=== PATIENT | female | born 1950 | race Caucasian/White ===

== ENCOUNTER 2022-04-29 07:20 | Day surgery (SDC) | payer MEDICARE, OTHER, SELFPAY ==
[2022-04-29 07:50] VITALS: BP 168/69; PULSE 70; RESP 16; TEMP 36.4; O2SAT 97; BMI 31.3
[2022-04-29 08:29] LABS: INTERNATIONAL NORM RATIO 1.2 (0.9-1.1); Prothrombin Time 14.1 SEC (10.0-13.1)
[2022-04-29] MEDS: Ampicillin Sodium 2 GM in 0.9 % Sodium Chloride 100 ML IV (08:45)
[2022-04-29 08:59] LABS: Glucose, Whole Blood 130 mg/dL (60-115)
--- NOTE | 2022-04-29 09:00 | HO.ANESPROP2 ---
HPI - Anesthesia Eval Consult details Narrative: for ho polyp PMFSH Active Problems Active Problems: All Active Problems (Updated 04/28/22 @ 11:01 by Noemi Rouse RN) Somatic dysfunction of left sacroiliac joint (Acute) Past Medical History Medical History (Updated 04/28/22 @ 11:01 by Noemi Rouse, SERENA) Asthma Breast cancer, left CHF (congestive heart failure) DM (diabetes mellitus) DVT (deep venous thrombosis) Kidney stones Pacemaker Uterine cancer Family History Family history of problems with anesthesia: No Surgical History Surgical History (Updated 04/28/22 @ 11:01 by Noemi Rouse, SERENA) Aortic valve prosthesis present History of lumpectomy of left breast History of total abdominal hysterectomy History of Problems with Anesthesia: No Social History Social History Patient Tobacco Use Status: Never used Tobacco Use of substances other than those prescribed or required for medical reasons: No Advance Directives: No Advance Directives Information Provided: Yes Recently lost weight without trying: No Meds Allergies Allergy/AdvReac Type Severity Reaction Status Date / Time adhesive tape Allergy Rash Verified 04/29/22 08:49 Active Medications: Current Medications Sodium Biphosphate/Sodium Phosphate (Sodium Phosphate,[place]-Dibasic 133 Ml Enema) 133 ml NE ONCE PRN PRN Reason: Poor Colonoscopy Prep Results Home Medications Medication Instructions Recorded Confirmed Last Taken Type fenofibrate nanocrystallized 145 145 mg PO DAILY 10/30/20 Unknown History mg tablet furosemide 20 mg tablet 20 mg PO PRN swelling 10/30/20 Unknown History hydrochlorothiazide 12.5 mg capsule 12.5 mg PO DAILY 10/30/20 Unknown History irbesartan 300 mg tablet 300 mg PO DAILY 10/30/20 Unknown History simvastatin 20 mg tablet 20 mg PO BEDTIME 10/30/20 Unknown History tavaborole 5 % topical solution 0.05 ml topical DAILY 10/30/20 Unknown History with applicator warfarin 2.5 mg tablet (Jantoven) mg PO 10/30/20 Unknown History albuterol sulfate 90 mcg/actuation inhalation 04/28/22 Unknown History aerosol inhaler enoxaparin 80 mg/0.8 mL mg 04/28/22 Unknown History subcutaneous syringe glucosamine sulfate 500 mg tablet 500 mg PO TID 04/28/22 04/28/22 Unknown History (Glucosamine) loratadine 10 mg tablet 10 mg PO DAILY 04/28/22 04/28/22 Unknown History omega 8-zxh-mma-fish oil 1,000 mg 1 cap PO DAILY 04/28/22 04/28/22 Unknown History (120 mg-180 mg) capsule (Fish Oil) warfarin 2.5 mg tablet (Jantoven) mg 04/28/22 Unknown History Exam Exam Date and Time: April 29, 2022 0900 Height,Weight and Vital Signs: Height 5 ft 3 in Weight 80.286 kg Last Vital Signs Temp 97.6 F 04/29/22 07:50 Pulse 70 04/29/22 07:50 Resp 16 04/29/22 07:50 BP 168/69 H 04/29/22 07:50 Pulse Ox 97 04/29/22 07:50 O2 Del Method 04/29/22 07:50 Pertinent Lab Results Pertinent Lab Results: Laboratory Tests 04/29/22 04/29/22 08:13 08:42 PT 14.1 H INR 1.2 H POC Glucose 130 H Airway Mallampati Class: II TM Dist: >3cm Neck ROM: Full Heart: rr Lungs: cta Assessment and Plan Assessment Anesthesia Assessment: Anesthesia Plan Discussed, Smoking Cess. Discussed and Chart Reviewed Final Anesthetic Review Family History of Problems with Anesthesia: No History of Problems with Anesthesia: No NPO: Yes ASA Class: II Final Preanesthetic Review: No Changes in Pt Med Stat, Meds/Allgs Chart Reviewed, Consent Obtained/Reviewed and Anes Risks/Benef Reviewed Patient Risk: Low Procedure Risk: Low Anesthetic Plan Anesthetic Plan: MAC: Disposition: Standard PACU
[2022-04-29] MEDS: Gentamicin Sulfate/NaCl 80 MG/100 ML PIGGYBACK 100 MG IV (09:03)
[2022-04-29 10:03] VITALS: BP 82/42; PULSE 67; RESP 16; TEMP 36.5; O2SAT 97
[2022-04-29 10:05] VITALS: BP 90/48; PULSE 63; RESP 16; O2SAT 98
--- NOTE | 2022-04-29 10:06 | P.BOP_ITS ---
Brief Operative Note Date of Service: 04/29/22 Pre-op diagnosis: Screening Post-op diagnosis: other (Diverticulosis) Procedure: Colonoscopy to the cecum and TI Surgeon: Giovanni Petersen Anesthesia: MAC Was an Diesel Locomotive Firer/Fireman used for this Procedure?: No Estimated blood loss (mL): 0 Pathology: none sent Condition: stable Disposition: PACU
[2022-04-29 10:17] VITALS: BP 105/48; PULSE 69; RESP 16; O2SAT 96
[2022-04-29 10:35] VITALS: BP 121/56; PULSE 63; RESP 16; TEMP 36.5; O2SAT 98
--- NOTE | 2022-04-29 10:51 | OP_ITS ---
SURGEON: Giovanni Petersen MD INDICATIONS: The patient presents for evaluation of colorectal cancer screening and prior history of tubular adenoma of the colon. Full consent has been obtained from her for this, including risks of bleeding and perforation. PREOPERATIVE DIAGNOSIS: Colorectal cancer screening and personal history of tubular adenoma of the colon. POSTOPERATIVE DIAGNOSIS: PROCEDURE PERFORMED: Colonoscopy to the cecum and terminal ileum. ESTIMATED BLOOD LOSS: COMPLICATIONS: ANESTHESIA: Monitored anesthesia care. ASSISTANTS: SPECIMENS: POSTOPERATIVE DIAGNOSES: Colorectal cancer screening and personal history of tubular adenoma of the colon, internal and external hemorrhoids, diverticulosis. PROCEDURE IN DETAIL: The patient was placed in the left lateral decubitus position. The digital rectal exam revealed external hemorrhoids. The Olympus video pediatric colonoscope was entered into the rectum and advanced easily to the cecum. Once in the cecum, I did identify a normal-appearing cecal pouch with appendiceal orifice and a normal-appearing ileocecal valve. The terminal ileum was cannulated and appeared normal. The scope was withdrawn back in the colon. The entire cecum and ileocecal valve appeared normal. The scope was slowly withdrawn assessing all mucosal surfaces carefully. Preparation was excellent. There was a moderate amount of sigmoid diverticulosis. I did not visualize any sign of colitis, polyps, nor angiodysplasia. In the rectum, the scope was retroflexed visualizing small internal hemorrhoids, but no other pathology. The rectal mucosa appeared normal. The scope was straightened and withdrawn from the patient. She tolerated the procedure well and was returned to the recovery area in stable condition. IMPRESSION: 1. Diverticulosis. 2. Internal and external hemorrhoids. PLAN: I would recommend a repeat colonoscopy in 5 years for further screening and surveillance. She will otherwise see me on a p.r.n. basis. She did receive preprocedure antibiotics in regard to her aortic valve replacement and previous history of endocarditis. She was advised to resume her Coumadin and Lovenox today as her INR was normal. She was advised to speak with either the anticoagulation clinic or her primary care physician regarding adjustment of the Coumadin and Lovenox. This has all been discussed with her . MD KATIA Cruz/CECILIO / [id number]
== END 2022-04-29 10:55 | disposition home or self-care (01) ==
PROVIDERS: PCP Physician Assistant Medical; Visit Provider Internal Medicine
PROC: 0DJD8ZZ Inspection of Lower Intestinal Tract, Via Natural or Artificial Opening Endoscopic (ICD-10-PCS; CPT 45378; principal; 2022-04-29 09:00)
DX: Z12.11 Encounter for screening for malignant neoplasm of colon (principal); Z86.010 Personal history of colon polyps; K57.30 Diverticulosis of large intestine without perforation or abscess without bleeding; K64.8 Other hemorrhoids; K64.4 Residual hemorrhoidal skin tags; J45.909 Unspecified asthma, uncomplicated; I11.0 Hypertensive heart disease with heart failure; I50.9 Heart failure, unspecified; Z95.2 Presence of prosthetic heart valve; E11.9 Type 2 diabetes mellitus without complications; Z79.51 Long term (current) use of inhaled steroids; Z79.899 Other long term (current) drug therapy; Z85.3 Personal history of malignant neoplasm of breast; Z85.42 Personal history of malignant neoplasm of other parts of uterus; Z86.718 Personal history of other venous thrombosis and embolism
CPT/HCPCS: G0105; 36415; 82947; 85610; J0290; J1580

== ENCOUNTER 2022-06-21 13:40 | Emergency (ER) | payer MEDICARE, OTHER, SELFPAY ==
--- NOTE | ~2022-06-21 | CT_ITS ---
EXAMINATION: CT brain and CT cervical spine without contrast. CLINICAL INDICATIONS: Fall and head strike. TECHNIQUE: 5 mm thin axial and reformatted 2 mm thin sagittal and coronal images of brain were obtained without contrast. Subsequently axial 3 mm thin and reformatted 2 mm thin sagittal and coronal images of cervical spine were obtained without contrast. DLP [id number]. This CT examination was performed using dose optimization technique as appropriate, variously including the following: Automated exposure control Adjustment of MA and/or KV according to patient size(this includes techniques or standardized protocols for targeted exams where dose is matched to indication/reason for exam; extremities or head. Use of iterative reconstruction techniques. FINDINGS: Brain: There is no acute intra-axial, extra-axial bleed, masses or midline shift. 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 There is no edema. Jeronimo to moderate matter difference is maintained normal. The lateral ventricles are symmetrical and unremarkable. Bone windows reveal no calvarial abnormality. No scalp soft tissue abnormality seen. Bilateral paranasal sinuses and mastoid air cells are well-aerated. Cervical spine: There is mild thinning of cervical lordosis. There is loss of C5-C6 and C7-T1 disc heights. The craniovertebral junction and the C1-C2 alignment is normal. No visible acute fracture, dislocation or subluxation seen. There is bilateral C3-C4, left C4-C5 and C5-C6 facet joint arthropathy. Mild cervical spondylosis seen at the C5-C6, C6-C7 and C7-T1 disc levels. The craniovertebral junction and the C1-C2 alignment is normal. CT/CT cervical spine wo IV con IMPRESSION: 1. No acute intracranial process seen. 2. 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 3. No acute fracture, dislocation or subluxation seen in cervical spine. 4. Degenerative disc changes C5-C6 and C7-T1 disc levels with mild spondylosis.
--- NOTE | 2022-06-21 13:48 | ED.HEATRA ---
HPI - Head Injury General Chief complaint: Fall <KRYSTEN Motley - Last Filed: 06/21/22 13:51> Stated complaint: Fall/Hit head on coumadin <KRYSTEN Motley - Last Filed: 06/21/22 13:51> Time Seen by Provider: 06/21/22 16:28 <KRYSTEN Motley - Last Filed: 06/21/22 13:51> Source: patient <Lali Ugalde MD - Last Filed: 06/21/22 17:17> Mode of arrival: ambulatory <Lali Ugalde MD - Last Filed: 06/21/22 17:17> History of Present Illness HPI Narrative: 71-year-old female who is on Coumadin for heart valve and DVT comes in for scans of head after she fell on Monday while in [place]. She did hit her head and states that she broke her glasses but denies any loss of consciousness. She reports that she tripped while carrying the ham. Today she states that she was encouraged to follow-up at the ER by her primary care provider but denies any concerns and denies any family concerns for any speech, ambulation or interaction deficits. <Lali Ugalde MD - Last Filed: 06/21/22 17:17> Related Data Home medications: Home Medications Medication Instructions Recorded Confirmed fenofibrate nanocrystallized 145 145 mg PO DAILY 10/30/20 mg tablet furosemide 20 mg tablet 20 mg PO PRN swelling 10/30/20 hydrochlorothiazide 12.5 mg capsule 12.5 mg PO DAILY 10/30/20 irbesartan 300 mg tablet 300 mg PO DAILY 10/30/20 simvastatin 20 mg tablet 20 mg PO BEDTIME 10/30/20 tavaborole 5 % topical solution 0.05 ml topical DAILY 10/30/20 with applicator warfarin 2.5 mg tablet (Jantoven) mg PO 10/30/20 albuterol sulfate 90 mcg/actuation inhalation 04/28/22 aerosol inhaler enoxaparin 80 mg/0.8 mL mg 04/28/22 subcutaneous syringe glucosamine sulfate 500 mg tablet 500 mg PO TID 04/28/22 04/28/22 (Glucosamine) loratadine 10 mg tablet 10 mg PO DAILY 04/28/22 04/28/22 omega 7-quu-yri-fish oil 1,000 mg 1 cap PO DAILY 04/28/22 04/28/22 (120 mg-180 mg) capsule (Fish Oil) warfarin 2.5 mg tablet (Jantoven) mg 04/28/22 Previous Rx's Medication Instructions Recorded prednisone 20 mg tablet 20 mg PO .COMPLEX #18 tabs 10/30/20 <KRYSTEN Motley - Last Filed: 06/21/22 13:51> Allergies/Adverse reactions: Allergies Allergy/AdvReac Type Severity Reaction Status Date / Time adhesive tape Allergy Rash Verified 04/29/22 08:49 <KRYSTEN Motley - Last Filed: 06/21/22 13:51> Review of Systems Review of Systems: Pertinent positives and negatives as stated in HPI <Lali Ugalde MD - Last Filed: 06/21/22 17:17> [facility] Past Medical History Source: nursing notes reviewed <Lali Ugalde MD - Last Filed: 06/21/22 17:17> Medical History: Medical History Asthma Breast cancer, left CHF (congestive heart failure) DM (diabetes mellitus) DVT (deep venous thrombosis) Kidney stones Pacemaker Uterine cancer <KRYSTEN Motley - Last Filed: 06/21/22 13:51> Surgical History: Surgical History Aortic valve prosthesis present History of lumpectomy of left breast History of total abdominal hysterectomy <KRYSTEN Motley - Last Filed: 06/21/22 13:51> Social History Social History: Social History Patient Tobacco Use Status: Never used Tobacco Advance Directives: No Advance Directives Information Provided: Yes <KRYSTEN Motley - Last Filed: 06/21/22 13:51> Physical Exam Vital Signs: Vital Signs: Last Vital Signs Temp 98 F 06/21/22 13:49 Pulse 65 06/21/22 13:49 Resp 18 06/21/22 13:49 BP 185/76 H 06/21/22 13:49 Pulse Ox 98 06/21/22 13:49 O2 Del Method Room Air 06/21/22 13:49 BMI result Body Mass Index 30.2 <KRYSTEN Motley - Last Filed: 06/21/22 13:51> Vital Signs: Last Vital Signs Temp 98 F 06/21/22 13:49 Pulse 65 06/21/22 13:49 Resp 18 06/21/22 13:49 BP 185/76 H 06/21/22 13:49 Pulse Ox 98 06/21/22 13:49 O2 Del Method Room Air 06/21/22 13:49 BMI result Body Mass Index 30.2 VITAL SIGNS: Reviewed. GENERAL: Well developed, well nourished, in no acute distress. HEAD: Normocephalic/atraumatic, tenderness to palpation to the left parietal but no obvious contusions/hematoma EYES: PERRLA, EOMI EARS: Ext canals without abnormality OROPHARYNX: no oral lesions noted, posterior pharynx clear NECK: Supple, no adenopathy LUNGS: Normal breath sounds. No adventitious sounds or accessory muscle use. SpO2<98> CARDIOVASCULAR: Regular rate and rhythm without noted murmurs ABDOMEN: Soft, non-tender, non-distended with bowel sounds. MUSCULOSKELETAL: No tenderness, deformities, or effusions noted on gross inspection. EXTREMITIES: No cyanosis, clubbing or edema. SKIN: Inspection of the skin reveals no rashes, small bruise to inner aspect of right upper extremity, small bruises to bilateral knees NEUROLOGIC: Alert and oriented x 4. Strength and sensation to light touch were grossly intact x 4, no facial asymmetry, no pronator drift, cranial nerves 2-12 are grossly intact, ambulation without ataxia. 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 No LOC. Denies GÓMEZ, N/V, weakness HTNsive, NAD, ambulating w/steady gait Head/C-spine CT ordered <KRYSTEN Motley - Last Filed: 06/21/22 13:51> Medical Decision Making Medical Decision Making MDM Narrative: 71-year-old female with history and clinical presentation for request of imaging studies due to a fall sustained 2 days ago while on chronic anticoagulation. There are no focal deficits there are no concerns for hematomas, expanding hematomas or significant contusions. I reviewed all imaging studies in my interpretation is in agreement with radiology's impression. All results discussed with patient at bedside she was discharged home. <Lali Ugalde MD - Last Filed: 06/21/22 17:17> Differential Diagnosis Please see the discussion above <Lali Ugalde MD - Last Filed: 06/21/22 17:17> Radiology Impression Radiologist Impression: My interpretation is in agreement with radiology's impression of the imaging studies. <Lali Ugalde MD - Last Filed: 06/21/22 17:17> External Record Review External record reviewed: Prior outpatient labs <Lali Ugalde MD - Last Filed: 06/21/22 17:17> Discharge Plan Discharge Clinical Impression: Fall, Chronic anticoagulation <KRYSTEN Motley - Last Filed: 06/21/22 13:51> Patient Disposition: Home, Self-Care <KRYSTEN Motley - Last Filed: 06/21/22 13:51> Instructions: Fall Prevention for Older Adults (ED) <KRYSTEN Motley - Last Filed: 06/21/22 13:51> Additional Instructions: 1. Resume all home medications. 2. Please follow-up with your primary care provider. Do not hesitate to return to the emergency room should you experience headaches, double/blurry vision, weakness on 1 side of your body or slurred speech. <KRYSTEN Motley - Last Filed: 06/21/22 13:51> Prescriptions: No Action warfarin [Jantoven] 2.5 mg tablet glucosamine sulfate [Glucosamine] 500 mg Tablet 500 mg PO TID Rx Instructions: administer with meals albuterol sulfate 90 mcg/actuation HFA aerosol inhaler INHALATION loratadine 10 mg Tablet 10 mg PO DAILY enoxaparin 80 mg/0.8 mL syringe omega 1-wnc-xxk-fish oil [Fish Oil] 1,000 mg (120 mg-180 mg) Capsule 1 cap PO DAILY prednisone 20 mg tablet 20 mg PO .COMPLEX Qty: 18 0RF Rx Instructions: 20 mg PO 3 p.o. daily for 3 days followed by 2 p.o. daily for 3 days followed by 1 p.o. daily for 3 days; <KRYSTEN Motley - Last Filed: 06/21/22 13:51> Referrals: Josue Crain PA [Primary Care Provider] - <KRYSTEN Motley - Last Filed: 06/21/22 13:51>
[2022-06-21 13:49] VITALS: BP 185/76; PULSE 65; RESP 18; TEMP 36.6; O2SAT 98; BMI 30.2
[2022-06-21 17:21] VITALS: BP 158/67; PULSE 71; RESP 16; TEMP 36.6; O2SAT 97
== END 2022-06-21 17:30 | disposition home or self-care (01) ==
PROVIDERS: Emergency Provider Student in an Organized Health Care Education/Training Program; PCP Physician Assistant Medical
DX: S00.93XA Contusion of unspecified part of head, initial encounter (principal); R51.9 Headache, unspecified; M54.2 Cervicalgia; W01.0XXA Fall on same level from slipping, tripping and stumbling without subsequent striking against object, initial encounter; Y93.9 Activity, unspecified; Y92.9 Unspecified place or not applicable; Y99.9 Unspecified external cause status; Z79.899 Other long term (current) drug therapy; Z79.01 Long term (current) use of anticoagulants
CPT/HCPCS: 70450; 72125; 99284

== ENCOUNTER 2024-09-08 18:40 | Inpatient (IN) | payer MEDICARE, OTHER, SELFPAY ==
--- NOTE | ~2024-09-08 | CT_ITS ---
CLINICAL HISTORY: tachycardic, sob, hx PEs CT angiography chest with contrast. 3D Postprocessing. Comparison: None provided Findings: The heart size is enlarged. RV/LV ratio is normal. No pericardial effusion previous sternotomy. Mild atherosclerotic vascular disease with no aneurysm of the thoracic aorta. No acute pulmonary embolus. Bilateral ground-glass opacities and interstitial thickening. No consolidation, pleural effusion or pneumothorax. Thyroid partially imaged. Thoracic esophagus within normal limits. The visualized upper abdomen no acute process No acute fractures. diffuse demineralization and multilevel degenerative changes of the thoracic spine. IMPRESSION: 1. No pulmonary embolus. 2. Cardiomegaly with ground-glass opacities and interstitial thickening, correlate clinically for congestive heart failure. This document has been electronically signed by: Arti Rios MD on 09/09/2024 00:22:49
--- NOTE | ~2024-09-08 | XR_ITS ---
CLINICAL HISTORY: cough, fever r o PNA 2 view chest x-ray Comparison: None provided Findings: The heart is borderline enlarged. Left-sided dual lead ICD. Previous sternotomy. Bilateral interstitial thickening. No consolidation, pleural effusion or pneumothorax. No acute fracture. Degenerative changes of the thoracic spine. IMPRESSION: 1. Borderline cardiac enlargement and bilateral mild interstitial thickening may represent low-grade congestive heart failure. Correlate clinically. This document has been electronically signed by: Arit Rios MD on 09/08/2024 19:57:12
[2024-09-08 18:47] VITALS: BP 117/55; PULSE 107; RESP 16; TEMP 38.1; O2SAT 92; BMI 30.5
--- NOTE | 2024-09-08 18:48 | ED.GENADULT ---
HPI - General Adult General Chief complaint: Fever Stated complaint: low fever, dehydration Time Seen by Provider: 09/08/24 19:13 Related Data Home Medications ?Medication ?Instructions ?Recorded ?Confirmed fenofibrate nanocrystallized 145 145 mg PO BEDTIME 10/30/20 09/09/24 mg tablet furosemide 20 mg tablet 20 mg PO NEEDED PRN swelling 10/30/20 09/09/24 hydrochlorothiazide 12.5 mg capsule 12.5 mg PO DAILY 10/30/20 09/09/24 irbesartan 300 mg tablet 300 mg PO BEDTIME 10/30/20 09/09/24 simvastatin 20 mg tablet 20 mg PO BEDTIME 10/30/20 09/09/24 tavaborole 5 % topical solution 0.05 ml topical DAILY 10/30/20 with applicator warfarin 2.5 mg tablet (Jantoven) mg PO 10/30/20 albuterol sulfate 90 mcg/actuation inhalation 04/28/22 aerosol inhaler enoxaparin 80 mg/0.8 mL mg 04/28/22 subcutaneous syringe glucosamine sulfate 500 mg tablet 1,500 mg PO NEEDED PRN 04/28/22 09/09/24 (Glucosamine) arthritis pain loratadine 10 mg tablet 10 mg PO NEEDED PRN allergies 04/28/22 09/09/24 omega [id number] oil 1,000 mg 1 cap PO DAILY 04/28/22 09/09/24 (120 mg-180 mg) capsule (Fish Oil) warfarin 2.5 mg tablet (Jantoven) 2.5 mg 3XW 04/28/22 09/08/24 warfarin 2.5 mg tablet (Jantoven) 1.25 mg PO BEDTIME 09/09/24 09/09/24 Previous Rx's ?Medication ?Instructions ?Recorded prednisone 20 mg tablet 20 mg PO .COMPLEX #18 tabs 10/30/20 Allergies Allergy/AdvReac Type Severity Reaction Status Date / Time adhesive tape Allergy Rash Verified 09/08/24 18:53 [facility] Past Medical History Medical History Breast cancer, left Uterine cancer DVT (deep venous thrombosis) CHF (congestive heart failure) DM (diabetes mellitus) Kidney stones Asthma Pacemaker Surgical History Aortic valve prosthesis present History of lumpectomy of left breast History of total abdominal hysterectomy Social History Social History Alcohol intake: never Patient Tobacco Use Status: Never used Tobacco Smoked in Last 30 Days: No Use of substances other than those prescribed or required for medical reasons: No Advance Directives: No Advance Directives Information Provided: Yes Do you have a plan to hurt others: No Plan Physical Exam ED Vital Signs: Vital Signs - 24 hr 09/08/24 18:47 09/08/24 20:06 09/08/24 21:44 Temperature 100.6 F H 99.4 F 98.6 F Pulse Rate 107 H 94 84 Respiratory Rate 16 22 H 25 H Blood Pressure 117/55 L 125/52 L 123/53 L Pulse Oximetry 92 92 96 Oxygen Delivery Method Room Air Nasal Cannula Nasal Cannula Oxygen Flow Rate 2 2 09/09/24 00:27 Temperature 98.6 F Pulse Rate 86 Respiratory Rate 20 Blood Pressure 108/48 L Pulse Oximetry 92 Oxygen Delivery Method Nasal Cannula Oxygen Flow Rate 2 BMI result Body Mass Index 30.5 Course Course Course Narrative: 09/08/24 1848 KRYSTEN Mckeon This is a Rapid Medical Examination (RME) performed by Jovany Hills PA-C in triage. Full HPI, ROS, assessment and treatment plan per primary provider in the Main ED. Hx: 73 yo F hx of aortic valve replacement, pacemaker, on coumadin here for eval of cough, fever, and feeling of being dehydrated/ generally weak. TMAX 104F 2 days ago. took tylenol early this morning. no N/V, SOB. no hx asthma or copd. no O2 at home. normal BM this morning. no urinary sx. PE/vitals: satting 90% on RA, tylenol ordered for temp of 100.6F. Plan: labs, ekg, cxr, UA Medications Administered Discontinued Medications Generic Name Dose Route Start Last Admin Trade Name Freq PRN Reason Stop Dose Admin Acetaminophen 975 mg 09/08/24 18:51 09/08/24 18:54 Acetaminophen 325 Mg Tablet PO 09/08/24 18:52 975 mg ONCE ONE Administration Ceftriaxone Sodium 1 gm 09/08/24 19:40 09/08/24 20:04 Ceftriaxone Sodium 1 Gm Vial IVPUSH 09/08/24 19:41 1 gm ONCE ONE Administration Sodium Chloride 2,000 mls @ 999 mls/hr 09/08/24 19:40 09/09/24 00:10 Ns IVCONT 09/08/24 21:40 Infused .Q2H1M ONE Infusion Azithromycin 500 mg/ Sodium 250 mls @ 125 mls/hr 09/08/24 19:40 09/08/24 23:22 Chloride IV 09/08/24 21:39 Infused ONCE ONE Infusion Insulin Human Regular 10 unit 09/08/24 20:52 09/08/24 21:41 Insulin Regular, Human 100 Unit/Ml 10 Ml Vial IVPUSH 09/08/24 20:53 10 unit ONCE ONE Administration Iohexol 65 ml 09/08/24 22:57 09/08/24 22:57 Iohexol 350 Mg/Ml 100 Ml Infus..Btl IV 09/08/24 22:58 65 ml ONCE ONE Administration Medical Decision Making Medical Decision Making MDM Narrative: my interpretation of EKG: atrial sensed ventricular paced rhythm, heart rate 104., left bundle-branch block my interpretation of labs: No significant abnormality in patient's hematology, patient's chemistry shows a glucose of 608, sodium 131 likely secondary to the elevated glucose. INR is 6.7 . Lactic acid within normal limits, BNP 128 patient's urinalysis negative for UTI. Serology negative for influenza RSV and COVID CT negative for PE, ground-glass opacities with interstitial thickening. She has no signs of CHF. However, patient is coughing quite a bit. Likely viral illness. Patient's oxygen saturation drops to 84% on room air. Patient is on 2 L of oxygen Differential Diagnosis Differential Diagnoses: The differential diagnosis associated with the presentation includes ( pneumonia, COVID, RSV, pulmonary embolism, CHF) Admission/Observation Consideration of admission/observation: Escalation of care including admission/observation considered Consult Healthcare Provider Management of the patient was discussed with: Hospitalist Lab Data MDM Lab Attestation statement: I reviewed the patient's lab results. 09/08/24 19:22 09/08/24 19:22 Labs: Lab Results 09/08/24 09/08/24 09/08/24 Range/Units 19:22 19:22 19:22 WBC 9.9 (4.8-10.8) X10*3/uL RBC 4.14 L (4.20-5.50) X10*6/uL Hgb 11.9 L (12.0-16.0) g/dl Hct 34.7 L (37.0-47.0) % MCV 83.8 (80.0-98.0) fL MCH 28.7 (27.0-33.0) pg MCHC 34.3 (31.0-35.0) g/dl RDW 14.4 (11.0-16.0) % Plt Count 183 (160-400) X10*3/uL MPV 11.4 (9.4-12.3) fL Immature Gran % (Auto) 0.5 H (0.0-0.4) % Neut % (Auto) 85.8 H (45-73) % Lymph % (Auto) 5.3 L (20-40) % [place] % (Auto) 8.0 (2-11) % Eos % (Auto) 0.1 (0-4) % Baso % (Auto) 0.3 (0-2) % Lymph # (Auto) 0.5 L (1.2-4.9) X10*3/uL [place] # (Auto) 0.8 (0.1-1.2) X10*3/uL Eos # (Auto) 0.0 (0.0-0.4) X10*3/uL Baso # (Auto) 0.0 (0.0-0.2) X10*3/uL Abs Immat Gran (auto) 0.05 H (0.00-0.03) X10*3/uL Absolute Neuts (auto) 8.5 H (2.0-8.3) x10*3/uL Absolute Nucleated RBC 0.000 (0.0-0.012) X10*3/uL Nucleated RBC % (auto) 0.0 (0.0-0.2) /100WBC PT (10.9-12.4) SEC INR (0.9-1.1) Hold Blue Top SEE NOTE Sodium 131 L (135-145) mmol/L Potassium 3.7 (3.3-5.1) mmol/L Chloride 91 L (96-108) mmol/L Carbon Dioxide 28 (22-29) mmol/L Anion Gap 16 (12-20) BUN 29 H (9-16) mg/dL Creatinine 0.76 (0.5-1.4) mg/dL Estim Creat Clear Calc 64.3 Estimated GFR > 60 POC Glucose (60-115) mg/dL Random Glucose 608 H* (60-115) mg/dL Lactic Acid (0.5-2.0) mmol/L Calcium 10.3 H (8.4-10.2) mg/dL Magnesium 1.8 (1.6-2.6) mg/dL Total Bilirubin 0.5 (0.0-1.0) mg/dL AST 49 H (5-31) U/L ALT 38 H (0-31) U/L Alkaline Phosphatase 72 (39-117) U/L Troponin I High Sens 14.4 (<3.5-17.0) ng/L B-Natriuretic Peptide (<100) pg/mL Total Protein 7.4 (6.5-8.0) g/dL Albumin 3.8 (3.5-5.0) g/dL Lipase 44 (8-78) U/L Urine Color Yellow Urine Appearance Clear Urine pH 5.5 (5.0-9.0) Ur Specific [place] >= 1.030 H (1.005-1.025) Urine Protein 30 (1+) H (Neg-Trace) mg/dL Urine Glucose (UA) >=1000 H (Negative) mg/dL Urine Ketones Negative (Negative) mg/dL Urine Blood Trace H (Negative) Urine Nitrite Negative (Negative) Ur Leukocyte Esterase Negative (Negative) Urine RBC 0-2 (0-2) /HPF Urine WBC 0-5 (0-5) /HPF Ur Squamous Epith Cells 0-2 (0-2) /HPF Urine Bacteria None Seen (None Seen) Hyaline Casts 0-2 (0-2) /LPF Influenza Type A (PCR) Cancelled NEGATIVE Influenza Type B (PCR) Cancelled NEGATIVE RSV RNA Qual (PCR) Cancelled SARS-CoV-2 RNA (RT-PCR) 09/08/24 09/08/24 09/08/24 Range/Units 19:22 19:22 19:57 WBC (4.8-10.8) X10*3/uL RBC (4.20-5.50) X10*6/uL Hgb (12.0-16.0) g/dl Hct (37.0-47.0) % MCV (80.0-98.0) fL MCH (27.0-33.0) pg MCHC (31.0-35.0) g/dl RDW (11.0-16.0) % Plt Count (160-400) X10*3/uL MPV (9.4-12.3) fL Immature Gran % (Auto) (0.0-0.4) % Neut % (Auto) (45-73) % Lymph % (Auto) (20-40) % [place] % (Auto) (2-11) % Eos % (Auto) (0-4) % Baso % (Auto) (0-2) % Lymph # (Auto) (1.2-4.9) X10*3/uL [place] # (Auto) (0.1-1.2) X10*3/uL Eos # (Auto) (0.0-0.4) X10*3/uL Baso # (Auto) (0.0-0.2) X10*3/uL Abs Immat Gran (auto) (0.00-0.03) X10*3/uL Absolute Neuts (auto) (2.0-8.3) x10*3/uL Absolute Nucleated RBC (0.0-0.012) X10*3/uL Nucleated RBC % (auto) (0.0-0.2) /100WBC PT (10.9-12.4) SEC INR (0.9-1.1) Hold Blue Top Sodium (135-145) mmol/L Potassium (3.3-5.1) mmol/L Chloride (96-108) mmol/L Carbon Dioxide (22-29) mmol/L Anion Gap (12-20) BUN (9-16) mg/dL Creatinine (0.5-1.4) mg/dL Estim Creat Clear Calc Estimated GFR POC Glucose (60-115) mg/dL Random Glucose (60-115) mg/dL Lactic Acid 1.4 (0.5-2.0) mmol/L Calcium (8.4-10.2) mg/dL Magnesium (1.6-2.6) mg/dL Total Bilirubin (0.0-1.0) mg/dL AST (5-31) U/L ALT (0-31) U/L Alkaline Phosphatase (39-117) U/L Troponin I High Sens (<3.5-17.0) ng/L B-Natriuretic Peptide (<100) pg/mL Total Protein (6.5-8.0) g/dL Albumin (3.5-5.0) g/dL Lipase (8-78) U/L Urine Color Urine Appearance Urine pH (5.0-9.0) Ur Specific [place] (1.005-1.025) Urine Protein (Neg-Trace) mg/dL Urine Glucose (UA) (Negative) mg/dL Urine Ketones (Negative) mg/dL Urine Blood (Negative) Urine Nitrite (Negative) Ur Leukocyte Esterase (Negative) Urine RBC (0-2) /HPF Urine WBC (0-5) /HPF Ur Squamous Epith Cells (0-2) /HPF Urine Bacteria (None Seen) Hyaline Casts (0-2) /LPF Influenza Type A (PCR) Influenza Type B (PCR) RSV RNA Qual (PCR) NEGATIVE SARS-CoV-2 RNA (RT-PCR) Cancelled NEGATIVE 09/08/24 09/08/24 09/08/24 Range/Units 19:58 23:19 23:52 WBC (4.8-10.8) X10*3/uL RBC (4.20-5.50) X10*6/uL Hgb (12.0-16.0) g/dl Hct (37.0-47.0) % MCV (80.0-98.0) fL MCH (27.0-33.0) pg MCHC (31.0-35.0) g/dl RDW (11.0-16.0) % Plt Count (160-400) X10*3/uL MPV (9.4-12.3) fL Immature Gran % (Auto) (0.0-0.4) % Neut % (Auto) (45-73) % Lymph % (Auto) (20-40) % [place] % (Auto) (2-11) % Eos % (Auto) (0-4) % Baso % (Auto) (0-2) % Lymph # (Auto) (1.2-4.9) X10*3/uL [place] # (Auto) (0.1-1.2) X10*3/uL Eos # (Auto) (0.0-0.4) X10*3/uL Baso # (Auto) (0.0-0.2) X10*3/uL Abs Immat Gran (auto) (0.00-0.03) X10*3/uL Absolute Neuts (auto) (2.0-8.3) x10*3/uL Absolute Nucleated RBC (0.0-0.012) X10*3/uL Nucleated RBC % (auto) (0.0-0.2) /100WBC PT 77.1 H (10.9-12.4) SEC INR 6.7 H* D (0.9-1.1) Hold Blue Top Sodium (135-145) mmol/L Potassium (3.3-5.1) mmol/L Chloride (96-108) mmol/L Carbon Dioxide (22-29) mmol/L Anion Gap (12-20) BUN (9-16) mg/dL Creatinine (0.5-1.4) mg/dL Estim Creat Clear Calc Estimated GFR POC Glucose 270 H (60-115) mg/dL Random Glucose (60-115) mg/dL Lactic Acid (0.5-2.0) mmol/L Calcium (8.4-10.2) mg/dL Magnesium (1.6-2.6) mg/dL Total Bilirubin (0.0-1.0) mg/dL AST (5-31) U/L ALT (0-31) U/L Alkaline Phosphatase (39-117) U/L Troponin I High Sens (<3.5-17.0) ng/L B-Natriuretic Peptide 128 H (<100) pg/mL Total Protein (6.5-8.0) g/dL Albumin (3.5-5.0) g/dL Lipase (8-78) U/L Urine Color Urine Appearance Urine pH (5.0-9.0) Ur Specific [place] (1.005-1.025) Urine Protein (Neg-Trace) mg/dL Urine Glucose (UA) (Negative) mg/dL Urine Ketones (Negative) mg/dL Urine Blood (Negative) Urine Nitrite (Negative) Ur Leukocyte Esterase (Negative) Urine RBC (0-2) /HPF Urine WBC (0-5) /HPF Ur Squamous Epith Cells (0-2) /HPF Urine Bacteria (None Seen) Hyaline Casts (0-2) /LPF Influenza Type A (PCR) Influenza Type B (PCR) RSV RNA Qual (PCR) SARS-CoV-2 RNA (RT-PCR) Independent Interpretation I performed an independent interpretation of an: Plain X-Ray and CT Scan Radiology Impression Discussion of test interpretation with radiology: I have reviewed the radiologist's reading. Radiologist Impression: The heart size is enlarged. RV/LV ratio is normal. No pericardial effusion previous sternotomy. Mild atherosclerotic vascular disease with no aneurysm of the thoracic aorta. No acute pulmonary embolus. Bilateral ground-glass opacities and interstitial thickening. No consolidation, pleural effusion or pneumothorax. Thyroid partially imaged. Thoracic esophagus within normal limits. The visualized upper abdomen no acute process No acute fractures. diffuse demineralization and multilevel degenerative changes of the thoracic spine. IMPRESSION: 1. No pulmonary embolus. 2. Cardiomegaly with ground-glass opacities and interstitial thickening, correlate clinically for congestive heart failure. Independent Historian Clinical information obtained from an independent historian. History obtained from or confirmed by: Spouse Critical Care Time Critical Care Time Critical Care Time: Yes Total Critical Care Time: 60 Attestation: I have personally provided critical care time. Time includes review of lab data, radiology results, discussion with consultants, and monitoring for potential decompensation. Intervention performed as documented. Discharge Plan Discharge Clinical Impression: Acute hyperglycemia, Pneumonia Patient Disposition: Admitted As Inpatient Print Language: Polish
--- NOTE | 2024-09-08 18:50 | ECG_ITS ---
Test Reason : weakness Blood Pressure : */* mmHG Vent. Rate : 104 BPM Atrial Rate : 104 BPM P-R Int : 176 ms QRS Dur : 158 ms QT Int : 376 ms P-R-T Axes : 11 -62 112 degrees QTcB Int : 494 ms Atrial-sensed ventricular-paced rhythm Abnormal ECG When compared with ECG of 15-Jul-2016 08:22, Electronic ventricular pacemaker has replaced Sinus rhythm Vent. rate has increased by 63 bpm Referred By: Lupe Hills Electronically Signed By: LAST PATEL MD
[2024-09-08 19:29] LABS: MANUAL DIFF FLAG NO
[2024-09-08 19:31] LABS: Hematocrit 34.7 % (37.0-47.0); Hemoglobin 11.9 g/dl (12.0-16.0); Imm Gran Abs Auto 0.05 X10*3/uL (0.00-0.03); Imm Gran Pct Auto 0.5 % (0.0-0.4); Lymphocytes Absolute Auto 0.5 X10*3/uL (1.2-4.9); Mean Corpuscular HGB Conc 34.3 g/dl (31.0-35.0); Mean Corpuscular Hemoglobin 28.7 pg (27.0-33.0); Mean Corpuscular Volume 83.8 fL (80.0-98.0); NRBC Abs Auto 0.000 X10*3/uL (0.0-0.012); NRBC Pct Auto 0.0 /100WBC (0.0-0.2); Platelet Count 183 X10*3/uL (160-400); Red Blood Count 4.14 X10*6/uL (4.20-5.50); White Blood Count 9.9 X10*3/uL (4.8-10.8)
[2024-09-08 19:34] LABS: Appearance Urine Clear; Glucose Urine UA >=1000 mg/dL (Negative); PH 5.5 (5.0-9.0); Specific Gravity - Urine >= 1.030 (1.005-1.025); UMIC TRIGGER UACC YES
--- NOTE | 2024-09-08 19:45 | ED.FEVER ---
HPI - Fever General Chief Complaint: Fever Stated Complaint: low fever, dehydration Time Seen by Provider: 09/08/24 19:13 Source: patient and family Mode of arrival: ambulatory Limitations: no limitations History of Present Illness ED Provider: Dr. Vianey Ríos HPI Narrative: Patient comes to the emergency room complaining of feeling dehydrated for about a week. Patient states she has been doing some yd work. Also, patient states that for the last few days she has been having fever at home, dry cough, complaining of weakness and fatigue. Denies chest pain but does have shortness of breath with exertion. Denies any lower extremity edema. Patient denies any history of COPD, admits that she has asthma that usually responds well to her inhalers, no history of CHF. Patient denies any abdominal pain, no urinary symptoms. Related Data Home Medications ?Medication ?Instructions ?Recorded ?Confirmed fenofibrate nanocrystallized 145 145 mg PO BEDTIME 10/30/20 09/09/24 mg tablet furosemide 20 mg tablet 20 mg PO NEEDED PRN swelling 10/30/20 09/09/24 irbesartan 300 mg tablet 300 mg PO BEDTIME 10/30/20 09/09/24 simvastatin 20 mg tablet 20 mg PO BEDTIME 10/30/20 09/09/24 tavaborole 5 % topical solution 0.05 ml topical DAILY 10/30/20 09/09/24 with applicator albuterol sulfate 90 mcg/actuation 2 inh inhalation Q4H PRN Wheezing 04/28/22 09/09/24 aerosol inhaler glucosamine sulfate 500 mg tablet 1,500 mg PO NEEDED PRN 04/28/22 09/09/24 (Glucosamine) arthritis pain loratadine 10 mg tablet 10 mg PO NEEDED PRN allergies 04/28/22 09/09/24 omega 9-bwz-ipy-fish oil 1,000 mg 1 cap PO DAILY 04/28/22 09/09/24 (120 mg-180 mg) capsule (Fish Oil) warfarin 2.5 mg tablet (Jantoven) 2.5 mg MOWEFR@1800 04/28/22 09/09/24 acetaminophen 650 mg 650 mg PO Q8H PRN arthritis 09/09/24 09/09/24 tablet,extended release cyanocobalamin (vitamin B-12) 50 50 mcg PO DAILY 06/30/25 06/30/25 mcg tablet (Vitamin B-12) eviqidpx-ick-aeywc acid 0.4 1 tab PO DAILY 09/09/24 09/09/24 mg-lycopene 300 mcg-lutein 250 mcg tablet (Centrum Silver) warfarin 2.5 mg tablet (Jantoven) 1.25 mg PO SUTUTHSA@1800 09/09/24 09/09/24 Previous Rx's ?Medication ?Instructions ?Recorded alcohol swabs 1 pad topical QIDACHS #100 ea 09/18/24 blood sugar diagnostic (FreeStyle #100 ea 09/18/24 Lite Strips) blood-glucose meter (FreeStyle #1 ea 09/18/24 Lite Meter kit) daptomycin 500 mg/50 mL in 0.9 % 500 mg (50 mL) IV DAILY 36 doses 09/18/24 sodium chloride intravenous piggyback insulin glargine 100 unit/mL (3 15 unit (0.15 mL) subcut DAILY #15 09/18/24 mL) subcutaneous pen (Lantus mL Solostar U-100 Insulin) insulin lispro 100 unit/mL 1 sliding scale dose subcut 09/18/24 subcutaneous pen (Humalog KwikPen QIDACHS 40 units #15 mL (U-100) Insulin) lancets 28 gauge (FreeStyle #100 ea 09/18/24 Lancets) lancets 28 gauge (FreeStyle #100 ea 09/18/24 Lancets) pen needle, diabetic 32 gauge x #100 ea 09/18/2403/16 Allergies Allergy/AdvReac Type Severity Reaction Status Date / Time adhesive tape Allergy Rash Verified 09/08/24 18:53 Review of Systems Review of Systems: Constitutional : No Weight loss, Patient complaining of fever, general malaise ENT/Mouth : No Hearing loss, No Ear Pain, No Nasal Congestion, No Sinus Pain, No Hoarseness, No sore throat, No Rhinorrhea, No Swallowing Difficulty Eyes: No Eye Pain, No Swelling, No Redness, No Foreign Body, No Discharge, No Vision Changes Cardiovascular : No Chest Pain, complaining of dyspnea on exertion, no orthopnea, no lower extremity edema, no palpitations Respiratory : complaining of dry Cough, No Sputum, No Wheezing, No Smoke Exposure, complaining of dyspnea on exertion Gastrointestinal : No Nausea, No Vomiting, No Diarrhea, No Constipation, No abdominal Pain, No Hematochezia, No Melena Genitourinary : no irregular bleeding, No Dysuria, No Urinary Frequency, No Hematuria, No Urinary Incontinence, No Urgency, No Flank Pain, No Urinary Flow Changes, No Hesitancy Musculoskeletal : No joint pain, No Myalgias, No Joint Swelling Skin : No Skin Lesions, No rash Neuro : No Weakness, No Numbness, No Paresthesias, No Loss of Consciousness, No Dizziness, No Headache Psych : No Anxiety/Panic, No Depression, No SI/HI/AH/VH, No Social Issues, Heme/Lymph: No Bruising, No Bleeding,No Lymphadenopathy Endocrine : No Polyuria, No Polydipsia, No Temperature Intolerance [facility] Past Medical History Medical History Breast cancer, left Uterine cancer DVT (deep venous thrombosis) CHF (congestive heart failure) DM (diabetes mellitus) Kidney stones Asthma Pacemaker Surgical History History of lumpectomy of left breast History of total abdominal hysterectomy Aortic valve prosthesis present Social History Social History Alcohol intake: never Patient Tobacco Use Status: Never used Tobacco service: No Physical Exam Vital Signs: Vital Signs: Last Vital Signs Temp 98.1 F 09/18/24 15:24 Pulse 69 09/18/24 15:24 Resp 16 09/18/24 15:24 BP 136/60 09/18/24 15:24 Pulse Ox 97 09/18/24 15:24 O2 Del Method Room Air 09/18/24 15:24 O2 Flow Rate 2 09/11/24 07:18 BMI result Body Mass Index 30.5 Const: Other: Appearance: Alert. Oriented X3. No acute distress. Eyes: Pupils equal, round and reactive to light. ENT: Pharynx normal. Dry mucous membranes Neck: Normal inspection. Neck supple. No lymph nodes noted. No crepitus CVS: Normal heart rate and rhythm. Pulses normal. Normal S1 and S2 Respiratory: No respiratory distress. Breath sounds normal. No Wheezing. No rales Abdomen: Soft and nontender. No rigidity. No distention. Skin: Skin warm to touch and dry. Slightly flushed, Normal skin turgor. Extremities: No lower extremity edema. No Lacerations. No Rash Neuro: Oriented X 3. No motor deficit. No sensory deficit. Moving all extremities. No slurred speech. CN 2 through 12 grossly intact Psych: calm, cooperative, normal affect Course Course Course Narrative: patient comes in complaining of cough, fever. Patient states that she feels dehydrated. While I was talking to the patient, patient's oxygen saturation was 90% but as we kept talking, it slowly dropped to 86% on room air with good pleth form. Patient was started on 2 L of oxygen. Patient states that she does not have diagnosed COPD, she does have asthma but has not been wheezing lately. Patient has a PRN albuterol pump. All of patient's labs and imaging pending. wean off from triage the patient has a fever of 100.6 orally, patient declined rectal temperature. Patient has a dry cough. And on physical exam patient has pleural rubs especially on the right side. Patient likely has pneumonia. Patient is empirically being treated With IV fluids based on ideal weight of 50 kg, patient is obese, IV antibiotics . Medications Administered Discontinued Medications Generic Name Dose Route Start Last Admin Trade Name Freq PRN Reason Stop Dose Admin Acetaminophen 975 mg 09/08/24 18:51 09/08/24 18:54 Acetaminophen 325 Mg Tablet PO 09/08/24 18:52 975 mg ONCE ONE Administration Acetaminophen 975 mg 09/09/24 01:09 09/13/24 12:24 Acetaminophen 325 Mg Tablet PO 975 mg Q6H PRN Administration Pain, Mild 1-3,fever,headache Albuterol Sulfate 2.5 mg 09/09/24 01:11 09/09/24 07:38 Albuterol Sulfate (0.083%) 2.5 Mg/3 Ml Vial.Neb INHALE 2.5 mg Q3H PRN Administration Wheezing Atorvastatin Calcium 10 mg 09/09/24 21:00 09/12/24 20:45 Atorvastatin Calcium 10 Mg Tablet PO 10 mg BEDTIME DONAVAN Administration Benzonatate 100 mg 09/09/24 00:44 09/09/24 01:40 Benzonatate 100 Mg Capsule PO 09/09/24 00:45 100 mg ONCE ONE Administration Ceftriaxone Sodium 1 gm 09/08/24 19:40 09/08/24 20:04 Ceftriaxone Sodium 1 Gm Vial IVPUSH 09/08/24 19:41 1 gm ONCE ONE Administration Ceftriaxone Sodium 1 gm 09/09/24 21:00 09/09/24 19:43 Ceftriaxone Sodium 1 Gm Vial IVPUSH 1 gm Q24H DONAVAN Administration Ceftriaxone Sodium 2 gm 09/10/24 14:00 09/10/24 14:53 Ceftriaxone Sodium 2 Gm Vial IVPUSH 2 gm Q24H DONAVAN Administration Ceftriaxone Sodium 2 gm 09/12/24 00:30 09/17/24 21:41 Ceftriaxone Sodium 2 Gm Vial IVPUSH 2 gm BEDTIME DONAVAN Administration Fenofibrate 160 mg 09/09/24 21:00 09/17/24 21:42 Fenofibrate 160 Mg Tablet PO 160 mg BEDTIME DONAVAN Administration Guaifenesin 5 ml 09/13/24 18:21 09/14/24 21:14 Guaifenesin 100 Mg/5 Ml 5 Ml Liquid PO 5 ml Q4H PRN Administration Cough Guaifenesin/Codeine Phosphate 10 ml 09/09/24 01:13 09/10/24 21:10 Guaifen/Codeine Sf 200/20/10ml 10 Ml Liquid PO 10 ml Q6H PRN Administration Cough Sodium Chloride 2,000 mls @ 999 mls/hr 09/08/24 19:40 09/09/24 00:10 Ns IVCONT 09/08/24 21:40 Infused .Q2H1M ONE Infusion Azithromycin 500 mg/ Sodium 250 mls @ 125 mls/hr 09/08/24 19:40 09/08/24 23:22 Chloride IV 09/08/24 21:39 Infused ONCE ONE Infusion Lactated Ringer's 1,000 mls @ 80 mls/hr 09/09/24 01:15 09/10/24 02:26 Lr IVCONT 09/09/24 13:44 Infused .[id number] DONAVAN Infusion Azithromycin 500 mg/ Sodium 250 mls @ 125 mls/hr 09/09/24 21:00 09/10/24 22:18 Chloride IV Infused Q24H [facility] Infusion Vancomycin HCl 2,000 mg in 500 mls @ 250 mls/hr 09/09/24 11:30 09/09/24 15:38 Vancomycin/Ns IV 09/09/24 13:29 Infused ONCE ONE Infusion Vancomycin HCl 1,000 mg/ 270 mls @ 270 mls/hr 09/09/24 23:00 09/10/24 13:25 Sodium Chloride IV Infused Q12H [facility] Infusion Ampicillin Sodium/Sulbactam 100 mls @ 200 mls/hr 09/11/24 14:00 09/12/24 01:17 Sodium 3 gm/ Sodium Chloride IV Infused Q6H [facility] Infusion Daptomycin 500 mg/ Sodium 60 mls @ 96 mls/hr 09/12/24 00:30 09/12/24 02:14 Chloride IV Not Given Q24H DONAVAN Daptomycin 500 mg/ Sodium 60 mls @ 96 mls/hr 09/12/24 07:30 09/12/24 10:00 Chloride IV Infused Q24H [facility] Infusion Daptomycin 500 mg/ Sodium 60 mls @ 120 mls/hr 09/13/24 07:30 09/16/24 09:41 Chloride IV Infused Q24H [facility] Infusion Daptomycin 500 mg/ Sodium 60 mls @ 120 mls/hr 09/17/24 09:00 09/18/24 09:45 Chloride IV Infused Q24H [facility] Infusion Insulin Glargine 10 unit 09/10/24 14:15 09/18/24 08:59 Insulin Glargine,Hum.Rec.Anlog 100 Unit/Ml 10 Ml Vial SUBCUT 10 unit DAILY [facility] Administration Insulin Human Lispro 0 unit 09/09/24 07:30 09/18/24 11:48 Insulin Lispro 100 Unit/Ml 3 Ml Vial SUBCUT 4 unit QIDACHS [facility] Administration Protocol Insulin Human Lispro 5 unit 09/12/24 16:30 09/18/24 11:48 Insulin Lispro 100 Unit/Ml 3 Ml Vial SUBCUT 5 unit QIDAS [facility] Administration Insulin Human Regular 10 unit 09/08/24 20:52 09/08/24 21:41 Insulin Regular, Human 100 Unit/Ml 10 Ml Vial IVPUSH 09/08/24 20:53 10 unit ONCE ONE Administration Iohexol 65 ml 09/08/24 22:57 09/08/24 22:57 Iohexol 350 Mg/Ml 100 Ml Infus..Btl IV 09/08/24 22:58 65 ml ONCE ONE Administration Loratadine 10 mg 09/09/24 01:33 09/09/24 13:19 Loratadine 10 Mg Tablet PO 10 mg DAILY PRN Administration allergies Sodium Chloride 3 ml 09/09/24 08:00 09/18/24 09:05 0.9 % Sodium Chloride Flush 3 Ml Syringe IVFLUSH 3 ml QSHIFT [facility]AN Administration Warfarin Sodium 1.25 mg 09/12/24 18:00 09/14/24 17:42 Warfarin Sodium 1.25 Mg Halftab PO 1.25 mg SUTUTHSA@1800 [facility] Administration Warfarin Sodium 2.5 mg 09/13/24 18:00 09/13/24 18:22 Warfarin Sodium 2.5 Mg Tablet PO 2.5 mg MOWEFR@1800 [facility] Administration Warfarin Sodium 1.25 mg 09/16/24 18:00 09/16/24 17:26 Warfarin Sodium 1.25 Mg Halftab PO 1.25 mg DAILY@1800 [facility] Administration Warfarin Sodium 2 mg 09/17/24 18:00 09/17/24 16:52 Warfarin Sodium 2 Mg Tablet PO 2 mg DAILY@1800 [facility] Administration Medical Decision Making Medical Decision Making MDM Narrative: Medical Decision Making MDM Narrative: my interpretation of EKG: atrial sensed ventricular paced rhythm, heart rate 104., left bundle-branch block my interpretation of labs: No significant abnormality in patient's hematology, patient's chemistry shows a glucose of 608, sodium 131 likely secondary to the elevated glucose. INR is 6.7 . Lactic acid within normal limits, BNP 128 patient's urinalysis negative for UTI. Serology negative for influenza RSV and COVID CT negative for PE, ground-glass opacities with interstitial thickening. She has no signs of CHF. However, patient is coughing quite a bit. Likely viral illness. Patient's oxygen saturation drops to 84% on room air. Patient is on 2 L of oxygen Differential Diagnosis Differential Diagnoses: The differential diagnosis associated with the presentation includes ( pneumonia, COVID, RSV, pulmonary embolism, CHF) Admission/Observation Consideration of admission/observation: Escalation of care including admission/observation considered Consult Healthcare Provider Management of the patient was discussed with: Hospitalist Lab Data [facility] Lab Attestation statement: I reviewed the patient's lab results. 09/09/24 04:50 09/18/24 12:36 Labs: Lab Results 09/08/24 09/08/24 09/08/24 Range/Units 19:22 19:22 19:22 WBC 9.9 (4.8-10.8) X10*3/uL RBC 4.14 L (4.20-5.50) X10*6/uL Hgb 11.9 L (12.0-16.0) g/dl Hct 34.7 L (37.0-47.0) % MCV 83.8 (80.0-98.0) fL MCH 28.7 (27.0-33.0) pg MCHC 34.3 (31.0-35.0) g/dl RDW 14.4 (11.0-16.0) % Plt Count 183 (160-400) X10*3/uL MPV 11.4 (9.4-12.3) fL Immature Gran % (Auto) 0.5 H (0.0-0.4) % Neut % (Auto) 85.8 H (45-73) % Lymph % (Auto) 5.3 L (20-40) % [place] % (Auto) 8.0 (2-11) % Eos % (Auto) 0.1 (0-4) % Baso % (Auto) 0.3 (0-2) % Lymph # (Auto) 0.5 L (1.2-4.9) X10*3/uL [place] # (Auto) 0.8 (0.1-1.2) X10*3/uL Eos # (Auto) 0.0 (0.0-0.4) X10*3/uL Baso # (Auto) 0.0 (0.0-0.2) X10*3/uL Abs Immat Gran (auto) 0.05 H (0.00-0.03) X10*3/uL Absolute Neuts (auto) 8.5 H (2.0-8.3) x10*3/uL Absolute Nucleated RBC 0.000 (0.0-0.012) X10*3/uL Nucleated RBC % (auto) 0.0 (0.0-0.2) /100WBC PT (10.9-12.4) SEC INR (0.9-1.1) Hold Blue Top SEE NOTE Sodium 131 L (135-145) mmol/L Potassium 3.7 (3.3-5.1) mmol/L Chloride 91 L (96-108) mmol/L Carbon Dioxide 28 (22-29) mmol/L Anion Gap 16 (12-20) BUN 29 H (9-16) mg/dL Creatinine 0.76 (0.5-1.4) mg/dL Estim Creat Clear Calc 64.3 Estimated GFR > 60 POC Glucose (60-115) mg/dL Random Glucose 608 H* (60-115) mg/dL Estimat Average Glucose 214 mg/dL Hemoglobin A1c % 9.1 H (<6.0) % Lactic Acid (0.5-2.0) mmol/L Calcium 10.3 H (8.4-10.2) mg/dL Magnesium 1.8 (1.6-2.6) mg/dL Total Bilirubin 0.5 (0.0-1.0) mg/dL AST 49 H (5-31) U/L ALT 38 H (0-31) U/L Alkaline Phosphatase 72 (39-117) U/L Troponin I High Sens 14.4 (<3.5-17.0) ng/L B-Natriuretic Peptide (<100) pg/mL Total Protein 7.4 (6.5-8.0) g/dL Albumin 3.8 (3.5-5.0) g/dL Lipase 44 (8-78) U/L Urine Color Yellow Urine Appearance Clear Urine pH 5.5 (5.0-9.0) Ur Specific [place] >= 1.030 H (1.005-1.025) Urine Protein 30 (1+) H (Neg-Trace) mg/dL Urine Glucose (UA) >=1000 H (Negative) mg/dL Urine Ketones Negative (Negative) mg/dL Urine Blood Trace H (Negative) Urine Nitrite Negative (Negative) Ur Leukocyte Esterase Negative (Negative) Urine RBC 0-2 (0-2) /HPF Urine WBC 0-5 (0-5) /HPF Ur Squamous Epith Cells 0-2 (0-2) /HPF Urine Bacteria None Seen (None Seen) Hyaline Casts 0-2 (0-2) /LPF Influenza Type A (PCR) Cancelled NEGATIVE Influenza Type B (PCR) Cancelled NEGATIVE RSV RNA Qual (PCR) Cancelled SARS-CoV-2 RNA (RT-PCR) 09/08/24 09/08/24 09/08/24 Range/Units 19:22 19:22 19:57 WBC (4.8-10.8) X10*3/uL RBC (4.20-5.50) X10*6/uL Hgb (12.0-16.0) g/dl Hct (37.0-47.0) % MCV (80.0-98.0) fL MCH (27.0-33.0) pg MCHC (31.0-35.0) g/dl RDW (11.0-16.0) % Plt Count (160-400) X10*3/uL MPV (9.4-12.3) fL Immature Gran % (Auto) (0.0-0.4) % Neut % (Auto) (45-73) % Lymph % (Auto) (20-40) % [place] % (Auto) (2-11) % Eos % (Auto) (0-4) % Baso % (Auto) (0-2) % Lymph # (Auto) (1.2-4.9) X10*3/uL [place] # (Auto) (0.1-1.2) X10*3/uL Eos # (Auto) (0.0-0.4) X10*3/uL Baso # (Auto) (0.0-0.2) X10*3/uL Abs Immat Gran (auto) (0.00-0.03) X10*3/uL Absolute Neuts (auto) (2.0-8.3) x10*3/uL Absolute Nucleated RBC (0.0-0.012) X10*3/uL Nucleated RBC % (auto) (0.0-0.2) /100WBC PT (10.9-12.4) SEC INR (0.9-1.1) Hold Blue Top Sodium (135-145) mmol/L Potassium (3.3-5.1) mmol/L Chloride (96-108) mmol/L Carbon Dioxide (22-29) mmol/L Anion Gap (12-20) BUN (9-16) mg/dL Creatinine (0.5-1.4) mg/dL Estim Creat Clear Calc Estimated GFR POC Glucose (60-115) mg/dL Random Glucose (60-115) mg/dL Estimat Average Glucose mg/dL Hemoglobin A1c % (<6.0) % Lactic Acid 1.4 (0.5-2.0) mmol/L Calcium (8.4-10.2) mg/dL Magnesium (1.6-2.6) mg/dL Total Bilirubin (0.0-1.0) mg/dL AST (5-31) U/L ALT (0-31) U/L Alkaline Phosphatase (39-117) U/L Troponin I High Sens (<3.5-17.0) ng/L B-Natriuretic Peptide (<100) pg/mL Total Protein (6.5-8.0) g/dL Albumin (3.5-5.0) g/dL Lipase (8-78) U/L Urine Color Urine Appearance Urine pH (5.0-9.0) Ur Specific [place] (1.005-1.025) Urine Protein (Neg-Trace) mg/dL Urine Glucose (UA) (Negative) mg/dL Urine Ketones (Negative) mg/dL Urine Blood (Negative) Urine Nitrite (Negative) Ur Leukocyte Esterase (Negative) Urine RBC (0-2) /HPF Urine WBC (0-5) /HPF Ur Squamous Epith Cells (0-2) /HPF Urine Bacteria (None Seen) Hyaline Casts (0-2) /LPF Influenza Type A (PCR) Influenza Type B (PCR) RSV RNA Qual (PCR) NEGATIVE SARS-CoV-2 RNA (RT-PCR) Cancelled NEGATIVE 09/08/24 09/08/24 09/08/24 Range/Units 19:58 23:19 23:52 WBC (4.8-10.8) X10*3/uL RBC (4.20-5.50) X10*6/uL Hgb (12.0-16.0) g/dl Hct (37.0-47.0) % MCV (80.0-98.0) fL MCH (27.0-33.0) pg MCHC (31.0-35.0) g/dl RDW (11.0-16.0) % Plt Count (160-400) X10*3/uL MPV (9.4-12.3) fL Immature Gran % (Auto) (0.0-0.4) % Neut % (Auto) (45-73) % Lymph % (Auto) (20-40) % [place] % (Auto) (2-11) % Eos % (Auto) (0-4) % Baso % (Auto) (0-2) % Lymph # (Auto) (1.2-4.9) X10*3/uL [place] # (Auto) (0.1-1.2) X10*3/uL Eos # (Auto) (0.0-0.4) X10*3/uL Baso # (Auto) (0.0-0.2) X10*3/uL Abs Immat Gran (auto) (0.00-0.03) X10*3/uL Absolute Neuts (auto) (2.0-8.3) x10*3/uL Absolute Nucleated RBC (0.0-0.012) X10*3/uL Nucleated RBC % (auto) (0.0-0.2) /100WBC PT 77.1 H (10.9-12.4) SEC INR 6.7 H* D (0.9-1.1) Hold Blue Top Sodium (135-145) mmol/L Potassium (3.3-5.1) mmol/L Chloride (96-108) mmol/L Carbon Dioxide (22-29) mmol/L Anion Gap (12-20) BUN (9-16) mg/dL Creatinine (0.5-1.4) mg/dL Estim Creat Clear Calc Estimated GFR POC Glucose 270 H (60-115) mg/dL Random Glucose (60-115) mg/dL Estimat Average Glucose mg/dL Hemoglobin A1c % (<6.0) % Lactic Acid (0.5-2.0) mmol/L Calcium (8.4-10.2) mg/dL Magnesium (1.6-2.6) mg/dL Total Bilirubin (0.0-1.0) mg/dL AST (5-31) U/L ALT (0-31) U/L Alkaline Phosphatase (39-117) U/L Troponin I High Sens (<3.5-17.0) ng/L B-Natriuretic Peptide 128 H (<100) pg/mL Total Protein (6.5-8.0) g/dL Albumin (3.5-5.0) g/dL Lipase (8-78) U/L Urine Color Urine Appearance Urine pH (5.0-9.0) Ur Specific [place] (1.005-1.025) Urine Protein (Neg-Trace) mg/dL Urine Glucose (UA) (Negative) mg/dL Urine Ketones (Negative) mg/dL Urine Blood (Negative) Urine Nitrite (Negative) Ur Leukocyte Esterase (Negative) Urine RBC (0-2) /HPF Urine WBC (0-5) /HPF Ur Squamous Epith Cells (0-2) /HPF Urine Bacteria (None Seen) Hyaline Casts (0-2) /LPF Influenza Type A (PCR) Influenza Type B (PCR) RSV RNA Qual (PCR) SARS-CoV-2 RNA (RT-PCR) Independent Interpretation I performed an independent interpretation of an: Plain X-Ray and CT Scan Radiology Impression Discussion of test interpretation with radiology: I have reviewed the radiologist's reading. Radiologist Impression: Discussion of test interpretation with radiology: I have reviewed the radiologist's reading. Radiologist Impression: The heart size is enlarged. RV/LV ratio is normal. No pericardial effusion previous sternotomy. Mild atherosclerotic vascular disease with no aneurysm of the thoracic aorta. No acute pulmonary embolus. Bilateral ground-glass opacities and interstitial thickening. No consolidation, pleural effusion or pneumothorax. Thyroid partially imaged. Thoracic esophagus within normal limits. The visualized upper abdomen no acute process No acute fractures. diffuse demineralization and multilevel degenerative changes of the thoracic spine. IMPRESSION: 1. No pulmonary embolus. 2. Cardiomegaly with ground-glass opacities and interstitial thickening, correlate clinically for congestive heart failure. Independent Historian Clinical information obtained from an independent historian. History obtained from or confirmed by: Spouse Critical Care Time Critical Care Time Critical Care Time: Yes Total Critical Care Time: 60 Attestation: I have personally provided critical care time. Time includes review of lab data, radiology results, discussion with consultants, and monitoring for potential decompensation. Intervention performed as documented. Discharge Plan Discharge Clinical Impression: Acute hyperglycemia, Pneumonia Patient Disposition: Admitted As Inpatient Interventions: Admission Worksheet (ED) Last Done: 09/09/24 13:27 Discharge Date/Time: 09/09/24 14:28
[2024-09-08 19:53] LABS: Troponin-I High Sensitivity 14.4 ng/L (<3.5-17.0)
[2024-09-08 20:06] VITALS: BP 125/52; PULSE 94; RESP 22; TEMP 37.4; O2SAT 92
[2024-09-08 20:09] LABS: Resp Syncy Virus RNA Qual PCR NEGATIVE (Negative); SARS COV2 PCR INHOUSE NEGATIVE (Negative)
[2024-09-08 20:20] LABS: Alanine Aminotransferase 38 U/L (0-31); Albumin Level 3.8 g/dL (3.5-5.0); Alkaline Phosphatase 72 U/L (39-117); Anion Gap 16 (12-20); Aspartate Amino Transferase 49 U/L (5-31); Blood Urea Nitrogen 29 mg/dL (9-16); Calcium 10.3 mg/dL (8.4-10.2); Carbon Dioxide 28 mmol/L (22-29); Chloride 91 mmol/L (96-108); Creatinine Clr Calc Pharmacy 64.3; Estimated Glomerular Filt Rate > 60; Lipase 44 U/L (8-78); Magnesium 1.8 mg/dL (1.6-2.6); Potassium 3.7 mmol/L (3.3-5.1); Sodium 131 mmol/L (135-145); Total Protein 7.4 g/dL (6.5-8.0)
[2024-09-08 20:30] LABS: B Type Natriuretic Peptide 128 pg/mL (<100)
[2024-09-08 21:44] VITALS: BP 123/53; PULSE 84; RESP 25; TEMP 37; O2SAT 96
--- NOTE | 2024-09-08 21:46 | PC.NURSE ---
pt ambulated to bathroom w/out O2, gait even and steady, denies SOB
[2024-09-08] MEDS: iohexoL 350 MG/ML 100 ML INFUS..BTL 65 ML IV (22:57)
[2024-09-08 23:23] LABS: Glucose, Whole Blood 270 mg/dL (60-115)
[2024-09-09] VITALS (12 sets, daily range): BP systolic 108–152; BP diastolic 42–67; PULSE 79–104; RESP 14–30; TEMP 36.8–38.4; O2SAT 88–97
[2024-09-09 00:09] LABS: Prothrombin Time 77.1 SEC (10.9-12.4)
[2024-09-09 00:13] LABS: INTERNATIONAL NORM RATIO 6.7 (0.9-1.1)
--- NOTE | 2024-09-09 00:18 | PC.NURSE ---
med rec completed with pt
--- NOTE | 2024-09-09 01:15 | P.HPHOSP_ITS ---
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 She denied headache but has been experiencing some trigeminal neuralgia. She was recently vaccinated with the pneumonia vaccination on August 21. She denied any acute gastrointestinal or genitourinary symptoms except for increased urination. She denied tobacco smoking, alcohol abuse or illicit drug use. In the ED, she was found to have fever, tachycardia and tachypnea. Blood pressure has been soft. Last blood pressure 113/49. She is currently requiring supplemental oxygen via nasal cannula as her O2 sat was 86% on room air. Blood workup showed no leukocytosis but elevated neutrophils. INR is 6.7. Glucose is 608. Corrected sodium is 139. There are no other significant electrolyte imbalances except for mild hypercalcemia 10.3.. BUN is 29 and creatinine 0.76. Transaminases are slightly elevated, total bilirubin, lipase and alk-phos are normal. Troponin is 14.4. BNP is 128. Urinalysis showed glucosuria elevated specific gravity proteinuria of 1+ and trace blood. Viral testing for COVID-19, influenza RSV is negative. CXR showed borderline cardiac enlargement and bilateral mild interstitial thickening and may represent CHF. Chest CTA showed no pulmonary embolism but it showed cardiomegaly with ground-glass opacities with interstitial thickening (correlate clinically for CHF). ECG showed atrial sense and ventricular sensed rhythm. Heart rate is 104 beats per minute. ED tx: Ceftriaxone 1 g IV, azithromycin 500 mg IV, insulin 10 units IV, Tessalon 100 mg p.o., acetaminophen 975 mg p.o. Review of Systems 2 Review of Systems: All 12 systems were reviewed and normal except as noted in HPI. [facility] Medical History (Updated 09/09/24 @ 01:53 by Ba Mckeon MD) Breast cancer, left Uterine cancer DVT (deep venous thrombosis) CHF (congestive heart failure) DM (diabetes mellitus) Kidney stones Asthma Pacemaker Surgical History History of lumpectomy of left breast History of total abdominal hysterectomy Aortic valve prosthesis present Social History Alcohol intake: never Patient Tobacco Use Status: Never used Tobacco Smoked in Last 30 Days: No Use of substances other than those prescribed or required for medical reasons: No Advance Directives: No Advance Directives Information Provided: Yes Do you have a plan to hurt others: No Plan Meds Allergies Allergy/AdvReac Type Severity Reaction Status Date / Time adhesive tape Allergy Rash Verified 09/08/24 18:53 Active Medications: Current Medications Acetaminophen (Acetaminophen 325 Mg Tablet) 975 mg PO Q6H PRN PRN Reason: Pain, Mild 1-3,fever,headache Albuterol Sulfate (Albuterol Sulfate (0.083%) 2.5 Mg/3 Ml Vial.Neb) 2.5 mg INHALE Q3H PRN PRN Reason: Wheezing Calcium Carbonate (Calcium Carbonate 750 Mg Tab.Chew) 750 mg PO Q4H PRN PRN Reason: Heartburn Ceftriaxone Sodium (Ceftriaxone Sodium 1 Gm Vial) 1 gm IVPUSH Q24H DONAVAN Dextrose (Dextrose 50 % 25 Gm/50 Ml Syringe) 25 gm IVPUSH Q15M PRN; Protocol PRN Reason: per Hypoglycemia Standing Ord. Glucose (Glucose Gel 15 Gm Gel..Gram.) 15 gm PO Q15M PRN; Protocol PRN Reason: per Hypoglycemia Standing Ord. Guaifenesin/Codeine Phosphate (Guaifen/Codeine Sf 200/20/10ml 10 Ml Liquid) 10 ml PO Q6H PRN PRN Reason: Cough Lactated Ringer's (Lr) 1,000 mls @ 80 mls/hr IVCONT .[id number] DONAVAN Stop: 09/09/24 13:44 Azithromycin 500 mg/ Sodium (Chloride) 250 mls @ 125 mls/hr IV Q24H DONAVAN Insulin Human Lispro (Insulin Lispro 100 Unit/Ml 3 Ml Vial) 0 unit SUBCUT QIDACHS [facility]; Protocol Magnesium Hydroxide (Milk Of Magnesia 30 Ml Oral.Susp) 30 ml PO DAILY PRN PRN Reason: Constipation Melatonin (Melatonin 3 Mg Tablet) 6 mg PO BEDTIME PRN PRN Reason: Insomnia Sodium Chloride (0.9 % Sodium Chloride Flush 3 Ml Syringe) 3 ml IVFLUSH QSHIFT [facility] Home Medications ?Medication ?Instructions ?Recorded ?Confirmed ?Last Taken ?Type fenofibrate nanocrystallized 145 145 mg PO BEDTIME 09/09/24 Unknown History mg tablet furosemide 20 mg tablet 20 mg PO NEEDED PRN swell ing 10/30/20 09/09/24 Unknown History hydrochlorothiazide 12.5 mg capsule 12.5 mg PO DAILY 0 10/30/20 09/09/24 Unknown History irbesartan 300 mg tablet 300 mg PO BEDTIME 10/30/20 0 09/09/24 Unknown History simvastatin 20 mg tablet 20 mg PO BEDTIME 10/30/20 Unknown History tavaborole 5 % topical solution 0.05 ml topical DAILY 10/30/20 Unknown History with applicator warfarin 2.5 mg tablet (Jantoven) mg PO 10/30/20 Unkn own History albuterol sulfate 90 mcg/actuation inhalation 04/28/22 Unknown History aerosol inhaler enoxaparin 80 mg/0.8 mL mg 04/28/22 Unknown History subcutaneous syringe glucosamine sulfate 500 mg tablet 1,500 mg PO NEEDE D PRN 04/28/22 09/09/24 Unknown History (Glucosamine) arthritis pain loratadine 10 mg tablet 10 mg PO NEEDED PRN aller gies 04/28/22 09/09/24 Unknown History omega 2-ght-wnw-fish oil 1,000 mg 1 cap PO DAILY 04/2809/09/24 Unknown History (120 mg-180 mg) capsule (Fish Oil) warfarin 2.5 mg tablet (Jantoven) 2.5 mg 3XW 04/28/22 09/08/24 Unknown History warfarin 2.5 mg tablet (Jantoven) 1.25 mg PO BEDTIME 0 09/09/24 09/09/24 Unknown History Physical Exam 2 Vital Signs and Narrative: Vital Signs: Last Vital Signs Temp 98.6 F 09/09/24 00:27 Pulse 80 09/09/24 00:46 Resp 16 09/09/24 00:46 BP 113/49 L 09/09/24 00:46 Pulse Ox 96 09/09/24 00:46 O2 Del Method Nasal Cannula 09/09/24 00:46 O2 Flow Rate 2 09/09/24 00:46 BMI result Body Mass Index 30.5 Constitutional - Awake and Alert, No apparent distress. Nasal cannula in place. Obese. Very talkative. HEENT - PER, EOMI Heart - RRR, (+) mechanical click. Lungs - Normal lung expansion, Normal respiratory effort, No respiratory distress. Tachypnea. Decreased breath sound at bases. No crackles. No rhonchi. No wheezing. Heart - NT / ND; +BS; No rebound or guarding Extremities - very mild nonpitting edema to the lower extremities. No tenderness. Musculoskeletal - Normal inspection, normal ROM Skin - Warm/Dry Neurological - Alert & oriented x3. Moving all extremities spontaneously. Normal speech. Psychological - Appropriate affect Results Labs 09/08/24 19:22 09/08/24 19:22 Labs: Laboratory Results - last 24 hr 09/08/24 09/08/24 09/08/24 19:22 19:22 19:22 MCV 83.8 MCH 28.7 MCHC 34.3 RDW 14.4 Plt Count 183 MPV 11.4 Immature Gran % (Auto) 0.5 H Neut % (Auto) 85.8 H Lymph % (Auto) 5.3 L [place] % (Auto) 8.0 Eos % (Auto) 0.1 Baso % (Auto) 0.3 Lymph # (Auto) 0.5 L [place] # (Auto) 0.8 Eos # (Auto) 0.0 Baso # (Auto) 0.0 Abs Immat Gran (auto) 0.05 H Absolute Neuts (auto) 8.5 H Absolute Nucleated RBC 0.000 Nucleated RBC % (auto) 0.0 PT INR Hold Blue Top SEE NOTE Anion Gap 16 Estim Creat Clear Calc 64.3 Estimated GFR > 60 POC Glucose Random Glucose 608 H* Lactic Acid Calcium 10.3 H Magnesium 1.8 Total Bilirubin 0.5 AST 49 H ALT 38 H Alkaline Phosphatase 72 Troponin I High Sens 14.4 B-Natriuretic Peptide Total Protein 7.4 Albumin 3.8 Lipase 44 Urine Color Yellow Urine Appearance Clear Urine pH 5.5 Ur Specific [place] >= 1.030 H Urine Protein 30 (1+) H Urine Glucose (UA) >=1000 H Urine Ketones Negative Urine Blood Trace H Urine Nitrite Negative Ur Leukocyte Esterase Negative Urine RBC 0-2 Urine WBC 0-5 Ur Squamous Epith Cells 0-2 Urine Bacteria None Seen Hyaline Casts 0-2 Influenza Type A (PCR) Cancelled NEGATIVE Influenza Type B (PCR) Cancelled NEGATIVE RSV RNA Qual (PCR) Cancelled SARS-CoV-2 RNA (RT-PCR) 09/08/24 09/08/24 09/08/24 19:22 19:22 19:57 MCV MCH MCHC RDW Plt Count MPV Immature Gran % (Auto) Neut % (Auto) Lymph % (Auto) [place] % (Auto) Eos % (Auto) Baso % (Auto) Lymph # (Auto) [place] # (Auto) Eos # (Auto) Baso # (Auto) Abs Immat Gran (auto) Absolute Neuts (auto) Absolute Nucleated RBC Nucleated RBC % (auto) PT INR Hold Blue Top Anion Gap Estim Creat Clear Calc Estimated GFR POC Glucose Random Glucose Lactic Acid 1.4 Calcium Magnesium Total Bilirubin AST ALT Alkaline Phosphatase Troponin I High Sens B-Natriuretic Peptide Total Protein Albumin Lipase Urine Color Urine Appearance Urine pH Ur Specific [place] Urine Protein Urine Glucose (UA) Urine Ketones Urine Blood Urine Nitrite Ur Leukocyte Esterase Urine RBC Urine WBC Ur Squamous Epith Cells Urine Bacteria Hyaline Casts Influenza Type A (PCR) Influenza Type B (PCR) RSV RNA Qual (PCR) NEGATIVE SARS-CoV-2 RNA (RT-PCR) Cancelled NEGATIVE 09/08/24 09/08/24 09/08/24 19:58 23:19 23:52 MCV MCH MCHC RDW Plt Count MPV Immature Gran % (Auto) Neut % (Auto) Lymph % (Auto) [place] % (Auto) Eos % (Auto) Baso % (Auto) Lymph # (Auto) [place] # (Auto) Eos # (Auto) Baso # (Auto) Abs Immat Gran (auto) Absolute Neuts (auto) Absolute Nucleated RBC Nucleated RBC % (auto) PT 77.1 H INR 6.7 H* D Hold Blue Top Anion Gap Estim Creat Clear Calc Estimated GFR POC Glucose 270 H Random Glucose Lactic Acid Calcium Magnesium Total Bilirubin AST ALT Alkaline Phosphatase Troponin I High Sens B-Natriuretic Peptide 128 H Total Protein Albumin Lipase Urine Color Urine Appearance Urine pH Ur Specific [place] Urine Protein Urine Glucose (UA) Urine Ketones Urine Blood Urine Nitrite Ur Leukocyte Esterase Urine RBC Urine WBC Ur Squamous Epith Cells Urine Bacteria Hyaline Casts Influenza Type A (PCR) Influenza Type B (PCR) RSV RNA Qual (PCR) SARS-CoV-2 RNA (RT-PCR) Assessment and Plan (1) Acute hypoxic respiratory failure: Status: Acute (2) Uncontrolled type 2 diabetes mellitus with hyperglycemia: Status: Acute (3) Asthma: Qualifiers: Asthma severity: unspecified severity Asthma persistence: intermittent Asthma complication type: uncomplicated Qualified Code(s): J45.20 - Mild intermittent asthma, uncomplicated Status: Acute Plan Beth Mancilla is a 71 y/o woman admitted with: * Acute hypoxic respiratory failure secondary to pneumonia, likely viral and possible superimposed bacterial infection/ground-glass infiltrates; doubt acute CHF.. Admit to hospitalist service. Telemetry. Pulse oximetry. Continue supplemental O2 to keep O2 sats > 90%. Continue empiric IV antibiotic therapy with ceftriaxone and azithromycin. Bronchodilator therapy as needed. Antitussive. Check respiratory panel. Check Legionella and strep pneumo antigens in the urine. * Uncontrolled type 2 diabetes mellitus. Diet-controlled. Marked hyperglycemia on arrival. Glucose trending down. Normal CO2 and anion gap/no DKA. Diabetic diet. BG checks before this at bedtime. Insulin sliding scale only for now. Hemoglobin A1c pending (per pt, last one was 8%). * Asthma, intermittent. No exacerbation/no wheezing. Last episode was 2 years ago. Albuterol neb prn wheezing. * History of CHF. ?systolic vs diastolic. Continue to monitor for signs and symptoms for now. * Transaminitis, likely due to statin. Continue to monitor. 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 Warfarin on hold -supratherapeutic INR. * Supratherapeutic INR. Hold warfarin. Continue to monitor INR daily are restart when therapeutic INR achieved. * Hypertriglyceridemia. Continue statin and and fenofibrate. * Permanent pacemaker implantation. Atrial and ventricular-paced rhythm. * Essential hypertension. Hydrochlorothiazide and losartan on hold due to soft BP and dehydration concerns. * Obesity, class 1. BMI 30.5 kg/m2. Weight loss encouraged. * History of breast cancer. S/p lumpectomy and radiation. * History of uterine cancer. S/p abdominal hysterectomy. DVT prophylaxis: On warfarin (currently on hold due to supratherapeutic INR). Code status: Full Patient will need hospitalization for at least 2 midnights for acute hypoxic respiratory failure secondary to pneumonia treatment with supplemental oxygen, bronchodilator therapy as needed and empiric IV antibiotic therapy. Quality Stroke Does the patient have a stroke diagnosis?: No VTE Prior VTE?: No VTE Risk Level:: Medical - moderate - high VTE Device Contraindication: Treatment Not Indicated VTE Drug Contraindication: N/A - Med Ordered
[2024-09-09] MEDS: Lactated Ringers 1,000 ML 80 ML IVCONT (01:39)
[2024-09-09] MEDS: guaiFEN/Codeine SF 200/20/10ML 10 ML LIQUID PO ×2 (04:52→11:35)
[2024-09-09 05:07] LABS: MANUAL DIFF FLAG NO
[2024-09-09 05:11] LABS: Hematocrit 31.7 % (37.0-47.0); Hemoglobin 10.6 g/dl (12.0-16.0); Imm Gran Abs Auto 0.05 X10*3/uL (0.00-0.03); Imm Gran Pct Auto 0.5 % (0.0-0.4); Lymphocytes Absolute Auto 0.7 X10*3/uL (1.2-4.9); Mean Corpuscular HGB Conc 33.4 g/dl (31.0-35.0); Mean Corpuscular Hemoglobin 28.4 pg (27.0-33.0); Mean Corpuscular Volume 85.0 fL (80.0-98.0); NRBC Abs Auto 0.000 X10*3/uL (0.0-0.012); NRBC Pct Auto 0.0 /100WBC (0.0-0.2); Platelet Count 166 X10*3/uL (160-400); Red Blood Count 3.73 X10*6/uL (4.20-5.50); White Blood Count 10.1 X10*3/uL (4.8-10.8)
[2024-09-09 05:22] LABS: Prothrombin Time 71.7 SEC (10.9-12.4)
[2024-09-09 05:23] LABS: Anion Gap 16 (12-20); Blood Urea Nitrogen 19 mg/dL (9-16); Calcium 9.5 mg/dL (8.4-10.2); Carbon Dioxide 24 mmol/L (22-29); Chloride 101 mmol/L (96-108); Creatinine Clr Calc Pharmacy 90.4; Estimated Glomerular Filt Rate > 60; Magnesium 1.8 mg/dL (1.6-2.6); Potassium 3.5 mmol/L (3.3-5.1); Sodium 137 mmol/L (135-145)
[2024-09-09 05:28] LABS: INTERNATIONAL NORM RATIO 6.2 (0.9-1.1)
[2024-09-09 05:30] LABS: Hemoglobin A1C 236.7201 umol/L; Total Hemoglobin (HGBA1C) 3117.7643 umol/L
[2024-09-09 07:35] LABS: Glucose, Whole Blood 308 mg/dL (60-115)
[2024-09-09] MEDS: Albuterol Sulfate (0.083%) 2.5 MG/3 ML VIAL.NEB INHALE (07:38)
--- NOTE | 2024-09-09 08:05 | PC.NURSE ---
Resumed care of patient at 0700, she was requesting to get up and walk to the bathroom. this RN helped pt up and ambulated to BR. O2 was 90% on RA after walking back to the room. She denies any new SOB, but does still have a notable cough. Pt given APAP for 4/10 GÓMEZ, and low grade fever starting to come back. Pt sitting up in bed eating breakfast. Pt given PRN breathing treatment post walk to help with slight wheezing noted. Pt at bedside, awaiting for bed assignment at this time
--- NOTE | 2024-09-09 08:20 | PHA.MEDREC ---
Pharmacy Consult ? Medication Reconciliation Pharmacy has completed the medication reconciliation. Spoke to patient at bedside, she had a written list that she used to confirm her medications. States Warfarin is 1.25mg MWF, and 2.5mg on SuTuThSa. She also takes Centrum Silver, Tylenol Arthritis, and Vitamin B-12 over the counter.
--- NOTE | 2024-09-09 08:34 | PC.NURSE ---
this RN did reach out to Mary Vu to alert her of pt morning. Reporting the pt did okay getting up and waking this morning on RA O2 was like 90-91%, placed her on 1 L on return and she maintained 90-92, she ate breakfast, this RN did a breathing tx because she was a little wheezy with deep inspiration, but post tx she was 87-89% on 1L this RN turned her up to 3L NC and she has been mid-90s. Pt reporting she does not feel much of a difference after tx, however no wheezing is now noted. She is having a lot of coughing fits, has gotten the Robitussin but it hasn't provided much relief. No new orders placed at this time.
[2024-09-09] MEDS: vancomycin/NS 2,000 MG/500 ML PLAST..BAG 250 MG IV (11:34)
--- NOTE | 2024-09-09 11:41 | PM.EVENT ---
Event Note Date of Service: 09/09/24 Event Note: Seen and examined this morning Follow-up for respiratory failure Patient awake, alert, in no acute distress Able to speak in complete sentences. No respiratory distress or accessory muscle use Acute hypoxic respiratory failure secondary to pneumonia likely viral and possible superimposed bacterial infection/ground-glass infiltrates; doubt acute CHF Continue supplemental O2 to keep O2 sats > 90%. Continue empiric IV antibiotic therapy with ceftriaxone and azithromycin. Bronchodilator therapy as needed. RPP pending Check Legionella and strep pneumo antigens in the urine. Bacteremia 2/2 blood cultures growing Gram-positive cocci ?due to above. start vanco Follow final speciation and sensitivities ID consult pending We will need surveillance blood cultures ordered 09/10 Echocardiogram ordered Uncontrolled type 2 diabetes mellitus. Diet-controlled. Marked hyperglycemia on arrival. Glucose trending down. Normal CO2 and anion gap/no DKA. Diabetic diet. BG checks before this at bedtime. Insulin sliding scale only for now. Hemoglobin A1c 9.1 - will likely need metformin upon discharge, will hold off on starting for now Asthma, intermittent. No exacerbation/no wheezing. Last episode was 2 years ago. Albuterol neb prn wheezing. History of CHF. ?systolic vs diastolic. Continue to monitor for signs and symptoms for now. Transaminitis, likely due to statin. Continue to monitor. 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 Warfarin on hold -supratherapeutic INR. Supratherapeutic INR. Hold warfarin. Continue to monitor INR daily are restart when therapeutic INR achieved. Hypertriglyceridemia. Continue statin and and fenofibrate. Permanent pacemaker implantation. Atrial and ventricular-paced rhythm. Essential hypertension. Hydrochlorothiazide and losartan on hold due to soft BP and dehydration concerns. Obesity, class 1. BMI 30.5 kg/m2. Weight loss encouraged. History of breast cancer. S/p lumpectomy and radiation. History of uterine cancer. S/p abdominal hysterectomy. DVT prophylaxis: On warfarin (currently on hold due to supratherapeutic INR). Code status: Technical Support Manager Spent With Patient Time: Total time managing care of this patient today ____ minutes.
[2024-09-09 11:49] LABS: Chlamydia pneumoniae PCR Not Detected (Not Detect.); Coronavirus 229E PCR Not Detected (Not Detect.); Coronavirus HKU1 PCR Not Detected (Not Detect.); Coronavirus NL63 PCR Not Detected (Not Detect.); Coronavirus OC43 PCR Not Detected (Not Detect.); RSV PCR Not Detected (Not Detect.); Rhino/Enterovirus PCR Not Detected (Not Detect.)
[2024-09-09 11:54] LABS: Influenza A H1 PCR Not Detected (Not Detect.); Influenza A H1-2009 PCR Not Detected (Not Detect.); Influenza A H3 PCR Not Detected (Not Detect.); SARS-CoV-2 PCR Not Detected (Not Detect.)
--- NOTE | 2024-09-09 11:59 | PHA.PROG ---
Admission Date/Time: September 09, 2024 00:44 Indication: BACTEREMIA Weight in k.2 kg Adjusted body weight in Kg: [place] body weight in Kg: Obesity Dosing Indication % IBW: Serum Creatinine - Last 168 Hours 09/08/24 09/09/24 19:22 04:50 Creatinine 0.76 0.54 Estimated CrCl and GFR - Last 168 Hours 09/08/24 09/09/24 19:22 04:50 Estim Creat Clear Calc 64.3 90.4 Estimated GFR > 60 > 60 Vancomycin Loading Dose: 2000 mg Current Vancomycin Dosing Regimen: 1000 MG Q12H Vancomycin Monitoring using AUC goal of 400 - 600 range with trough as surrogate marker: WSF=015 TROUGH=14.3 Date and Time for next Vancomycin Level to be drawn: 09/10/24 @2100 Pharmacist Comments on Vancomycin Plan: Vancomycin dosing will take advantage of [employer] as a clinical decision support tool that uses Bayesian modeling to calculate individual patient's pharmacokinetic parameters and forecast the patient's drug concentration time course with the target goal AUC 24 range of 400 - 600 mg/L/hr.
--- NOTE | 2024-09-09 13:06 | PC.NURSE ---
Pt educated on plan of care for the day, current lab results talked about, future testing talked about. Pt educated on the antibiotics she is currently on and what they are all for. Pt has been able to ambulate to the bathroom with a stand by assist. She remains A/O, breathing remains even and unlabored.
[2024-09-09 13:15] LABS: Glucose, Whole Blood 281 mg/dL (60-115)
--- NOTE | 2024-09-09 13:27 | MHC.CM.PN ---
IMM 09/09/24, Pt. lives with her , PCP confirmed: Josue Crain, HCP is her , copy requested. Pt. does not use home health services or DME. can transport her home at DC. DCP: home, self care. CM to follow for DC needs.
--- NOTE | 2024-09-09 16:00 | CA_ITS ---
Transthoracic Echocardiogram Patient (Last, First, Middle): Beth Mancilla J Gender: Female Date of : 1950 Age: 73 Procedure Date: 09/09/2024 Procedure Type: Transthoracic Echocardiogram Location: ER Height: 160.02 cm Weight: 78.02 kg BSA: 1.81 m2 Heart Rate: 84 bpm BP: 114 / 42 mmHg Business Functional Analyst: Referring MD: Mary BASHIR Machine Guide Base Winder: Feliciano Houston MD Symptoms: gram +bacteremia; mechanical valve Study Quality: Adequate w contrast ECG Rhythm: Paced Conclusions: - 1. Technically limited study 2. Mildly reduced LV ejection fraction 45-50% with impaired relaxation filling pattern 3. Moderately dilated right ventricle with preserved contractility 4. Severe biatrial enlargement 5. Mechanical aortic valve in place with increased gradient suggestive of stenosis, can not rule out patient prosthesis mismatch 6. Thickened mitral valve with calcification 7. [id number] elevation of right ventricular systolic pressure was significantly elevated right atrial pressures 8. Can not rule out endocarditis on this study Findings Procedure Information Contrast agent, definity, is being given per protocol without apparent complications. Left Ventricle Normal left ventricular cavity size. There is normal left ventricular wall thickness. The left ventricular systolic function is mildly decreased. The visually estimated ejection fraction is between 45-50%. There is paradoxical septal motion consistent with a right ventricular pacemaker. Spectral Doppler is indicative of an impaired relaxation filling pattern. E/E prime ratio is between 8 and 15 consistent with indeterminate filling pressures. Right Ventricle Moderately increased right ventricular cavity size. There is normal right ventricular systolic function. There is a pacemaker wire seen in the right ventricle. Atria The left atrium is severely dilated. Interatrial shunt cannot be excluded. The right atrium is severely dilated. A pacemaker wire is identified in the right atrium. Aortic Valve A mechanical prosthetic aortic valve is present. The prosthetic aortic valve appears to be functioning abnormally. The aortic valve was not well visualized. The mean gradient is 21 mmHg. There is no aortic valve regurgitation. that has increased gradient across the mechanical aortic valve administrative office assistant with stenosis. Unclear if this is related to patient prosthesis mismatch Mitral Valve There is moderate anterior and posterior mitral leaflet thickening. There is moderate mitral annular calcification. There is trace mitral valve regurgitation. There is no mitral valve stenosis. Pulmonic Valve The pulmonic valve was not well visualized. Tricuspid Valve The tricuspid valve was not well visualized. Significantly elevated right atrial pressure. Mild to moderate pulmonary hypertension is present. Great Vessels The aorta was not well visualized. The pulmonary artery was not well visualized. Venous The inferior vena cava is moderately dilated and does not collapse with inspiration. Pericardium/Pleural The pericardium was not well visualized. Prior Study Comparison No prior study available for comparison. Recommendations, Care & Conclusions Consider a VINNY if clinically appropriate. Measurements 2D Linear Measurements IVSd: 1.40 0.6-0.9/0.6-1.0 cm LVIDd: 4.46 3.9-5.3/4.2-5.9 cm LVIDd Index: 2.46 2.4-3.2/2.2-3.1 cm/m2 LVIDs: 2.95 2.0-3.6 cm LVPWd: 1.41 0.7-1.1 cm LA Diam: 4.50 2.7-3.8/3.0-4.0 cm LAIDs Index: 2.49 1.5-2.3 cm/m2 LV Mass: 307.35 67-162/88-224 g LV Mass Index: 169.80 43-95/49-115 g/m2 LVOT Diam: 2.10 3.0+(-)1.3 cm 2D Systolic Function EF 4C: 45.20 >55% EF 2C: 55.20 >55% EF BiP: 48.30 >55% Mitral Valve MV VTI: 0.33 MV Pk Jason: 1.35 MV Mn Jason: 0.89 MV Pk Grad: 7.00 MV Mn Grad: 4.00 MV Pk E: 1.28 MV PK A: 1.22 MV Decel Time: 104.00 E/A: 1.00 E'Lateral: 4.46 E'Medial: 3.70 E/E' Med: 34.60 E/E' Lat: 28.70 PHT: 30.00 MVA PHT: 7.33 MVA Continuity: 1.68 Decel [place]: 12.31 Aortic Valve AoV Pk Jason: 2.84 AoV Mn Jason: 2.18 AoV VTI: 0.59 AoV Pk Grad: 32.00 Aov Mn Grad: 21.00 JOEL Cont.VTI: 0.95 LVOT LVOT Pk Jason: 0.76 LVOT Mn Jason: 0.53 LVOT VTI: 0.16 LVOT Pk Grad: 2.00 LVOT Mn Grad: 1.00 LVOT Diam: 2.10 LVOT Area: 3.46 Diastolic Function MV Pk E: 1.28 MV Pk A: 1.22 E/A: 1.00 E'Medial: 3.70 E/E' Med: 34.60 E' Laterial: 4.46 E/E' Lat: 28.70 Right Ventricle TAPSE (mm): 22.60 TVS' Jason: 13.60 Tricuspid Valve TR Pk Jason: 2.78 TR Pk Grad: 31.00 RA Press: 15.00 RVSP: 46.00 Great Vessels Aorta Sinus of Valsalva: 2.80 2.0-3.5 cm Ao Asc: 3.30 2.1-3.4 cm Pulmonary Valve PV Pk Jason: 0.86 Peak PV Grad: 3.00 Updated in Other Vendor System with Status of Final Feliciano Houston MD electronically signed on 09/09/2024 4:25:41 PM with status of Final
[2024-09-09 16:16] LABS: Glucose, Whole Blood 319 mg/dL (60-115)
[2024-09-09] MEDS: 0.9 % Sodium Chloride Flush 3 ML SYRINGE IVFLUSH ×2 (16:20→19:43)
[2024-09-09 20:43] LABS: Glucose, Whole Blood 303 mg/dL (60-115)
[2024-09-10 03:10] VITALS: BP 135/62; PULSE 87; RESP 18; TEMP 36.4; O2SAT 94
[2024-09-10 07:08] LABS: Glucose, Whole Blood 236 mg/dL (60-115)
[2024-09-10 07:19] VITALS: BP 156/69; PULSE 95; RESP 20; TEMP 37.2; O2SAT 92
[2024-09-10 08:10] LABS: Creatinine Clr Calc Pharmacy 104.0; Estimated Glomerular Filt Rate > 60
[2024-09-10 08:11] LABS: Prothrombin Time 66.6 SEC (10.9-12.4)
[2024-09-10 08:13] LABS: INTERNATIONAL NORM RATIO 5.8 (0.9-1.1)
[2024-09-10] MEDS: 0.9 % Sodium Chloride Flush 3 ML SYRINGE IVFLUSH ×3 (08:18→21:11)
[2024-09-10 10:56] LABS: Glucose, Whole Blood 331 mg/dL (60-115)
[2024-09-10 11:09] VITALS: BP 133/61; PULSE 90; RESP 18; TEMP 36.6; O2SAT 93
--- NOTE | 2024-09-10 13:29 | P.PNIM_ITS ---
Subjective Subjective Date of Service: 09/10/24 Interval History: Has some sob, but overall feels better Physical Exam 2 Vital Signs: Vital Signs: Last Vital Signs Temp 97.8 F 09/10/24 11:09 Pulse 90 09/10/24 11:09 Resp 18 09/10/24 11:09 BP 133/61 09/10/24 11:09 Pulse Ox 93 09/10/24 11:09 O2 Del Method Nasal Cannula 09/10/24 11:09 O2 Flow Rate 2 09/10/24 11:09 BMI result Body Mass Index 30.5 Const: Other: General: AO X 3, no acute distress Resp: CTA bilateral CVS: S1,S2,RRR GI: +BS, NT, no distention Skin: No rash Neuro: motor grossly intact Psych: appropriate affect Objective Data Active Medications Acetaminophen (Acetaminophen 325 Mg Tablet) 975 mg PO Q6H PRN PRN Reason: Pain, Mild 1-3,fever,headache Last Admin: 09/09/24 19:42 Dose: 975 mg Documented By: LAYLA Albuterol Sulfate (Albuterol Sulfate (0.083%) 2.5 Mg/3 Ml Vial.Neb) 2.5 mg INHALE Q3H PRN PRN Reason: Wheezing Last Admin: 09/09/24 07:38 Dose: 2.5 mg Documented By: DINA Atorvastatin Calcium (Atorvastatin Calcium 10 Mg Tablet) 10 mg PO BEDTIME [facility] Last Admin: 09/09/24 19:42 Dose: 10 mg Documented By: LAYLA Calcium Carbonate (Calcium Carbonate 750 Mg Tab.Chew) 750 mg PO Q4H PRN PRN Reason: Heartburn Ceftriaxone Sodium (Ceftriaxone Sodium 1 Gm Vial) 1 gm IVPUSH Q24H [facility] Last Admin: 09/09/24 19:43 Dose: 1 gm Documented By: LAYLA Dextrose (Dextrose 50 % 25 Gm/50 Ml Syringe) 25 gm IVPUSH Q15M PRN; Protocol PRN Reason: per Hypoglycemia Standing Ord. Fenofibrate (Fenofibrate 160 Mg Tablet) 160 mg PO BEDTIME [facility] Last Admin: 09/09/24 19:42 Dose: 160 mg Documented By: LAYLA Glucose (Glucose Gel 15 Gm Gel..Gram.) 15 gm PO Q15M PRN; Protocol PRN Reason: per Hypoglycemia Standing Ord. Guaifenesin/Codeine Phosphate (Guaifen/Codeine Sf 200/20/10ml 10 Ml Liquid) 10 ml PO Q6H PRN PRN Reason: Cough Last Admin: 09/09/24 11:35 Dose: 10 ml Documented By: DINA Azithromycin 500 mg/ Sodium (Chloride) 250 mls @ 125 mls/hr IV Q24H [facility] Last Infusion: 09/10/24 00:24 Dose: Infused Documented By: RUMA Vancomycin HCl 1,000 mg/ (Sodium Chloride) 270 mls @ 270 mls/hr IV Q12H [facility] Last Admin: 09/10/24 12:23 Dose: 270 mls/hr Documented By: KASANDRA Insulin Human Lispro (Insulin Lispro 100 Unit/Ml 3 Ml Vial) 0 unit [facility]; Protocol Last Admin: 09/10/24 12:26 Dose: 8 unit Documented By: KASANDRA Loratadine (Loratadine 10 Mg Tablet) 10 mg PO DAILY PRN PRN Reason: allergies Last Admin: 09/09/24 13:19 Dose: 10 mg Documented By: DINA Magnesium Hydroxide (Milk Of Magnesia 30 Ml Oral.Susp) 30 ml PO DAILY PRN PRN Reason: Constipation Melatonin (Melatonin 3 Mg Tablet) 6 mg PO BEDTIME PRN PRN Reason: Insomnia Pharmacy Consult (Consult Rx Vancomycin Dosing) 1 each MISCELLANE DAILY PRN PRN Reason: Consult order Sodium Chloride (0.9 % Sodium Chloride Flush 3 Ml Syringe) 3 ml IVFLUSH [facility] Last Admin: 09/10/24 08:18 Dose: 3 ml Documented By: KASANDRA Labs 09/09/24 04:50 09/10/24 07:40 Labs: Laboratory Results - last 24 hr 09/09/24 09/09/24 09/10/24 16:10 20:38 07:04 PT INR Estim Creat Clear Calc Estimated GFR POC Glucose 319 H 303 H 236 H 09/10/24 09/10/24 07:40 10:52 PT 66.6 H INR 5.8 H* Estim Creat Clear Calc 104.0 Estimated GFR > 60 POC Glucose 331 H Microbiology Microbiology Results: Microbiology 09/08/24 20:03 Blood Culture - Preliminary Blood - Venous Enterococcus/Streptococcus sp 09/08/24 19:57 Blood Culture - Preliminary Blood - Venous Enterococcus/Streptococcus sp Assessment and Plan (1) Bacteremia: Status: Acute Plan Beth Mancilla is a 71 y/o woman admitted with: Acute hypoxic respiratory failure secondary to pneumonia, legionell pending continue Abx Entereoccocus/streptococcus repeat culture is also positive continue Abx per id recommendation ID to follow up echo endocarditis cannot be ruled out cardiology to assess for VINNY Uncontrolled type 2 diabetes mellitus with hyperglycemia continue sliding scale add lantus diabetic diet Asthma, intermittent. No exacerbation/no wheezing. Last episode was 2 years ago. Albuterol neb prn wheezing. No lonhrt on oxygen History of CHF. ?systolic vs diastolic. Continue to monitor for signs and symptoms for now. Transaminitis, likely due to statin. Continue to monitor. 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 Warfarin on hold -supratherapeutic INR 5.8, no bleeding hold coumadin Supratherapeutic INR. Hold warfarin. Continue to monitor INR daily are restart when therapeutic INR achieved. Hypertriglyceridemia. Continue statin and and fenofibrate. Permanent pacemaker implantation. Atrial and ventricular-paced rhythm. Essential hypertension. Hydrochlorothiazide and losartan on hold due to soft BP and dehydration concerns. Obesity, class 1. BMI 30.5 kg/m2. Weight loss encouraged. History of breast cancer. S/p lumpectomy and radiation. History of uterine cancer. S/p abdominal hysterectomy. DVT prophylaxis: On warfarin (currently on hold due to supratherapeutic INR). Code status: Full Quality Stroke Does the patient have a stroke diagnosis?: No VTE Prior VTE?: No VTE Risk Level:: Medical - moderate - high VTE Device Contraindication: Treatment Not Indicated VTE Drug Contraindication: N/A - Med Ordered
--- NOTE | 2024-09-10 14:39 | W.PM.IDCN ---
History of Present Illness Data of Consult Service Date: 09/09/24 Requesting physician: Mary Womack Primary Care Provider: KRYSTEN Dai Reason for consult: lung infiltrates She presents with shortness of breath and cough for a week. She has some chills. She has been working outside but also installed an old A/C unit she had cleaned. Review of Systems Review of Systems: Yes all other systems are reviewed and are negative PMF Past Medical History Medical History Breast cancer, left Uterine cancer DVT (deep venous thrombosis) CHF (congestive heart failure) DM (diabetes mellitus) Kidney stones Asthma Pacemaker Family History Family history: reviewed and not pertinent Surgical History Surgical History History of lumpectomy of left breast History of total abdominal hysterectomy Aortic valve prosthesis present Social History Social History Alcohol intake: never Patient Tobacco Use Status: Never used Tobacco service: No Meds Allergies Allergy/AdvReac Type Severity Reaction Status Date / Time adhesive tape Allergy Rash Verified 09/08/24 18:53 Active Medications: Current Medications Acetaminophen (Acetaminophen 325 Mg Tablet) 975 mg PO Q6H PRN PRN Reason: Pain, Mild 1-3,fever,headache Last Admin: 09/09/24 19:42 Dose: 975 mg Albuterol Sulfate (Albuterol Sulfate (0.083%) 2.5 Mg/3 Ml Vial.Neb) 2.5 mg INHALE Q3H PRN PRN Reason: Wheezing Last Admin: 09/09/24 07:38 Dose: 2.5 mg Atorvastatin Calcium (Atorvastatin Calcium 10 Mg Tablet) 10 mg PO BEDTIME [facility] Last Admin: 09/09/24 19:42 Dose: 10 mg Calcium Carbonate (Calcium Carbonate 750 Mg Tab.Chew) 750 mg PO Q4H PRN PRN Reason: Heartburn Ceftriaxone Sodium (Ceftriaxone Sodium 2 Gm Vial) 2 gm IVPUSH Q24H [facility] Dextrose (Dextrose 50 % 25 Gm/50 Ml Syringe) 25 gm IVPUSH Q15M PRN; Protocol PRN Reason: per Hypoglycemia Standing Ord. Fenofibrate (Fenofibrate 160 Mg Tablet) 160 mg PO BEDTIME [facility] Last Admin: 09/09/24 19:42 Dose: 160 mg Glucose (Glucose Gel 15 Gm Gel..Gram.) 15 gm PO Q15M PRN; Protocol PRN Reason: per Hypoglycemia Standing Ord. Guaifenesin/Codeine Phosphate (Guaifen/Codeine Sf 200/20/10ml 10 Ml Liquid) 10 ml PO Q6H PRN PRN Reason: Cough Last Admin: 09/09/24 11:35 Dose: 10 ml Azithromycin 500 mg/ Sodium (Chloride) 250 mls @ 125 mls/hr IV Q24H [facility] Last Infusion: 09/10/24 00:24 Dose: Infused Insulin Glargine (Insulin Glargine,Hum.Rec.Anlog 100 Unit/Ml 10 Ml Vial) 10 unit SUBCUT DAILY [facility] Insulin Human Lispro (Insulin Lispro 100 Unit/Ml 3 Ml Vial) 0 unit SUBCUT [facility]; Protocol Last Admin: 09/10/24 12:26 Dose: 8 unit Loratadine (Loratadine 10 Mg Tablet) 10 mg PO DAILY PRN PRN Reason: allergies Last Admin: 09/09/24 13:19 Dose: 10 mg Magnesium Hydroxide (Milk Of Magnesia 30 Ml Oral.Susp) 30 ml PO DAILY PRN PRN Reason: Constipation Melatonin (Melatonin 3 Mg Tablet) 6 mg PO BEDTIME PRN PRN Reason: Insomnia Pharmacy Consult (Consult Rx Vancomycin Dosing) 1 each MISCELLANE DAILY PRN PRN Reason: Consult order Sodium Chloride (0.9 % Sodium Chloride Flush 3 Ml Syringe) 3 ml IVFLUSH [facility] Last Admin: 09/10/24 08:18 Dose: 3 ml Home Medications ?Medication ?Instructions ?Recorded ?Confirmed ?Last Taken ?Type fenofibrate nanocrystallized 145 145 mg PO BEDTIME 10/30/20 09/09/24 09/08/24 09:00 History mg tablet furosemide 20 mg tablet 20 mg PO NEEDED PRN swelling 10/30/20 09/09/24 09/08/24 09:00 History hydrochlorothiazide 12.5 mg capsule 12.5 mg PO DAILY 10/30/20 09/09/24 09/08/24 09:00 History irbesartan 300 mg tablet 300 mg PO BEDTIME 10/30/20 09/09/24 09/08/24 09:00 History simvastatin 20 mg tablet 20 mg PO BEDTIME 10/30/20 09/09/24 09/08/24 09:00 History tavaborole 5 % topical solution 0.05 ml topical DAILY 10/30/20 09/09/24 09/08/24 09:00 History with applicator albuterol sulfate 90 mcg/actuation 2 inh inhalation Q4H PRN Wheezing 04/28/22 09/09/24 09/08/24 09:00 History aerosol inhaler glucosamine sulfate 500 mg tablet 1,500 mg PO NEEDED PRN 04/28/22 09/09/24 09/08/24 09:00 History (Glucosamine) arthritis pain loratadine 10 mg tablet 10 mg PO NEEDED PRN allergies 04/28/22 09/09/24 09/08/24 09:00 History omega 6-loj-hmv-fish oil 1,000 mg 1 cap PO DAILY 04/28/22 09/09/24 09/08/24 09:00 History (120 mg-180 mg) capsule (Fish Oil) warfarin 2.5 mg tablet (Jantoven) 2.5 mg MOWEFR@1800 04/28/22 09/09/24 09/08/24 09:00 History acetaminophen 650 mg 650 mg PO Q8H PRN arthritis 09/09/24 09/09/24 09/08/24 09:00 History tablet,extended release cyanocobalamin (vitamin B-12) 50 50 mcg PO DAILY 09/09/24 09/09/24 09/08/24 09:00 History mcg tablet (Vitamin B-12) wkhwzkwh-eab-bptxc acid 0.4 1 tab PO DAILY 09/09/24 09/09/24 09/08/24 09:00 History mg-lycopene 300 mcg-lutein 250 mcg tablet (Centrum Silver) warfarin 2.5 mg tablet (Jantoven) 1.25 mg PO SUTUTHSA@1800 09/09/24 09/09/24 09/08/24 09:00 History Physical Exam Vital Signs: Vital Signs: Last Vital Signs Temp 97.8 F 09/10/24 11:09 Pulse 90 09/10/24 11:09 Resp 18 09/10/24 11:09 BP 133/61 09/10/24 11:09 Pulse Ox 93 09/10/24 11:09 O2 Del Method Nasal Cannula 09/10/24 11:09 O2 Flow Rate 2 09/10/24 11:09 BMI result Body Mass Index 30.5 Const: General: cooperative HEENT: Head: Yes normal to inspection Face and sinus: Yes normal facial exam Mouth: Normal oral and palatal mucosa present Teeth and gingiva: dentition normal Eyes: General: appearance normal, both eyes and all related structures Pupils: Equal, round and reactive pupils present Resp: Effort & Inspection: normal respiratory effort Cardio: Other: 2/6 DALTON Rate: regular rate Rhythm: regular rhythm GI: Palpation (GI): Soft to palpation and nontender : General: Yes no CVA tenderness Back/Spine/Pelvis: Back: no CVA tenderness Skin: General skin exam: no rashes or lesions noted Neuro: General: moves all extremities Cranial nerves: Yes Equal, round and reactive pupils present Extrem: General: Yes normal to inspection Psych: Appearance: grossly normal Results Labs 09/09/24 04:50 09/10/24 07:40 Labs: BMP 09/10/24 07:40 Creatinine 0.47 L Microbiology Microbiology Results: Microbiology 09/08/24 20:03 Blood - Venous Blood Culture - Preliminary Enterococcus/Streptococcus sp 09/08/24 19:57 Blood - Venous Blood Culture - Preliminary Enterococcus/Streptococcus sp Assessment and Plan (1) Pneumonia: Status: Acute (2) Acute hypoxic respiratory failure: Status: Acute Plan She has possible atypical or Legionella pneumonia (micdadei will not show on urine screen). She is on three liters oxygen and none at home Ceftriaxone and Zmax IV and then probable po Ceftin for a [facility].
[2024-09-10 15:48] VITALS: BP 147/68; PULSE 88; RESP 18; TEMP 37.3; O2SAT 94
[2024-09-10 16:27] LABS: Glucose, Whole Blood 301 mg/dL (60-115)
[2024-09-10] MEDS: Insulin Glargine,Hum.rec.anlog 100 UNIT/ML 10 ML VIAL 10 UNIT SUBCUT (16:53)
[2024-09-10 19:54] VITALS: BP 146/65; PULSE 86; RESP 20; TEMP 37.5; O2SAT 95
[2024-09-10 20:55] LABS: Glucose, Whole Blood 276 mg/dL (60-115)
[2024-09-10] MEDS: guaiFEN/Codeine SF 200/20/10ML 10 ML LIQUID PO (21:10)
[2024-09-10 23:16] VITALS: BP 122/56; PULSE 86; RESP 18; TEMP 36; O2SAT 95
[2024-09-11 03:28] VITALS: BP 116/55; PULSE 89; RESP 18; TEMP 36.6; O2SAT 92
[2024-09-11 07:05] LABS: Glucose, Whole Blood 187 mg/dL (60-115)
[2024-09-11 07:08] LABS: INTERNATIONAL NORM RATIO 3.9 (0.9-1.1); Prothrombin Time 45.0 SEC (10.9-12.4)
[2024-09-11 07:18] VITALS: BP 148/65; PULSE 77; RESP 18; TEMP 36.8; O2SAT 95
[2024-09-11] MEDS: Insulin Glargine,Hum.rec.anlog 100 UNIT/ML 10 ML VIAL 10 UNIT SUBCUT (08:14)
[2024-09-11] MEDS: 0.9 % Sodium Chloride Flush 3 ML SYRINGE IVFLUSH ×3 (08:16→20:41)
[2024-09-11 10:59] LABS: Glucose, Whole Blood 281 mg/dL (60-115)
[2024-09-11 11:18] VITALS: BP 135/63; PULSE 83; RESP 20; TEMP 36.9; O2SAT 95
--- NOTE | 2024-09-11 13:07 | HO.PM.IMPN ---
Subjective Subjective Date of Service: 09/11/24 Interval History: she is feeling better, she's off oxygen repeat blood cultures are positive, Physical Exam Vital Signs: Vital Signs: Last Vital Signs Temp 98.5 F 09/11/24 11:18 Pulse 83 09/11/24 11:18 Resp 20 09/11/24 11:18 BP 135/63 09/11/24 11:18 Pulse Ox 95 09/11/24 11:18 O2 Del Method Room Air 09/11/24 11:18 O2 Flow Rate 2 09/11/24 07:18 BMI result Body Mass Index 30.5 Const: Other: General: AO X 3, no acute distress Resp: CTA bilateral CVS: S1,S2,RRR, positive systolic murmur in aortic position GI: +BS, NT, no distention Skin: No rash Neuro: motor grossly intact Psych: appropriate affect Objective Data Active Medications Acetaminophen (Acetaminophen 325 Mg Tablet) 975 mg PO Q6H PRN PRN Reason: Pain, Mild 1-3,fever,headache Last Admin: 09/09/24 19:42 Dose: 975 mg Documented By: LAYLA Albuterol Sulfate (Albuterol Sulfate (0.083%) 2.5 Mg/3 Ml Vial.Neb) 2.5 mg INHALE Q3H PRN PRN Reason: Wheezing Last Admin: 09/09/24 07:38 Dose: 2.5 mg Documented By: DINA Atorvastatin Calcium (Atorvastatin Calcium 10 Mg Tablet) 10 mg PO BEDTIME [facility] Last Admin: 09/10/24 19:58 Dose: 10 mg Documented By: OLGA Calcium Carbonate (Calcium Carbonate 750 Mg Tab.Chew) 750 mg PO Q4H PRN PRN Reason: Heartburn Dextrose (Dextrose 50 % 25 Gm/50 Ml Syringe) 25 gm IVPUSH Q15M PRN; Protocol PRN Reason: per Hypoglycemia Standing Ord. Fenofibrate (Fenofibrate 160 Mg Tablet) 160 mg PO BEDTIME [facility] Last Admin: 09/10/24 19:58 Dose: 160 mg Documented By: OLGA Glucose (Glucose Gel 15 Gm Gel..Gram.) 15 gm PO Q15M PRN; Protocol PRN Reason: per Hypoglycemia Standing Ord. Guaifenesin/Codeine Phosphate (Guaifen/Codeine Sf 200/20/10ml 10 Ml Liquid) 10 ml PO Q6H PRN PRN Reason: Cough Last Admin: 09/10/24 21:10 Dose: 10 ml Documented By: OLGA Ampicillin Sodium/Sulbactam (Sodium 3 gm/ Sodium Chloride) 100 mls @ 200 mls/hr IV Q6H [facility] Insulin Glargine (Insulin Glargine,Hum.Rec.Anlog 100 Unit/Ml 10 Ml Vial) 10 unit SUBCUT DAILY [facility] Last Admin: 09/11/24 08:14 Dose: 10 unit Documented By: KASANDRA Insulin Human Lispro (Insulin Lispro 100 Unit/Ml 3 Ml Vial) 0 unit SUBCUT QIDACHS [facility]; Protocol Last Admin: 09/11/24 13:04 Dose: 6 unit Documented By: KASANDRA Loratadine (Loratadine 10 Mg Tablet) 10 mg PO DAILY PRN PRN Reason: allergies Last Admin: 09/09/24 13:19 Dose: 10 mg Documented By: DINA Magnesium Hydroxide (Milk Of Magnesia 30 Ml Oral.Susp) 30 ml PO DAILY PRN PRN Reason: Constipation Melatonin (Melatonin 3 Mg Tablet) 6 mg PO BEDTIME PRN PRN Reason: Insomnia Sodium Chloride (0.9 % Sodium Chloride Flush 3 Ml Syringe) 3 [facility] Last Admin: 09/11/24 08:16 Dose: 3 ml Documented By: KASANDRA Labs 09/09/24 04:50 09/10/24 07:40 Labs: Laboratory Results - last 24 hr 09/10/24 09/10/24 09/11/24 16:11 20:47 06:30 PT 45.0 H D INR 3.9 H POC Glucose 301 H 276 H 09/11/24 09/11/24 06:55 10:49 PT INR POC Glucose 187 H 281 H Microbiology Microbiology Results: Microbiology 09/10/24 07:43 Blood Culture - Preliminary Blood - Venous Enterococcus/Streptococcus sp 09/10/24 07:39 Blood Culture - Preliminary Blood - Venous Enterococcus/Streptococcus sp 09/08/24 20:03 Blood Culture - Final Blood - Venous Enterococcus faecalis 09/08/24 19:57 Blood Culture - Final Blood - Venous Enterococcus faecalis Assessment and Plan (1) Bacteremia: Status: Acute Plan 73/F with history dental work related endocarditis, mechanical aortic valve on coumadtin, diabetes, HTN, h/o asthma, h/o DVT presented with shortness of breath and found to have PNA, bacteremia. Acute hypoxic respiratory failure secondary to pneumonia, likely same organisma as bacteremia, improved, hypoxia resolved, continue Abx with Unassyn Entereoccocus Feacalis bacteremia repeat culture is also positive continue Abx per id recommendation ID to follow up echo endocarditis cannot be ruled out cardiology to assess for VINNY Uncontrolled type 2 diabetes mellitus with hyperglycemia continue sliding scale add lantus diabetic diet Asthma, intermittent. No exacerbation/no wheezing. Last episode was 2 years ago. Albuterol neb prn wheezing. No lonhrt on oxygen History of CHF. ?systolic vs diastolic. Continue to monitor for signs and symptoms for now. Transaminitis, likely due to statin. Continue to monitor. 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 Warfarin on hold -supratherapeutic INR 5.8, no bleeding hold coumadin Supratherapeutic INR. Hold warfarin. Continue to monitor INR daily are restart when therapeutic INR achieved. Hypertriglyceridemia. Continue statin and and fenofibrate. Permanent pacemaker implantation. Atrial and ventricular-paced rhythm. Essential hypertension. Hydrochlorothiazide and losartan on hold due to soft BP and dehydration concerns. Obesity, class 1. BMI 30.5 kg/m2. Weight loss encouraged. History of breast cancer. S/p lumpectomy and radiation. History of uterine cancer. S/p abdominal hysterectomy. DVT prophylaxis: On warfarin (currently on hold due to supratherapeutic INR). Code status: Full Quality Stroke Does the patient have a stroke diagnosis?: No VTE Prior VTE?: No VTE Risk Level:: Medical - moderate - high VTE Device Contraindication: Treatment Not Indicated VTE Drug Contraindication: N/A - Med Ordered
--- NOTE | 2024-09-11 14:54 | MHC.CM.PN ---
Per rounds, pt. improving, still requiring care for hypoxic respiratory failure, anticpate she can DC tomorrow.
[2024-09-11 15:06] VITALS: BP 154/67; PULSE 89; RESP 20; TEMP 36.9; O2SAT 95
[2024-09-11 16:47] LABS: Glucose, Whole Blood 212 mg/dL (60-115)
[2024-09-11 19:34] VITALS: BP 152/70; PULSE 90; RESP 18; TEMP 37.1; O2SAT 97
[2024-09-11 20:28] LABS: Glucose, Whole Blood 238 mg/dL (60-115)
[2024-09-11 23:10] VITALS: BP 152/78; PULSE 92; RESP 18; TEMP 36.8; O2SAT 94
--- NOTE | 2024-09-12 00:21 | P.PNID_ITS ---
Subjective Subjective Date of Service: 09/11/24 Critical Care Time (minutes): 15 Comment: She reports no nausea at this time Objective Data Labs 09/09/24 04:50 09/10/24 07:40 Labs: Laboratory Results - last 24 hr 09/11/24 09/11/24 09/11/24 06:30 06:55 10:49 PT 45.0 H D INR 3.9 H POC Glucose 187 H 281 H 09/11/24 09/11/24 16:43 20:25 PT INR POC Glucose 212 H 238 H Microbiology Microbiology Results: Microbiology 09/10/24 07:43 Blood - Venous Blood Culture - Preliminary Enterococcus/Streptococcus sp 09/10/24 07:39 Blood - Venous Blood Culture - Preliminary Enterococcus/Streptococcus sp 09/08/24 20:03 Blood - Venous Blood Culture - Final Enterococcus faecalis 09/08/24 19:57 Blood - Venous Blood Culture - Final Enterococcus faecalis Physical Exam 2 Vital Signs: Vital Signs: Last Vital Signs Temp 98.2 F 09/11/24 23:10 Pulse 92 09/11/24 23:10 Resp 18 09/11/24 23:10 BP 152/78 H 09/11/24 23:10 Pulse Ox 94 09/11/24 23:10 O2 Del Method Room Air 09/11/24 23:10 O2 Flow Rate 2 09/11/24 07:18 BMI result Body Mass Index 30.5 Const: General: cooperative HEENT: Head: Yes normal to inspection Face and sinus: Yes normal facial exam Mouth: Normal oral and palatal mucosa present Teeth and gingiva: d entition normal Eyes: General: appearance normal, both eyes and all related structures P upils: Equal, round and reactive pupils present Resp: Effort & Inspection: normal respiratory effort Cardio: Rate: regular rate Rhythm: regular rhythm GI: Palpation (GI): Soft to palpation and nontender : General: Yes no CVA tenderness Back/Spine/Pelvis: Back: no CVA tenderness Skin: General skin exam: no rashes or lesions noted Neuro: General: moves all extremities Cranial nerves: Yes Equal, round and reactive pupils present Extrem: General: Yes normal to inspection Psych: Appearance: grossly normal Assessment and Plan Assessment and plan (1) Bacteremia: Status: Acute Assessment and Plan: probable aortic valve endocarditis Plan Would give Daptomycin and Ceftriaxone for synergy,possible six weeks. Can hold statin Concern over drug interaction with Rifampin. Time Spent With Patient Time: Total time managing care of this patient today ____ minutes.
[2024-09-12 01:18] LABS: Strep Pneumo Ag urine Not Detected (Not Detected)
[2024-09-12 03:31] VITALS: BP 165/73; PULSE 87; RESP 18; TEMP 36.6; O2SAT 95
[2024-09-12 07:01] LABS: INTERNATIONAL NORM RATIO 2.6 (0.9-1.1); Prothrombin Time 30.4 SEC (10.9-12.4)
[2024-09-12 07:05] LABS: Glucose, Whole Blood 188 mg/dL (60-115)
[2024-09-12 07:17] VITALS: BP 133/63; PULSE 76; RESP 18; TEMP 36.4; O2SAT 94
[2024-09-12] MEDS: Insulin Glargine,Hum.rec.anlog 100 UNIT/ML 10 ML VIAL 10 UNIT SUBCUT (07:46)
[2024-09-12] MEDS: 0.9 % Sodium Chloride Flush 3 ML SYRINGE IVFLUSH ×2 (07:48→17:17)
[2024-09-12 11:13] LABS: Glucose, Whole Blood 225 mg/dL (60-115)
[2024-09-12 11:21] VITALS: BP 140/62; PULSE 80; RESP 20; TEMP 36.2; O2SAT 96
--- NOTE | 2024-09-12 11:54 | HO.PM.IMPN ---
Subjective Subjective Date of Service: 09/13/24 Interval History: Doing well, but still bacteremic from blood cultures from 09/12 Physical Exam Vital Signs: Vital Signs: Last Vital Signs Temp 97.1 F 09/12/24 11:21 Pulse 80 09/12/24 11:21 Resp 20 09/12/24 11:21 BP 140/62 H 09/12/24 11:21 Pulse Ox 96 09/12/24 11:21 O2 Del Method Room Air 09/12/24 11:21 O2 Flow Rate 2 09/11/24 07:18 BMI result Body Mass Index 30.5 Const: Other: General: AO X 3, no acute distress Resp: CTA bilateral CVS: S1,S2,RRR, positive systolic murmur in aortic position GI: +BS, NT, no distention Skin: No rash Neuro: motor grossly intact Psych: appropriate affect Objective Data Active Medications Acetaminophen (Acetaminophen 325 Mg Tablet) 975 mg PO Q6H PRN PRN Reason: Pain, Mild 1-3,fever,headache Last Admin: 09/09/24 19:42 Dose: 975 mg Documented By: LAYLA Albuterol Sulfate (Albuterol Sulfate (0.083%) 2.5 Mg/3 Ml Vial.Neb) 2.5 mg INHALE Q3H PRN PRN Reason: Wheezing Last Admin: 09/09/24 07:38 Dose: 2.5 mg Documented By: IDNA Atorvastatin Calcium (Atorvastatin Calcium 10 Mg Tablet) 10 mg PO BEDTIME [facility] Last Admin: 09/11/24 20:40 Dose: 10 mg Documented By: KASSANDRA Calcium Carbonate (Calcium Carbonate 750 Mg Tab.Chew) 750 mg PO Q4H PRN PRN Reason: Heartburn Ceftriaxone Sodium (Ceftriaxone Sodium 2 Gm Vial) 2 gm IVPUSH BEDTIME [facility] Last Admin: 09/12/24 01:30 Dose: 2 gm Documented By: GIANNI Dextrose (Dextrose 50 % 25 Gm/50 Ml Syringe) 25 gm IVPUSH Q15M PRN; Protocol PRN Reason: per Hypoglycemia Standing Ord. Fenofibrate (Fenofibrate 160 Mg Tablet) 160 mg PO BEDTIME [facility] Last Admin: 09/11/24 20:40 Dose: 160 mg Documented By: KASSANDRA Glucose (Glucose Gel 15 Gm Gel..Gram.) 15 gm PO Q15M PRN; Protocol PRN Reason: per Hypoglycemia Standing Ord. Guaifenesin/Codeine Phosphate (Guaifen/Codeine Sf 200/20/10ml 10 Ml Liquid) 10 ml PO Q6H PRN PRN Reason: Cough Last Admin: 09/10/24 21:10 Dose: 10 ml Documented By: OLGA Daptomycin 500 mg/ Sodium (Chloride) 60 mls @ 96 mls/hr IV Q24H [facility] Last Admin: 09/12/24 08:33 Dose: 96 mls/hr Documented By: KASANDRA Insulin Glargine (Insulin Glargine,Hum.Rec.Anlog 100 Unit/Ml 10 Ml Vial) 10 unit SUBCUT DAILY [facility] Last Admin: 09/12/24 07:46 Dose: 10 unit Documented By: KASANDRA Insulin Human Lispro (Insulin Lispro 100 Unit/Ml 3 Ml Vial) 0 unit SUBCUT QIDACHS [facility]; Protocol Last Admin: 09/12/24 07:47 Dose: 2 unit Documented By: KASANDRA Loratadine (Loratadine 10 Mg Tablet) 10 mg PO DAILY PRN PRN Reason: allergies Last Admin: 09/09/24 13:19 Dose: 10 mg Documented By: DINA Magnesium Hydroxide (Milk Of Magnesia 30 Ml Oral.Susp) 30 ml PO DAILY PRN PRN Reason: Constipation Melatonin (Melatonin 3 Mg Tablet) 6 mg PO BEDTIME PRN PRN Reason: Insomnia Sodium Chloride (0.9 % Sodium Chloride Flush 3 Ml Syringe) [facility] Last Admin: 09/12/24 07:48 Dose: 3 ml Documented By: KASANDRA Warfarin Sodium (Warfarin Sodium 1.25 Mg Halftab) 1.25 mg PO SUTUTHSA@1800 [facility] Warfarin Sodium (Warfarin Sodium 2.5 Mg Tablet) 2.5 mg PO MOWEFR@1800 [facility] Labs 09/09/24 04:50 09/10/24 07:40 Labs: Laboratory Results - last 24 hr 09/09/24 09/11/24 09/11/24 15:45 16:43 20:25 PT INR POC Glucose 212 H 238 H Ur Strep pneumoniae Ag Not Detected 09/12/24 09/12/24 09/12/24 06:16 07:01 11:09 PT 30.4 H D INR 2.6 H POC Glucose 188 H 225 H Ur Strep pneumoniae Ag Microbiology Microbiology Results: Microbiology 09/10/24 07:43 Blood Culture - Final Blood - Venous Enterococcus faecalis 09/10/24 07:39 Blood Culture - Final Blood - Venous Enterococcus faecalis 09/08/24 20:03 Blood Culture - Final Blood - Venous Enterococcus faecalis 09/08/24 19:57 Blood Culture - Final Blood - Venous Enterococcus faecalis Assessment and Plan (1) Bacteremia: Status: Acute Plan 73/F with history dental work related endocarditis, mechanical aortic valve on coumadtin, diabetes, HTN, h/o asthma, h/o DVT presented with shortness of breath and found to have PNA, bacteremia. Acute hypoxic respiratory failure secondary to pneumonia, likely same organisma as bacteremia, improved, hypoxia resolved, continue Abx with Unassyn Entereoccocus Feacalis bacteremia, postive culture from 09/08 and 09/10 and 09/12 likely endocarditis on echo ID changed Abx to Daptomycin and Ceftriaxone on 09/11 Uncontrolled type 2 diabetes mellitus with hyperglycemia continue sliding scale increase lantus to 15 diabetic diet Asthma, intermittent. No exacerbation/no wheezing. Last episode was 2 years ago. Albuterol neb prn wheezing. No longer on oxygen History of CHF. ?systolic vs diastolic. Continue to monitor for signs and symptoms for now. Transaminitis, likely due to statin. Continue to monitor. 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 Warfarin on hold -supratherapeutic INR 2.6 restart coumadin Supratherapeutic INR. Coumadin restarted Hypertriglyceridemia. Continue statin and and fenofibrate. Permanent pacemaker implantation. Atrial and ventricular-paced rhythm. Essential hypertension. Hydrochlorothiazide and losartan on hold due to soft BP and dehydration concerns. Obesity, class 1. BMI 30.5 kg/m2. Weight loss encouraged. History of breast cancer. S/p lumpectomy and radiation. History of uterine cancer. S/p abdominal hysterectomy. DVT prophylaxis: On warfarin (currently on hold due to supratherapeutic INR). Code status: Full Quality Stroke Does the patient have a stroke diagnosis?: No VTE Prior VTE?: No VTE Risk Level:: Medical - moderate - high VTE Device Contraindication: Treatment Not Indicated VTE Drug Contraindication: N/A - Med Ordered
[2024-09-12 15:54] VITALS: BP 157/82; PULSE 83; RESP 18; TEMP 36.4; O2SAT 96
[2024-09-12 16:24] LABS: Glucose, Whole Blood 219 mg/dL (60-115)
[2024-09-12] MEDS: Warfarin Sodium 1.25 MG HALFTAB PO (17:15)
[2024-09-12 20:00] VITALS: BP 146/70; PULSE 83; RESP 18; TEMP 36.6; O2SAT 96
[2024-09-12 21:05] LABS: Glucose, Whole Blood 253 mg/dL (60-115)
[2024-09-12 23:29] VITALS: BP 145/64; PULSE 81; RESP 18; TEMP 37.1; O2SAT 94
[2024-09-13 03:52] VITALS: BP 151/68; PULSE 82; RESP 18; TEMP 36.7; O2SAT 95
[2024-09-13] MEDS: 0.9 % Sodium Chloride Flush 3 ML SYRINGE IVFLUSH ×4 (03:55→20:53)
[2024-09-13 07:02] LABS: Glucose, Whole Blood 183 mg/dL (60-115)
[2024-09-13 07:24] VITALS: BP 148/67; PULSE 79; RESP 20; TEMP 36.2; O2SAT 96
[2024-09-13 07:48] LABS: INTERNATIONAL NORM RATIO 2.2 (0.9-1.1); Prothrombin Time 25.4 SEC (10.9-12.4)
[2024-09-13] MEDS: Insulin Glargine,Hum.rec.anlog 100 UNIT/ML 10 ML VIAL 10 UNIT SUBCUT (08:59)
[2024-09-13 11:00] LABS: Glucose, Whole Blood 212 mg/dL (60-115)
[2024-09-13 11:10] VITALS: BP 134/62; PULSE 86; RESP 18; TEMP 36.7; O2SAT 95
[2024-09-13 15:23] VITALS: BP 144/65; PULSE 77; RESP 16; TEMP 36.2; O2SAT 95
[2024-09-13 16:55] LABS: Glucose, Whole Blood 162 mg/dL (60-115)
[2024-09-13 20:00] VITALS: BP 152/67; PULSE 84; RESP 18; TEMP 36.8; O2SAT 93
[2024-09-13] MEDS: guaiFENesin 100 MG/5 ML 5 ML LIQUID PO (20:52)
[2024-09-13 21:05] LABS: Glucose, Whole Blood 190 mg/dL (60-115)
[2024-09-13 23:47] VITALS: BP 152/65; PULSE 85; RESP 18; TEMP 36.1; O2SAT 94
[2024-09-14 03:36] VITALS: BP 136/61; PULSE 87; RESP 18; TEMP 36.3; O2SAT 92
[2024-09-14 06:21] LABS: INTERNATIONAL NORM RATIO 2.9 (0.9-1.1); Prothrombin Time 33.1 SEC (10.9-12.4)
[2024-09-14 07:22] VITALS: BP 138/65; PULSE 91; RESP 16; TEMP 36.1; O2SAT 95
[2024-09-14 07:27] LABS: Glucose, Whole Blood 189 mg/dL (60-115)
[2024-09-14] MEDS: Insulin Glargine,Hum.rec.anlog 100 UNIT/ML 10 ML VIAL 10 UNIT SUBCUT (08:02)
[2024-09-14] MEDS: 0.9 % Sodium Chloride Flush 3 ML SYRINGE IVFLUSH ×3 (08:03→21:08)
[2024-09-14] MEDS: guaiFENesin 100 MG/5 ML 5 ML LIQUID PO ×4 (08:04→21:14)
--- NOTE | 2024-09-14 10:05 | HO.PM.IMPN ---
Subjective Subjective Date of Service: 09/14/24 Interval History: Doing well, but still bacteremic from blood cultures from 09/12 reports some cough this morning, no sob Physical Exam Vital Signs: Vital Signs: Last Vital Signs Temp 97.0 F 09/14/24 07:22 Pulse 91 09/14/24 07:22 Resp 16 09/14/24 07:22 BP 138/65 09/14/24 07:22 Pulse Ox 95 09/14/24 07:22 O2 Del Method Room Air 09/14/24 07:22 O2 Flow Rate 2 09/11/24 07:18 BMI result Body Mass Index 30.5 Const: Other: General: AO X 3, no acute distress Resp: CTA bilateral CVS: S1,S2,RRR, positive systolic murmur in aortic position GI: +BS, NT, no distention Skin: No rash Neuro: motor grossly intact Psych: appropriate affect Objective Data Active Medications Acetaminophen (Acetaminophen 325 Mg Tablet) 975 mg PO Q6H PRN PRN Reason: Pain, Mild 1-3,fever,headache Last Admin: 09/13/24 12:24 Dose: 975 mg Documented By: MERCY Albuterol Sulfate (Albuterol Sulfate (0.083%) 2.5 Mg/3 Ml Vial.Neb) 2.5 mg INHALE Q3H PRN PRN Reason: Wheezing Last Admin: 09/09/24 07:38 Dose: 2.5 mg Documented By: DINA Calcium Carbonate (Calcium Carbonate 750 Mg Tab.Chew) 750 mg PO Q4H PRN PRN Reason: Heartburn Ceftriaxone Sodium (Ceftriaxone Sodium 2 Gm Vial) 2 gm IVPUSH BEDTIME [facility] Last Admin: 09/13/24 20:52 Dose: 2 gm Documented By: LAYLA Dextrose (Dextrose 50 % 25 Gm/50 Ml Syringe) 25 gm IVPUSH Q15M PRN; Protocol PRN Reason: per Hypoglycemia Standing Ord. Fenofibrate (Fenofibrate 160 Mg Tablet) 160 mg PO BEDTIME [facility] Last Admin: 09/13/24 20:53 Dose: 160 mg Documented By: LAYLA Glucose (Glucose Gel 15 Gm Gel..Gram.) 15 gm PO Q15M PRN; Protocol PRN Reason: per Hypoglycemia Standing Ord. Guaifenesin (Guaifenesin 100 Mg/5 Ml 5 Ml Liquid) 5 ml PO Q4H PRN PRN Reason: Cough Last Admin: 09/14/24 08:04 Dose: 5 ml Documented By: YOLY Daptomycin 500 mg/ Sodium (Chloride) 60 mls @ 120 mls/hr IV Q24H [facility] Last Admin: 09/14/24 08:23 Dose: 120 mls/hr Documented By: YOLY Insulin Glargine (Insulin Glargine,Hum.Rec.Anlog 100 Unit/Ml 10 Ml Vial) 10 unit SUBCUT DAILY [facility] Last Admin: 09/14/24 08:02 Dose: 10 unit Documented By: YOLY Insulin Human Lispro (Insulin Lispro 100 Unit/Ml 3 Ml Vial) 0 unit SUBCUT QIDACHS [facility]; Protocol Last Admin: 09/14/24 08:02 Dose: 2 unit Documented By: YOLY Insulin Human Lispro (Insulin Lispro 100 Unit/Ml 3 Ml Vial) 5 unit SUBCUT QIDACHS [facility] Last Admin: 09/14/24 07:59 Dose: Not Given Documented By: YOLY Non-Admin Reason: POC 189 Loratadine (Loratadine 10 Mg Tablet) 10 mg PO DAILY PRN PRN Reason: allergies Last Admin: 09/09/24 13:19 Dose: 10 mg Documented By: DINA Magnesium Hydroxide (Milk Of Magnesia 30 Ml Oral.Susp) 30 ml PO DAILY PRN PRN Reason: Constipation Melatonin (Melatonin 3 Mg Tablet) 6 mg PO BEDTIME PRN PRN Reason: Insomnia Sodium Chloride (0.9 % Sodium Chloride Flush 3 Ml Syringe) 3 ml IVFLUSH QSHIFT [facility] Last Admin: 09/14/24 08:03 Dose: 3 ml Documented By: YOLY Warfarin Sodium (Warfarin Sodium 1.25 Mg Halftab) 1.25 mg PO SUTUTHSA@1800 [facility] Last Admin: 09/12/24 17:15 Dose: 1.25 mg Documented By: BEATRIZ Warfarin Sodium (Warfarin Sodium 2.5 Mg Tablet) 2.5 mg PO MOWEFR@1800 [facility] Last Admin: 09/13/24 18:22 Dose: 2.5 mg Documented By: MERCY Labs 09/09/24 04:50 09/10/24 07:40 Labs: Laboratory Results - last 24 hr 09/13/24 09/13/24 09/13/24 10:55 16:51 21:00 PT INR POC Glucose 212 H 162 H 190 H 09/14/24 09/14/24 06:00 07:23 PT 33.1 H D INR 2.9 H POC Glucose 189 H Microbiology Microbiology Results: Microbiology 09/12/24 09:15 Blood Culture - Preliminary Blood - Venous Enterococcus/Streptococcus sp 09/12/24 09:02 Blood Culture - Preliminary Blood - Venous Enterococcus/Streptococcus sp Assessment and Plan (1) Bacteremia: Status: Acute Plan 73/F with history dental work related endocarditis, mechanical aortic valve on coumadtin, diabetes, HTN, h/o asthma, h/o DVT presented with shortness of breath and found to have PNA, bacteremia. Acute hypoxic respiratory failure secondary to pneumonia, likely same organisma as bacteremia, improved, hypoxia resolved, continue Abx with Unassyn Entereoccocus Feacalis bacteremia, postive culture from 09/08 and 09/10 and 09/12 recheck blood cultures today likely endocarditis on echo ID changed Abx to Daptomycin and Ceftriaxone on 09/11 Uncontrolled type 2 diabetes mellitus with hyperglycemia continue sliding scale increase lantus to 15 diabetic diet Asthma, intermittent. No exacerbation/no wheezing. Last episode was 2 years ago. Albuterol neb prn wheezing. No longer on oxygen History of CHF. ?systolic vs diastolic. Continue to monitor for signs and symptoms for now. Transaminitis, likely due to statin. Continue to monitor. 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 Warfarin on hold -supratherapeutic INR 2.6 restart coumadin Supratherapeutic INR. Coumadin restarted Hypertriglyceridemia. Continue statin and and fenofibrate. Permanent pacemaker implantation. Atrial and ventricular-paced rhythm. Essential hypertension. Hydrochlorothiazide and losartan on hold due to soft BP and dehydration concerns. Obesity, class 1. BMI 30.5 kg/m2. Weight loss encouraged. History of breast cancer. S/p lumpectomy and radiation. History of uterine cancer. S/p abdominal hysterectomy. DVT prophylaxis: On warfarin (currently on hold due to supratherapeutic INR). Code status: Full Quality Stroke Does the patient have a stroke diagnosis?: No VTE Prior VTE?: No VTE Risk Level:: Medical - moderate - high VTE Device Contraindication: Treatment Not Indicated VTE Drug Contraindication: N/A - Med Ordered
[2024-09-14 11:25] VITALS: BP 141/61; PULSE 88; RESP 16; TEMP 36.6; O2SAT 95
[2024-09-14 11:46] LABS: Glucose, Whole Blood 185 mg/dL (60-115)
[2024-09-14 16:00] VITALS: BP 111/88; PULSE 91; RESP 16; O2SAT 97
[2024-09-14 16:45] LABS: Glucose, Whole Blood 236 mg/dL (60-115)
[2024-09-14] MEDS: Warfarin Sodium 1.25 MG HALFTAB PO (17:42)
[2024-09-14 19:58] VITALS: BP 145/66; PULSE 90; RESP 18; TEMP 36.2; O2SAT 96
[2024-09-14 20:39] LABS: Glucose, Whole Blood 192 mg/dL (60-115)
[2024-09-14 23:52] VITALS: BP 130/60; PULSE 84; RESP 18; TEMP 36.3; O2SAT 94
[2024-09-15 03:57] VITALS: BP 126/60; PULSE 83; RESP 18; TEMP 36.7; O2SAT 93
[2024-09-15 07:32] LABS: INTERNATIONAL NORM RATIO 3.9 (0.9-1.1); Prothrombin Time 44.3 SEC (10.9-12.4)
[2024-09-15 07:46] LABS: Glucose, Whole Blood 165 mg/dL (60-115)
[2024-09-15 07:49] VITALS: BP 134/63; PULSE 87; RESP 16; TEMP 36.6; O2SAT 96
[2024-09-15] MEDS: Insulin Glargine,Hum.rec.anlog 100 UNIT/ML 10 ML VIAL 10 UNIT SUBCUT (08:00)
[2024-09-15] MEDS: 0.9 % Sodium Chloride Flush 3 ML SYRINGE IVFLUSH ×2 (08:02→16:46)
--- NOTE | 2024-09-15 10:16 | HO.PM.IMPN ---
Subjective Subjective Date of Service: 09/15/24 Interval History: no new issues Physical Exam Vital Signs: Vital Signs: Last Vital Signs Temp 97.8 F 09/15/24 07:49 Pulse 87 09/15/24 07:49 Resp 16 09/15/24 07:49 BP 134/63 09/15/24 07:49 Pulse Ox 96 09/15/24 07:49 O2 Del Method Room Air 09/15/24 07:49 O2 Flow Rate 2 09/11/24 07:18 BMI result Body Mass Index 30.5 Const: Other: General: AO X 3, no acute distress Resp: CTA bilateral CVS: S1,S2,RRR, positive systolic murmur in aortic position GI: +BS, NT, no distention Skin: No rash Neuro: motor grossly intact Psych: appropriate affect Objective Data Active Medications Acetaminophen (Acetaminophen 325 Mg Tablet) 975 mg PO Q6H PRN PRN Reason: Pain, Mild 1-3,fever,headache Last Admin: 09/13/24 12:24 Dose: 975 mg Documented By: MERCY Albuterol Sulfate (Albuterol Sulfate (0.083%) 2.5 Mg/3 Ml Vial.Neb) 2.5 mg INHALE Q3H PRN PRN Reason: Wheezing Last Admin: 09/09/24 07:38 Dose: 2.5 mg Documented By: DINA Calcium Carbonate (Calcium Carbonate 750 Mg Tab.Chew) 750 mg PO Q4H PRN PRN Reason: Heartburn Ceftriaxone Sodium (Ceftriaxone Sodium 2 Gm Vial) 2 gm IVPUSH BEDTIME [facility] Last Admin: 09/14/24 21:08 Dose: 2 gm Documented By: RUMA Dextrose (Dextrose 50 % 25 Gm/50 Ml Syringe) 25 gm IVPUSH Q15M PRN; Protocol PRN Reason: per Hypoglycemia Standing Ord. Fenofibrate (Fenofibrate 160 Mg Tablet) 160 mg PO BEDTIME [facility] Last Admin: 09/14/24 21:08 Dose: 160 mg Documented By: RUMA Glucose (Glucose Gel 15 Gm Gel..Gram.) 15 gm PO Q15M PRN; Protocol PRN Reason: per Hypoglycemia Standing Ord. Guaifenesin (Guaifenesin 100 Mg/5 Ml 5 Ml Liquid) 5 ml PO Q4H PRN PRN Reason: Cough Last Admin: 09/14/24 21:14 Dose: 5 ml Documented By: RUMA Daptomycin 500 mg/ Sodium (Chloride) 60 mls @ 120 mls/hr IV Q24H [facility] Last Admin: 09/15/24 08:00 Dose: 120 mls/hr Documented By: JOEL Insulin Glargine (Insulin Glargine,Hum.Rec.Anlog 100 Unit/Ml 10 Ml Vial) 10 unit SUBCUT DAILY [facility] Last Admin: 09/15/24 08:00 Dose: 10 unit Documented By: JOEL Insulin Human Lispro (Insulin Lispro 100 Unit/Ml 3 Ml Vial) 0 unit SUBCUT QIDACHS [facility]; Protocol Last Admin: 09/15/24 08:01 Dose: 2 unit Documented By: JOEL Insulin Human Lispro (Insulin Lispro 100 Unit/Ml 3 Ml Vial) 5 unit SUBCUT QIDACHS [facility] Last Admin: 09/15/24 07:50 Dose: Not Given Documented By: JOEL Non-Admin Reason: poc <200 Loratadine (Loratadine 10 Mg Tablet) 10 mg PO DAILY PRN PRN Reason: allergies Last Admin: 09/09/24 13:19 Dose: 10 mg Documented By: DINA Magnesium Hydroxide (Milk Of Magnesia 30 Ml Oral.Susp) 30 ml PO DAILY PRN PRN Reason: Constipation Melatonin (Melatonin 3 Mg Tablet) 6 mg PO BEDTIME PRN PRN Reason: Insomnia Sodium Chloride (0.9 % Sodium Chloride Flush 3 Ml Syringe) [facility] Last Admin: 09/15/24 08:02 Dose: 3 ml Documented By: JOEL Warfarin Sodium (Warfarin Sodium 1.25 Mg Halftab) 1.25 mg PO SUTUTHSA@1800 [facility] On Hold: 09/15/24 08:33 Comment: INR 3.9 Last Admin: 09/14/24 17:42 Dose: 1.25 mg Documented By: YOLY Warfarin Sodium (Warfarin Sodium 2.5 Mg Tablet) 2.5 mg PO MOWEFR@1800 [facility] On Hold: 09/15/24 08:34 Comment: INR 3.9 Last Admin: 09/13/24 18:22 Dose: 2.5 mg Documented By: MERCY Mendoza 09/09/24 04:50 09/10/24 07:40 Labs: Laboratory Results - last 24 hr 09/14/24 09/14/24 09/14/24 11:24 16:38 20:35 Hold Purple Top PT INR POC Glucose 185 H 236 H 192 H 09/15/24 09/15/24 06:44 07:31 Hold Purple Top SEE NOTE PT 44.3 H D INR 3.9 H POC Glucose 165 H Microbiology Microbiology Results: Microbiology 09/12/24 09:15 Blood Culture - Final Blood - Venous Enterococcus faecalis 09/12/24 09:02 Blood Culture - Final Blood - Venous Enterococcus faecalis Assessment and Plan (1) Bacteremia: Status: Acute Plan 73/F with history dental work related endocarditis, mechanical aortic valve on coumadtin, diabetes, HTN, h/o asthma, h/o DVT presented with shortness of breath and found to have PNA, bacteremia. Acute hypoxic respiratory failure secondary to pneumonia, likely same organisma as bacteremia, improved, hypoxia resolved, continue Abx with Unassyn Entereoccocus Feacalis bacteremia, postive culture from 09/08 and 09/10 and 09/12 repeat culture 09/14 pending likely endocarditis on echo ID changed Abx to Daptomycin and Ceftriaxone on 09/11 Uncontrolled type 2 diabetes mellitus with hyperglycemia continue sliding scale increase lantus to 15 diabetic diet Asthma, intermittent. No exacerbation/no wheezing. Last episode was 2 years ago. Albuterol neb prn wheezing. No longer on oxygen History of CHF. ?systolic vs diastolic. Continue to monitor for signs and symptoms for now. Transaminitis, likely due to statin. Continue to monitor. 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 INR 3.9 today, hold Hypertriglyceridemia. Continue statin and and fenofibrate. Permanent pacemaker implantation. Atrial and ventricular-paced rhythm. Essential hypertension. Hydrochlorothiazide and losartan on hold due to soft BP and dehydration concerns. Obesity, class 1. BMI 30.5 kg/m2. Weight loss encouraged. History of breast cancer. S/p lumpectomy and radiation. History of uterine cancer. S/p abdominal hysterectomy. DVT prophylaxis: On warfarin (currently on hold due to supratherapeutic INR). Code status: Full no indiccation for continous cardiac monitoring at this time, may transfer to med/surg Quality Stroke Does the patient have a stroke diagnosis?: No VTE Prior VTE?: No VTE Risk Level:: Medical - moderate - high VTE Device Contraindication: Treatment Not Indicated VTE Drug Contraindication: N/A - Med Ordered
[2024-09-15 10:55] VITALS: BP 135/62; PULSE 86; RESP 18; TEMP 36.4; O2SAT 97
[2024-09-15 11:09] LABS: Glucose, Whole Blood 185 mg/dL (60-115)
[2024-09-15 15:57] VITALS: BP 135/63; PULSE 90; RESP 16; TEMP 36.8; O2SAT 96
[2024-09-15 16:40] LABS: Glucose, Whole Blood 176 mg/dL (60-115)
[2024-09-15 20:00] VITALS: BP 135/61; PULSE 94; RESP 18; TEMP 36.2; O2SAT 96
[2024-09-15 20:54] LABS: Glucose, Whole Blood 224 mg/dL (60-115)
[2024-09-16] VITALS (7 sets, daily range): BP systolic 132–144; BP diastolic 60–69; PULSE 88–97; RESP 14–18; TEMP 36.1–36.6; O2SAT 93–96
[2024-09-16] MEDS: 0.9 % Sodium Chloride Flush 3 ML SYRINGE IVFLUSH ×4 (00:35→21:15)
[2024-09-16 07:10] LABS: Glucose, Whole Blood 155 mg/dL (60-115)
[2024-09-16 07:27] LABS: INTERNATIONAL NORM RATIO 2.8 (0.9-1.1); Prothrombin Time 31.6 SEC (10.9-12.4)
[2024-09-16] MEDS: Insulin Glargine,Hum.rec.anlog 100 UNIT/ML 10 ML VIAL 10 UNIT SUBCUT (09:05)
--- NOTE | 2024-09-16 12:37 | P.PNIM_ITS ---
Subjective Subjective Date of Service: 09/16/24 Interval History: no new issues Physical Exam 2 Vital Signs: Vital Signs: Last Vital Signs Temp 97.0 F 09/16/24 12:00 Pulse 89 09/16/24 12:00 Resp 18 09/16/24 12:00 BP 144/69 H 09/16/24 12:00 Pulse Ox 96 09/16/24 12:00 O2 Del Method Room Air 09/16/24 12:00 O2 Flow Rate 2 09/11/24 07:18 BMI result Body Mass Index 30.5 Objective Data Active Medications Acetaminophen (Acetaminophen 325 Mg Tablet) 975 mg PO Q6H PRN PRN Reason: Pain, Mild 1-3,fever,headache Last Admin: 09/13/24 12:24 Dose: 975 mg Documented By: MERCY Calcium Carbonate (Calcium Carbonate 750 Mg Tab.Chew) 750 mg PO Q4H PRN PRN Reason: Heartburn Ceftriaxone Sodium (Ceftriaxone Sodium 2 Gm Vial) 2 gm IVPUSH BEDTIME [facility] Last Admin: 09/15/24 21:42 Dose: 2 gm Documented By: MARIE Dextrose (Dextrose 50 % 25 Gm/50 Ml Syringe) 25 gm IVPUSH Q15M PRN; Protocol PRN Reason: per Hypoglycemia Standing Ord. Fenofibrate (Fenofibrate 160 Mg Tablet) 160 mg PO BEDTIME [facility] Last Admin: 09/15/24 21:42 Dose: 160 mg Documented By: MARIE Glucose (Glucose Gel 15 Gm Gel..Gram.) 15 gm PO Q15M PRN; Protocol PRN Reason: per Hypoglycemia Standing Ord. Guaifenesin (Guaifenesin 100 Mg/5 Ml 5 Ml Liquid) 5 ml PO Q4H PRN PRN Reason: Cough Last Admin: 09/14/24 21:14 Dose: 5 ml Documented By: RUMA Daptomycin 500 mg/ Sodium (Chloride) 60 mls @ 120 mls/hr IV Q24H [facility] Last Infusion: 09/16/24 09:41 Dose: Infused Documented By: YOLY Insulin Glargine (Insulin Glargine,Hum.Rec.Anlog 100 Unit/Ml 10 Ml Vial) 10 unit SUBCUT DAILY [facility] Last Admin: 09/16/24 09:05 Dose: 10 unit Documented By: YOLY Insulin Human Lispro (Insulin Lispro 100 Unit/Ml 3 Ml Vial) 0 unit SUBCUT [facility]; Protocol Last Admin: 09/16/24 12:14 Dose: 4 unit Documented By: YOLY Insulin Human Lispro (Insulin Lispro 100 Unit/Ml 3 Ml Vial) 5 unit SUBCUT [facility] Last Admin: 09/16/24 12:14 Dose: 5 unit Documented By: YOLY Loratadine (Loratadine 10 Mg Tablet) 10 mg PO DAILY PRN PRN Reason: allergies Last Admin: 09/09/24 13:19 Dose: 10 mg Documented By: DINA Magnesium Hydroxide (Milk Of Magnesia 30 Ml Oral.Susp) 30 ml PO DAILY PRN PRN Reason: Constipation Melatonin (Melatonin 3 Mg Tablet) 6 mg PO BEDTIME PRN PRN Reason: Insomnia Sodium Chloride (0.9 % Sodium Chloride Flush 3 Ml Syringe) 3 ml IVFLUSH [facility] Last Admin: 09/16/24 09:12 Dose: 3 ml Documented By: YOLY Warfarin Sodium (Warfarin Sodium 1.25 Mg Halftab) 1.25 mg PO SUTUTHSA@1800 [facility] On Hold: 09/15/24 08:33 Comment: INR 3.9 Last Admin: 09/14/24 17:42 Dose: 1.25 mg Documented By: YOLY Warfarin Sodium (Warfarin Sodium 2.5 Mg Tablet) 2.5 mg PO MOWEFR@1800 [facility] On Hold: 09/15/24 08:34 Comment: INR 3.9 Last Admin: 09/13/24 18:22 Dose: 2.5 mg Documented By: MERCY Labs 09/09/24 04:50 09/10/24 07:40 Labs: Laboratory Results - last 24 hr 09/09/24 09/15/24 09/15/24 15:45 16:26 20:41 Hold Purple Top PT INR POC Glucose 176 H 224 H Ur L.pneumophila Ag Not Detected 09/16/24 09/16/24 07:04 07:05 Hold Purple Top SEE NOTE PT 31.6 H D INR 2.8 H POC Glucose 155 H Ur L.pneumophila Ag Microbiology Microbiology Results: Microbiology 09/14/24 10:15 Blood Culture - Preliminary Blood - Venous No growth after 48 hours. 09/14/24 10:22 Blood Culture - Preliminary Blood - Venous No growth after 48 hours. Assessment and Plan (1) Bacteremia: Status: Acute Plan 73/F with history dental work related endocarditis, mechanical aortic valve on coumadtin, diabetes, HTN, h/o asthma, h/o DVT presented with shortness of breath and found to have PNA, bacteremia. Acute hypoxic respiratory failure secondary to pneumonia, likely same organisma as bacteremia, improved, hypoxia resolved, continue Abx with Unassyn Entereoccocus Feacalis bacteremia, postive culture from 09/08 and 09/10 and 09/12 repeat culture 09/14 negative for 48 hours likely endocarditis on echo ID changed Abx to Daptomycin and Ceftriaxone on 09/11 Requesting Uncontrolled type 2 diabetes mellitus with hyperglycemia continue sliding scale increase lantus to 15 diabetic diet Asthma, intermittent. No exacerbation/no wheezing. Last episode was 2 years ago. Albuterol neb prn wheezing. No longer on oxygen History of CHF. ?systolic vs diastolic. Continue to monitor for signs and symptoms for now. Transaminitis, likely due to statin. Continue to monitor. 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 INR 3.9 today, hold Hypertriglyceridemia. Continue statin and and fenofibrate. Permanent pacemaker implantation. Atrial and ventricular-paced rhythm. Essential hypertension. Hydrochlorothiazide and losartan on hold due to soft BP and dehydration concerns. Obesity, class 1. BMI 30.5 kg/m2. Weight loss encouraged. History of breast cancer. S/p lumpectomy and radiation. History of uterine cancer. S/p abdominal hysterectomy. DVT prophylaxis: On warfarin (currently on hold due to supratherapeutic INR). Code status: Full no indiccation for continous cardiac monitoring at this time, may transfer to med/surg Quality Stroke Does the patient have a stroke diagnosis?: No VTE Prior VTE?: No VTE Risk Level:: Medical - moderate - high VTE Device Contraindication: Treatment Not Indicated VTE Drug Contraindication: N/A - Med Ordered
--- NOTE | 2024-09-16 16:11 | MHC.CM.PN ---
Addendum entered by Lashae Mata 09/16/24 16:17: This CM received a call from pts daughter/HCP Lisa, she requests that we fax her discharge summary to [facility], Attn: Dr. Isabell Perkins at fax# [phone]. Original Note: EMR reviewed and per MD rounds, pt is not medically cleared for discharge due to management of bacteremia, with PICC line placement pending. DCP: Home with new [facility].
[2024-09-16 16:12] LABS: Glucose, Whole Blood 238 mg/dL (60-115)
[2024-09-16 16:28] LABS: Glucose, Whole Blood 184 mg/dL (60-115)
[2024-09-16] MEDS: Warfarin Sodium 1.25 MG HALFTAB PO (17:26)
[2024-09-16 20:51] LABS: Glucose, Whole Blood 313 mg/dL (60-115)
[2024-09-17 03:53] VITALS: BP 126/58; PULSE 85; RESP 18; TEMP 36.4; O2SAT 93
[2024-09-17 06:23] LABS: INTERNATIONAL NORM RATIO 2.3 (0.9-1.1); Prothrombin Time 26.7 SEC (10.9-12.4)
[2024-09-17 07:29] LABS: Glucose, Whole Blood 178 mg/dL (60-115)
[2024-09-17 07:40] VITALS: BP 135/63; PULSE 80; RESP 14; TEMP 36; O2SAT 95
[2024-09-17] MEDS: Insulin Glargine,Hum.rec.anlog 100 UNIT/ML 10 ML VIAL 10 UNIT SUBCUT (07:50)
[2024-09-17] MEDS: 0.9 % Sodium Chloride Flush 3 ML SYRINGE IVFLUSH ×2 (07:51→16:53)
--- NOTE | 2024-09-17 11:48 | P.PNIM_ITS ---
Subjective Subjective Date of Service: 09/17/24 Interval History: no new issues, awaiting PICC line today Physical Exam 2 Vital Signs: Vital Signs: Last Vital Signs Temp 96.8 F 09/17/24 07:40 Pulse 80 09/17/24 07:40 Resp 14 09/17/24 07:40 BP 135/63 09/17/24 07:40 Pulse Ox 95 09/17/24 07:40 O2 Del Method Room Air 09/17/24 07:40 O2 Flow Rate 2 09/11/24 07:18 BMI result Body Mass Index 30.5 Const: Other: General: AO X 3, no acute distress Resp: CTA bilateral CVS: S1,S2,RRR, positive systolic murmur in aortic position GI: +BS, NT, no distention Skin: No rash Neuro: motor grossly intact Psych: appropriate affect Objective Data Active Medications Acetaminophen (Acetaminophen 325 Mg Tablet) 975 mg PO Q6H PRN PRN Reason: Pain, Mild 1-3,fever,headache Last Admin: 09/13/24 12:24 Dose: 975 mg Documented By: MERCY Calcium Carbonate (Calcium Carbonate 750 Mg Tab.Chew) 750 mg PO Q4H PRN PRN Reason: Heartburn Ceftriaxone Sodium (Ceftriaxone Sodium 2 Gm Vial) 2 gm IVPUSH BEDTIME [facility] Last Admin: 09/16/24 21:13 Dose: 2 gm Documented By: CARLIE Dextrose (Dextrose 50 % 25 Gm/50 Ml Syringe) 25 gm IVPUSH Q15M PRN; Protocol PRN Reason: per Hypoglycemia Standing Ord. Fenofibrate (Fenofibrate 160 Mg Tablet) 160 mg PO BEDTIME [facility] Last Admin: 09/16/24 21:13 Dose: 160 mg Documented By: CARLIE Glucose (Glucose Gel 15 Gm Gel..Gram.) 15 gm PO Q15M PRN; Protocol PRN Reason: per Hypoglycemia Standing Ord. Guaifenesin (Guaifenesin 100 Mg/5 Ml 5 Ml Liquid) 5 ml PO Q4H PRN PRN Reason: Cough Last Admin: 09/14/24 21:14 Dose: 5 ml Documented By: RUMA Daptomycin 500 mg/ Sodium (Chloride) 60 mls @ 120 mls/hr IV Q24H [facility] Last Infusion: 09/17/24 10:10 Dose: Infused Documented By: TANMAY Insulin Glargine (Insulin Glargine,Hum.Rec.Anlog 100 Unit/Ml 10 Ml Vial) 10 unit SUBCUT DAILY [facility] Last Admin: 09/17/24 07:50 Dose: 10 unit Documented By: TANMAY Insulin Human Lispro (Insulin Lispro 100 Unit/Ml 3 Ml Vial) 0 unit SUBCUT QIDACHS [facility]; Protocol Last Admin: 09/17/24 07:50 Dose: 2 unit Documented By: TANMAY Insulin Human Lispro (Insulin Lispro 100 Unit/Ml 3 Ml Vial) 5 unit SUBCUT QIDAS [facility] Last Admin: 09/17/24 07:35 Dose: Not Given Documented By: TANMAY Non-Admin Reason: No Insulin Coverage Loratadine (Loratadine 10 Mg Tablet) 10 mg PO DAILY PRN PRN Reason: allergies Last Admin: 09/09/24 13:19 Dose: 10 mg Documented By: DINA Magnesium Hydroxide (Milk Of Magnesia 30 Ml Oral.Susp) 30 ml PO DAILY PRN PRN Reason: Constipation Melatonin (Melatonin 3 Mg Tablet) 6 mg PO BEDTIME PRN PRN Reason: Insomnia Sodium Chloride (0.9 % Sodium Chloride Flush 3 Ml Syringe) 3 ml IVFLUSH QSHIFT [facility] Last Admin: 09/17/24 07:51 Dose: 3 ml Documented By: TANMAY Warfarin Sodium (Warfarin Sodium 1.25 Mg Halftab) 1.25 mg PO DAILY@1800 [facility] Last Admin: 09/16/24 17:26 Dose: 1.25 mg Documented By: TANMAY Labs 09/09/24 04:50 09/10/24 07:40 Labs: Laboratory Results - last 24 hr 09/16/24 09/16/24 09/16/24 11:16 16:19 20:26 PT INR POC Glucose 238 H 184 H 313 H 09/17/24 09/17/24 06:09 07:26 PT 26.7 H INR 2.3 H POC Glucose 178 H Microbiology Microbiology Results: Microbiology 09/14/24 10:15 Blood Culture - Preliminary Blood - Venous No growth after 48 hours. 09/14/24 10:22 Blood Culture - Preliminary Blood - Venous No growth after 48 hours. Assessment and Plan (1) Bacteremia: Status: Acute Plan 73/F with history dental work related endocarditis, mechanical aortic valve on coumadtin, diabetes, HTN, h/o asthma, h/o DVT presented with shortness of breath and found to have PNA, bacteremia. Acute hypoxic respiratory failure secondary to pneumonia, likely same organisma as bacteremia, improved, hypoxia resolved, continue Abx with Unassyn Entereoccocus Feacalis bacteremia, postive culture from 09/08 and 09/10 and 09/12 repeat culture 09/14 negative for 48 hours likely endocarditis on echo ID changed Abx to Daptomycin and Ceftriaxone on 09/11 Requesting PIC line Uncontrolled type 2 diabetes mellitus with hyperglycemia continue sliding scale increase lantus to 15 diabetic diet Asthma, intermittent. No exacerbation/no wheezing. Last episode was 2 years ago. Albuterol neb prn wheezing. No longer on oxygen History of CHF. ?systolic vs diastolic. Continue to monitor for signs and symptoms for now. Transaminitis, likely due to statin. Continue to monitor. 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 INR 3.9 today, hold Hypertriglyceridemia. Continue statin and and fenofibrate. Permanent pacemaker implantation. Atrial and ventricular-paced rhythm. Essential hypertension. Hydrochlorothiazide and losartan on hold due to soft BP and dehydration concerns. Obesity, class 1. BMI 30.5 kg/m2. Weight loss encouraged. History of breast cancer. S/p lumpectomy and radiation. History of uterine cancer. S/p abdominal hysterectomy. DVT prophylaxis: On warfarin (currently on hold due to supratherapeutic INR). Code status: Full no indiccation for continous cardiac monitoring at this time, may transfer to med/surg Possible dc soon Quality Stroke Does the patient have a stroke diagnosis?: No VTE Prior VTE?: No VTE Risk Level:: Medical - moderate - high VTE Device Contraindication: Treatment Not Indicated VTE Drug Contraindication: N/A - Med Ordered
--- NOTE | 2024-09-17 12:14 | P.PICC_ITS ---
PICC Line Insertion NPICC Diagnosis: endocarditis Indication: [facility] ABT Pertinent Labs: reviewed Technique: Following informed consent including risks, benefits and alternatives and using sterile technique including cap and mask, sterile gown, glove and drape, the right arm was prepped and draped in the usual sterile fashion of full barrier technique with CHG. Following completion of Crary Protocol the skin and soft tissues were anesthetized with 1% Lidocaine plain. Using ultrasound guidance, right basilic vein access was obtained. Over an 0.018 wire through peel-away sheath, a 4fr single lumen PASV PICC line was positioned. Catheter length is 37cm internal length, 0cm external length, for a total trimmed length of 37cm. The procedure was performed in [facility]. Tip verification was performed by Mahesh Salinas with Sherlock 3CG. Tip located in SVC. Ultrasound was used to document vein patency and for needle entry. A formal ultrasound picture and cardiac rhythm strip was recorded. [facility] [employer] [employer] has released the line for use and it is currently dressed with a StatLock, Tegaderm, and CHG disc. Verification has been performed for blood return and line patency. Arm Circumference: 34cm Equipment: Nuiku POWER PICC SOLO with sherlock 3CG tip Catheter Type: 4FR single lumen PASV Lot #: [id number]
[2024-09-17 12:36] LABS: Glucose, Whole Blood 157 mg/dL (60-115)
[2024-09-17 16:00] VITALS: BP 143/63; PULSE 87; RESP 18; TEMP 36.4
[2024-09-17 16:18] LABS: Glucose, Whole Blood 215 mg/dL (60-115)
[2024-09-17 19:28] VITALS: BP 140/60; PULSE 88; RESP 20; TEMP 36.7; O2SAT 97
[2024-09-17 20:41] LABS: Glucose, Whole Blood 174 mg/dL (60-115)
[2024-09-18 03:46] VITALS: BP 137/61; PULSE 92; RESP 20; TEMP 35.9; O2SAT 96
[2024-09-18 06:13] LABS: INTERNATIONAL NORM RATIO 2.3 (0.9-1.1); Prothrombin Time 26.1 SEC (10.9-12.4)
[2024-09-18 07:08] VITALS: BP 130/63; PULSE 76; RESP 16; TEMP 36.6; O2SAT 93
[2024-09-18 07:18] LABS: Glucose, Whole Blood 163 mg/dL (60-115)
[2024-09-18] MEDS: Insulin Glargine,Hum.rec.anlog 100 UNIT/ML 10 ML VIAL 10 UNIT SUBCUT (08:59)
[2024-09-18] MEDS: 0.9 % Sodium Chloride Flush 3 ML SYRINGE IVFLUSH (09:05)
[2024-09-18 11:35] LABS: Glucose, Whole Blood 237 mg/dL (60-115)
[2024-09-18 12:58] LABS: Anion Gap 15 (12-20); Blood Urea Nitrogen 12 mg/dL (9-16); Calcium 10.2 mg/dL (8.4-10.2); Carbon Dioxide 22 mmol/L (22-29); Chloride 102 mmol/L (96-108); Creatinine Clr Calc Pharmacy 82.8; Estimated Glomerular Filt Rate > 60; Potassium 4.4 mmol/L (3.3-5.1); Sodium 135 mmol/L (135-145)
--- NOTE | 2024-09-18 13:48 | MHC.CM.PN ---
Patient is planned for discharge today. [facility] will provide medication and supplies. They will deliver later today. [facility] will provide Home services. The patient has arranged for a ride home.
[2024-09-18 15:24] VITALS: BP 136/60; PULSE 69; RESP 16; TEMP 36.7; O2SAT 97
--- NOTE | 2024-09-18 16:15 | P.DS_ITS ---
DS: Providers Provider Date of Service: 09/18/24 Date of admission: 09/09/24 00:44 Date of discharge: 09/18/24 Primary care physician: KRYSTEN Dai Consults: 09/09/24 11:13 Consult to Infectious Diseases Routine Consulting Provider: [facility] Reason for consultation: GPC bacteremia Has provider been notified: No 09/10/24 13:55 Consult to Infectious Diseases Routine Consulting Provider: [facility] Reason for consultation: bacteremia DS: Diagnosis Discharge Diagnosis (1) Bacteremia: Status: Acute DS: Summary Hospital Course Hospital Course: admission hpi Chief Complaint: Cough, dehydrated Beth Mancilla is a 71 years old woman with past medical history significant for type 2 diabetes mellitus on diabetic diet, hypertriglyceridemia, DVT + mechanical valve on warfarin, permanent pacemaker and asthma presents to the emergency department complaining of dry cough, shortness of breath on exertion, fever, generalized malaise, confusion, legs cramps and dizziness over the last few days. She denied headache but has been experiencing some trigeminal neuralgia. She was recently vaccinated with the pneumonia vaccination on August 21. She denied any acute gastrointestinal or genitourinary symptoms except for increased urination. She denied tobacco smoking, alcohol abuse or illicit drug use. In the ED, she was found to have fever, tachycardia and tachypnea. Blood pressure has been soft. Last blood pressure 113/49. She is currently requiring supplemental oxygen via nasal cannula as her O2 sat was 86% on room air. Blood workup showed no leukocytosis but elevated neutrophils. INR is 6.7. Glucose is 608. Corrected sodium is 139. There are no other significant electrolyte imbalances except for mild hypercalcemia 10.3.. BUN is 29 and creatinine 0.76. Transaminases are slightly elevated, total bilirubin, lipase and alk-phos are normal. Troponin is 14.4. BNP is 128. Urinalysis showed glucosuria elevated specific gravity proteinuria of 1+ and trace blood. Viral testing for COVID-19, influenza RSV is negative. CXR showed borderline cardiac enlargement and bilateral mild interstitial thickening and may represent CHF. Chest CTA showed no pulmonary embolism but it showed cardiomegaly with ground-glass opacities with interstitial thickening (correlate clinically for CHF). ECG showed atrial sense and ventricular sensed rhythm. Heart rate is 104 beats per minute. ED tx: Ceftriaxone 1 g IV, azithromycin 500 mg IV, insulin 10 units IV, Tessalon 100 mg p.o., acetaminophen 975 mg p.o. hospital course: 73/F with history dental work related endocarditis, mechanical aortic valve on coumadtin, diabetes, HTN, h/o asthma, h/o DVT presented with shortness of breath and found to have PNA, bacteremia due to enterococcus Entereoccocus Feacalis bacteremia, postive culture from 09/08 and 09/10 and 09/12 repeat culture 09/14 negative for 48 hours. likely endocarditis on echo Initially treated with ceftriaxone and azithor, until culture became positive, then was changed to Vanco and because of persistent + cultures, ID changed Abx to Daptomycin and Ceftriaxone (for synergy) on 09/11, Discharge with Daptomycin alone for 6 weeks total ending October 23, 2024 A picc line was put in on 09/17 Acute hypoxic respiratory failure secondary to pneumonia, likely same organism as bacteremia, improved, hypoxia resolved, Uncontrolled type 2 diabetes mellitus with hyperglycemia, was not on meds, was supposed to be diet control. A1C on September 08, 2024 9.1. Was on Lantus and sliding scale with discharge with insulin pen Asthma, intermittent. No exacerbation/no wheezing. Last episode was 2 years ago. Albuterol neb prn wheezing. No longer on oxygen History of CHF. ?systolic vs diastolic. continue Lasix Transaminitis, likely due to statin. Continue to monitor. 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 I NR 2.3, follow prior protocol Hypertriglyceridemia. Continue statin and and fenofibrate. Permanent pacemaker implantation. Atrial and ventricular-paced rhythm. Time Attestation Discharge Coordination Time (in mins): 45 Quality: Safe Use of Opioids Does Pt have an Active Cancer Diagnosis on the Problem List?: No Quality: Stroke Does the patient have a stroke diagnosis?: No Physical Exam Vital Signs: Vital Signs: Last Vital Signs Temp 96.8 F 09/17/24 07:40 Pulse 80 09/17/24 07:40 Resp 14 09/17/24 07:40 BP 135/63 09/17/24 07:40 Pulse Ox 95 09/17/24 07:40 O2 Del Method Room Air 09/17/24 07:40 O2 Flow Rate 2 09/11/24 07:18 BMI result Body Mass Index 30.5 DS: Data Data Completed and Pending Labs on day of discharge: Laboratory Results - last 24 hr 09/16/24 09/16/24 09/16/24 11:16 16:19 20:26 PT INR POC Glucose 238 H 184 H 313 H 09/17/24 09/17/24 09/17/24 06:09 07:26 12:32 PT 26.7 H INR 2.3 H POC Glucose 178 H 157 H Preliminary micro results at discharge 09/14/24 10:15 Blood Culture - Preliminary Blood - Venous No growth after 48 hours. 09/14/24 10:22 Blood Culture - Preliminary Blood - Venous No growth after 48 hours. Discharge Plan Discharge Anticipated Discharge Date/Time: 09/17/24 13:26 Patient Disposition: Home Health Service Discharge Diagnosis: acute hypoxic respiratory failure , pneumonia, enterococcus bacteremina Referrals: [facility] [Other] - 1 Week Agustín COTOA [Outside] - 1 Week Josue Crain PA [Primary Care Provider, Internal Medicine] - 1 Week Discharge Medications: New daptomycin in 0.9 % sod chlor 500 mg/50 mL piggyback 500 mg IV DAILY Rx Instructions: administer over 30 mins end date October 23, 2024 (DME) FreeStyle Lite Strips Strip Qty: 100 0RF Rx Instructions: Test four times a day or as directed. alcohol swabs Pads, Medicated 1 pad TOPICAL QIDACHS Qty: 100 0RF Rx Instructions: Use four times a day or as directed. insulin lispro [Humalog KwikPen Insulin] 100 unit/mL insulin pen 1 sliding scale dose SUBCUT QIDACHS Qty: 15 0RF Rx Instructions: Blood Sugar: <150 - 0 units 151-200 - 2 units 201-250 - 4 units 251-300 - 6 units 301-350 - 8 units >350 - 10 units insulin glargine [Lantus Solostar U-100 Insulin] 100 unit/mL (3 mL) insulin pen 15 unit SUBCUT DAILY Qty: 15 0RF (DME) pen needle, diabetic 32 gauge x 1/4 needle Qty: 100 0RF Rx Instructions: Use four times a day or as directed. (DME) lancets [FreeStyle Lancets] 28 gauge misc Qty: 100 0RF Rx Instructions: Test four times a day or as directed. (DME) blood-glucose meter [FreeStyle Lite Meter] Kit Qty: 1 0RF Rx Instructions: As Directed, 4 times a day (DME) lancets [FreeStyle Lancets] 28 gauge misc Qty: 100 0RF Rx Instructions: Test four times a day or as directed. Continued warfarin [Jantoven] 2.5 mg tablet 2.5 mg MOWEFR@1800 Rx Instructions: Monday, Monday, Monday glucosamine sulfate [Glucosamine] 500 mg Tablet 1,500 mg PO NEEDED PRN (Reason: arthritis pain) Rx Instructions: administer with meals albuterol sulfate 90 mcg/actuation HFA aerosol inhaler 2 inh INHALATION Q4H PRN (Reason: Wheezing) loratadine 10 mg Tablet 10 mg PO NEEDED PRN (Reason: allergies ) omega 5-dha-ryl-fish oil [Fish Oil] 1,000 mg (120 mg-180 mg) Capsule 1 cap PO DAILY warfarin [Jantoven] 2.5 mg tablet 1.25 mg PO SUTUTHSA@1800 Rx Instructions: 0.125mg Monday, , Monday, Monday acetaminophen 650 mg Tablet Extended Release 650 mg PO Q8H PRN (Reason: arthritis) Vitamin B-12 50 mcg Tablet 50 mcg PO DAILY Centrum Silver 0.4 mg-300 mcg- 250 mcg Tablet 1 tab PO DAILY simvastatin 20 mg tablet 20 mg PO BEDTIME fenofibrate nanocrystallized 145 mg tablet 145 mg PO BEDTIME irbesartan 300 mg tablet 300 mg PO BEDTIME tavaborole 5 % solution with applicator 0.05 ml topical DAILY furosemide 20 mg tablet 20 mg PO NEEDED PRN (Reason: swelling) Discontinued hydrochlorothiazide 12.5 mg capsule 12.5 mg PO DAILY Discharge Orders: Discharge Order (Routine); Ordered 09/18/24 Ordered By: Hi Aquino Diet: Diabetic diet Activity on Discharge: As tolerated Stand Alone Forms: Patient Portal Discharge page Print Language: Mexican Care Plan Goals: recovery from sepsis, endocarditis and bacteremia, pneumonia Health Concerns: sepsis, endocarditis and bacteremia, pneumonia Plan of Treatment: take daptomycin 500 mg iv daily for 36 more days, ending October 232024 Use insulin as directed write down all your sugars check blood sugars before meals and at bed time Assessment: see above Discharge Date/Time: 09/18/24 15:36
--- NOTE | 2024-09-19 13:12 | P.CDIM_ITS ---
PROVIDER RESPONSE TEXT: To clarify, the appropriate diagnosis supported by the clinical indicators: Sepsis QUERY TEXT: PHYSICIAN'S DOCUMENTATION REQUEST Date of Query: 09/17/2024 10:35 AM EDT Patient Name: RICHARD JACKMAN Admit Date: 09/09/2024 Dear Hi Aquino MD, A review of the medical record indicates additional documentation may be needed. Please review below and update the documentation accordingly. Clinical Indicators: pneumonia and bacteremia documented on 09/16/24 WBC 10.1 temperature 100.6 pulse 107 IV Ceftriaxone, IV Daptomycin blood culture no growth Please clarify which, if any, of the following is the most likely etiology of the above symptoms and treatment rendered: Sepsis Bacteremia Localized infection only, without systemic illness Indicate the site/source, such as UTI, pneumonia, etc. Bacteremia (abnormal lab finding only, does not indicate systemic illness) Other (explain) Clinically unable to determine (explain) Thank you, Lizbeth Richmond RN Use of terms such as suspected, likely, concern for, or probable (associated with a specific diagnosis that is being evaluated, monitored, or treated as if it exists) are acceptable and can be coded in the inpatient setting, when documented at the time of discharge. Please use your independent medical judgment in providing your response. THIS QUERY IS PART OF THE PERMANENT MEDICAL RECORD
--- NOTE | 2024-09-24 16:22 | W.MHC.F2F ---
Service Date Service Date: 09/18/24 Encounter Date of encounter: 09/18/24 Reasons for Services Signs and symptoms assessed: pneumonia, bacteremia Reason for senior care: medication management and medication treatment Homebound: Leaving the home is medically contraindicated at this time without the asist of a device and/or another person due th the listed conditions above and below. Reason homebound: weakness related to hospital stay Homebound supporting statement: homebound due to weakness from hospitalization related to pneumonia, bacteremi and therefore needs the assistance of another person Certification: Based on the above findings, I certify that this patient is confined to the home and needs intermittent senior care care, physical therapy and/or speech therapy, or continues to need occupational therapy. The patient is under my care, and I have initiated the establishment of the plan of care. The patient will be followed by a physician who will periodically review the plan of care. Time Spent With Patient Time: Total time managing care of this patient today ____ minutes.
== END 2024-09-18 15:36 | disposition home health service (06) | DRG 871 ==
LOC: HO.ED 09-09 00:44 → HO.EDOVER 09-09 00:47 → HO.IMC 09-09 13:18 → HO.S3 09-16 15:54
PROVIDERS: Physician Assistant Medical; Admitting Provider Internal Medicine; Emergency Provider Emergency Medicine; PCP Physician Assistant Medical; Visit Provider Internal Medicine
DX: A41.9 Sepsis, unspecified organism (principal); I33.0 Acute and subacute infective endocarditis; J15.8 Pneumonia due to other specified bacteria; J96.01 Acute respiratory failure with hypoxia; E11.65 Type 2 diabetes mellitus with hyperglycemia; Z95.2 Presence of prosthetic heart valve; E78.1 Pure hyperglyceridemia; J45.20 Mild intermittent asthma, uncomplicated; R79.1 Abnormal coagulation profile; E66.811 Obesity, class 1; B95.2 Enterococcus as the cause of diseases classified elsewhere; Z71.3 Dietary counseling and surveillance; Z68.30 Body mass index [BMI] 30.0-30.9, adult; Z95.0 Presence of cardiac pacemaker; E86.0 Dehydration; Z20.822 Contact with and (suspected) exposure to COVID-19; Z86.718 Personal history of other venous thrombosis and embolism; Z85.42 Personal history of malignant neoplasm of other parts of uterus; Z85.3 Personal history of malignant neoplasm of breast; Z79.4 Long term (current) use of insulin; Z79.01 Long term (current) use of anticoagulants; Z79.899 Other long term (current) drug therapy
CPT/HCPCS: 0241U; 36415; 36573; 71046; 71275; 80048; 80053; 81001; 82550; 82565; 82947; 83036; 83605; 83690; 83735; 83880; 84484; 85025; 85610; 87040; 87077; 87186; 87205; 87449; 87633; 87899; 93005; 93306; 99285; C1751; C1894; J0295; J0456; J0696; J0878; J3370; J7120; Q9957; Q9967

== ENCOUNTER → 2024-09-08 18:50 | Outpatient (BNV) | payer MEDICARE, OTHER, SELFPAY | PROVIDERS: Emergency Provider Emergency Medicine; PCP Physician Assistant Medical; Visit Provider Specialist | DX: R06.02 Shortness of breath (principal) | CPT/HCPCS: 71046; 71275 ==

== ENCOUNTER → 2024-09-08 18:50 | Outpatient (BNV) | payer MEDICARE, OTHER, SELFPAY | PROVIDERS: Admitting Provider Internal Medicine; Emergency Provider Emergency Medicine; PCP Physician Assistant Medical; Visit Provider Internal Medicine Cardiovascular Disease | DX: R94.31 Abnormal electrocardiogram [ECG] [EKG] (principal); Z95.0 Presence of cardiac pacemaker | CPT/HCPCS: 93010 ==

== ENCOUNTER 2024-09-09 00:44 | Outpatient (BNV) | payer MEDICARE, OTHER, SELFPAY | END 2024-09-09 16:00 | PROVIDERS: Admitting Provider Internal Medicine; Emergency Provider Emergency Medicine; PCP Physician Assistant Medical; Visit Provider Internal Medicine Cardiovascular Disease | DX: I27.20 Pulmonary hypertension, unspecified (principal); I51.7 Cardiomegaly; T82.857A Stenosis of other cardiac prosthetic devices, implants and grafts, initial encounter; I34.81 Nonrheumatic mitral (valve) annulus calcification; Z95.0 Presence of cardiac pacemaker | CPT/HCPCS: 93306 ==

== ENCOUNTER → 2024-09-09 00:44 | Outpatient (BNV) | payer MEDICARE, OTHER, SELFPAY | PROVIDERS: Admitting Provider Internal Medicine; Emergency Provider Emergency Medicine; PCP Physician Assistant Medical; Visit Provider Internal Medicine | DX: R78.81 Bacteremia (principal) | CPT/HCPCS: 99223; 99232; 99499 ==

== ENCOUNTER → 2024-09-09 00:44 | Outpatient (BNV) | payer MEDICARE, OTHER, SELFPAY | PROVIDERS: Admitting Provider Internal Medicine; Emergency Provider Emergency Medicine; PCP Physician Assistant Medical; Visit Provider Internal Medicine | DX: R78.81 Bacteremia (principal) | CPT/HCPCS: 99232 ==

== ENCOUNTER 2024-09-23 13:23 | Outpatient (REF) | payer MEDICARE, OTHER, SELFPAY ==
[2024-09-23 13:27] LABS: MANUAL DIFF FLAG NO
[2024-09-23 13:30] LABS: Hematocrit 31.4 % (37.0-47.0); Hemoglobin 10.1 g/dl (12.0-16.0); Imm Gran Abs Auto 0.04 X10*3/uL (0.00-0.03); Imm Gran Pct Auto 0.4 % (0.0-0.4); Lymphocytes Absolute Auto 1.0 X10*3/uL (1.2-4.9); Mean Corpuscular HGB Conc 32.2 g/dl (31.0-35.0); Mean Corpuscular Hemoglobin 27.6 pg (27.0-33.0); Mean Corpuscular Volume 85.8 fL (80.0-98.0); NRBC Abs Auto 0.000 X10*3/uL (0.0-0.012); NRBC Pct Auto 0.0 /100WBC (0.0-0.2); Platelet Count 324 X10*3/uL (160-400); Red Blood Count 3.66 X10*6/uL (4.20-5.50); White Blood Count 10.7 X10*3/uL (4.8-10.8)
[2024-09-23 14:26] LABS: Anion Gap 13 (12-20); Blood Urea Nitrogen 12 mg/dL (9-16); Calcium 9.9 mg/dL (8.4-10.2); Carbon Dioxide 25 mmol/L (22-29); Chloride 104 mmol/L (96-108); Estimated Glomerular Filt Rate > 60; Potassium 3.9 mmol/L (3.3-5.1); Sodium 138 mmol/L (135-145)
--- OUTSIDE RECORDS SUMMARY | 2024-09-23 14:29 | XMS_ITS | Clinical Summary ---
Author Organization [employer] Address [address] [place] [address] Care Team Providers Care Printing Bindery Assistant Name Role Phone Unavailable Primary Care Provider Unavailabl e Immunizations Immunization Administration Dates Next Due Influenza High-dose Quadriva lent Preservative Free 01/03/2023,12/10/2020 Influenza Quadrivalent Adjuvanted 12/13/2019 Influenza, High Dose Seasona l, Preservative Free 11/20/2023,01/03/2023,12/29/2021,12/10,12/13/2018,11/28/2017,11/24/2016 ,12/27/2015,11/27/2014 Influenza, IIV3, injectable 12/18/2012,1 03/13/2011,12/27/2010,12/27,02/15/2009,12/21/2007,12/22/2006 ,01/17/2005 Influenza, Unspecified 12/19/2019,12/21/2018, Influenza, seasonal, injecta ble, preservative free 12/18/2012,01/12/2012,12/27/2010,12/27,02/15/2009,12/21/2007,12/22/2006 ,01/17/2005 Influenza, trivalent, adjuvanted 024,12/29/2021,12/13/2018,11/28,11/24/2016,12/27/2015,11/27/2014 Novel [id number], preservative-free 02/15/2009 Pfizer Covid-19 Vaccine 12+ 06/04/2024,,11/24/2021 Pfizer Covid-19 Vaccine 12+ Bivalent 07/23/2023, 01/03/2023 Pneumococcal Conjugate PCV 13 02/11/2015 Pneumococcal Polysaccharide PPSV23 05/03/2013 RSV Adjuvant 02/07/2023 RSV Bivalent 02/07/2023 TD (adult), 2 Lf tetanus tox oid, preservative free, adsorbed 06/28/2022,03/26/2007 Td (adult) 06/28/2022,03/26/2007 Td (adult), 5 Lf tetanus tox oid, preservative free, adsorbed 06/28/2022 Td, Adsorbed, Preservative F ree, Adult Use, Lf Unspecified 03/26/2007 Tdap 04/18/2012 Zoster, Recombinant 03/12/2020,11/15/2019 Zoster, live 06/27/2011 Social History Tobacco Use Types Packs/Day Years Used Date Smoking Tobacco: Never Assessed Comments Unknown Sex and Gender Information Value Date Recorded Sex Assigned at Female 01/10/2022 10:25 AM EDT Legal Sex Female 10:25 AM EDT Gender Identity Female 11/29/2023 3:45 PM EDT Sexual Orientation Don't know 11/29/2023 3: 45 PM EDT Plan of Treatment Health Maintenance Due Date Last Done Comments CT Colonography 1949 Colonoscopy 1949 Colorectal Cancer Screening 1949 Depression Screening 1949 FIT DNA/Cologuard 1949 FIT 1949 FOBT 1949 Lipid Panel 1949 SDOH Screening 1949 Sigmoidoscopy 1949 Alcohol/Substance Use Screening 1961 Tobacco Screening 1961 Hepatitis C Screening 11/23/1967 Pneumococcal Vaccine: 50+ Years (3 of 3 - PCV20 or PCV21) 02/12/2020 02/11/2015, 05/03/2013 Influenza Vaccine (#1) 2024 , 11/20/2023, 01/03/2023, Additional history exists DTaP/Tdap/Td Vaccines (5 - Td or Tdap) 06/28/2032 06/28/2022, 06/28/2022, 06/28/2022, Additional history exists Zoster Vaccines Completed 03/12/2020, 09/0 06/2019, 06/27/2011 RSV Patients and Patients Aged 60 years or older Completed 02/07/2023, 02/07/2023 COVID-19 Vaccine Completed 06/04/2024, , 07/24/2023, Additional history exists HIB Vaccines Aged Out No longer eligi ble based on patient's age to complete this topic HPV Vaccines Aged Out No longer eligi ble based on patient's age to complete this topic Hepatitis A Vaccines Aged Out No long er eligible based on patient's age to complete this topic Hepatitis B Vaccines Aged Out No long er eligible based on patient's age to complete this topic IPV Vaccines Aged Out No longer eligi ble based on patient's age to complete this topic Meningococcal B Vaccine Aged Out No l onger eligible based on patient's age to complete this topic Meningococcal Vaccine Aged Out No spencer dannie eligible based on patient's age to complete this topic RSV under 20 months Aged Out No longe r eligible based on patient's age to complete this topic Rotavirus Vaccines Aged Out No longer eligible based on patient's age to complete this topic Insurance MEDICARE [facility]
--- OUTSIDE RECORDS SUMMARY | 2024-09-23 14:29 | XMS_ITS | Clinical Summary ---
Author Organization [facility] Address [address] [place] [address] Care Team Providers Care Coordinator Cardiopulmonary Services Name Role Phone oJsue Crain PA-C Primary Care Provider Allergies No known active allergies Medications Medication Sig Dispensed Refills Start Date End Date Status Warfarin Sodium (COUMADIN PO) Take by mouth. 0 Active fenofibrate (TRICOR) tablet 145 mg Take 145 mg by mouth daily. 0 Active simvastatin (ZOCOR) tablet 20 mg Take 20 mg by mouth every night at bedtime. 0 Active irbesartan (AVAPRO) 300 MG tablet Take 300 mg by mouth every night at bedtime. 0 Active cholecalciferol (VITAMIN D3) 1000 UNITS tablet Take 2,000 Units by mouth daily. 0 Active hydrochlorothiazide (MICROZIDE) 12.5 MG capsule Take 12.5 mg by mouth daily. 0 Active Acetaminophen (TYLENOL PO) Take 650 mg by mouth as needed. 0 Active albuterol (PROVENTIL HFA;VENTOLIN HFA) 108 (90 BASE) MCG/ACT inhaler Inhale 2 puffs into the lungs as needed for wheezing. 0 Active Multiple Vitamin (MULTI VITAMIN DAILY PO) Take by mouth daily. 0 Active loratadine-pseudoephed rine (CLARITIN-D 12-hour) 5-120 MG per tablet Take 1 tablet by mouth 2 (two) times a day. 0 Active Active Problems No known active problems Family History Medical History Relation Name Comments Heart disease Father Pneumonia Father Arthritis Maternal Grandmother Arthritis Mother Emphysema Mother Heart disease Paternal Grandfather Heart disease Paternal Uncle Cancer Sister breast Relation Name Status Comments Father Maternal Grandfather Maternal Grandmother Mother Paternal Grandfather Paternal Grandmother Paternal Uncle Sister Social History Tobacco Use Types Packs/Day Years Used Date Smoking Tobacco: Never Smokeless Tobacco: Never Alcohol Use Standard Drinks/Week Comments No 0 (1 standard drink = 0.6 oz pur e alcohol) Sex and Gender Information Value Date Recorded Sex Assigned at Not on file Gender Identity Not on file Sexual Orientation Not on file Job Start Date Occupation Industry Not on file Not on file Not on file Last Filed Vital Signs Vital Sign Reading Time Taken Comments Blood Pressure 162/54 02/20/2023 9:54 AM EST Pulse 75 02/20/2023 9:54 AM EST Temperature 36.9 C (98.5 F) 02/20/2023 9:54 AM EST Respiratory Rate - - Oxygen Saturation 96% 02/20/2023 9:54 AM EST Inhaled Oxygen Concentration - - Weight 83.9 kg (185 lb) 02/18/2022 9:56 AM EST Height 160 cm (5' 3 ) 02/18/2022 9:56 AM EST Body Mass Index 32.77 02/18/2022 9:56 AM EST Plan of Treatment Health Maintenance Due Date Last Done Comments Hepatitis C Screening 1949 Depression Screening 1961 Preventative Health Evaluation 11/23/1967 Colon Cancer Screening (Colonoscopy) 1994 Breast Cancer Screening (Mammogram) 11/23/1999 Fall Risk Assessment 2014 Osteoporosis Screening (DEXA Scan) 2014 Pneumococcal Vaccine (3 of 3 - PPSV23 or PCV20) 02/12/2020 02/11/2015, 05/03/2013 DTap / Tdap / Td (2 - Td or Tdap) 04/18/2022 04/18/2012, 03/26/2007 COVID-19 Vaccine (2 - season) 2023 11/24/2021 Influenza Vaccine (#1) 2024 3, 12/29/2021, 12/10/2020, Additional history exists RSV Adult > 60+ Yrs or (1 - 1-dose 75+ series) 2024 Shingrix-Zoster Vaccine Completed 03/12/2020, 11/14 Hepatitis B Vaccines Aged Out No long er eligible based on patient's age to complete this topic RSV Ped < 20 months Aged Out No longe r eligible based on patient's age to complete this topic Care Teams Coordinator Cardiopulmonary Services Relationship Specialty Start Date End Date Josue Crain PAElliotC PCP - General Medical Services 02/18/22
== END 2024-09-23 13:24 | disposition home or self-care (01) ==
LOC: HO.HVNA 13:23
PROVIDERS: Visit Provider Internal Medicine
DX: R78.81 Bacteremia (principal)
CPT/HCPCS: 36415; 80048; 82550; 85025

== ENCOUNTER 2024-10-08 11:16 | Outpatient (REF) | payer MEDICARE, OTHER, SELFPAY ==
[2024-10-08 11:20] LABS: MANUAL DIFF FLAG NO
[2024-10-08 11:37] LABS: Hematocrit 33.0 % (37.0-47.0); Hemoglobin 10.6 g/dl (12.0-16.0); Imm Gran Abs Auto 0.05 X10*3/uL (0.00-0.03); Imm Gran Pct Auto 0.5 % (0.0-0.4); Lymphocytes Absolute Auto 1.0 X10*3/uL (1.2-4.9); Mean Corpuscular HGB Conc 32.1 g/dl (31.0-35.0); Mean Corpuscular Hemoglobin 27.5 pg (27.0-33.0); Mean Corpuscular Volume 85.5 fL (80.0-98.0); NRBC Abs Auto 0.000 X10*3/uL (0.0-0.012); NRBC Pct Auto 0.0 /100WBC (0.0-0.2); Platelet Count 338 X10*3/uL (160-400); Red Blood Count 3.86 X10*6/uL (4.20-5.50); White Blood Count 9.5 X10*3/uL (4.8-10.8)
[2024-10-08 12:28] LABS: Anion Gap 15 (12-20); Blood Urea Nitrogen 19 mg/dL (9-16); Calcium 9.5 mg/dL (8.4-10.2); Carbon Dioxide 24 mmol/L (22-29); Chloride 105 mmol/L (96-108); Estimated Glomerular Filt Rate > 60; Potassium 3.6 mmol/L (3.3-5.1); Sodium 140 mmol/L (135-145)
--- OUTSIDE RECORDS SUMMARY | 2024-10-08 12:31 | XMS_ITS | Clinical Summary ---
Author Organization [employer] Address [address] [facility] [address] [place] [address] Care Team Providers Care Buy Boat Operator Name Role Phone Unavailable Primary Care Provider Unavailabl e Immunizations Immunization Administration Dates Next Due Influenza High-dose Quadriva lent Preservative Free 01/03/2023,12/10/2020 Influenza Quadrivalent Adjuvanted 12/13/2019 Influenza, High Dose Seasona l, Preservative Free 11/20/2023,01/03/2023,12/29/2021,12/10,12/13/2018,11/28/2017,11/24/2016 ,12/27/2015,11/27/2014 Influenza, IIV3, injectable 12/18/2012,1 03/13/2011,12/27/2010,12/27,02/15/2009,12/21/2007,12/22/2006 ,01/17/2005 Influenza, Unspecified 12/19/2019,12/21/2018, Influenza, seasonal, injecta ble, preservative free 12/18/2012,01/12/2012,12/27/2010,12/27,02/15/2009,12/21/2007,12/22/2006 ,01/17/2005 Influenza, trivalent, adjuvanted 024,12/29/2021,12/13/2018,11/28,11/24/2016,12/27/2015,11/27/2014 Novel [id number], preservative-free 02/15/2009 Pfizer Covid-19 Vaccine 12+ 06/04/2024,,11/24/2021 [...] age to complete this topic Insurance MEDICARE [facility]
--- OUTSIDE RECORDS SUMMARY | 2024-10-08 12:31 | XMS_ITS | Clinical Summary ---
Author Organization [facility] Address [address] [place] [address] Care Team Providers Care Prepared Foods Production Team Member Name Role Phone Josue Crain PA-C Primary Care Provider Allergies No [...] age to complete this topic Care Teams Prepared Foods Production Team Member Relationship Specialty Start Date End Date Josue Crain PAElliotC PCP - General Medical Services 02/18/22
--- OUTSIDE RECORDS SUMMARY | 2024-10-08 12:31 | XMS_ITS ---
Author Name [facility] Organization Unknown History of Medication Use Medication Directions Dispensed Refills Start Date End Date Stat us albuterol HFA (PROAIR HFA ; PROVENTIL HFA ; VENTOLIN HFA) 90 mcg/actuation inhaler Inhale 2 puffs by mouth every 4 (four) hours if needed for wheezing. 10/01/2024 active insulin glargine,hum.rec.anlog (Basaglar KwikPen U-100 Insulin) 100 unit/mL (3 mL) injection pen 09/18/2024 active fenofibrate (TRICOR) 145 mg tablet Take 1 tablet (145 mg total) by mouth 1 (one) time each day. 06/21/2024 active irbesartan (AVAPRO) 300 mg tablet TAKE 1 TABLET DAILY 04/02/2024 active warfarin (COUMADIN) 2.5 mg tablet Take 1-2 tabs daily as directed by the Coumadin clinic May cause heavy bleeding. Take at same time every day. Do not change dietary habits. 02/02/2024 active furosemide (LASIX) 20 mg tablet Take 1 tablet (20 mg total) by mouth 1 (one) time each day. 11/14/2023 active simvastatin (ZOCOR) 20 mg tablet Take 1 Tablet by mouth at bedtime. 08/03/2023 active tavaborole 5 % solution with applicator Apply 1 Drop topically daily. APPLY ONE DROP TOPICALLY DAILY TO THE THICK TOENAILS (90 DAY SUPPLY) 09/14/2021 active fluticasone propionate (FLONASE) 50 mcg/actuation nasal spray as needed. 02/21/2019 active Ultra-Fine Pen Needle 32 gauge x 1/4 needle 12/07/2016 ac tive urea 40 % lotion Apply to thick toenails daily 06/27/2016 active acetaminophen (TYLENOL 8 HOUR) 650 mg 8 hr tablet Take 650 mg by mouth every 8 hours as needed. active cholecalciferol (VITAMIN D-3) 50 mcg (2,000 unit) tablet Take by mouth. a ctive loratadine (CLARITIN) 10 mg tablet 1 TABLET DAILY active Allergies Allergen Reaction Severity Comment Documented Date Source Statu s PERFUME 05/06/2024 [facility] active Problems Problem Status Onset Date Problem Type Date of Resoluti on Source Colon polyp active 2016-02-22 ProblemAct [facility] SYD Breast cancer ([facility] V24, [facility] V28) active 2010-03-24 ProblemAct [facility] Heart block AV second degree active 2016-08-28 ProblemAct [facility] Hyperlipemia active 2010-08-18 ProblemAct [facility] SFRAN Nephrolithiasis active 2005-05-[address] _[facility] Iron deficiency anemia active 2005-05-30 ProblemAct [facility] Hypertension active 2005-05-30 ProblemAct [facility] Gout active 2005-09-08 ProblemAct [facility] AN Atrial fibrillation ([facility] V24, [facility] V28) active 2024-03-11 ProblemAct [facility] H/O mechanical aortic valve replacement active 2024-03-11 ProblemAct [facility] Diverticulitis active 2022-02-17 ProblemAct [facility]_ [facility] Hx of bacterial endocarditis active 2024-10-01 ProblemAct [facility] Aortic valve disorder active 2005-05-30 ProblemAct [facility] Obesity, unspecified active 2012-08-29 ProblemAct [facility] Diabetes type 2, controlled ([facility] V24, [facility] V28) active 2013-04-09 ProblemAct [facility] Personal history of DVT (deep vein thrombosis) active 2024-03-11 ProblemAct [facility] SFRAN Paroxysmal atrial fibrillation ([facility] V24, [facility] V28) active 2022-10-12 ProblemAct [facility] care home (current) use of anticoagulants active 2024-03-11 ProblemAct [facility] Asthma, cold induced active 2023-12-12 ProblemAct [facility] Pacemaker active 2016-08-28 ProblemAct [facility]_THSFR AN Vitamin D deficiency active 2014-09-26 ProblemAct [facility]_S[facility] Immunizations Vaccine Date Source Lot Number Status Pneumococcal conjugate 20 [facility] (Prevnar 20, PCV 20) 2mo and older 08/21/2024 [facility]_SFRAN [id number] [facility] (ages 12 & older) Biv alent, COVID-19 07/23/2023 [facility]_SFRAN completed RSV, bivalent, protein subun it RSVpreF, 0.5mL, Preservative Free (Arexvy) 60yo and older 02/07/2023 [facility]_SFRAN [id number] completed Influenza trivalent, 0.5mL ( Fluzone High-dose) 65yo and older 01/03/2023 [id number] (ages 12 & older) Biv alent, COVID-19 01/03/2023 [facility]_SFRAN [id number] completed Td Tetanus diptheria (Tdvax) 7yo and older 06/28/2022 CT_T HSFRAN [id number] completed Influenza trivalent, 0.5mL ( Fluzone High-dose) 65yo and older 12/29/2021 CT_SFRAN [id number] [facility] SARS-CoV-2 COVID-19, mRNA, LNP-S, preservative free 11/24/2021 CT_SFRAN completed Influenza trivalent, 0.5mL ( Fluzone High-dose) 65yo and older 12/10/2020 [facility]_SFRAN [id number] [facility] SARS-CoV-2 COVID-19, mRNA, LNP-S, preservative free 06/04/2020 CT_SFRAN [id number] completed Moderna SARS-CoV-2 COVID-19, mRNA, LNP-S, preservative free 05/07/2020 [facility]_SFRAN [id number] completed Zoster recombinant (Shingrix ) 19yo and older 03/12/2020 [facility]_THSFRAN completed Influenza, Unspecified 12/19/2019 CT_THSFRAN co mpleted Influenza Quadravalent, MDCK , 0.5ml, with preservative (Flucelvax) 6mo and older 12/13/2019 [facility]_THSFRAN completed Zoster recombinant (Shingrix ) 19yo and older 11/15/2019 [facility]_SFRAN completed Influenza, Unspecified 12/21/2018 CT_WILIAM co mpleted Influenza trivalent, 0.5mL ( Fluzone High-dose) 65yo and older 12/13/2018 CT_CARLOS [id number] comple dennis Influenza trivalent, 0.5mL ( Fluzone High-dose) 65yo and older 11/28/2017 CT_JayeshFRFABIOLA [id number] comple dennis Influenza trivalent, 0.5mL ( Fluzone High-dose) 65yo and older 11/24/2016 CT_SFRAN comple dennis Influenza trivalent, 0.5mL ( Fluzone High-dose) 65yo and older 12/27/2015 CT_CARLOS [id number] comple dennis Pneumococcal conjugate 13 va lent (Prevnar 13, PCV13) 2mo and older 02/11/2015 CT_CARLOS [id number] complet ed Influenza trivalent, 0.5mL ( Fluzone High-dose) 65yo and older 11/27/2014 CT_JayeshFRFABIOLA [id number] comple dennis Influenza, Unspecified 12/25/2013 CT_WILIAM co mpleted Pneumococcal polysaccharide 23 valent (Pneumovax 23) 2yo and older 05/03/2013 CT_CARLOS [id number] com pleted Influenza trivalent, with pr eservative (Fluzone; Afluria) 6mo and older 12/18/2012 CT_CARL[facility] [id number] completed Tdap Tetanus diptheria acell ular pertussis (Boostrix; Adacel) 7yo and older 04/18/2012 CT_JayeshFRFABIOLA [id number] completed Influenza trivalent, with pr eservative (Fluzone; Afluria) 6mo and older 01/12/2012 [facility] [id number] completed Zoster Live 06/27/2011 CT_JayeshFRFABIOLA [id number] completed Influenza trivalent, with pr eservative (Fluzone; Afluria) 6mo and older 12/27/2010 CT_SFRFABIOLA [id number] completed Influenza trivalent, with pr eservative (Fluzone; Afluria) 6mo and older 12/27/2009 CT_SFRFABIOLA [id number] completed H1N1 Inj Preservative Free 02/15/2009 CT_SFRFABIOLA [id number] completed Influenza trivalent, with pr eservative (Fluzone; Afluria) 6mo and older 02/15/2009 CT_WINGSFRFABIOLA [id number] completed Influenza trivalent, with pr eservative (Fluzone; Afluria) 6mo and older 12/21/2007 CT_SFRFABIOLA [id number] completed Td Tetanus diptheria (Tdvax) 7yo and older 03/26/2007 CT_T HSFRAN [id number] completed Influenza trivalent, with pr eservative (Fluzone; Afluria) 6mo and older 12/22/2006 CT_WINGSFRFABIOLA [id number] completed Influenza trivalent, with pr eservative (Fluzone; Afluria) 6mo and older 01/17/2005 CT_WINGSFRFABIOLA completed Care Team Organization Name Specialty Phone Email Start Date End Da te [facility] Ksenia Quinn Primary [facility] 08/19/2022 10/30/2023 [facility] Clau Arana Primary Care 01/18/2022
== END 2024-10-08 11:17 | disposition home or self-care (01) ==
LOC: HO.HVNA 11:16
PROVIDERS: Visit Provider Internal Medicine
DX: R78.81 Bacteremia (principal)
CPT/HCPCS: 36415; 80048; 82550; 85025

== ENCOUNTER 2024-10-24 14:18 | Outpatient (REF) | payer MEDICARE, OTHER, SELFPAY ==
[2024-10-24 14:20] LABS: MANUAL DIFF FLAG NO
[2024-10-24 14:23] LABS: Hematocrit 33.8 % (37.0-47.0); Hemoglobin 10.6 g/dl (12.0-16.0); Imm Gran Abs Auto 0.04 X10*3/uL (0.00-0.03); Imm Gran Pct Auto 0.3 % (0.0-0.4); Lymphocytes Absolute Auto 1.1 X10*3/uL (1.2-4.9); Mean Corpuscular HGB Conc 31.4 g/dl (31.0-35.0); Mean Corpuscular Hemoglobin 26.6 pg (27.0-33.0); Mean Corpuscular Volume 84.9 fL (80.0-98.0); NRBC Abs Auto 0.000 X10*3/uL (0.0-0.012); NRBC Pct Auto 0.0 /100WBC (0.0-0.2); Platelet Count 262 X10*3/uL (160-400); Red Blood Count 3.98 X10*6/uL (4.20-5.50); White Blood Count 12.2 X10*3/uL (4.8-10.8)
--- OUTSIDE RECORDS SUMMARY | 2024-10-24 15:04 | XMS_ITS | Clinical Summary ---
Author Organization [facility] Address [address] [place] [address] Care Team Providers Care Charge Attendant Name Role Phone Josue Crain PA-C Primary [...] age to complete this topic Care Teams Charge Attendant Relationship Specialty Start Date End Date Josue Crain PAElliotC PCP - General Medical Services 02/18/22
--- OUTSIDE RECORDS SUMMARY | 2024-10-24 15:04 | XMS_ITS ---
Author Organization [address] Address [address] [place] [address] Phone Care Team Providers Care Linux System Administrator Name Role Phone Josue Crain Primary Care Provider [phone] Transitional Care Management Status:Closed (Closed) Start date:09/18/2024 Enrollment date:09/18/2024 Enrollment reason:Identified using hospital discharge data End date:10/19/2024 Close reason:Completed program Continued Care and Services Coordination
--- OUTSIDE RECORDS SUMMARY | 2024-10-24 15:04 | XMS_ITS | Clinical Summary ---
Author Organization [employer] Address [address] [facility] [address] [place] [address] Care Team Providers Care Business Continuity Consultant Name Role Phone Unavailable Primary Care Provider Unavailabl e Immunizations Immunization Administration Dates Next Due Influenza High-dose Quadriva lent Preservative Free 01/03/2023,12/10/2020 Influenza Quadrivalent Adjuvanted 12/13/2019 Influenza, High Dose Seasona l, Preservative Free 11/20/2023,01/03/2023,12/29/2021,12/10,12/13/2018,11/28/2017,11/24/2016 ,12/27/2015,11/27/2014 Influenza, IIV3, injectable 12/18/2012,1 03/13/2011,12/27/2010,12/27,02/15/2009,12/21/2007,12/22/2006 ,01/17/2005 Influenza, Unspecified 12/19/2019,12/21/2018, Influenza, seasonal, injecta ble, preservative free 12/18/2012,01/12/2012,12/27/2010,12/27,02/15/2009,12/21/2007,12/22/2006 ,01/17/2005 Influenza, trivalent, adjuvanted 024,12/29/2021,12/13/2018,11/28,11/24/2016,12/27/2015,11/27/2014 Novel [id number], preservative-free 02/15/2009 Pfizer Covid-19 Vaccine 12+ 06/04/2024,,11/24/2021 [...]
[2024-10-24 15:08] LABS: Anion Gap 16 (12-20); Blood Urea Nitrogen 17 mg/dL (9-16); Calcium 9.2 mg/dL (8.4-10.2); Carbon Dioxide 24 mmol/L (22-29); Chloride 104 mmol/L (96-108); Estimated Glomerular Filt Rate > 60; Potassium 4.2 mmol/L (3.3-5.1); Sodium 140 mmol/L (135-145)
== END 2024-10-24 14:19 | disposition home or self-care (01) ==
LOC: HO.HVNA 14:18
PROVIDERS: Visit Provider Internal Medicine
DX: J15.9 Unspecified bacterial pneumonia (principal)
CPT/HCPCS: 36415; 80048; 82550; 85025

== ENCOUNTER 2024-11-15 09:38 | Emergency (ER) | payer MEDICARE, OTHER, SELFPAY ==
--- OUTSIDE RECORDS SUMMARY | 2024-11-12 09:30 | XMS_ITS | Encounter Summary ---
Author Organization [facility] [place] [address] Care Team Providers Care Precision Farming Specialist Name Role Phone Josue Crain Primary Care Provider [phone] Encounter Details Date Type Department Care Team (Latest Contact Info) Description 11/12/2024 9:30 AM EDT Anticoagulation - Warfarin Visit [facility] [address] [phone] Atrial fibrillation, unspecified type (CMS/HCC V24, CMS/HCC V28) (Primary Dx); roasterman (current) use of anticoagulants; Personal history of DVT (deep vein thrombosis); H/O mechanical aortic valve replacement Social History Tobacco Use Types Packs/Day Years Used Date Smoking Tobacco: Never Smokeless Tobacco: Never Alcohol Use Standard Drinks/Week Comments No 0 (1 standard drink = 0.6 oz pur e alcohol) Housing Instability Answer Date Recorde d Are you worried that in the next 2 months you may not have stable housing? Patient declined 10/08/2024 Food Access & Nutrition Answer Date Rec orded Do you have access to a vari ety of food including fruits and vegetables? Yes 10/08/2024 Access to Healthcare Answer Date Record ed Within the last 3 months, shar herrmann many times did you visit the emergency department for your medical care? 0 04/16/2024 Health Literacy Answer Date Recorded How often do you need to hav e someone help you when you read instructions, pamphlets, or other written material from your doctor or pharmacy? Never 10/08/2024 Caregiver: How often do you need to have someone help you when you read instructions, pamphlets, or other written material from your doctor or pharmacy? Not on file 10/08/2024 Financial Risk Answer Date Recorded How hard is it for you to pa y for the very basics like food, housing, medical care, and air conditioning / heating? Not very hard 10/08/2024 Transportation Answer Date Recorded Has the lack of transportati on kept you from meetings, work, or from getting things needed for daily living? Patient declined 10/08/2024 Has the lack of transportati on kept you from medical appointments or from getting medications? Patient declined 10/08/2024 Social Isolation Answer Date Recorded How often do you feel lonely or isolated from th ose around you? Never 10/08/2024 Food Risk Answer Date Recorded Within the past 12 months we worried whether our food would run out before we got money to buy more. Never true 10/08/2024 Within the past 12 months th e food we bought just didn't last and we didn't have money to get more. Never true 10/08/2024 Dependent Care Answer Date Recorded Do you need help finding or paying for care for your loved ones. For example, housekeeper child care or elderly care for an older adult? No 10/08/2024 Education Answer Date Recorded Do you think completing more education or training, like finishing a GED, going to college, or learning a trade, would be helpful for you? Patient declined 10/08/2024 Employment and Income Answer Date Recor ded During the last four weeks, have you been actively looking for work? No 10/08/2024 Living Situation Answer Date Recorded What is your living situation? 0 10/08/2024 Comments No Sex and Gender Information Value Date Recorded Sex Assigned at Female 10/19/2024 11:27 AM EDT Legal Sex Female 2:23 AM EST Gender Identity Female 10/19/2024 11:27 AM EDT Sexual Orientation Not on file documented as of this encounter Plan of Treatment Upcoming Encounters Date Type Department Care Team ([facility] Contact Info) Description 11/18/2024 3:10 PM EDT Anticoagulation - Warfarin Visit Coumadin [address] [phone] 11/18/2024 3:30 PM EDT Office Visit [address] [phone] Rea Ritchie PA [address] [place], [place] 01/08/2025 8:30 AM EDT Ancillary Procedure [facility] [address] [place] [phone] 01/10/2025 8:30 AM EDT Office Visit [address] [phone] Josue Crain PA [address] [place] [phone] 01/17/2025 7:40 AM EST Office Visit [facility] [address] [facility] [address] [place] [phone] Lei Patel, HARVEY [address] [place] [address] [address] [place] [address] 10/20/2025 9:30 AM EDT Ancillary Procedure [facility] [address] [facility] [address] [place] [phone] documented as of this encounter Goals Goal Patient Goal Type Associated Problems Recent Progress Patient-Stated? Author <enter goal here> General Yes Kimberley Olsen, RN Note: I will start using my weights again. documented as of this encounter Procedures Procedure Name Priority Date/Time Associated Diagnosis Comments POC PROTIME INR BLOOD Routine 11/12/2024 Atrial fibrillation, unspecified type (CMS/HCC V24, CMS/HCC V28) roasterman (current) use of anticoagulants Personal history of DVT (deep vein thrombosis) H/O mechanical aortic valve replacement documented in this encounter Results * POC Protime INR Blood (11/12/2024) Lot Number INR POC 3.3 Prothrombin Time POC Exp Date Blood 11/12/2024 us Ksenia Orlando MD POINT OF CARE TEST ENTER/EDIT ORDERABLES Final Result documented in this encounter Visit Diagnoses Diagnosis Atrial fibrillation, unspecified type ([facility] V24, [facility] V28)- Primary roasterman (current) use of anticoagulants Long-term (current) use of anticoagulants Personal history of DVT (deep vein thrombosis) Personal history of venous thrombosis and embolism H/O mechanical aortic valve replacement Encounter for adjustment or management of cardiac device documented in this encounter Additional Health Concerns Assessment Noted Time PHQ-9 Depression Total Score: 0 04/16/19 25 11:13 PM EST A fall risk assessment has been complete d for the patient 10/08/2024 1:20 PM EDT documented as of this encounter Care Teams Precision Farming Specialist Relationship Specialty Start Date End Date Josue Crain PA [address] [place] [address] PCP - General Internal Medicine 01/29/24 documented as of this encounter
--- NOTE | ~2024-11-15 | CT_ITS ---
EXAMINATION: CT ANGIOGRAM CHEST CLINICAL INFORMATION: Concerning PE. COMPARISON: September 08, 2024 TECHNIQUE: Multiple axial images were obtained through the chest after the administration of 65 mL of Omnipaque 350 intravenous contrast. Extensive vascular post-processing including two-dimensional and three-dimensional reformatted images were created and reviewed on an independent workstation. SmartPrep technique. This CT examination was performed using dose optimization techniques as appropriate, variously including the following: *Automated exposure control *Adjustment of mA and/or kV according to patient size (this includes techniques or standardized protocols for targeted exams where dose is matched to indication/reason for exam; i.e. extremities or head) *Use of iterative reconstruction technique DLP: 277 mGy centimeter. FINDINGS: The main pulmonary artery and its main left and right branches and subsegmental pulmonary artery branches demonstrated normal patency without intraluminal filling defect. Poor evaluation of the aorta demonstrated no gross aneurysm or dissection. Calcified plaques throughout the thoracic aorta wall and its main branches. Metallic hardware valve, aortic valve. Calcified plaque, mitral valve. The heart is enlarged mostly left heart chambers. No pericardial effusion. Bilateral multifocal patchy pulmonary groundglass. Trace amount of effusion in the right pleura compartment. No pneumothorax. No pneumomediastinum. No gross mediastinal lymphadenopathy. Multilevel cervical thoracic and upper lumbar stenosis without acute fracture or gross listhesis. Sternal wires. No acute fracture in the sternum. No acute rib fractures. Left-sided pacemaker with intact electrode leads in the right heart chambers. Degenerative changes in the right greater than left glenohumeral joints and acromioclavicular joints. CT/CT angio chest PE protocol IMPRESSION: No acute pulmonary artery emboli. Mild interstitial lung edema. Cardiomegaly. Fleischner guidelines were followed. Electronically signed by: Alexys Linder MD 11/15/2024 01:42 PM EDT
--- NOTE | ~2024-11-15 | XR_ITS ---
EXAMINATION: XR CHEST CLINICAL INFORMATION: DORADO COMPARISON: 09/08/2024. TECHNIQUE: 2 views of the chest were obtained. FINDINGS: Left-sided dual-lead pacer device is in place with leads in the right atrium and right ventricle. There is mild cardiac enlargement. There is been prior median sternotomy. Mediastinal contours are normal. There is mild vascular congestion in the hilar regions. Lungs demonstrate subtle interstitial changes with subtle Royer B lines, likely mild interstitial edema. No consolidations. There is no pneumothorax or pleural effusion. There is no focal osseous or soft tissue abnormality. XR/XR chest 2V IMPRESSION: 1. Cardiac enlargement with dual lead pacer device. Prior sternotomy. 2. Mild interstitial edema suspected. No effusions. 3. Overall, similar examination when compared with 09/08/2024. Electronically signed by: Sabino Pacheco MD 11/15/2024 10:25 AM EDT
--- NOTE | ~2024-11-15 | US_ITS ---
EXAMINATION: US TRIPLEX UPPER EXTREMITY, RIGHT CLINICAL INFORMATION: Right upper extremity pain, rule out DVT. COMPARISON: None available. TECHNIQUE: Color-flow triplex imaging with spectral analysis and compression Doppler was performed on the right upper extremity. FINDINGS: The right internal jugular, subclavian, and axillary veins are patent and free of thrombus. The imaged segment of the right brachiocephalic vein is patent. Spectral doppler waveforms are normal. The brachial, basilic, cephalic, radial, and ulnar veins are patent and compressible. US/US venous duplex UE RT IMPRESSION: No evidence of deep venous thrombosis involving the right upper extremity. Electronically signed by: Sabino Pacheco MD 11/15/2024 02:18 PM EDT
[2024-11-15 09:51] VITALS: BP 155/72; PULSE 67; RESP 18; TEMP 36.4; O2SAT 94; BMI 30.5
--- NOTE | 2024-11-15 09:57 | ED.GENADULT ---
HPI - General Adult General Chief complaint: General Medical Stated complaint: r arm and hand issue Time Seen by Provider: 11/15/24 11:08 Source: patient Mode of arrival: ambulatory Limitations: no limitations History of Present Illness ED Provider: Dr. Tompkins HPI narrative: This is a 73-year-old female history of endocarditis status post aortic valve replacement, diabetes, bacteremia, recent diagnosis of pneumonia requiring admission with PICC line placed in for treatment. Patient had PICC line removed approximately 2 weeks ago. Presented hospital today for swelling in the right upper extremity pain in her fingers and her forearm. Patient is also noted to be on the lower side of oxygen and exertional shortness of breath. Patient stated that her INR is elevated on previous lab work. She is supratherapeutic. She takes her Coumadin for her aortic valve replacement. Denies any fever. Denies any chest pain. Does endorse some exertional shortness of breath. She does endorse some pain on her right forearm proximally. More tender on rotation of her forearm on supination. However patient noted that her fingertips is more swollen than usual. Does appear to be red. Related Data Home Medications ?Medication ?Instructions ?Recorded ?Confirmed fenofibrate nanocrystallized 145 145 mg PO BEDTIME 10/30/20 09/09/24 mg tablet furosemide 20 mg tablet 20 mg PO NEEDED PRN swelling 10/30/20 09/09/24 irbesartan 300 mg tablet 300 mg PO BEDTIME 10/30/20 09/09/24 simvastatin 20 mg tablet 20 mg PO BEDTIME 10/30/20 09/09/24 tavaborole 5 % topical solution 0.05 ml topical DAILY 10/30/20 09/09/24 with applicator albuterol sulfate 90 mcg/actuation 2 inh inhalation Q4H PRN Wheezing 04/28/22 09/09/24 aerosol inhaler glucosamine sulfate 500 mg tablet 1,500 mg PO NEEDED PRN 04/28/22 09/09/24 (Glucosamine) arthritis pain loratadine 10 mg tablet 10 mg PO NEEDED PRN allergies 04/28/22 09/09/24 omega 4-dcr-pku-fish oil 1,000 mg 1 cap PO DAILY 04/28/22 09/09/24 (120 mg-180 mg) capsule (Fish Oil) warfarin 2.5 mg tablet (Jantoven) 2.5 mg MOWEFR@1800 04/28/22 09/09/24 acetaminophen 650 mg 650 mg PO Q8H PRN arthritis 09/09/24 09/09/24 tablet,extended release cyanocobalamin (vitamin B-12) 50 50 mcg PO DAILY 09/09/24 09/09/24 mcg tablet (Vitamin B-12) pusjnnij-lwm-iljsd acid 0.4 1 tab PO DAILY 09/09/24 09/09/24 mg-lycopene 300 mcg-lutein 250 mcg tablet (Centrum Silver) warfarin 2.5 mg tablet (Jantoven) 1.25 mg PO SUTUTHSA@1800 09/09/24 09/09/24 Previous Rx's ?Medication ?Instructions ?Recorded alcohol swabs 1 pad topical QIDACHS #100 ea 09/18/24 blood sugar diagnostic (FreeStyle #100 ea 09/18/24 Lite Strips) blood-glucose meter (FreeStyle #1 ea 09/18/24 Lite Meter kit) daptomycin 500 mg/50 mL in 0.9 % 500 mg (50 mL) IV DAILY 36 doses 09/18/24 sodium chloride intravenous piggyback insulin glargine 100 unit/mL (3 15 unit (0.15 mL) subcut DAILY #15 09/18/24 mL) subcutaneous pen (Lantus mL Solostar U-100 Insulin) insulin lispro 100 unit/mL 1 sliding scale dose subcut 09/18/24 subcutaneous pen (Humalog KwikPen QIDACHS 40 units #15 mL (U-100) Insulin) lancets 28 gauge (FreeStyle #100 ea 09/18/24 Lancets) lancets 28 gauge (FreeStyle #100 ea 09/18/24 Lancets) pen needle, diabetic 32 gauge x #100 ea 09/18/24 1/4 furosemide 20 mg tablet (Lasix) 20 mg PO DAILY 5 days #5 tabs 11/15/24 Allergies Allergy/AdvReac Type Severity Reaction Status Date / Time adhesive tape Allergy Rash Verified 11/15/24 09:58 Review of Systems Review of Systems: Pertinent review of systems as mentioned in HPI. All other system otherwise negative. COUNTS INCLUDE 234 BEDS AT THE [facility] Past Medical History COUNTS INCLUDE 234 BEDS AT THE [facility] Narrative: Medical history as mentioned in HPI Medical History Breast cancer, left Uterine cancer DVT (deep venous thrombosis) CHF (congestive heart failure) DM (diabetes mellitus) Kidney stones Asthma Pacemaker Surgical History History of lumpectomy of left breast History of total abdominal hysterectomy Aortic valve prosthesis present Social History Social History Alcohol intake: never Patient Tobacco Use Status: Never used Tobacco service: No Physical Exam ED Exam Exam: General: Pleasant, no distress, interacting appropriately Head: Normacephalic, atraumatic ENT: oral mucosa moist, neck supple, no tracheal deviation Cardiovascular: regular rate, regular rhythm, no murmurs, rubbing, gallops Respiratory: CTAB, no wheeze, rales, rhonchi Gastrointestinal: Soft, non distended, non tender, non guarding Extremities: CMS intact of right upper extremity, patient does have some swelling of the fingertips on the right side, cap refills intact, patient does have ecchymosis from PICC line site. Patient does have reproducible tenderness on the right forearm. More tender upon supination of her right extremity. Trace edema in lower extremities bilaterally. Neurological: Awake and alert, no facial droop noted Skin: Warm and dry Psychiatric: Appropriate mood and thoughts Vital Signs: Vital Signs - 24 hr 11/15/24 09:51 11/15/24 11:19 11/15/24 12:40 Temperature 97.5 F 99.0 F 98.5 F Pulse Rate 67 79 91 Respiratory Rate 18 21 H 19 Blood Pressure 155/72 H 159/63 H 146/68 H Pulse Oximetry 94 94 96 Oxygen Delivery Method Room Air Room Air Room Air 11/15/24 13:27 Temperature Pulse Rate Respiratory Rate Blood Pressure 149/69 H Pulse Oximetry Oxygen Delivery Method BMI result Body Mass Index 30.5 Course Course Course Narrative: This is a rapid medical exam performed by Fidel Berkowitz NP: Additional HPI, ROS, PE not included below will be deferred to primary provider. Patient is a 73-year-old female with history of DM, pacemaker, on warfarin presenting to the ED with complaint of right arm and hand pain after have labs done at [place] on Monday for her INR. Has also been having DORADO recently. Plan: EKG, CXR, labs Medications Administered Discontinued Medications Generic Name Dose Route Start Last Admin Trade Name Eugenio PRN Reason Stop Dose Admin Furosemide 20 mg 11/15/24 12:45 11/15/24 13:27 Furosemide 20 Mg/2 Ml Vial IVPUSH 11/15/24 12:46 20 mg ONCE ONE Administration Protocol Iohexol 100 ml 11/15/24 13:33 11/15/24 13:33 Iohexol 350 Mg/Ml 100 Ml Infus..Btl IV 11/15/24 13:34 65 ml ONCE ONE Administration Lidocaine 1 patch 11/15/24 12:50 11/15/24 13:27 Lidocaine 4 % Patch Adh..Patch TRANSDERMA 11/15/24 12:51 1 patch ONCE ONE Administration Protocol Medical Decision Making Medical Decision Making [facility] Narrative: This is a 73-year-old female history of endocarditis status post aortic valve replacement, on Coumadin, diabetes, bacteremia presented hospital today for evaluation of right upper extremity pain finger swelling. Recently admitted for pneumonia back in August PICC line removed 2 weeks ago. Patient may have distal blood clot to her fingers, develop a of right upper extremity DVT. However this is less likely as patient is supratherapeutic on INR. However patient does have history of endocarditis in the past and aortic valve replacement. We will plan to obtain a right upper extremity venous study. Patient has good pulse in her radial and ulnar artery. I do not think there is critical limb ischemia The patient's O2 saturation satting between 93 and 94%. We will obtain a CT imaging of her chest to rule out PE. We will also assess for any signs of pneumonia as well. Lactic acid will be at to screen for sepsis. Patient does have slight elevation of leukocytosis, my suspicion of sepsis is low on patient she does appear to be well. Patient does have slight bump in troponin at 24.2 and elevated BNP at 495. Patient may be fluid overloaded IV Lasix will be provided to the patient. Transdermal lidocaine will be used for her pain. Second troponin is 25.0. Patient does have elevated BNP at 495. She is asymptomatic of any chest pain. She does have history of CHF in the past. Patient's CT imaging of the chest is negative for PE. Does show signs of med cardiomegaly with pulmonary edema. Patient's ultrasound of the right upper extremity did not show any sign of DVT. I do not suspect sepsis inpatient. I do not think patient has not infection. Patient's lactic acid is not elevated. Through shared decision making we decided that we will plan to discharge patient with extra doses of Lasix. She does take 20 mg daytime and 20 mg at night. We will increase her morning does have 40 mg. She is not hypoxic. Patient is agreement with this plan. She will plan to follow up with her doctor. Patient will be discharged home. Differential Diagnosis Differential Diagnoses: The differential diagnosis associated with the presentation includes Thrombophlebitis, brachioradialis myositis, CHF exacerbation, PE, pneumonia Admission/Observation Consideration of admission/observation: Escalation of care including admission/observation considered Lab Data MDM Lab Attestation statement: I reviewed the patient's lab results. 11/15/24 10:11 11/15/24 10:11 Labs: Lab Results 11/15/24 11/15/24 Range/Units 10:11 13:25 WBC 11.8 H (4.8-10.8) X10*3/uL RBC 4.33 (4.20-5.50) X10*6/uL Hgb 11.2 L (12.0-16.0) g/dl Hct 36.0 L (37.0-47.0) % MCV 83.1 (80.0-98.0) fL MCH 25.9 L (27.0-33.0) pg MCHC 31.1 (31.0-35.0) g/dl RDW 15.9 (11.0-16.0) % Plt Count 212 (160-400) X10*3/uL MPV 10.6 (9.4-12.3) fL Immature Gran % (Auto) 0.4 (0.0-0.4) % Neut % (Auto) 88.5 H (45-73) % Lymph % (Auto) 5.3 L (20-40) % [place] % (Auto) 4.7 (2-11) % Eos % (Auto) 0.7 (0-4) % Baso % (Auto) 0.4 (0-2) % Lymph # (Auto) 0.6 L (1.2-4.9) X10*3/uL [place] # (Auto) 0.6 (0.1-1.2) X10*3/uL Eos # (Auto) 0.1 (0.0-0.4) X10*3/uL Baso # (Auto) 0.1 (0.0-0.2) X10*3/uL Abs Immat Gran (auto) 0.05 H (0.00-0.03) X10*3/uL Absolute Neuts (auto) 10.5 H (2.0-8.3) x10*3/uL Absolute Nucleated RBC 0.000 (0.0-0.012) X10*3/uL Nucleated RBC % (auto) 0.0 (0.0-0.2) /100WBC PT 53.2 H D (10.9-12.4) SEC INR 4.6 H D (0.9-1.1) Sodium 138 (135-145) mmol/L Potassium 3.8 (3.3-5.1) mmol/L Chloride 106 (96-108) mmol/L Carbon Dioxide 23 (22-29) mmol/L Anion Gap 13 (12-20) BUN 18 H (9-16) mg/dL Creatinine 0.58 (0.5-1.4) mg/dL Estim Creat Clear Calc 84.2 Estimated GFR > 60 Random Glucose 251 H (60-115) mg/dL Lactic Acid 1.1 (0.5-2.0) mmol/L Calcium 9.3 (8.4-10.2) mg/dL Total Bilirubin 0.7 (0.0-1.0) mg/dL AST 31 (5-31) U/L ALT 19 (0-31) U/L Alkaline Phosphatase 36 L (39-117) U/L Troponin I High Sens 24.2 H D 25.0 H (<3.5-17.0) ng/L B-Natriuretic Peptide 495 H (<100) pg/mL Total Protein 7.4 (6.5-8.0) g/dL Albumin 4.2 (3.5-5.0) g/dL Independent Interpretation I performed an independent interpretation of an: EKG, Ultrasound and CT Scan Radiology Impression Discussion of test interpretation with radiology: I have reviewed the radiologist's reading. Discharge Plan Discharge Clinical Impression: Arm pain, right, Pulmonary edema with congestive heart failure Patient Disposition: Home, Self-Care Prescriptions: New furosemide [Lasix] 20 mg tablet 20 mg PO DAILY 5 Days Qty: 5 0RF No Action warfarin [Martoven] 2.5 mg tablet 2.5 mg MOWEFR@1800 Rx Instructions: Monday, Monday, Monday glucosamine sulfate [Glucosamine] 500 mg Tablet 1,500 mg PO NEEDED PRN (Reason: arthritis pain) Rx Instructions: administer with meals albuterol sulfate 90 mcg/actuation HFA aerosol inhaler 2 inh INHALATION Q4H PRN (Reason: Wheezing) loratadine 10 mg Tablet 10 mg PO NEEDED PRN (Reason: allergies ) omega 3-dpl-ead-fish oil [Fish Oil] 1,000 mg (120 mg-180 mg) Capsule 1 cap PO DAILY warfarin [Martoven] 2.5 mg tablet 1.25 mg PO SUTUTHSA@1800 Rx Instructions: 0.125mg Monday, , Monday, Monday acetaminophen 650 mg Tablet Extended Release 650 mg PO Q8H PRN (Reason: arthritis) Vitamin B-12 50 mcg Tablet 50 mcg PO DAILY Centrum Silver 0.4 mg-300 mcg- 250 mcg Tablet 1 tab PO DAILY daptomycin in 0.9 % sod chlor 500 mg/50 mL piggyback 500 mg IV DAILY Rx Instructions: administer over 30 mins end date October 23, 2024 (DME) FreeStyle Lite Strips Strip Qty: 100 0RF Rx Instructions: Test four times a day or as directed. alcohol swabs Pads, Medicated 1 pad TOPICAL QIDACHS Qty: 100 0RF Rx Instructions: Use four times a day or as directed. insulin lispro [Humalog KwikPen Insulin] 100 unit/mL insulin pen 1 sliding scale dose SUBCUT QIDACHS Qty: 15 0RF Rx Instructions: Blood Sugar: <150 - 0 units 151-200 - 2 units 201-250 - 4 units 251-300 - 6 units 301-350 - 8 units >350 - 10 units insulin glargine [Lantus Solostar U-100 Insulin] 100 unit/mL (3 mL) insulin pen 15 unit SUBCUT DAILY Qty: 15 0RF (DME) pen needle, diabetic 32 gauge x 1/4 needle Qty: 100 0RF Rx Instructions: Use four times a day or as directed. (DME) lancets [FreeStyle Lancets] 28 gauge misc Qty: 100 0RF Rx Instructions: Test four times a day or as directed. (DME) blood-glucose meter [FreeStyle Lite Meter] Kit Qty: 1 0RF Rx Instructions: As Directed, 4 times a day (DME) lancets [FreeStyle Lancets] 28 gauge misc Qty: 100 0RF Rx Instructions: Test four times a day or as directed. simvastatin 20 mg tablet 20 mg PO BEDTIME fenofibrate nanocrystallized 145 mg tablet 145 mg PO BEDTIME irbesartan 300 mg tablet 300 mg PO BEDTIME tavaborole 5 % solution with applicator 0.05 ml topical DAILY furosemide 20 mg tablet 20 mg PO NEEDED PRN (Reason: swelling) Interventions: ED Discharge Assessment Last Done: 11/15/24 16:16 Discharge Date/Time: 11/15/24 16:27 Print Language: Nepali
--- NOTE | 2024-11-15 09:59 | ECG_ITS ---
Test Reason : CHEST PAIN Blood Pressure : */* mmHG Vent. Rate : 69 BPM Atrial Rate : 147 BPM P-R Int : * ms QRS Dur : 182 ms QT Int : 448 ms P-R-T Axes : * -66 117 degrees QTcB Int : 480 ms Ventricular-paced rhythm Abnormal ECG When compared with ECG of 08-Sep-2024 19:14, Vent. rate has decreased by 35 bpm Referred By: Lashae Berkowitz Electronically Signed By: Geovani Gu
[2024-11-15 10:20] LABS: MANUAL DIFF FLAG NO
[2024-11-15 10:23] LABS: Hematocrit 36.0 % (37.0-47.0); Hemoglobin 11.2 g/dl (12.0-16.0); Imm Gran Abs Auto 0.05 X10*3/uL (0.00-0.03); Imm Gran Pct Auto 0.4 % (0.0-0.4); Lymphocytes Absolute Auto 0.6 X10*3/uL (1.2-4.9); Mean Corpuscular HGB Conc 31.1 g/dl (31.0-35.0); Mean Corpuscular Hemoglobin 25.9 pg (27.0-33.0); Mean Corpuscular Volume 83.1 fL (80.0-98.0); NRBC Abs Auto 0.000 X10*3/uL (0.0-0.012); NRBC Pct Auto 0.0 /100WBC (0.0-0.2); Platelet Count 212 X10*3/uL (160-400); Red Blood Count 4.33 X10*6/uL (4.20-5.50); White Blood Count 11.8 X10*3/uL (4.8-10.8)
[2024-11-15 10:44] LABS: Alanine Aminotransferase 19 U/L (0-31); Albumin Level 4.2 g/dL (3.5-5.0); Alkaline Phosphatase 36 U/L (39-117); Anion Gap 13 (12-20); Aspartate Amino Transferase 31 U/L (5-31); Blood Urea Nitrogen 18 mg/dL (9-16); Calcium 9.3 mg/dL (8.4-10.2); Carbon Dioxide 23 mmol/L (22-29); Chloride 106 mmol/L (96-108); Creatinine Clr Calc Pharmacy 84.2; Estimated Glomerular Filt Rate > 60; Potassium 3.8 mmol/L (3.3-5.1); Sodium 138 mmol/L (135-145); Total Protein 7.4 g/dL (6.5-8.0)
[2024-11-15 10:46] LABS: INTERNATIONAL NORM RATIO 4.6 (0.9-1.1); Prothrombin Time 53.2 SEC (10.9-12.4)
[2024-11-15 10:49] LABS: B Type Natriuretic Peptide 495 pg/mL (<100); Troponin-I High Sensitivity 24.2 ng/L (<3.5-17.0)
--- OUTSIDE RECORDS SUMMARY | 2024-11-15 10:55 | XMS_ITS | Clinical Summary ---
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 Name Role Phone Unavailable Primary Care Provider Unavailabl e Immunizations Immunization Administration Dates Next Due Influenza High-dose Quadriva lent Preservative Free 01/03/2023,12/10/2020 Influenza Quadrivalent Adjuvanted 12/13/2019 Influenza, High Dose Seasona l, Preservative Free 11/20/2023,01/03/2023,12/29/2021,12/10,12/13/2018,11/28/2017,11/24/2016 ,12/27/2015,11/27/2014 Influenza, IIV3, injectable 12/18/2012,1 03/13/2011,12/27/2010,12/27,02/15/2009,12/21/2007,12/22/2006 ,01/17/2005 Influenza, Unspecified 12/19/2019,12/21/2018, Influenza, seasonal, injecta ble, preservative free 12/18/2012,01/12/2012,12/27/2010,12/27,02/15/2009,12/21/2007,12/22/2006 ,01/17/2005 Influenza, trivalent, adjuvanted 024,12/29/2021,12/13/2018,11/28,11/24/2016,12/27/2015,11/27/2014 Novel [id number], preservative-free 02/15/2009 Pfizer Covid-19 Vaccine 12+ 06/04/2024,,11/24/2021 [...] complete this topic Insurance MEDICARE [facility] Address: [facility] [address] [place] [phone]
--- OUTSIDE RECORDS SUMMARY | 2024-11-15 10:55 | XMS_ITS ---
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
--- OUTSIDE RECORDS SUMMARY | 2024-11-15 10:56 | XMS_ITS | Clinical Summary ---
Author Organization 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 Active cholecalciferol (VITAMIN D-3) 50 mcg (2,000 unit) tablet Take by mouth. Active fluticasone propionate (FLONASE) 50 mcg/actuation nasal spray as needed. 9 Active nystatin, bulk, 10 billion unit powder Apply to affected area 2 times daily as needed 7 Active tavaborole 5 % solution with applicator Apply 1 Drop topically daily. APPLY ONE DROP TOPICALLY DAILY TO THE THICK TOENAILS (90 DAY SUPPLY) 2 Active glucos sul 2KCl/msm/chond/ C/Mn (GLUCOSAMINE CHONDROITIN ORAL) 1 po qd Active loratadine (CLARITIN) 10 mg tablet 1 TABLET DAILY Active MULTIVITAMIN ORAL 1 qd Active urea 40 % lotion Apply to thick toenails daily 7 Active irbesartan (AVAPRO) 300 mg tablet TAKE 1 TABLET DAILY 90 tablet 1 5 Active docosahexaenoic acid/epa (FISH OIL ORAL) Take by mouth 1 (one) time each day. Active fenofibrate (TRICOR) 145 mg tablet Take 1 tablet (145 mg total) by mouth 1 (one) time each day. 90 tablet 1 5 Active albuterol HFA (PROAIR HFA ; PROVENTIL HFA ; VENTOLIN HFA) 90 mcg/actuation inhaler Inhale 2 puffs by mouth every 4 (four) hours if needed for wheezing. 6.7 g 5 Active insulin glargine,hum.re c.anlog (Basaglar KwikPen U-100 Insulin) 100 unit/mL (3 mL) injection pen Inject 18 Units under the skin 1 (one) time each day in the morning. 15 mL 5 5 Active furosemide (LASIX) 20 mg tablet Take 1 tablet (20 mg total) by mouth 2 (two) times a day. Active warfarin (COUMADIN) 2.5 mg tablet Take 1-2 tabs daily as directed by the Coumadin clinic May cause heavy bleeding. Take at same time every day. Do not change dietary habits. 180 tablet 1 5 Active Ultra-Fine Pen Needle 32 gauge x 1/4 needle Inject 1 each under the skin 1 (one) time each day. 100 each 5 Active FreeStyle Test test strip Use to check fasting blood sugar once daily 100 each 1 5 11/15/19 26 Active FreeStyle Lancets 28 gauge lancets Use to check blood sugar once daily 100 each 1 5 11/15/19 26 Active simvastatin (ZOCOR) 20 mg tablet at bedtime. 90 tablet 1 5 Active simvastatin (ZOCOR) 20 mg tablet Take 1 Tablet by mouth at bedtime. 4 11/15/19 25 Discontinu ed(Reorder ) warfarin (COUMADIN) 2.5 mg tablet Take 1-2 tabs daily as directed by the Coumadin clinic May cause heavy bleeding. Take at same time every day. Do not change dietary habits. 180 tablet 1 4 10/31/19 25 Discontinu ed(Reorder ) Ultra-Fine Pen Needle 32 gauge x 1/4 needle 5 11/06/19 25 Discontinu ed(Reorder ) furosemide (LASIX) 20 mg tablet Take 1 tablet (20 mg total) by mouth 1 (one) time each day. 90 tablet 1 5 10/30/19 25 Discontinu ed(Dose adjustment ) amoxicillin-cla vulanate (AUGMENTIN) 875-125 mg per tablet Take 1 tablet by mouth 2 (two) times a day for 7 days. 14 each 5 11/06/19 25 doxycycline hyclate (VIBRA-TABS) 100 mg tablet Take 1 tablet (100 mg total) by mouth 2 (two) times a day for 7 days. 14 tablet 5 11/06/19 25 Alcohol Wipes pads, medicated Apply topically 1 (one) time for 1 dose. Use one daily when checking blood sugar 100 each 1 5 11/15/19 25 Active Problems Problem Noted Date Diagnosed Date Endocarditis 10/21/2024 Assessment & Plan (10/21/2024 8:57 AM EDT): Please see details of most recent hospital stay above. Patient still has PICC line in for the endocarditis. I am going to repeat an echocardiogram in 2 months. Patient should continue through with the last doses of her antibiotics. 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 Continue Coumadin for CVA prophylaxis. Mostly V-paced episodes are brief, will hold off on rate controlling agents for now. Assessment & Plan (10/08/2024 8:55 PM EDT): Assessment & Plan (05/06/2024 8:58 AM EST): Very low burden, continue Coumadin for CVA prophylaxis, mostly V-paced and these episodes are brief no need for rate controlling agents at this time. Diverticulitis 02/17/2022 Overview (12/12/2023): 2017 Heart block AV second degree 08/28/2016 Overview (10/21/2024): -Presented to me in June 2016 for a visit with exertional fatigue and dyspnea as well as postural lightheadedness which I suspected may have been chronotropic incompetence and possible symptomatic awareness of PVCs-recommended initially to have a modified ETT to assess her chronotropic reserve however prior to having that scheduled, she ended up presenting to [facility] where she was ultimately found to have symptomatic sinus bradycardia and second-degree AV block -Status post placement of a Biotronik dual-chamber permanent pacemaker on 07/16/2016 at [facility] -Has had issues with diaphragmatic stimulation with reduction in outputs to as low as possible within the safety margin -Most recent device check remotely on 10/12/2022 showed dual-chamber Biotronik pacer functioning normally, 34% a pacing, 98% V pacing, no high rate ventricular or atrial episodes but brief episodes of what is likely atrial fibrillation with the longest being 1 minute and 20 seconds-18 episodes total in the past year Assessment & Plan (10/21/2024 8:56 AM EDT): Device functioning appropriately, continue to follow in device clinic Assessment & Plan (05/06/2024 8:58 AM EST): Device is functioning properly. Continue follow-up in our device clinic. Pacemaker 08/28/2016 Overview (12/12/2023): 2017 Assessment & Plan (10/21/2024 8:54 AM EDT): Please continue with device checks. Colon polyp 02/22/2016 Overview (12/12/2023): Colonoscopy 02/22/16 small ascending colon polyp- tubular adenoma repeat colonoscopy 02/2021 Vitamin D deficiency 09/26/2014 Diabetes type 2, controlled (CMS/HCC V24, CMS/HC C V28) 04/09/2013 Overview (12/12/2023): Diagnosed 2013 Assessment & Plan (10/08/2024 8:55 PM EDT): Obesity, unspecified 08/29/2012 Hyperlipemia 08/18/2010 Overview (12/12/2023): Last Assessment & Plan: Continue current simvastatin 20 mg at bedtime Assessment & Plan (10/21/2024 8:58 AM EDT): Please continue simvastatin 20 mg at bedtime. Assessment & Plan (10/08/2024 8:55 PM EDT): Assessment & Plan (05/06/2024 8:58 AM EST): Patient's most recent lipid panel on 04/17/2024 revealed an LDL of 77. This is close to target, would like this at 70 or below. Does have an elevation in triglycerides at 396. Patient is trying to reduce this with diet. She is also utilizing fenofibrate which is prescribed by her primary care. I did educate the patient about adhering to a healthy cardiac diet. Breast cancer (CMS/HCC V24, CMS/HCC V28) 011 Overview (12/12/2023): DCIS left breast with microinvasion. S/p lumpectomy with adjuvant radiation. Completed January [address] Dickson. Currently on Arimidex. BrCA test negative Gout 09/08/2005 Assessment & Plan (10/08/2024 8:55 PM EDT): Aortic valve disorder 05/30/2005 Overview (10/21/2024): -For prior infective endocarditis in 1979 -On Coumadin -Most recent echocardiogram on 12/14/2020 showed mild, concentric left ventricular hypertrophy with normal LV cavity size and systolic function, normal regional wall motion with an ejection fraction of 60 to 65%, paradoxic septal motion in keeping with paced rhythm, normal RV size and systolic function, pacer wire seen in the right heart, status post mechanical AVR-valve is well-seated with physiologic gradients and no significant AI-unchanged from 2018 Assessment & Plan (10/21/2024 8:53 AM EDT): Valve sounds good on exam. I am going to be updating an echocardiogram secondary to the endocarditis which she has been treated for through IV antibiotics, she is getting her PICC line removed in 2 days. Patient's on warfarin, INR goal 2.5-3. Assessment & Plan (10/08/2024 8:55 PM EDT): Assessment & Plan (05/06/2024 8:58 AM EST): Plan will be for surveillance echocardiogram next year in 2025. Patient reports no new cardiac symptoms. The valve sounds good on exam. Hypertension 05/30/2005 Overview (12/12/2023): Last Assessment & Plan: Suboptimally controlled in the office but generally well controlled at home, continue current hydrochlorothiazide 25 mg daily, irbesartan 300 mg daily, furosemide as needed Assessment & Plan (10/21/2024 8:55 AM EDT): Well-controlled the appointment today. She is currently utilizing 300 mg p.o. of irbesartan, and 20 mg p.o. of Lasix. We did speak about transitioning to Farxiga and then taking Lasix as needed, however we will hold off for now as patient does not want to add in any new medications. Assessment & Plan (10/08/2024 8:55 PM EDT): Assessment & Plan (05/06/2024 8:58 AM EST): Well-controlled. Continue current medication regiment. Orders: ECG 12 lead Iron deficiency anemia 05/30/2005 Assessment & Plan (10/08/2024 8:55 PM EDT): Nephrolithiasis 05/30/2005 Encounters Date Type Department Care Team Description 11/14/2024 Telephone Adult Medicine [facility] - [address] [phone] Josue Crain PA 11/12/2024 9:30 AM EDT Anticoagulation - Warfarin Visit Coumadin [address] [phone] Atrial fibrillation, unspecified type (CMS/HCC V24, CMS/HCC V28) (Primary Dx); [facility] (current) use of anticoagulants; Personal history of DVT (deep vein thrombosis); H/O mechanical aortic valve replacement 11/05/2024 8:40 AM EDT Anticoagulation - Warfarin Visit Coumadin [address] [phone] Atrial fibrillation, unspecified type (CMS/HCC V24, CMS/HCC V28) (Primary Dx); 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; Personal history of DVT (deep vein thrombosis); H/O mechanical aortic valve replacement 11/01/2024 8:20 AM EDT Anticoagulation - Warfarin Visit Coumadin [address] [phone] Atrial fibrillation, unspecified type (CMS/HCC V24, CMS/HCC V28) (Primary Dx); 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; Personal history of DVT (deep vein thrombosis); H/O mechanical aortic valve replacement 10/31/2024 2:30 PM EDT Ancillary Procedure [facility] - [address] [place] [address] 10/31/2024 Telephone [facility] - [facility] [address] [facility] [address] [place] [address] Karen Alfaro PA 10/30/2024 Telephone Adult Medicine [address] [phone] Josue Crain PA 10/29/2024 11:00 AM EDT - 10/29/2024 11:59 PM EDT Hospital Encounter [address] [phone] Shortness of breath; Bilateral leg edema Discharge Disposition: Home or Self Care 10/29/2024 9:45 AM EDT Office Visit Adult [address] [phone] Rea Ritchie PA Shortness of breath (Primary Dx); Bilateral leg edema; Pneumonia of right lower lobe due to infectious organism 10/29/2024 9:00 AM EDT Anticoagulation - Warfarin Visit Coumadin [address] [phone] Atrial fibrillation, unspecified type (CMS/HCC V24, CMS/HCC V28) (Primary Dx); 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; Personal history of DVT (deep vein thrombosis); H/O mechanical aortic valve replacement 10/29/2024 Telephone Adult Medicine [address] [phone] Josue Crain PA 10/25/2024 Telephone Adult Medicine [address] [phone] Toña Church [place] 10/22/2024 Anticoagulation - Warfarin Visit Coumadin [address] [phone] Brittaney Cantor LPN Atrial fibrillation, unspecified type (CMS/HCC V24, CMS/HCC V28) (Primary Dx); 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; Personal history of DVT (deep vein thrombosis); H/O mechanical aortic valve replacement 10/22/2024 Telephone Adult [address] [phone] Josue Crain PA 10/21/2024 8:10 AM EDT Office Visit [facility] [address] [facility] [address] [place] [phone] Lei Patel NP Aortic valve disorder (Primary Dx); Heart block AV second degree; Other hyperlipidemia; Paroxysmal atrial fibrillation (CMS/HCC V24, CMS/HCC V28); Secondary hypertension; Tachycardia; Endocarditis, unspecified chronicity, unspecified endocarditis type; Pacemaker 10/18/2024 Anticoagulation - Warfarin Visit Coumadin [address] [phone] Brittaney Cantor LPN Atrial fibrillation, unspecified type (CMS/HCC V24, CMS/HCC V28) (Primary Dx); 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; Personal history of DVT (deep vein thrombosis); H/O mechanical aortic valve replacement 10/17/2024 9:30 AM EDT Ancillary Procedure [facility] [address] [facility] [address] [place] [id number] Encounter for adjustment or management of cardiac device 10/15/2024 Telephone Adult [address] [phone] Josue Crain PA 10/15/2024 Anticoagulation - Warfarin Visit [address] [phone] Brittaney Cantor LPN Atrial fibrillation, unspecified type (CMS/HCC V24, CMS/HCC V28) (Primary Dx); 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; Personal history of DVT (deep vein thrombosis); H/O mechanical aortic valve replacement 10/14/2024 Telephone Adult [address] [phone] Jennifer Parmar PharmD 10/09/2024 Telephone Adult Medicine [address] [phone] Josue Crain PA 10/08/2024 1:00 PM EDT Office Visit Adult [address] [phone] Josue Crain PA Controlled type 2 diabetes mellitus without complication, without long-term current use of insulin ([facility] V24, [facility] V28) (Primary Dx); Bacteremia; Bacterial pneumonia; Routine general medical examination at a health care facility; Gout, unspecified cause, unspecified chronicity, unspecified site; Aortic valve disorder; Other hyperlipidemia; Paroxysmal atrial fibrillation ([facility]/HCC V24, [facility]/HCC V28); Iron deficiency anemia, unspecified iron deficiency anemia type; Secondary hypertension; Atrial fibrillation, unspecified type ([facility]/HCC V24, [facility] V28) 10/08/2024 Anticoagulation - Warfarin Visit Coumadin [address] [phone] Janice Hester LPN Atrial fibrillation, unspecified type (CMS/HCC V24, CMS/HCC V28) (Primary Dx); [facility] (current) use of anticoagulants; Personal history of DVT (deep vein thrombosis); H/O mechanical aortic valve replacement 10/07/2024 Telephone Adult Medicine [address] [phone] Josue Crain PA 10/03/2024 Telephone Infectious Disease - [address] [phone] Ann Rowell RN 10/03/2024 Anticoagulation - Warfarin Visit Coumadin [address] [phone] Brittaney Cantor LPN Atrial fibrillation, unspecified type ([facility] V24, [facility] V28) (Primary Dx); 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; Personal history of DVT (deep vein thrombosis); H/O mechanical aortic valve replacement 10/01/2024 10:25 AM EDT - 10/01/2024 11:59 PM EDT Hospital Encounter [address] [phone] Hospital discharge follow-up; Bacteremia; Cold-induced asthma, unspecified asthma severity, unspecified whether complicated, unspecified whether persistent; Bacterial pneumonia; Atrial fibrillation, unspecified type (CMS/HCC V24, CMS/HCC V28); Secondary hypertension; Acute bacterial endocarditis Discharge Disposition: Home or Self Care 10/01/2024 9:30 AM EDT Office Visit Adult [address] [phone] Josue Crain PA Hospital discharge follow-up (Primary Dx); Bacteremia; Cold-induced asthma, unspecified asthma severity, unspecified whether complicated, unspecified whether persistent; Bacterial pneumonia; Atrial fibrillation, unspecified type (CMS/HCC V24, CMS/HCC V28); Secondary hypertension; Acute bacterial endocarditis; Hx of bacterial endocarditis 09/30/2024 Anticoagulation - Warfarin Visit Coumadin [address] [phone] Brittaney Cantor LPN Atrial fibrillation, unspecified type (CMS/HCC V24, CMS/HCC V28) (Primary Dx); 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; Personal history of DVT (deep vein thrombosis); H/O mechanical aortic valve replacement 09/30/2024 Telephone Adult Medicine [address] [phone] Josue Crain PA 09/27/2024 Telephone [facility] - [address] [place] [address] Isabell Perkins MD 09/24/2024 9:35 AM EDT Ancillary Procedure [facility] - [address] [place] [address] 09/24/2024 Telephone [facility] - [address] [place] [address] Karen Alfaro PA 09/23/2024 Anticoagulation - Warfarin Visit Coumadin [address] [phone] Brittaney Cantor LPN Atrial fibrillation, unspecified type (CMS/HCC V24, CMS/HCC V28) (Primary Dx); 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; Personal history of DVT (deep vein thrombosis); H/O mechanical aortic valve replacement 09/19/2024 Anticoagulation - Warfarin Visit Coumadin [address] [phone] Brittaney Cantor LPN Atrial fibrillation, unspecified type (CMS/HCC V24, CMS/HCC V28) (Primary Dx); [facility] (current) use of anticoagulants; Personal history of DVT (deep vein thrombosis); H/O mechanical aortic valve replacement 09/17/2024 Telephone Adult Medicine [address] [phone] Josue Crain PA 09/16/2024 Telephone [facility] [address] [phone] Isabell Perkins MD 09/16/2024 Telephone Adult Medicine [address] [phone] Josue Crain, PA 09/06/2024 Telephone Adult Medicine [address] [phone] Josue Crain PA 09/06/2024 Telephone Adult Medicine [address] [phone] Irma Florence [place] 09/03/2024 9:36 AM EDT - 09/03/2024 11:59 PM EDT Hospital Encounter [address] [phone] Pain of right heel Discharge Disposition: Home or Self Care 09/03/2024 9:00 AM EDT Office Visit [address] [phone] Rea Ritchie PA Pain of right heel (Primary Dx); Type 2 diabetes mellitus without complication, without long-term current use of insulin (CMS/HCC V24, CMS/HCC V28); [facility] (current) use of anticoagulants 09/03/2024 8:20 AM EDT Anticoagulation - Warfarin Visit [facility] [address] [phone] Atrial fibrillation, unspecified type (CMS/HCC V24, CMS/HCC V28) (Primary Dx); 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; Personal history of DVT (deep vein thrombosis); H/O mechanical aortic valve replacement 09/02/[address] [phone] Josue Crain PA 08/27/2024 8:40 AM EDT Anticoagulation - Warfarin Visit Coumadin [address] [phone] Atrial fibrillation, unspecified type (CMS/HCC V24, CMS/HCC V28) (Primary Dx); 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; Personal history of DVT (deep vein thrombosis); H/O mechanical aortic valve replacement 08/21/2024 2:00 PM EDT Anticoagulation - Warfarin Visit Coumadin [address] [phone] Atrial fibrillation, unspecified type (CMS/HCC V24, CMS/HCC V28) (Primary Dx); [facility] (current) use of anticoagulants; Personal history of DVT (deep vein thrombosis); H/O mechanical aortic valve replacement 08/21/2024 1:30 PM EDT Office Visit [address] [phone] Josue Crain PA Controlled type 2 diabetes mellitus without complication, without long-term current use of insulin (CMS/HCC V24, [facility] V28) (Primary Dx); Aortic valve disorder; Cold-induced asthma, unspecified asthma severity, unspecified whether complicated, unspecified whether persistent; Gout, unspecified cause, unspecified chronicity, unspecified site; Other hyperlipidemia; Iron deficiency anemia, unspecified iron deficiency anemia type; Secondary hypertension; Atrial fibrillation, unspecified type ([facility] V24, [facility] V28); Vitamin D deficiency; Paroxysmal atrial fibrillation ([facility] V24, [facility] V28); Need for vaccination against Streptococcus pneumoniae 08/20/2024 4:35 PM EDT Ancillary Procedure [facility] - [address] [facility] [address] [place] [address] from Last 3 Months Immunizations Name Administration Dates Next Due H1N1 Inj Preservative Free 02/15/2009 Influenza Quadravalent, MDCK , 0.5ml, with preservative (Flucelvax) 6mo and older 12/13/2019 Influenza trivalent, 0.5mL ( Fluzone High-dose) 65yo and older 01/03/2023,12/29/2021,12/10/2020,12/13,11/28/2017,11/24/2016,12/27/2015 ,11/27/2014 Influenza trivalent, with pr eservative (Fluzone; Afluria) 6mo and older 12/18/2012,01/12/2012,12/27/2010,12/27,02/15/2009,12/21/2007,12/22/2006 ,01/17/2005 Influenza, Unspecified 12/19/2019,12/21/2018, Moderna SARS-CoV-2 COVID-19, mRNA, LNP-S, preservative free 06/04/2020,05/07/2020 Pfizer (ages 12 & older) Biv alent, COVID-19 07/23/2023,01/03/2023 Pfizer SARS-CoV-2 COVID-19, mRNA, LNP-S, preservative free 11/24/2021 Pneumococcal conjugate 13 va lent (Prevnar 13, PCV13) 2mo and older 02/11/2015 Pneumococcal conjugate 20 va lent (Prevnar 20, PCV 20) 2mo and older 08/21/2024 Pneumococcal polysaccharide 23 valent (Pneumovax 23) 2yo and older 05/03/2013 RSV, bivalent, protein subun it RSVpreF, 0.5mL, Preservative Free (Arexvy) 60yo and older 02/07/2023 Td Tetanus diptheria (Tdvax) 7yo and older 06/28/2022,03/26/2007 Tdap Tetanus diptheria acell ular pertussis (Boostrix; Adacel) 7yo and older 04/18/2012 Zoster Live 06/27/2011 Zoster recombinant (Shingrix ) 19yo and older 03/12/2020,11/15/2019 Surgical History Surgery Date Site/Laterality Comments HYSTERECTOMY 2003 PROCEDURE: HISTORICAL TOTAL HYSTERECTOMY WITH BSO; COMMENT: endometrial CADr. Prefashleyaine AORTIC VALVE REPLACEMENT 1979 PROCEDURE: HISTORICAL AORTIC VALVE REPL; COMMENT: for SBE COLONOSCOPY PROCEDURE: HISTORICAL COLONOSCOPY; COMMENT: dr salmeron 2005 OTHER SURGICAL HISTORY 02/2011 PROCEDURE: MAMMOGRAM COLONOSCOPY PROCEDURE: HISTORICAL COLONOSCOPY; COMMENT: 2005 dr salmeron COLONOSCOPY W/ BIOPSIES 02/22/2016 PROCEDURE: ME COLONOSCOPY W/BIOPSY SINGLE/MULTIPLE; COMMENT: small asc polyp - tubular adenoma, sig divertics- BREAST BIOPSY 2009 Left PROCEDURE: BX BREAST; PERC NEEDLE CORE W/IMAG GUID BREAST LUMPECTOMY 2009 Left PROCEDURE: HISTORICAL BREAST LUMPECTOMY; COMMENT: left PACEMAKER IMPLANT PROCEDURE: HISTORICAL PACEMAKER COLONOSCOPY 04/29/2022 PROCEDURE: HISTORICAL COLONOSCOPY; COMMENT: jaron -diverticulosis and hemorrhoids, repeat 5 years Medical History Medical History Date Comments Aortic valve disorders 05/30/2005 DX:Aortic valve disorders Lump or mass in breast 05/30/2005 DX:Lump o r mass in breast Iron deficiency anemia, unspecified 05/30/2005 DX:Iron deficiency anemia, unspecified Calculus of kidney 05/30/2005 DX:Calculus o f kidney Malignant neoplasm of corpus uteri, except isthmus (CMS/HCC V24, CMS/HCC V28) 11/14 DX:Malignant neoplasm of cor pus uteri, except isthmus (HCC); COMMENT: endometrial adenocarcinoma, grade !, stage 1A Asthma, cold induced DX:Asthma, cold induced; COMMENT: uses albuterol inhaler rarely Type II or unspecified type diabetes mellitus without mention of complication, not stated as uncontrolled 04/09/2013 DX:Type II or unspecified ty pe diabetes mellitus without mention of complication, not stated as uncontrolled; COMMENT: Diagnosed 2013 Other specified personal his tory presenting hazards to health(V15.89) DX:Other specifie d personal history presenting hazards to health(V15.89); COMMENT: uterine Vitamin D deficiency 09/26/2014 DX:Vitamin D deficiency Diverticulosis DX:Diverticulosi s Actinic keratosis, hx of DX:Acti steven keratosis, hx of Anticoagulated 03/27/2020 DX:Anticoagulate d Breast cancer ([facility] V24, [facility] V28) 03/24/2010 DX:Breast cancer ([facility]); COMM ENT: lt Hypertension SOB (shortness of breath) Family History Medical History Relation Name Comments Other: heart disease Father chronic leukemia at 69 of pneumonia Other: Other Maternal Grandfather ? cause of Arthritis Maternal Grandmother at 87; ? ca mesentary or peritoneum Arthritis Mother emphysema- at 61 Emphysema Mother's side mom's sibs-kain ed near in [place], [place] Lung cancer Other 1 mat 1st cousin once removed-rare ca type Other: lumpectomy-breast Other 2 mat 1st cousin-mothe r of #10 Breast cancer Other 3 2 m cousins 60s 70s Other: heart disease Paternal Grandfather in his mid 80s Other: neuro musc disease Paternal Grandmother - 40 Breast cancer Sister 1 age [address] cancer diagnosis Breast cancer Sister 2 72 Other: heart disease Uncle paterna l uncle in his 60s Relation Name Status Comments Daughter Alive PCOS Father CAD, Leukemia Maternal Grandfather Maternal Grandmother Mother COPD, CAD Mother's side Other 1 Other 2 Other 3 2 m cousins 60s 70s Alive Paternal Grandfather Paternal Grandmother Sister 1 age 50's Alive hx of breast ca ncwe Sister 2 72 Alive Uncle Social History Tobacco Use Types Packs/Day Years Used Date Smoking Tobacco: Never Smokeless Tobacco: Never Tobacco Cessation:Counseling Given: Not Answered Alcohol Use Standard Drinks/Week Comments No 0 [...] Record ed Within the last 3 months, ho w many times did you visit the emergency [...] care for your loved ones. For example, child development specialist or elderly care for an older adult? [...] AM EDT Sexual Orientation Not on file Obstetrics History Last Filed Vital Signs Vital Sign Reading Time Taken Comments Blood Pressure 138/62 10/29/2024 10:38 AM EDT Pulse 70 10/29/2024 10:03 AM EDT Temperature 35.9 C (96.7 F) 10/29/2024 10:01 AM EDT Respiratory Rate 18 10/29/2024 10:01 AM EDT Oxygen Saturation 97% 10/29/2024 10:01 AM EDT Inhaled Oxygen Concentration - - Weight 80.7 kg (178 lb) 10/29/2024 10:01 AM EDT Height 160 cm (5' 3 ) 10/29/2024 10:01 AM EDT Body Mass Index 31.53 10/29/2024 10:01 AM EDT Plan of Treatment Upcoming Encounters Date Type Department Care Team (Late st Contact Info) Description 11/18/2024 3:10 PM EDT Anticoagulation - [facility] [address] [phone] 11/18/2024 3:30 PM EDT Office Visit Adult Medicine [address] [phone] Rea Ritchie PA [address] [place], [place] 01/08/2025 8:30 AM EDT Ancillary Procedure [facility] [address] [phone] 01/10/2025 8:30 AM EDT Office Visit Adult Medicine [address] [phone] Josue Crain PA [address] [place] [phone] 01/17/2025 7:40 AM EST Office Visit [facility] [address] 300 [facility] [address] [place] [address] Lei Patel NP [address] [place] [address] [place] [address] 10/20/2025 9:30 AM EDT Ancillary Procedure [facility] [address] [facility] [address] [place] [address] Health Maintenance Due Date Last Done Comments Influenza Vaccine (#1) 2024 , 01/03/2023, 12/29/2021, Additional history exists Diabetes: Blood Sugar Control Test (HGBA1C) 02/15/2025 08/16/2024, 04/17/2024, 10/17/2023, Additional history exists Diabetes: Annual Retina Eye Exam 08/13/2025 08/13/2024, 05/30/2023 Diabetes: Annual Foot Exam 08/14/2025 08/14/2024 Falls Risk Assessment 10/08/2025 10/08/2024, 024 Medicare Annual Wellness Visit 10/08/2025 10/08/2024 Social Influencers of Health Screening 10/08/2025 10/08/2024 Diabetes: Annual Urine Albumin-Creatinine Ratio (uACR) 10/18/2025 10/18/2024, 08/16/2024, 04/17/2024, Additional history exists Diabetes: Annual GFR (Glomerular Filtration Rate) 10/29/2025 10/29/2024, 10/22/2024, 10/18/2024, Additional history exists Hypertension/CHF/CAD Annual BMP Blood Test 10/29/2025 10/29/2024, 10/22/2024, 10/18/2024, Additional history exists Breast Cancer Screening 01/04/2026 01/05/20, 01/05/2024, 01/02/2023, Additional history exists Colorectal Cancer Screening: Colonoscopy 04/29/2027 04/29/2022 Cholesterol Screening (Lipid Panel) 10/18/2029 10/18/2024, 08/16/2024, 04/17/2024, Additional history exists Osteoporosis Screening (Bone Density Screening) 12/24/2031 12/23/2021, 02/08/2017 DTaP,Tdap,and Td Vaccines (4 - Td or Tdap) 06/28/2032 06/28/2022, 04/18/2012, 03/26/2007 Hepatitis C Screening Completed 08/22/2012 Zoster Vaccines Completed 03/12/2020, 06/2019, 06/27/2011 RSV Immunization Adult Patients Completed 02/07/2023 Depression Screening Completed 04/16/2024, 05/01/19 COVID-19 Vaccine Completed 06/04/2024, , 07/24/2023, Additional history exists Pneumococcal Vaccine: 50+ Years Completed 08/21/2024, 02/11/2015, 05/03/2013 HIB Vaccines Aged Out No longer eligi [...] on patient's age to complete this topic MMR Vaccines Aged Out No longer eligi ble based on patient's age to complete this topic Meningococcal ACWY Vaccine Aged Out N o longer eligible based on patient's age to complete this topic Meningococcal B Vaccine Aged Out No l onger eligible based on patient's age to complete this topic RSV Immunization Patients Under 20 months Aged Out No longer eligible based on patient's age to complete this topic Varicella Vaccines Aged Out No longer eligible based on patient's age to complete this topic Goals Goal Patient Goal Type Associated Problems Recent Progress Patient-Stated? Author <enter goal here> General Yes Kimberley Olsen, SERENA Note: I will start using my weights again. Medical Devices Implanted Type Area Lathe Machine Operator Device Identifier Shelf Expiration Date Model / Serial / Lot JoaquinKeyla Whalen [id number] Implanted:08/2016 (Quantity not on file) Cardiac Pacemaker WorkingPointRONIK MARNIE WHALEN / [id number] / Procedures Procedure Name Priority Date/Time Associated Diagnosis Comments POC PROTIME INR BLOOD Routine 11/12/2024 Atrial fibrillation, unspecified type (CMS/HCC V24, CMS/HCC V28) [facility] (current) use of anticoagulants Personal history of DVT (deep vein thrombosis) H/O mechanical aortic valve replacement POC PROTIME INR BLOOD Routine 11/05/2024 Atrial fibrillation, unspecified type (CMS/HCC V24, CMS/HCC V28) 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 Personal history of DVT (deep vein thrombosis) H/O mechanical aortic valve replacement POC PROTIME INR BLOOD Routine 11/01/2024 Atrial fibrillation, unspecified type (CMS/HCC V24, CMS/HCC V28) [facility] (current) use of anticoagulants Personal history of DVT (deep vein thrombosis) H/O mechanical aortic valve replacement CARDIAC DEVICE CHECK- REMOTE- MURJ Routine 10/31/2024 2:27 PM EDT CBC WITH AUTO DIFFERENTIAL Routine 10/29/2024 11:24 AM EDT Shortness of breath Bilateral leg edema B-TYPE NATRIURETIC PEPTIDE Routine 10/29/2024 11:24 AM EDT Shortness of breath Bilateral leg edema CBC AND DIFFERENTIAL Routine 10/29/2024 11:24 AM EDT Shortness of breath Bilateral leg edema BASIC METABOLIC PANEL Routine 10/29/2024 11:24 AM EDT Shortness of breath Bilateral leg edema XR CHEST 2 VIEWS Routine 10/29/2024 11:0 6 AM EDT Shortness of breath Bilateral leg edema POC PROTIME INR BLOOD Routine 10/29/2024 Atrial fibrillation, unspecified type (CMS/HCC V24, CMS/HCC V28) 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 Personal history of DVT (deep vein thrombosis) H/O mechanical aortic valve replacement PROTHROMBIN TIME WITH INR Routine 10/22/2024 12:48 PM EDT Atrial fibrillation, unspecified type (CMS/HCC V24, CMS/HCC V28) H/O mechanical aortic valve replacement CBC WITH AUTO DIFFERENTIAL Routine 10/22/2024 12:40 PM EDT Bacteremia CBC AND DIFFERENTIAL Routine 10/22/2024 12:40 PM EDT Bacteremia COMPREHENSIVE METABOLIC PANEL Routine 10/22/2024 12:40 PM EDT Bacteremia CREATINE KINASE Routine 10/22/2024 12:40 PM EDT Bacteremia ECG 12-LEAD Routine 10/21/2024 8:59 AM EDT Tachycardia CBC WITH AUTO DIFFERENTIAL Routine 10/18/2024 8:35 AM EDT Controlled type 2 diabetes mellitus without complication, without long-term current use of insulin (CMS/HCC V24, CMS/HCC V28) Aortic valve disorder Cold-induced asthma, unspecified asthma severity, unspecified whether complicated, unspecified whether persistent Gout, unspecified cause, unspecified chronicity, unspecified site Other hyperlipidemia Iron deficiency anemia, unspecified iron deficiency anemia type Secondary hypertension Atrial fibrillation, unspecified type (CMS/HCC V24, CMS/HCC V28) Vitamin D deficiency Paroxysmal atrial fibrillation (CMS/HCC V24, CMS/HCC V28) PROTHROMBIN TIME WITH INR Routine 10/18/2024 8:35 AM EDT Atrial fibrillation, unspecified type (CMS/HCC V24, CMS/HCC V28) H/O mechanical aortic valve replacement LIPID PANEL WITH REFLEX TO DIRECT LDL Routine 10/18/2024 8:35 AM EDT Controlled type 2 diabetes mellitus without complication, without long-term current use of insulin (CMS/HCC V24, CMS/HCC V28) Aortic valve disorder Cold-induced asthma, unspecified asthma severity, unspecified whether complicated, unspecified whether persistent Gout, unspecified cause, unspecified chronicity, unspecified site Other hyperlipidemia Iron deficiency anemia, unspecified iron deficiency anemia type Secondary hypertension Atrial fibrillation, unspecified type (CMS/HCC V24, CMS/HCC V28) Vitamin D deficiency Paroxysmal atrial fibrillation (CMS/HCC V24, CMS/HCC V28) MICROALBUMIN CREATININE URINE RATIO Routine 10/18/2024 8:35 AM EDT Controlled type 2 diabetes mellitus without complication, without long-term current use of insulin ([facility] V24, [facility] V28) Aortic valve disorder Cold-induced asthma, unspecified asthma severity, unspecified whether complicated, unspecified whether persistent Gout, unspecified cause, unspecified chronicity, unspecified site Other hyperlipidemia Iron deficiency anemia, unspecified iron deficiency anemia type Secondary hypertension Atrial fibrillation, unspecified type ([facility] V24, [facility] V28) Vitamin D deficiency Paroxysmal atrial fibrillation ([facility] V24, [facility] V28) COMPREHENSIVE METABOLIC PANEL Routine 10/18/2024 8:35 AM EDT Controlled type 2 diabetes mellitus without complication, without long-term current use of insulin ([facility] V24, [facility] V28) Aortic valve disorder Cold-induced asthma, unspecified asthma severity, unspecified whether complicated, unspecified whether persistent Gout, unspecified cause, unspecified chronicity, unspecified site Other hyperlipidemia Iron deficiency anemia, unspecified iron deficiency anemia type Secondary hypertension Atrial fibrillation, unspecified type ([facility] V24, [facility] V28) Vitamin D deficiency Paroxysmal atrial fibrillation ([facility] V24, [facility] V28) CBC AND DIFFERENTIAL Routine 10/18/2024 8:35 AM EDT Controlled type 2 diabetes mellitus without complication, without long-term current use of insulin ([facility] V24, [facility] V28) Aortic valve disorder Cold-induced asthma, unspecified asthma severity, unspecified whether complicated, unspecified whether persistent Gout, unspecified cause, unspecified chronicity, unspecified site Other hyperlipidemia Iron deficiency anemia, unspecified iron deficiency anemia type Secondary hypertension Atrial fibrillation, unspecified type ([facility] V24, [facility] V28) Vitamin D deficiency Paroxysmal atrial fibrillation ([facility] V24, [facility] V28) IRON AND TIBC Routine 10/18/2024 8:35 AM EDT Controlled type 2 diabetes mellitus without complication, without long-term current use of insulin ([facility] V24, [facility] V28) Aortic valve disorder Cold-induced asthma, unspecified asthma severity, unspecified whether complicated, unspecified whether persistent Gout, unspecified cause, unspecified chronicity, unspecified site Other hyperlipidemia Iron deficiency anemia, unspecified iron deficiency anemia type Secondary hypertension Atrial fibrillation, unspecified type ([facility] V24, [facility] V28) Vitamin D deficiency Paroxysmal atrial fibrillation ([facility] V24, [facility] V28) CARDIAC DEVICE CHECK- IN CLINIC- MURJ Routine 10/17/2024 10:00 AM EDT Encounter for adjustment or management of cardiac device PROTHROMBIN TIME WITH INR Routine 10/15/2024 PROTHROMBIN TIME WITH INR Routine 10/08/2024 PROTHROMBIN TIME WITH INR Routine 10/03/2024 CBC WITH AUTO DIFFERENTIAL Routine 10/01/2024 11:06 AM EDT Hospital discharge follow-up Bacteremia Cold-induced asthma, unspecified asthma severity, unspecified whether complicated, unspecified whether persistent Bacterial pneumonia Atrial fibrillation, unspecified type ([facility] V24, [facility] V28) Secondary hypertension Acute bacterial endocarditis URIC ACID Routine 10/01/2024 11:06 AM EDT Controlled type 2 diabetes mellitus without complication, without long-term current use of insulin ([facility] V24, [facility] V28) Aortic valve disorder Cold-induced asthma, unspecified asthma severity, unspecified whether complicated, unspecified whether persistent Gout, unspecified cause, unspecified chronicity, unspecified site Other hyperlipidemia Iron deficiency anemia, unspecified iron deficiency anemia type Secondary hypertension Atrial fibrillation, unspecified type (CMS/HCC V24, [facility] V28) Vitamin D deficiency Paroxysmal atrial fibrillation ([facility] V24, [facility] V28) VITAMIN D 25 HYDROXY Routine 10/01/2024 11:06 AM EDT Controlled type 2 diabetes mellitus without complication, without long-term current use of insulin ([facility] V24, [facility] V28) Aortic valve disorder Cold-induced asthma, unspecified asthma severity, unspecified whether complicated, unspecified whether persistent Gout, unspecified cause, unspecified chronicity, unspecified site Other hyperlipidemia Iron deficiency anemia, unspecified iron deficiency anemia type Secondary hypertension Atrial fibrillation, unspecified type (CMS/HCC V24, CMS/HCC V28) Vitamin D deficiency Paroxysmal atrial fibrillation (CMS/HCC V24, CMS/HCC V28) COMPREHENSIVE METABOLIC PANEL Routine 10/01/2024 11:06 AM EDT Hospital discharge follow-up Bacteremia Cold-induced asthma, unspecified asthma severity, unspecified whether complicated, unspecified whether persistent Bacterial pneumonia Atrial fibrillation, unspecified type (CMS/HCC V24, CMS/HCC V28) Secondary hypertension Acute bacterial endocarditis CBC AND DIFFERENTIAL Routine 10/01/2024 11:06 AM EDT Hospital discharge follow-up Bacteremia Cold-induced asthma, unspecified asthma severity, unspecified whether complicated, unspecified whether persistent Bacterial pneumonia Atrial fibrillation, unspecified type (CMS/HCC V24, CMS/HCC V28) Secondary hypertension Acute bacterial endocarditis CREATINE KINASE Routine 10/01/2024 11:06 AM EDT Hospital discharge follow-up Bacteremia Cold-induced asthma, unspecified asthma severity, unspecified whether complicated, unspecified whether persistent Bacterial pneumonia Atrial fibrillation, unspecified type (CMS/HCC V24, CMS/HCC V28) Secondary hypertension Acute bacterial endocarditis CULTURE BLOOD Routine 10/01/2024 11:06 AM EDT Hospital discharge follow-up Bacteremia Cold-induced asthma, unspecified asthma severity, unspecified whether complicated, unspecified whether persistent Bacterial pneumonia Atrial fibrillation, unspecified type (CMS/HCC V24, CMS/HCC V28) Secondary hypertension Acute bacterial endocarditis XR CHEST 2 VIEWS Routine 10/01/2024 10:3 4 AM EDT Hospital discharge follow-up Bacteremia Cold-induced asthma, unspecified asthma severity, unspecified whether complicated, unspecified whether persistent Bacterial pneumonia Atrial fibrillation, unspecified type (CMS/HCC V24, CMS/HCC V28) Secondary hypertension Acute bacterial endocarditis PROTHROMBIN TIME WITH INR Routine 09/30/2024 CARDIAC DEVICE CHECK- REMOTE- MURJ Routine 09/24/2024 9:35 AM EDT PROTHROMBIN TIME WITH INR Routine 09/23/2024 PROTHROMBIN TIME WITH INR Routine 09/19/[address] REPORT 09/08/2024 EXTERNAL XRAY REPORT 09/08/2024 XR CALCANEUS 2+ VIEWS RIGHT Routine 09/03/2024 9:43 AM EDT Pain of right heel POC PROTIME INR BLOOD Routine 09/03/2024 Atrial fibrillation, unspecified type (CMS/HCC V24, CMS/HCC V28) [facility] (current) use of anticoagulants Personal history of DVT (deep vein thrombosis) H/O mechanical aortic valve replacement POC PROTIME INR BLOOD Routine 08/27/2024 Atrial fibrillation, unspecified type (CMS/HCC V24, CMS/HCC V28) [facility] (current) use of anticoagulants Personal history of DVT (deep vein thrombosis) H/O mechanical aortic valve replacement POC PROTIME INR BLOOD Routine 08/21/2024 Atrial fibrillation, unspecified type (CMS/HCC V24, CMS/HCC V28) [facility] (current) use of anticoagulants Personal history of DVT (deep vein thrombosis) H/O mechanical aortic valve replacement CARDIAC DEVICE CHECK- REMOTE- MURJ Routine 08/20/2024 4:31 PM EDT CBC WITH AUTO DIFFERENTIAL Routine 08/16/2024 8:53 AM EDT Controlled type 2 diabetes mellitus without complication, without long-term current use of insulin (CMS/HCC V24, CMS/HCC V28) Cold-induced asthma, unspecified asthma severity, unspecified whether complicated, unspecified whether persistent Aortic valve disorder Gout, unspecified cause, unspecified chronicity, unspecified site Secondary hypertension Iron deficiency anemia, unspecified iron deficiency anemia type Other hyperlipidemia Vitamin D deficiency Atrial fibrillation, unspecified type (CMS/HCC V24, CMS/HCC V28) Personal history of DVT (deep vein thrombosis) H/O mechanical aortic valve replacement Paroxysmal atrial fibrillation (CMS/HCC V24, CMS/HCC V28) Pacemaker LIPID PANEL WITH REFLEX TO DIRECT LDL Routine 08/16/2024 8:53 AM EDT Controlled type 2 diabetes mellitus without complication, without long-term current use of insulin ([facility] V24, [facility] V28) Cold-induced asthma, unspecified asthma severity, unspecified whether complicated, unspecified whether persistent Aortic valve disorder Gout, unspecified cause, unspecified chronicity, unspecified site Secondary hypertension Iron deficiency anemia, unspecified iron deficiency anemia type Other hyperlipidemia Vitamin D deficiency Atrial fibrillation, unspecified type ([facility] V24, [facility] V28) Personal history of DVT (deep vein thrombosis) H/O mechanical aortic valve replacement Paroxysmal atrial fibrillation ([facility] V24, [facility] V28) Pacemaker MICROALBUMIN CREATININE URINE RATIO Routine 08/16/2024 8:53 AM EDT Controlled type 2 diabetes mellitus without complication, without long-term current use of insulin ([facility] V24, [facility] V28) Cold-induced asthma, unspecified asthma severity, unspecified whether complicated, unspecified whether persistent Aortic valve disorder Gout, unspecified cause, unspecified chronicity, unspecified site Secondary hypertension Iron deficiency anemia, unspecified iron deficiency anemia type Other hyperlipidemia Vitamin D deficiency Atrial fibrillation, unspecified type ([facility] V24, [facility] V28) Personal history of DVT (deep vein thrombosis) H/O mechanical aortic valve replacement Paroxysmal atrial fibrillation ([facility] V24, [facility] V28) Pacemaker COMPREHENSIVE METABOLIC PANEL Routine 08/16/2024 8:53 AM EDT Controlled type 2 diabetes mellitus without complication, without long-term current use of insulin ([facility] V24, [facility] V28) Cold-induced asthma, unspecified asthma severity, unspecified whether complicated, unspecified whether persistent Aortic valve disorder Gout, unspecified cause, unspecified chronicity, unspecified site Secondary hypertension Iron deficiency anemia, unspecified iron deficiency anemia type Other hyperlipidemia Vitamin D deficiency Atrial fibrillation, unspecified type ([facility] V24, [facility] V28) Personal history of DVT (deep vein thrombosis) H/O mechanical aortic valve replacement Paroxysmal atrial fibrillation ([facility] V24, [facility] V28) Pacemaker HEMOGLOBIN A1C Routine 08/16/2024 8:53 AM EDT Controlled type 2 diabetes mellitus without complication, without long-term current use of insulin ([facility] V24, [facility] V28) Cold-induced asthma, unspecified asthma severity, unspecified whether complicated, unspecified whether persistent Aortic valve disorder Gout, unspecified cause, unspecified chronicity, unspecified site Secondary hypertension Iron deficiency anemia, unspecified iron deficiency anemia type Other hyperlipidemia Vitamin D deficiency Atrial fibrillation, unspecified type ([facility] V24, [facility] V28) Personal history of DVT (deep vein thrombosis) H/O mechanical aortic valve replacement Paroxysmal atrial fibrillation ([facility] V24, [facility] V28) Pacemaker IRON AND TIBC Routine 08/16/2024 8:53 AM EDT Controlled type 2 diabetes mellitus without complication, without long-term current use of insulin ([facility] V24, [facility] V28) Cold-induced asthma, unspecified asthma severity, unspecified whether complicated, unspecified whether persistent Aortic valve disorder Gout, unspecified cause, unspecified chronicity, unspecified site Secondary hypertension Iron deficiency anemia, unspecified iron deficiency anemia type Other hyperlipidemia Vitamin D deficiency Atrial fibrillation, unspecified type ([facility] V24, [facility] V28) Personal history of DVT (deep vein thrombosis) H/O mechanical aortic valve replacement Paroxysmal atrial fibrillation ([facility] V24, [facility] V28) Pacemaker CBC AND DIFFERENTIAL Routine 08/16/2024 8:53 AM EDT Controlled type 2 diabetes mellitus without complication, without long-term current use of insulin ([facility] V24, [facility] V28) Cold-induced asthma, unspecified asthma severity, unspecified whether complicated, unspecified whether persistent Aortic valve disorder Gout, unspecified cause, unspecified chronicity, unspecified site Secondary hypertension Iron deficiency anemia, unspecified iron deficiency anemia type Other hyperlipidemia Vitamin D deficiency Atrial fibrillation, unspecified type ([facility] V24, [facility] V28) Personal history of DVT (deep vein thrombosis) H/O mechanical aortic valve replacement Paroxysmal atrial fibrillation ([facility] V24, [facility] V28) Pacemaker VITAMIN D 25 HYDROXY Routine 08/16/2024 8:53 AM EDT Controlled type 2 diabetes mellitus without complication, without long-term current use of insulin ([facility] V24, [facility] V28) Cold-induced asthma, unspecified asthma severity, unspecified whether complicated, unspecified whether persistent Aortic valve disorder Gout, unspecified cause, unspecified chronicity, unspecified site Secondary hypertension Iron deficiency anemia, unspecified iron deficiency anemia type Other hyperlipidemia Vitamin D deficiency Atrial fibrillation, unspecified type ([facility] V24, [facility] V28) Personal history of DVT (deep vein thrombosis) H/O mechanical aortic valve replacement Paroxysmal atrial fibrillation ([facility] V24, [facility] V28) Pacemaker URIC ACID Routine 08/16/2024 8:53 AM EDT Controlled type 2 diabetes mellitus without complication, without long-term current use of insulin ([facility] V24, [facility] V28) Cold-induced asthma, unspecified asthma severity, unspecified whether complicated, unspecified whether persistent Aortic valve disorder Gout, unspecified cause, unspecified chronicity, unspecified site Secondary hypertension Iron deficiency anemia, unspecified iron deficiency anemia type Other hyperlipidemia Vitamin D deficiency Atrial fibrillation, unspecified type ([facility] V24, [facility] V28) Personal history of DVT (deep vein thrombosis) H/O mechanical aortic valve replacement Paroxysmal atrial fibrillation ([facility] V24, [facility] V28) Pacemaker SCREENING MAMMOGRAPHY BI 2-VIEW BREAST INC CAD Routine 01/05/2024 8:16 AM EDT Personal history of malignant neoplasm of breast Encounter for screening mammogram for malignant neoplasm of breast FALLS RISK ASSESSMENT Routine 06/22/2023 DIABETES EYE EXAM Routine 05/30/2023 DEPRESSION SCREENING Routine 05/01/2023 COLONOSCOPY Routine 04/29/2022 DXA BONE DENSITY STUDY 1+ SITS AXIAL SKEL Routine 12/23/2021 1:16 PM EDT [facility] (current) use of anticoagulants Vitamin D deficiency, unspecified Type 2 diabetes mellitus without complications (CMS/HCC V24, CMS/HCC V28) Mixed hyperlipidemia Personal history of other venous thrombosis and embolism Gout, unspecified Essential (primary) hypertension Other iron deficiency anemias Mild intermittent asthma, uncomplicated Other obesity due to excess calories Personal history of malignant neoplasm of breast Nonrheumatic aortic valve disorder, unspecified HEPATITIS C SCREENING Routine 08/22/2012 from Last 3 Months or Most Recently Relevant to Health Maintenance Results * POC Protime INR Blood (11/12/2024) Only the most recent of7 resultswithin the time period is included. Lot Number INR POC 3.3 Prothrombin Time POC Exp Date Blood 11/12/2024 Ksenia Orlando MD POINT OF CARE TEST ENTER/EDIT ORDERABLES Final Result * Cardiac device check - Remote- MURJ (10/31/2024 2:27 PM EDT) Only the most recent of3 resultswithin the time period is included. Date Time Interrogation Session [id number] CV DEVICE CHECK Type Interrogation Session Remote CV DEVICE CHECK Implantable Pulse Generator Lathe Machine Operator BIO CV DEVICE CHECK Implantable Pulse Generator Type IPG CV DEVICE CHECK Implantable Pulse Generator Model Eluna 8 DR-T CV DEVICE CHECK Implantable Pulse Generator Serial Number [id number] CV DEVICE CHECK Implantable Pulse Generator Implant Date [id number] CV DEVICE CHECK Battery Remaining Percentage 40.00 CV DEVICE CHECK Battery Status Middle of Service CV DEVICE CHECK Deangelo Statistic RA Percent Paced 1.00 CV DEVICE CHECK Deangelo Statistic RV Percent Paced 98.00 CV DEVICE CHECK Atrial Tachy Statistic AT/AF [place] Percent 100.00 CV DEVICE CHECK Lead Channel Sensing Intrinsic Amplitude 0.600 CV DEVICE CHECK Lead Channel Setting Sensing Sensitivity 0.40 CV DEVICE CHECK Lead Channel Impedance Value 429 CV DEVICE CHECK Lead Channel RA Pacing Threshold Date 2024-10-29 CV DEVICE CHECK Lead Channel Setting Pacing Amplitude 1.800 CV DEVICE CHECK Lead Channel Setting Pacing Pulse Width 0.4 CV DEVICE CHECK Lead Channel Sensing Intrinsic Amplitude 7.900 CV DEVICE CHECK Lead Channel Impedance Value 878 CV DEVICE CHECK Lead Channel RV Pacing Threshold Date 2024-10-29 CV DEVICE CHECK Lead Channel Setting Pacing Amplitude 2.400 CV DEVICE CHECK Lead Channel Setting Pacing Pulse Width 0.4 CV DEVICE CHECK Deangelo Setting Mode (NBG Code) DDDR CV DEVICE CHECK Deangelo Setting Lower Rate Limit 60 CV DEVICE CHECK Deangelo Setting AT Mode Switch Rate 160 CV DEVICE CHECK Deangelo Setting Maximum Tracking Rate 130 CV DEVICE CHECK Deangelo Setting Maximum Sensor Rate 120 CV DEVICE CHECK Deangelo Setting PAV Delay 160 CV DEVICE CHECK Deangelo Setting QIANA Delay 130 CV DEVICE CHECK Date of Service 2024-11-29 CV DEVICE CHECK Anatomical Region Laterality Modality Device Interroga tion 10/29/2024 1:18 AM EDT Impressions 10/31/2024 2:25 PM EDT Atrial Fibrillation w/Controlled V Response * Stored EGMs are consistent with or suggestive of Atrial Fibrillation with Controlled Ventricular Response * AT/AF [place]: 100% * Alert sent 09/19/24 that patient went into AF. Patient has remained in persistent, rate-controlled AF. Narrative Procedure Note Karen Alfaro PA - 10/31/2024 IMPRESSION: Atrial Fibrillation w/Controlled V Response * Stored EGMs are consistent with or suggestive of Atrial Fibrillationwith Controlled Ventricular Response * AT/AF [place]: 100% * Alert sent 09/19/24 that patient went into AF. Patient has remained inpersistent, rate-controlled AF. Karen BASHIR CV IMPLANTABLE CARDIAC DEVICE ME OCEDURES Final Result * (ABNORMAL) CBC auto differential (10/29/2024 11:24 AM EDT) Only the most recent of5 resultswithin the time period is included. WBC 9.6 4.8 - 10.8 K/mcL LAB HEMETOLOGY METHOD 10/29/2024 12:35 PM EDT [facility] RBC 4.20 3.80 - 4.80 M/mcL LAB HEMETOLOGY METHOD 10/29/2024 12:35 PM EDT [facility] Hemoglobin 11.2(L) 11.5 - 16.0 g/dL LAB HEMETOLOGY METHOD 10/29/2024 12:35 PM EDT [facility] Hematocrit 36.5 35.0 - 47.0 % LAB HEMETOLOGY METHOD 10/29/2024 12:35 PM EDT [facility] MCV 86.5 79.0 - 98.0 FL LAB HEMETOLOGY METHOD 10/29/2024 12:35 PM EDT [facility] MCH 26.5(L) 27.0 - 32.0 pcg LAB HEMETOLOGY METHOD 10/29/2024 12:35 PM EDT [facility] MCHC 30.7(L) 32.0 - 37.0 g/dL LAB HEMETOLOGY METHOD 10/29/2024 12:35 PM EDT [facility] RDW 15.6(H) 11.0 - 15.0 % LAB HEMETOLOGY METHOD 10/29/2024 12:35 PM EDT [facility] Platelets 309 130 - 400 K/mcL LAB HEMETOLOGY METHOD 10/29/2024 12:35 PM EDT [facility] MPV 11.0 7.0 - 11.0 FL LAB HEMETOLOGY METHOD 10/29/2024 12:35 PM EDT [facility] NRBC 0.0 <1.0 % LAB HEMETOLOGY METHOD 10/29/2024 12:35 PM EDT [facility] NRBC Absolute 0.00 <0.10 K/mcL LAB HEMETOLOGY METHOD 10/29/2024 12:35 PM EDT [facility] Neutrophils Relative 78.0 % LAB HEMETOLOGY METHOD 10/29/2024 12:35 PM EDT [facility] Lymphocytes Relative 11.6 % LAB HEMETOLOGY METHOD 10/29/2024 12:35 PM EDT [facility] Monocytes Relative 6.7 % LAB HEMETOLOGY METHOD 10/29/2024 12:35 PM EDT [facility] Eosinophils Relative 2.6 % LAB HEMETOLOGY METHOD 10/29/2024 12:35 PM EDT [facility] Basophils Relative 0.6 % LAB HEMETOLOGY METHOD 10/29/2024 12:35 PM EDT [facility] Immature Granulocytes Relative 0.5 % LAB HEMETOLOGY METHOD 10/29/2024 12:35 PM EDT [facility] Neutrophils Absolute 7.49(H) 1.50 - 7.00 K/mcL LAB HEMETOLOGY METHOD 10/29/2024 12:35 PM EDT [facility] Lymphocytes Absolute 1.11 1.00 - 5.00 K/mcL LAB HEMETOLOGY METHOD 10/29/2024 12:35 PM EDT [facility] Monocytes Absolute 0.64 0.20 - 1.00 K/mcL LAB HEMETOLOGY METHOD 10/29/2024 12:35 PM EDT [facility] Eosinophils Absolute 0.25 0.00 - 0.50 K/mcL LAB HEMETOLOGY METHOD 10/29/2024 12:35 PM EDT [facility] Basophils Absolute 0.06 0.00 - 0.20 K/mcL LAB HEMETOLOGY METHOD 10/29/2024 12:35 PM EDT [facility] Immature Granulocytes Absolute 0.05(H) 0.00 - 0.03 K/mcL LAB HEMETOLOGY METHOD 10/29/2024 12:35 PM EDT [facility] Blood Venous blood specimen / Unknown Venipuncture / Unknown 10/29/2024 11:24 AM EDT 10/29/2024 11:24 AM EDT us Rea BASHIR LAB BLOOD ORDERABLES Final Resul t [facility] [address] [place] [address], * (ABNORMAL) B-type natriuretic peptide (10/29/2024 11:24 AM EDT) Pathologist [facility] BNP 310(H) <=100 pcg/mL LAB CHEMISTRY METHOD 10/29/2024 1:12 PM [facility] Blood Venous blood specimen / Unknown Venipuncture / Unknown 10/29/2024 11:24 AM EDT 10/29/2024 11:24 AM EDT us Rea Chau BASHIR LAB BLOOD ORDERABLES Final Resul t [facility] [address] [place] [address], * (ABNORMAL) Basic metabolic panel (10/29/2024 11:24 AM EDT) [facility] Sodium 139 133 - 145 mmol/L LAB CHEMISTRY METHOD 10/29/2024 3:42 PM [facility] Potassium 4.5 3.5 - 5.5 mmol/L LAB CHEMISTRY METHOD 10/29/2024 3:42 PM [facility] Chloride 106 96 - 110 mmol/L LAB CHEMISTRY METHOD 10/29/2024 3:42 PM [facility] CO2 27 21 - 32 mmol/L LAB CHEMISTRY METHOD 10/29/2024 3:42 PM [facility] Anion Gap 6 3 - 11 LAB CHEMISTRY METHOD 10/29/2024 3:42 PM [facility] Glucose 157(H) 70 - 100 mg/dL LAB CHEMISTRY METHOD 10/29/2024 3:42 PM [facility] BUN 20 5 - 25 mg/dL LAB CHEMISTRY METHOD 10/29/2024 3:42 PM [facility] Creatinine 0.78 0.50 - 1.10 mg/dL LAB CHEMISTRY METHOD 10/29/2024 3:42 PM [facility] eGFR 80 >=60 mL/min/1. 73m2 LAB CHEMISTRY METHOD 10/29/2024 3:42 PM EDT [facility] Comment:Calculation based on the Chronic Kidney Disease Epidemiology Collaboration (CKD-EPI) equation refit without adjustment for race. BUN/Creatinine Ratio 25.6 LAB CHEMISTRY METHOD 10/29/2024 3:42 PM EDT [facility] Calcium 9.7 8.5 - 10.5 mg/dL LAB CHEMISTRY METHOD 10/29/2024 3:42 PM EDT [facility] Blood Venous blood specimen / Unknown Venipuncture / Unknown 10/29/2024 11:24 AM EDT 10/29/2024 11:24 AM EDT us Rea Chau BASHIR LAB BLOOD ORDERABLES Final Resul t [facility] [address] [place] [address], [place] [phone] * XR Chest 2 Views (10/29/2024 11:06 AM EDT) Only the most recent of2 resultswithin the time period is included. Anatomical Region Laterality Modality Body Radiographic Myriam ging 10/29/2024 11:1 2 AM EDT Impressions 10/29/2024 11:24 AM EDT Findings concerning for mild CHF with interstitial opacities and borderline cardiomegaly. Very small right pleural effusion. Right basilar opacities could represent atelectasis, infiltrate not excluded. POS - [id number] -------- FINAL REPORT -------- Dictated By: Steffany Bingham Dictated Date: 10/29/2024 11:12 ET Assigned Physician: Steffany Bingham Reviewed and Electronically Signed By: Steffany Bingham Signed Date: 10/29/2024 11:24 ET Workstation ID: [id number] Transcribed By: Self Edit Transcribed Date: 10/29/2024 11:12 ET Narrative 10/29/2024 11:24 AM EDT EXAM: Chest x-ray HISTORY: Shortness of breath. Dry cough. Bilateral leg edema. COMPARISON: 10/01/2024 and 12/05/2017 FINDINGS: PA and lateral views of the chest were performed. Bilateral mild interstitial opacities. Very small right pleural effusion. Patchy opacities at the right lung base. Heart is top normal in size. Stable appearance of dual chamber pacemaker leads entering from the left. Previous right-sided PICC line has been removed. Mediastinal contours appear similar. Multilevel degenerative changes in the spine. Sternotomy wires. Procedure Note Steffany Bingham MD - 10/29/2024 EXAM: Chest x-ray HISTORY: Shortness of breath. Dry cough. Bilateral leg edema. COMPARISON: 10/01/2024 and 12/05/2017 FINDINGS: PA and lateral views of the chest were performed. Bilateral mild interstitial opacities. Very small right pleural effusion.Patchy opacities at the right lung base. Heart is top normal in size.Stable appearance of dual chamber pacemaker leads entering from the left.Previous right-sided PICC line has been removed. Mediastinal contoursappear similar. Multilevel degenerative changes in the spine. Sternotomywires. IMPRESSION: Findings concerning for mild CHF with interstitial opacities andborderline cardiomegaly. Very small right pleural effusion. Right basilaropacities could represent atelectasis, infiltrate not excluded. POS - [id number] -------- FINAL REPORT -------- Dictated By: Steffany Bingham Dictated Date: 10/29/2024 11:12 ET Assigned Physician: Steffany Bingham Reviewed and Electronically Signed By: Steffany Bingham Signed Date: 10/29/2024 11:24 ET Workstation ID: [id number] Transcribed By: Self Edit Transcribed Date: 10/29/2024 11:12 ET us Rea Chau BASHIR IMG XR PROCEDURES Final Result * (ABNORMAL) Prothrombin time with INR (10/22/2024 12:48 PM EDT) Only the most recent of8 resultswithin the time period is included. Protime 33.3(H) 10.6 - 13.9 sec LAB COAGULATION METHOD 10/22/2024 2:22 PM EDT [facility] INR 2.7 LAB COAGULATION METHOD 10/22/2024 2:22 PM EDT [facility] Blood Venous blood specimen / Unknown Venipuncture / Unknown 10/22/2024 12:48 PM EDT 10/22/2024 12:48 PM EDT [facility] LAB BLOOD ORDERABLES Quiana l Result Performing Organization Address City/[facility]/ZIP Co de Phone Number [facility] [address] [place] [address], [place] [phone] * Creatine kinase (10/22/2024 12:40 PM EDT) Only the most recent of2 resultswithin the time period is included. Total CK 63 22 - 269 unit/L LAB CHEMISTRY METHOD 10/22/2024 5:31 PM EDT [facility] Blood Venous blood specimen / Unknown Venipuncture / Unknown 10/22/2024 12:40 PM EDT 10/22/2024 12:40 PM EDT [facility] BLOOD ORDERABLES Quiana l Result Performing Organization Address [facility] de Phone Number [facility] [address] [place] [address], [place] [phone] * (ABNORMAL) Comprehensive metabolic panel (10/22/2024 12:40 PM EDT) Only the most recent of4 resultswithin the time period is included. Sodium 139 133 - 145 mmol/L LAB CHEMISTRY METHOD 10/22/2024 5:36 PM EDT [facility] Potassium 4.2 3.5 - 5.5 mmol/L LAB CHEMISTRY METHOD 10/22/2024 5:36 PM EDT [facility] Chloride 107 96 - 110 mmol/L LAB CHEMISTRY METHOD 10/22/2024 5:36 PM EDT [facility] CO2 26 21 - 32 mmol/L LAB CHEMISTRY METHOD 10/22/2024 5:36 PM [facility] Anion Gap 6 3 - 11 LAB CHEMISTRY METHOD 10/22/2024 5:36 PM [facility] Glucose 117(H) 70 - 100 mg/dL LAB CHEMISTRY METHOD 10/22/2024 5:36 PM [facility] BUN 18 5 - 25 mg/dL LAB CHEMISTRY METHOD 10/22/2024 5:36 PM [facility] Creatinine 0.70 0.50 - 1.10 mg/dL LAB CHEMISTRY METHOD 10/22/2024 5:36 PM [facility] eGFR 91 >=60 mL/min/1. 73m2 LAB CHEMISTRY METHOD 10/22/2024 5:36 PM [facility] Comment:Calculation based on the Chronic Kidney Disease Epidemiology Collaboration (CKD-EPI) equation refit without adjustment for race. BUN/Creatinine Ratio 25.7 LAB CHEMISTRY METHOD 10/22/2024 5:36 PM [facility] Calcium 9.8 8.5 - 10.5 mg/dL LAB CHEMISTRY METHOD 10/22/2024 5:36 PM [facility] AST (SGOT) 30 10 - 42 unit/L LAB CHEMISTRY METHOD 10/22/2024 5:36 PM [facility] ALT (SGPT) 21 10 - 60 unit/L LAB CHEMISTRY METHOD 10/22/2024 5:36 PM [facility] Alkaline Phosphatase 52 42 - 121 unit/L LAB CHEMISTRY METHOD 10/22/2024 5:36 PM [facility] Total Protein 7.4 6.0 - 8.0 g/dL LAB CHEMISTRY METHOD 10/22/2024 5:36 PM [facility] Albumin 3.9 3.2 - 5.0 g/dL LAB CHEMISTRY METHOD 10/22/2024 5:36 PM EDT [facility] Total Bilirubin 0.4 0.0 - 1.4 mg/dL LAB CHEMISTRY METHOD 10/22/2024 5:36 PM EDT [facility] Blood Venous blood specimen / Unknown Venipuncture / Unknown 10/22/2024 12:40 PM EDT 10/22/2024 12:40 PM EDT Josue Crain PA LAB BLOOD ORDERABLES Quiana l Result Performing Organization Address [facility]/ZIP Co de Phone Number [facility] [address] [place] [address], [place] [phone] * ECG 12 lead (10/21/2024 8:59 AM EDT) Ventricular Rate ECG 71 BPM GEMUSE Atrial Rate 357 BPM GEMUSE QRS Duration 178 ms GEMUSE Q-T Interval 446 ms GEMUSE QTc 484 ms GEMUSE R [place] -66 degrees GEMUSE T [place] 114 degrees GEMUSE ECG Interpretation Ventricular-pa maurilio rhythm with occasional Premature ventricular complexes Abnormal ECG When compared with ECG of 06-MAY-2024 07:49, Premature ventricular complexes are now Present Vent. rate has decreased BY 5 BPM Confirmed by ISABELL PERKINS ([id number]) on 10/23/2024 1:44:58 PM GEMUSE 10/21/2024 8:14 AM EDT 10/23/2024 1:44 PM EDT Lei Patel NP ECG ORDERABLES Edited Result - Final Performing Organization Address City/[facility]/ZIP Co de Phone Number GEMUSE * (ABNORMAL) Lipid panel with reflex to direct LDL (10/18/2024 8:35 AM EDT) Only the most recent of2 resultswithin the time period is included. Cholesterol 104 0 - 200 mg/dL LAB CHEMISTRY METHOD 10/18/2024 11:46 AM EDT [facility] Triglycerides 173(H) 0 - 150 mg/dL LAB CHEMISTRY METHOD 10/18/2024 11:46 AM T [facility] HDL 35(L) >=40 mg/dL LAB CHEMISTRY METHOD 10/18/2024 11:46 AM [facility] LDL Calculated 34 0 - 100 mg/dL LAB CHEMISTRY METHOD 10/18/2024 11:46 AM [facility] Comment:Estimated LDL Calcul ated using equation: Total cholesterol - HDL cholesterol - (Triglycerides/5) VLDL Cholesterol Philippe 34.6 mg/dL LAB CHEMISTRY METHOD 10/18/2024 11:46 AM [facility] Non HDL Chol. (LDL+VLDL) 69 <145 mg/dL LAB CHEMISTRY METHOD 10/18/2024 11:46 AM [facility] Chol/HDL Ratio 3.0 0.0 - 4.4 LAB CHEMISTRY METHOD 10/18/2024 11:46 AM [facility] Blood Venous blood specimen / Unknown Venipuncture / Unknown 10/18/2024 8:35 AM EDT 10/18/2024 8:35 AM EDT Josue BASHIR LAB BLOOD ORDERABLES Quiana lainez Result [facility] [address] [place] [address], * (ABNORMAL) Iron and TIBC (10/18/2024 8:35 AM EDT) Only the most recent of2 resultswithin the time period is included. Iron 54 50 - 160 mcg/dL LAB CHEMISTRY METHOD 10/18/2024 11:46 AM [facility] TIBC 551(H) 250 - 450 mcg/dL LAB CHEMISTRY METHOD 10/18/2024 11:46 AM [facility] Iron Saturation 10(L) 20 - 50 % LAB CHEMISTRY METHOD 10/18/2024 11:46 AM EDT [facility] Blood Venous blood specimen / Unknown Venipuncture / Unknown 10/18/2024 8:35 AM EDT 10/18/2024 8:35 AM EDT Josue BASHIR LAB BLOOD ORDERABLES Quiana l Result Performing Organization Address City/[facility]/ZIP Co de Phone Number [facility] [address] [place] [address], [place] [phone] * (ABNORMAL) Microalbumin creatinine urine ratio (10/18/2024 8:35 AM EDT) Only the most recent of2 resultswithin the time period is included. Creatinine, Urine 94.0 mg/dL LAB CHEMISTRY METHOD 10/18/2024 1:35 PM EDT [facility] Microalb, Ur 106.0(H) 0.0 - 29.0 mg/L LAB CHEMISTRY METHOD 10/18/2024 1:35 PM EDT [facility] Microalb/Crea t Ratio 113(H) <30 mg/g creat LAB CHEMISTRY METHOD 10/18/2024 1:35 PM EDT [facility] Urine Urine specimen obtained by clean catch procedure / Unknown Non-blood Collection / Unknown 10/18/2024 8:35 AM EDT 10/18/2024 8:35 AM EDT Josue BASHIR LAB URINE ORDERABLES Quiana l Result [facility] [address] [place] [address], [place] [phone] * CARDIAC DEVICE CHECK- IN CLINIC- MURJ (10/17/2024 10:00 AM EDT) Date Time Interrogation Session [id number] CV DEVICE CHECK Implantable Pulse Generator Lathe Machine Operator BIO CV DEVICE CHECK Implantable Pulse Generator Type IPG CV DEVICE CHECK Implantable Pulse Generator Model Eluna 8 DR-T CV DEVICE CHECK Implantable Pulse Generator Serial Number [id number] CV DEVICE CHECK Implantable Pulse Generator Implant Date [id number] CV DEVICE CHECK Battery Status Middle of Service CV DEVICE CHECK Lead Channel Sensing Intrinsic Amplitude 1.000 CV DEVICE CHECK Lead Channel Setting Sensing Sensitivity 0.40 CV DEVICE CHECK Lead Channel Impedance Value 429 CV DEVICE CHECK Lead Channel Setting Pacing Amplitude 1.800 CV DEVICE CHECK Lead Channel Setting Pacing Pulse Width 0.4 CV DEVICE CHECK Lead Channel Impedance Value 1,072 CV DEVICE CHECK Lead Channel Pacing Threshold Amplitude 0.400 CV DEVICE CHECK Lead Channel Pacing Threshold Pulse Width 0.4 CV DEVICE CHECK Lead Channel Setting Pacing Amplitude 2.400 CV DEVICE CHECK Lead Channel Setting Pacing Pulse Width 0.4 CV DEVICE CHECK Deangelo Setting Mode (NBG Code) DDDR CV DEVICE CHECK Deangelo Setting Lower Rate Limit 60 CV DEVICE CHECK Deangelo Setting AT Mode Switch Rate 160 CV DEVICE CHECK Deangelo Setting Maximum Tracking Rate 130 CV DEVICE CHECK Deangelo Setting Maximum Sensor Rate 120 CV DEVICE CHECK Deangelo Setting PAV Delay 160 CV DEVICE CHECK Deangelo Setting QIANA Delay 130 CV DEVICE CHECK Date of Service 2025-10-15 CV DEVICE CHECK Anatomical Region Laterality Modality Device Interroga tion 10/17/2024 Impressions 10/23/2024 1:56 PM EDT Normal In-Office: No Events * Normal Device Function * Alerts or events: No new alerts since last remote session * Battery: MOS, 4.2 years * Sensing, impedance and thresholds reviewed and tested * Presenting Rhythm: AF CASINO FLOORPERSON 68 bpm * Underlying Rhythm: AF VS 35 bpm * Heart Rate Histograms reviewed * Pacing and Detection Parameters were evaluated Narrative Procedure Note Ender Vargas MD - 10/23/2024 IMPRESSION: Normal In-Office: No Events * Normal Device Function * Alerts or events: No new alerts since last remote session * Battery: MOS, 4.2 years * Sensing, impedance and thresholds reviewed and tested * Presenting Rhythm: AF CASINO FLOORPERSON 68 bpm * Underlying Rhythm: AF VS 35 bpm * Heart Rate Histograms reviewed * Pacing and Detection Parameters were evaluated us Order Referral Cardiovascular CV IMPLANTABLE CAR DIAC DEVICE PROCEDURES Final Result * Vitamin D 25 hydroxy (10/01/2024 11:06 AM EDT) Only the most recent of2 resultswithin the time period is included. Vit D, 25-Hydroxy 60.0 30.0 - 80.0 ng/mL LAB CHEMISTRY METHOD 10/01/2024 4:37 PM EDT [facility] Blood Venous blood specimen / Unknown Venipuncture / Unknown 10/01/2024 11:06 AM EDT 10/01/2024 11:06 AM EDT Josue BASHIR LAB BLOOD ORDERABLES Quaina l Result [facility] [address] [place] [address], [place] [phone] * Culture blood (10/01/2024 11:06 AM EDT) [facility] Culture, Blood No growth at 5 days 10/06/2024 1:01 PM EDT [facility] Blood Venous blood specimen / Unknown Venipuncture / Unknown 10/01/2024 11:06 AM EDT 10/01/2024 11:06 AM EDT Josue BASHIR LAB MICROBIOLOGY - GENERA L ORDERABLES Final Result Performing Organization Address City/[facility]/ZIP Co de Phone Number [facility] [address] [place] [address], [place] [phone] * Uric acid (10/01/2024 11:06 AM EDT) Only the most recent of2 resultswithin the time period is included. [facility] Uric Acid 4.5 3.7 - 9.2 mg/dL LAB CHEMISTRY METHOD 10/01/2024 4:27 PM EDT [facility] Blood Venous blood specimen / Unknown Venipuncture / Unknown 10/01/2024 11:06 AM EDT 10/01/2024 11:06 AM EDT Josue BASHIR LAB BLOOD ORDERABLES Quiana l Result [facility] [address] [place] [address], * External Xray Report (09/08/2024) Anatomical Region Laterality Modality Radiographic Myriam ging us Provider [facility] XR PROCEDURES Final Result * External CT Report (09/08/2024) Anatomical Region Laterality Modality Computed Tomogra phy us Provider [facility] CT PROCEDURES Final Result * XR Calcaneus 2+ Views Right (09/03/2024 9:43 AM EDT) Anatomical Region Laterality Modality Lower Extremities, Calcaneus Right Rad iographic Imaging 09/03/2024 10:3 8 AM EDT Impressions 09/03/2024 10:39 AM EDT No acute findings. -------- FINAL REPORT -------- Dictated By: Margarita Schuster Dictated Date: 09/03/2024 10:38 ET Assigned Physician: Margarita Schuster Reviewed and Electronically Signed By: Margarita Schuster Signed Date: 09/03/2024 10:39 ET Workstation ID: [id number] Transcribed By: Self Edit Transcribed Date: 09/03/2024 10:38 ET Narrative 09/03/2024 10:39 AM EDT XR CALCANEUS 2+ VIEWS RIGHT Reason: right posterior heel pain x 3 days Comparison: None FINDINGS: No acute fracture. Ossification at the insertion of the Achilles tendon onto the calcaneus. Small plantar calcaneal spur. Joint spaces are preserved. No subluxation. No radiopaque foreign body. Procedure Note Margarita Schuster MD - 09/03/2024 XR CALCANEUS 2+ VIEWS RIGHT Reason: right posterior heel pain x 3 days Comparison: None FINDINGS: No acute fracture. Ossification at the insertion of the Achilles tendononto the calcaneus. Small plantar calcaneal spur. Joint spaces arepreserved. No subluxation. No radiopaque foreign body. IMPRESSION: No acute findings. -------- FINAL REPORT -------- Dictated By: Margarita Schuster Dictated Date: 09/03/2024 10:38 ET Assigned Physician: Margarita Schuster Reviewed and Electronically Signed By: Margarita Schuster Signed Date: 09/03/2024 10:39 ET Workstation ID: [id number] Transcribed By: Self Edit Transcribed Date: 09/03/2024 10:38 ET Rea BASHIR IMG XR PROCEDURES Final Result * (ABNORMAL) Hemoglobin A1c (08/16/2024 8:53 AM EDT) Hemoglobin A1C 8.4(H) <6.5 % LAB CHEMISTRY METHOD 08/16/2024 1:51 PM EDT [facility] Mean Bld Glu Estim. 194 mg/dL LAB CHEMISTRY METHOD 08/16/2024 1:51 PM EDT [facility] Blood Venous blood specimen / Unknown Venipuncture / Unknown 08/16/2024 8:53 AM EDT 08/16/2024 8:53 AM EDT Josue BASHIR LAB BLOOD ORDERABLES Quiana l Result [facility] [address] [place] [address], * SCREENING MAMMOGRAPHY BI 2-VIEW BREAST INC CAD (01/05/2024 8:16 AM EDT) Anatomical Region Laterality Modality Radiographic Myriam ging 01/02/2023 8:54 AM EDT Narrative 01/05/2024 4:24 PM EDT This is a summary report. The complete report is available in the patient's medical record. If you cannot access the medical record, please contact the sending organization for a detailed fax or copy. Exam: Screening mammogram Findings: Digital bilateral full-field screening mammography is performed with tomosynthesis and interpreted with the aid of computer-aided detection. Comparison is made with 01/02/2023 and as far back as 12/01/2019. History of left breast cancer status post lumpectomy in 2009. Also, status post radiation therapy. Breast parenchyma is composed of scattered fibroglandular densities. Stable post therapeutic changes involving the left breast. No new suspicious mass, architectural distortion, or suspicious calcifications. Impression: No mammographic evidence of malignancy. BI-RADS 2-benign [address] [address] Procedure Note Steffany Bingham MD - 01/13/2024 This is a summary report. The complete report is available in thepatient's medical record. If you cannot access the medical record, pleasecontact the sending organization for a detailed fax or copy. Exam: Screening mammogram Findings: Digital bilateral full-field screening mammography is performedwith tomosynthesis and interpreted with the aid of computer-aideddetection. Comparison is made with 01/02/2023 and as far back as12/01/2019. History of left breast cancer status post lumpectomy in 2009.Also, status post radiation therapy. Breast parenchyma is composed of scattered fibroglandular densities.Stable post therapeutic changes involving the left breast. No newsuspicious mass, architectural distortion, or suspicious calcifications. Impression: No mammographic evidence of malignancy. BI-RADS 2-benign [address] [address] Josue BASHIR IMG XR PROCEDURES Final R esult * Falls Risk Assessment (06/22/2023) Falls Risk Assessment Abstracted Historical Provider HEALTH MAINTENANCE Final Result * Diabetes Eye Exam (05/30/2023) Diabetes: Annual Retina Eye Exam Abstracted Historical Provider HEALTH MAINTENANCE Final Result * Depression Screening (05/01/2023) [facility] Depression Screening Abstracted us Historical Provider HEALTH MAINTENANCE Final Result * Colonoscopy (04/29/2022) [facility] Colonoscopy No interpreta tion,abstr acted Anatomical Region Laterality Modality Other Historical Provider MD HEALTH MAINTENANCE Final Result * DXA BONE DENSITY STUDY 1+ SITS AXIAL SKEL (12/23/2021 1:16 PM EDT) Anatomical Region Laterality Modality Bone Densitometr y 07/23/2021 11:0 9 AM EDT Narrative 12/23/2021 3:17 PM EDT BONE DENSITY (DEXA) Lumbar Spine T-score is 1.1. (SD relative to 20-29 y/o adult) Z-score is 3.4. (SD relative to age matched peers) This is considered normal by WHO criteria. Left Hip T-score is -0.2. Z-score is 1.7. This is considered normal by WHO criteria. IMPRESSION: This patient is considered to have normal bone density by WHO criteria. The [facility] Department of Internal Medicine recommends using National Osteoporosis Foundation (NOF) guidelines in treatment decisions related to osteoporosis. NOF guidelines suggest considering treatment for postmenopausal women and men aged 50 or older presenting with the following: History of hip or vertebral fracture. T-score = -2.5 (DXA) at the femoral neck, total hip, or spine, after appropriate evaluation to exclude secondary causes. Low bone mass (T-score between -1.0 and -2.5 at the femoral neck or spine) AND a 10-year probability of a hip fracture = 3% OR a 10-year probability of a major osteoporosis-related fracture = 20% based on the [place]-adapted WHO algorithm Please note that all treatment decisions require clinical judgment and consideration of individual patient factors, including patient preferences, co-morbidities, previous drug use, risk factors not captured in the FRAX model (e.g., frailty, falls, vitamin D deficiency, increased bone turnover, interval significant decline in bone density) and possible under- or over-estimation of fracture risk by FRAX. Optional alternative screening schedule based on inder Gama., [place] March 31, 2011 for patients with osteopenia (based on hip BMD T-score) is as follows: * advanced osteopenia (T scores -2.00 to -2.49), BMD testing every year * moderate osteopenia (T scores -1.50 to -1.99), BMD testing every 5 years mild osteopenia or normal BMD (T scores -1.50 and higher), BMD testing every 15 years Procedure Note Lisa Riley MD - 03/01/2022 BONE DENSITY (DEXA) Lumbar Spine T-score is 1.1. (SD relative to 20-29 y/o adult) Z-score is 3.4. (SD relative to age matched peers) This is considered normal by WHO criteria. Left Hip T-score is -0.2. Z-score is 1.7. This is considered normal by WHO criteria. IMPRESSION: This patient is considered to have normal bone density by WHO criteria. The [facility] Department of Internal Medicine recommendsusing National Osteoporosis Foundation (NOF) guidelines in treatment decisions related toosteoporosis. NOF guidelines suggest considering treatment for postmenopausal women and menaged 50 or older presenting with the following: History of hip or vertebral fracture. T-score = -2.5 (DXA) at the femoral neck, total hip, or spine, afterappropriate evaluation to exclude secondary causes. Low bone mass (T-score between -1.0 and -2.5 at the femoral neck or spine)AND a 10-year probability of a hip fracture = 3% OR a 10-year probability of a majorosteoporosis-related fracture = 20% based on the [place]-adapted WHO algorithm Please note that all treatment decisions require clinical judgment andconsideration of individual patient factors, including patient preferences, co- morbidities,previous drug use, risk factors not captured in the FRAX model (e.g., frailty, falls, vitaminD deficiency, increased bone turnover, interval significant decline in bone density) andpossible under- or over-estimation of fracture risk by FRAX. Optional alternative screening schedule based on inder Gama., [facility]2011 for patients with osteopenia (based on hip BMD T-score) is as follows: * advanced osteopenia (T scores -2.00 to -2.49), BMD testing every year * moderate osteopenia (T scores -1.50 to -1.99), BMD testing every 5years mild osteopenia or normal BMD (T scores -1.50 and higher), BMD testingevery 15 years Josue BASHIR IMTaran DXA PROCEDURES Final Result * Hepatitis C Screening (08/22/2012) Hepatitis C Screening Abstracted Historical Provider MD HEALTH MAINTENANCE Final Result from Last 3 Months or Most Recently Relevant to Health Maintenance Insurance MEDICARE 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
--- OUTSIDE RECORDS SUMMARY | 2024-11-15 10:56 | XMS_ITS | Encounter Summary ---
Author Organization [facility] [place] [address] Care Team Providers Care Inspector Barrel Name Role Phone Josue Crain Primary Care Provider [phone] Encounter Details Date Type Department Care Team (Late st Contact Info) Description 10/31/2024 Telephone [facility] - [facility] [address] [facility] [address] [place] [address] Karen Alfaro PA [address] [place] [address] [place] [address] Social History Tobacco Use Types Packs/Day Years [...] for your loved ones. For example, child care giver or elderly care for an older adult? [...] on file documented as of this encounter Progress Notes * Adia Hernández RN - 11/01/2024 11:32 AM EDT Spoke w/pt. 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 PICC line removed 1-2 weeks ago. On oral augmentin and doxycycline. Tolerating it so far. Last Monday walking up ramp felt a little winded. Has felt sob more on exertion. Otherwise feels fine. Pending another chest xray at some point in the future-she's unsure when it's scheduled. Feels surprisingly well-No dizziness, chest pains, no fevers no chills. Occasional kicks from pacemaker when sitting in different positions. Drinks on average 40 oz of water, 1 cup of coffee or tea, no soda, good urine output. No missed doses of meds. No other changes since MARIA G. Weight: this morning 170 lbs, 10/31: 171 lbs, 10/30: 172. Bp: takes it in the evening: last night: 134/70 --69 hr-stays consistent. ER precautions reviewed. Forwarding to care team to review/advise if needed. * Melissa Orr - 11/01/2024 9:35 AM EDT Patient returning call. Best call back number is [phone] * Kathy Pederson RN - 11/01/2024 8:28 AM EDT [facility] prompted call. I LMOM req c/b * KRYSTEN Aldana - 10/31/2024 2:23 PM EDT See MURJ encounter titled Ancillary Procedure, report may be found under media, dated: Ongoing rate controlled A-fib since October-significant decline in thoracic impedance Please call patient, assess for symptoms, recent illness, missed medications, please update medication list and forward to primary cardiology team thank you Is there any plan for rhythm control? documented in this encounter Plan of Treatment Upcoming Encounters Date Type Department Care Team (Late st Contact Info) Description 11/18/2024 3:10 PM EDT Anticoagulation - Warfarin Visit Coumadin [address] [phone] 11/18/2024 3:30 PM EDT Office Visit [address] [phone] Rea Ritchie PA [address] [place], [place] 01/08/2025 8:30 AM EDT Ancillary Procedure [facility] [address] [facility] 101 [place] [address] 01/10/2025 8:30 AM EDT Office Visit [address] [phone] Josue Crain PA [address] [place] [phone] 01/17/2025 7:40 AM EST Office Visit [facility] 154 300 [facility] 154 [place] [phone] Lei Patel NP [address] [place] [address] [facility] 410 [place] [address] 10/20/2025 9:30 AM EDT Ancillary Procedure [facility] 154 300 [facility] 154 [place] [phone] documented as of this encounter Goals Goal Patient Goal Type Associated Problems Recent Progress Patient-Stated? Author <enter goal here> General Yes Kimberley Olsen, RN Note: I will start using my weights again. documented as of this encounter Visit Diagnoses Not on filedocumented in this encounter Additional Health Concerns Assessment Noted Time PHQ-9 Depression Total Score: 0 04/16/19 25 11:13 PM EST A fall risk assessment has been complete d for the patient 10/08/2024 1:20 PM EDT documented as of this encounter Care Teams Inspector Barrel Relationship Specialty Start Date End Date Josue Crain PA [address] [place] [address] PCP - General Internal Medicine 01/29/24 documented as of this encounter
--- OUTSIDE RECORDS SUMMARY | 2024-11-15 10:56 | XMS_ITS | Clinical Summary ---
Author Organization [facility] Address [address] [place] [address] Care Team Providers Care Director Independent Name Role Phone Josue Crain PA-C Primary [...] age to complete this topic Care Teams Director Independent Relationship Specialty Start Date End Date Josue Crain PAElliotC PCP - General Medical Services 02/18/22
--- OUTSIDE RECORDS SUMMARY | 2024-11-15 10:56 | XMS_ITS | Encounter Summary ---
Author Organization [facility] [place] [address] Care Team Providers Care Color Maker Dyer Name Role Phone Josue Crain Primary Care Provider [phone] Reason for Visit * Reason Onset Date Comments Hospital Follow-up 11/14/2024 Encounter Details Date Type Department Care Team (Late st Contact Info) Description 11/14/2024 Telephone Adult Medicine [address] [phone] Josue Crain PA [address] [place] [phone] Social History Tobacco Use Types Packs/Day Years [...] for your loved ones. For example, child watch attendant or elderly care for an older adult? [...] as of this encounter Progress Notes * Winter Kapadia RN - 11/14/2024 12:37 PM EDT Called and spoke with pt. Pt was in hosp 09/09-09/18 pt hasn't been in hospital since had hos fu on 10/01 * Josué Malone LPN - 11/14/2024 12:31 PM EDT Please book a hospital follow ujp * Josué Malone LPN - 11/14/2024 12:30 PM EDT Spoke with POD the will fill refills * Kathy Ashford - 11/14/2024 12:13 PM EDT [facility] CALL Which [facility] office is calling? [facility] / Full name of caller: ISAIAH The caller is A nurse Is the caller at the patients home?: no Reason for call: PATIENT DISCHARGED FROM NURSING 11/14/24, PATIENT IS OUT OF LANCET, STRIPS AND ALCOHOL WIPES SHE HAS NOT BEEN TESTING HER SUGARS Does caller need an urgent call back? no Was CONTACT Telephone # obtained above?: yes Fax #: documented in this encounter Plan of Treatment Upcoming Encounters Date Type Department Care Team (Late st Contact Info) Description 11/18/2024 3:10 PM EDT Anticoagulation - [facility]farin [facility] [address] [phone] 11/18/2024 3:30 PM EDT Office Visit Adult Medicine [address] [phone] Rea Ritchie PA [address] [place] [address] 01/08/2025 8:30 AM EDT Ancillary Procedure [facility] [address] [place] [address] 01/10/2025 8:30 AM EDT Office Visit Adult Medicine [facility] [address] [place] [address] Josue Crain PA [address] [place] [address] 01/17/2025 7:40 AM EST Office Visit [facility] 154 300 [facility] 154 [place] [address] Lei Patel, HARVEY [address] [place] [address] Dr [address] [place] [address] 10/20/2025 9:30 AM EDT Ancillary Procedure [facility] 154 300 [facility] 154 [place] [address] documented as of this encounter Goals Goal [...] documented as of this encounter Care Teams Color Maker Dyer Relationship Specialty Start Date End Date Josue Crain PA [address] [place] [address] PCP - General Internal Medicine 01/29/24 documented as of this encounter
--- OUTSIDE RECORDS SUMMARY | 2024-11-15 10:56 | XMS_ITS | Encounter Summary ---
Author Organization [facility] [place] [address] Care Team Providers Care Account Group Supervisor Name Role Phone Josue Crain Primary Care Provider [phone] Reason for Visit * Reason Onset Date Comments vna 10/15/2024 Encounter Details Date Type Department Care Team ([facility] st Contact Info) Description 10/15/2024 Telephone Adult Medicine [address] [phone] Josue Crain PA [address] [place] [phone] Social History Tobacco Use Types Packs/Day [...] as of this encounter Progress Notes * Josué Malone LPN - 10/15/2024 3:02 PM EDT [facility]NA not able to draw the boold today they need her to come the [facility] Nurse state it is a CBC with Dif CMP and CPK Results should be sent to [phone] [facility] patient has IV Antibiotics Last OV 10/01/24 * Idalia Phillips - 10/15/2024 1:59 PM EDT [facility] CALL Which [facility] office is calling? [facility] / Full name of caller: Alexy The caller is A nurse Is the caller at the patients home?: no Reason for call: Nurse was unable to get the blood draw today and is asking for an order be sent toour lab and the patient will go to the lab. Does caller need an urgent call back? no Was CONTACT Telephone # obtained above?: yes Fax #: documented in this encounter Plan of Treatment Upcoming Encounters Date Type Department Care Team (Late st Contact Info) Description 11/18/2024 3:10 PM EDT Anticoagulation - [facility]farin [facility] [address] [phone] 11/18/2024 3:30 PM EDT Office Visit Adult Medicine [address] [phone] Rea Ritchie PA [address] [place], [place] 01/08/2025 8:30 AM EDT Ancillary Procedure [facility]iology [facility] [address] [phone] 01/10/2025 8:30 AM EDT Office Visit Adult Medicine [address] [phone] Josue Crain PA [address] [place] [phone] 01/17/2025 7:40 AM EST Office Visit [facility]iology [facility] [address] [place] [address] Lei Patel NP [address] [place] [address] [place] [address] 10/20/2025 9:30 AM EDT Ancillary Procedure [facility] Cardiology [facility] [address] [facility] [address] [place] [phone] documented as of this encounter Goals Goal [...] documented as of this encounter Care Teams Account Group Supervisor Relationship Specialty Start Date End Date Josue Crain PA [address] [place] [address] PCP - General Internal Medicine 01/29/24 documented as of this encounter
--- OUTSIDE RECORDS SUMMARY | 2024-11-15 10:56 | XMS_ITS | Encounter Summary ---
Author Organization [facility] [place] [address] Care Team Providers Care Overseer Kosher Kitchen Name Role Phone Josue Crain Primary Care Provider [phone] Reason for Visit * Reason Onset Date Comments Referral 10/14/2024 Encounter Details Date Type Department Care Team (Late st Contact Info) Description 10/14/[address] [facility] [address] [place] [phone] Jennifer Parmar, PharmD [address] [place], [place] [phone] Social History Tobacco Use Types Packs/Day Years [...] care for your loved ones. For example, early childhood education instructor or elderly care for an older adult? [...] as of this encounter Progress Notes * KRYSTEN Dai - 10/14/2024 10:37 AM EDT OK I can ask her * Jennifer Parmar, Nasreen - 10/14/2024 10:36 AM EDT Viviana Taylor, Do you think this patient would benefit from more diabetes education and medication management? If so, I've pended a referral. Thank you for your time, Jennifer Parmar PharmD., BCACP Clinical Pharmacist Kiera ABRAMS [email or web address] P: [phone] F:[phone] documented in this encounter Plan of Treatment Upcoming Encounters Date Type Department Care Team (Late st Contact Info) Description 11/18/2024 3:10 PM EDT Anticoagulation - Warfarin Visit [facility] [address] [phone] 11/18/2024 3:30 PM EDT Office Visit Adult Medicine [address] [phone] Rea Ritchie PA [address] [place], [place] 01/08/2025 8:30 AM EDT Ancillary Procedure [facility] [address] [facility] [address] [place] [address] 01/10/2025 8:30 AM EDT Office Visit Adult Medicine [address] [phone] Josue Crain PA [address] [place] [phone] 01/17/2025 7:40 AM EST Office Visit [facility] [address] [facility] [address] [place] [address] Lei Patel NP [address] [place] [address] Dr Khan [address] [place] [address] 10/20/2025 9:30 AM EDT Ancillary Procedure [facility] [address] [place] [address] documented as of this encounter Goals Goal [...] documented as of this encounter Care Teams Overseer Kosher Kitchen Relationship Specialty Start Date End Date Josue Crain PA [address] [place] [address] PCP - General Internal Medicine 01/29/24 documented as of this encounter
[2024-11-15 11:19] VITALS: BP 159/63; PULSE 79; RESP 21; TEMP 37.2; O2SAT 94
[2024-11-15 12:40] VITALS: BP 146/68; PULSE 91; RESP 19; TEMP 36.9; O2SAT 96
[2024-11-15 13:27] VITALS: BP 149/69
[2024-11-15] MEDS: Lidocaine 4 % Patch ADH..PATCH 1 PATCH TRANSDERMA (13:27)
[2024-11-15] MEDS: Furosemide 20 MG/2 ML VIAL IVPUSH (13:27)
[2024-11-15] MEDS: iohexoL 350 MG/ML 100 ML INFUS..BTL IV (13:33)
[2024-11-15 13:53] LABS: Troponin-I High Sensitivity 25.0 ng/L (<3.5-17.0)
[2024-11-15 16:00] VITALS: BP 138/67; PULSE 67; RESP 14; TEMP 36.7; O2SAT 97
[2024-11-15 16:16] VITALS: BP 138/67; PULSE 67; RESP 14; TEMP 36.7; O2SAT 97
== END 2024-11-15 16:27 | disposition home or self-care (01) ==
PROVIDERS: Registered Nurse Emergency; Emergency Provider Student in an Organized Health Care Education/Training Program; PCP Physician Assistant Medical
DX: J81.1 Chronic pulmonary edema (principal); I50.9 Heart failure, unspecified; M79.601 Pain in right arm; R07.89 Other chest pain; R06.02 Shortness of breath; E11.9 Type 2 diabetes mellitus without complications; Z79.4 Long term (current) use of insulin; Z79.899 Other long term (current) drug therapy
CPT/HCPCS: 36415; 71046; 71275; 80053; 83605; 83880; 84484; 85025; 85610; 93005; 93971; 96374; 99284; 99285; J1938; Q9967

== ENCOUNTER → 2024-11-15 09:59 | Outpatient (BNV) | payer MEDICARE, OTHER, SELFPAY | PROVIDERS: Emergency Provider Student in an Organized Health Care Education/Training Program; PCP Physician Assistant Medical; Visit Provider Internal Medicine Cardiovascular Disease | DX: R94.31 Abnormal electrocardiogram [ECG] [EKG] (principal); R07.9 Chest pain, unspecified; Z95.0 Presence of cardiac pacemaker | CPT/HCPCS: 93010 ==

== ENCOUNTER → 2024-11-15 10:00 | Outpatient (BNV) | payer MEDICARE, OTHER, SELFPAY | PROVIDERS: PCP Physician Assistant Medical; Visit Provider Radiology Diagnostic Radiology | DX: Z45.2 Encounter for adjustment and management of vascular access device (principal); I51.7 Cardiomegaly | CPT/HCPCS: 71046; 71275; 93971 ==

== ENCOUNTER 2024-12-19 07:25 | Emergency (ER) | payer MEDICARE, OTHER, SELFPAY ==
--- NOTE | ~2024-12-19 | CT_ITS ---
EXAMINATION: CT LUMBAR SPINE WITHOUT CONTRAST CLINICAL INFORMATION: Low back pain with sciatica. COMPARISON: No prior available. TECHNIQUE: CT imaging of the lumbar spine was done without IV contrast, utilizing spiral technique. Sagittal, coronal, and thin section axial reformatted images were constructed from the axial data set. This CT examination was performed using dose optimization techniques as appropriate, variously including the following: *Automated exposure control *Adjustment of mA and/or kV according to patient size (this includes techniques or standardized protocols for targeted exams where dose is matched to indication/reason for exam; i.e. extremities or head) *Use of iterative reconstruction technique FINDINGS: CORONAL ALIGNMENT: -There is a very minimal levoconvex scoliosis, apex at L1. SAGITTAL ALIGNMENT: - There is a normal lumbar lordosis. -There is a 2 mm degenerative appearing retrolisthesis of L1 on L2 and L2 on L3. -Trace anterolisthesis of L4 on L5. LUMBOSACRAL JUNCTION: -Normal. There are 5 [id number] lumbar-type vertebral bodies. VERTEBRAL BODIES/BONE: -There are no fractures, compression deformities, or suspicious bone lesions evident. -There is normal facet alignment bilaterally. Hypertrophic degenerative facet changes are present most notable spanning L3-S1. No pars defects. DISCS: -Moderate disc degeneration is present throughout the lumbar spine, most significant at L1-2 and L2-3. There are ventral disc and vertebral osteophytes spanning T12-L2. SPINAL CANAL: -No abnormal developmental findings. AXIAL DISC SPACE IMAGES: (Evaluation somewhat limited due to modality): T12-L1: There is no significant central canal or neural foraminal stenosis. L1-L2: There is a shallow diffuse disc osteophytic bulge. There is no significant central canal narrowing. There is mild bilateral neural foraminal narrowing. L2-L3: There is a concentric disc bulge present extending into the bilateral foraminal zones. There are mild to moderate hypertrophic degenerative facet changes present. There is mild central canal narrowing, mild bilateral subarticular recess narrowing, and mild bilateral neural foraminal narrowing left greater than right. L3-L4: There is a concentric bulging disc present extending into both foraminal zones. There are moderate hypertrophic degenerative facet changes. There is mild posterior ligamentous thickening/infolding. There is mild to moderate central canal narrowing, moderate left and mild right subarticular recess narrowing, and mild to moderate left greater than right neural foraminal narrowing. L4-L5: There is a concentric bulging disc extending into both foraminal zones. There are severe hypertrophic degenerative facet changes bilaterally, with posterior ligamentous thickening/infolding. There is mild to moderate central canal stenosis, moderate left greater than right subarticular recess stenosis, moderate left and mild to moderate right neural foraminal narrowing. L5-S1: There is a right foraminal disc osteophytic protrusion. There are moderate to severe hypertrophic degenerative facet changes bilaterally. There is no significant central canal stenosis. There is mild right subarticular recess stenosis with mild deviation of the traversing right S1 roots. There is moderate right neural foraminal narrowing. There is mild left neural foraminal narrowing. IMAGED SI JOINTS: -Moderate degenerative arthrosis bilaterally. PARAVERTEBRAL AND INCLUDED EXTRASPINAL SOFT TISSUES: -Imaged intra-abdominal and retroperitoneal contents demonstrate normal-appearing kidneys bilaterally with perirenal stranding. There is moderate fatty atrophy of the pancreas noted. The aorta is nonaneurysmal. There is sigmoid diverticulosis, somewhat extensive. There is a tiny amount of ascites layering in the cul-de-sac, uncertain etiology. There likely has been a hysterectomy. -The paraspinous and paravertebral soft tissues are unremarkable. CT/CT lumbar spine wo IV con IMPRESSION: 1. Mild to moderate multilevel lumbar spondylosis. No acute bony abnormalities are present. No high-grade central canal stenosis or high-grade neural foraminal stenosis is evident. No definite nerve root impingement allowing for modality limitations. Refer to the above report for details on individual spinal levels. 2. Sigmoid diverticulosis, and a tiny amount of ascites layering in the pelvic recesses of uncertain etiology. Electronically signed by: Sabino Pacheco MD 12/19/2024 08:56 AM EDT
[2024-12-19 07:26] VITALS: BP 156/68; PULSE 69; RESP 20; TEMP 36.6; O2SAT 95; BMI 30.3
--- NOTE | 2024-12-19 08:02 | ED.GENADULT ---
HPI - General Adult General Chief complaint: Back Pain/Injury Stated complaint: sciatica Time Seen by Provider: 12/19/24 07:49 Source: patient Mode of arrival: ambulatory Limitations: no limitations History of Present Illness ED Provider: HPI narrative: 74-year-old woman presenting with sciatica as she describes it low back pain radiating to her left leg, she states this is an occasional chronic issue, started yesterday, tried to get in touch with the PCP was never called back, has had no numbness in the leg pain is going down to the back of the leg to the knee, no numbness in the groin, no loss of bowel or bladder function, no abdominal pain no fevers or chills, patient is on warfarin, she states she is actually skipping a week because her INR was a little high last week, has had no fevers or chills no recent instrumentation injections to the back, she does have a mechanical valve and reported having bacteremia in the past, she was on PICC line when she had an infection of her lungs and then apparently endocarditis and stopped IV antibiotics in October of 2024. Related Data Home Medications ?Medication ?Instructions ?Recorded ?Confirmed fenofibrate nanocrystallized 145 145 mg PO BEDTIME 10/30/20 12/20/24 mg tablet furosemide 20 mg tablet 20 mg PO BID PRN swelling 10/30/20 12/20/24 irbesartan 300 mg tablet 300 mg PO BEDTIME 10/30/20 12/20/24 simvastatin 20 mg tablet 20 mg PO BEDTIME 10/30/20 12/20/24 albuterol sulfate 90 mcg/actuation 2 inh inhalation Q4H PRN Wheezing 04/28/22 12/20/24 aerosol inhaler glucosamine sulfate 500 mg tablet 1,500 mg PO NEEDED PRN 04/28/22 12/20/24 (Glucosamine) arthritis pain loratadine 10 mg tablet 10 mg PO NEEDED PRN allergies 04/28/22 12/20/24 omega 9-wxd-ltw-fish oil 1,000 mg 1 cap PO DAILY 04/28/22 12/20/24 (120 mg-180 mg) capsule (Fish Oil) acetaminophen 650 mg 650 mg PO Q8H PRN arthritis 09/09/24 12/20/24 tablet,extended release cyanocobalamin (vitamin B-12) 50 50 mcg PO DAILY 09/09/24 12/20/24 mcg tablet (Vitamin B-12) gsmuzsmh-mrf-dmljb acid 0.4 1 tab PO DAILY 09/09/24 12/20/24 mg-lycopene 300 mcg-lutein 250 mcg tablet (Centrum Silver) warfarin 2.5 mg tablet (Jantoven) 1.25 mg PO DAILY@1800 09/09/24 12/20/24 insulin glargine 100 unit/mL (3 18 unit subcut DAILY 12/20/24 12/20/24 mL) subcutaneous pen (Basaglar KwikPen U-100 Insulin) Previous Rx's ?Medication ?Instructions ?Recorded blood sugar diagnostic (FreeStyle #100 ea 09/18/24 Lite Strips) blood-glucose meter (FreeStyle #1 ea 09/18/24 Lite Meter kit) lancets 28 gauge (FreeStyle #100 ea 09/18/24 Lancets) lancets 28 gauge (FreeStyle #100 ea 09/18/24 Lancets) pen needle, diabetic 32 gauge x #100 ea 09/18/24 1 Allergies Allergy/AdvReac Type Severity Reaction Status Date / Time adhesive tape Allergy Rash Verified 12/19/24 07:31 Review of Systems Constitutional: Constitutional: Reports as per [facility] Past Medical History Medical History Breast cancer, left Uterine cancer DVT (deep venous thrombosis) CHF (congestive heart failure) DM (diabetes mellitus) Kidney stones Asthma Pacemaker Surgical History History of lumpectomy of left breast History of total abdominal hysterectomy Aortic valve prosthesis present Social History Social History Unable to assess alcohol history related to: Unknown Alcohol intake: never Patient Tobacco Use Status: Never used Tobacco Advance Directives: Yes Advance Directives on File: Yes Advance Directives Date on File: 12/19/24 Do you have a plan to hurt others: No Plan service: No Physical Exam ED Vital Signs: Vital Signs - 24 hr 12/19/24 14:49 12/19/24 16:44 12/19/24 21:08 Temperature 97.8 F 97.1 F 98.8 F Pulse Rate 70 68 69 Respiratory Rate 14 14 20 Blood Pressure 168/77 H 145/68 H 141/67 H Pulse Oximetry 95 94 93 Oxygen Delivery Method Room Air Room Air Room Air 12/20/24 06:00 Temperature 98.1 F Pulse Rate 69 Respiratory Rate 20 Blood Pressure 133/76 Pulse Oximetry 94 Oxygen Delivery Method Room Air BMI result Body Mass Index 30.3 Const Other: General: ?Appears of stated age ? ?CV: RRR, no obvious murmurs appreciated ? ?Resp: ?No wheezing rales rhonchi no stridor moving air well ? Abd: ?Bowel sounds are present, no tenderness no rebound no rigidity ? ?MSK: No sensory deficits bilateral lower extremities, no lower extremity edema, + SLR test on the left side, pelvis is stable, DTRs +1 patella ? Skin: Warm, dry, intact, ? ?Neuro: ?Alert and oriented x3, moving upper and lower extremities symmetrically, no obvious facial asymmetry noted, cranial nerves 2-12 intact Course Reevaluation(s) Reevaluation #1: 12/20/24- Physician observation continued. Uneventful night. Vital signs stable. No complaints from nursing overnight. Med reconciliation not yet done, will be verified once completed by pharmacy. Pending disposition. Will continue to monitor. 12/20/24--1250--patient's INR 4.6 today. Goal is 2.5-3.5. Will hold tonight's dose 1300--patient will discharge to [facility] [address] via BLS for STR at 1pm. Time: 07:15 Medications Administered Generic Name Dose Route Start Last Admin Trade Name Minhq PRN Reason Stop Dose Admin Acetaminophen 975 mg 12/19/24 15:35 12/20/24 01:13 Acetaminophen 325 Mg Tablet PO 975 mg RQ6H PRN Administration Pain, Mild (Pain Scale 1-3) Cyanocobalamin 50 mcg 12/20/24 11:35 12/20/24 12:33 Cyanocobalamin (Vitamin B-12) 100 Mcg Tablet PO 50 mcg DAILY DONAVAN Administration Diazepam 2 mg 12/19/24 16:00 12/20/24 06:01 Diazepam 2 Mg Tablet PO 2 mg RQ4H PRN Administration spasm Oxycodone HCl 5 mg 12/19/24 14:24 12/20/24 12:32 Oxycodone Hcl Immed Release 5 Mg Tablet PO 5 mg Q6H PRN Administration Pain, Moderate(Pain Scale 4-6) Discontinued Medications Generic Name Dose Route Start Last Admin Trade Name Eugenio PRN Reason Stop Dose Admin Acetaminophen 975 mg 12/19/24 08:02 12/19/24 09:03 Acetaminophen 325 Mg Tablet PO 12/19/24 08:03 975 mg ONCE ONE Administration Acetaminophen 650 mg 12/19/24 15:00 12/19/24 14:39 Acetaminophen 325 Mg Tablet PO 650 mg ONCE PRN Administration Pain, Moderate(Pain Scale 4-6) Diazepam 2 mg 12/19/24 08:02 12/19/24 09:03 Diazepam 2 Mg Tablet PO 12/19/24 08:03 2 mg ONCE ONE Administration Diazepam 5 mg 12/19/24 23:23 12/20/24 01:13 Diazepam 5 Mg Tablet PO 12/19/24 23:24 5 mg ONCE ONE Administration Lidocaine 1 patch 12/19/24 08:02 12/19/24 09:04 Lidocaine 4 % Patch Adh..Patch TRANSDERMA 12/19/24 08:03 Not Given ONCE ONE Protocol Oxycodone HCl 5 mg 12/19/24 08:02 12/19/24 09:03 Oxycodone Hcl Immed Release 5 Mg Tablet PO 12/19/24 08:03 5 mg ONCE ONE Administration Medical Decision Making Medical Decision Making MDM Narrative: 8:14 AM 12/19/2024 (Dr. Olivier Alvarez): Patient with a history of sciatica, presenting with sciatica, no neurologic deficits to suspect cauda equina, she does have history of bacteremia, and she is on warfarin, so my differential also expands to spontaneous hematoma compressing on the nerve roots of the spinal canal, so we will check INR, I will obtain CT without IV contrast as my suspicion lower, and she has had no fevers chills to suspect underlying infectious etiology, we will obtain however CBC just for additional risk stratification, otherwise we will start with some oral medications to see how she responds we will expand to IV meds as needed. 12:28 PM 12/19/2024 (Dr. Olivier Alvarez): Patient was medicated and she slept after she woke up she had did some ambulation with the assistance was very difficult for her, she states she has we are you about returning home because she has to navigate some steps, we spoke about rehab placement, I will get physical therapy evaluation and case management involved Differential Diagnosis Differential Diagnoses: The differential diagnosis associated with the presentation includes (Diskitis, osteomyelitis, spinal epidural abscess, cauda equina, musculoskeletal pain) Admission/Observation Consideration of admission/observation: Escalation of care including admission/observation considered Lab Data MDM Lab Attestation statement: I reviewed the patient's lab results. 12/19/24 09:21 12/19/24 09:21 Labs: Lab Results 12/19/24 12/19/24 12/20/24 Range/Units 09:21 13:15 10:58 WBC 12.5 H (4.8-10.8) X10*3/uL RBC 4.64 (4.20-5.50) X10*6/uL Hgb 11.3 L (12.0-16.0) g/dl Hct 36.7 L (37.0-47.0) % MCV 79.1 L (80.0-98.0) fL MCH 24.4 L (27.0-33.0) pg MCHC 30.8 L (31.0-35.0) g/dl RDW 17.8 H (11.0-16.0) % Plt Count 233 (160-400) X10*3/uL MPV 10.5 (9.4-12.3) fL Immature Gran % (Auto) 0.4 (0.0-0.4) % Neut % (Auto) 88.4 H (45-73) % Lymph % (Auto) 4.5 L (20-40) % [place] % (Auto) 6.0 (2-11) % Eos % (Auto) 0.2 (0-4) % Baso % (Auto) 0.5 (0-2) % Lymph # (Auto) 0.6 L (1.2-4.9) X10*3/uL [place] # (Auto) 0.8 (0.1-1.2) X10*3/uL Eos # (Auto) 0.0 (0.0-0.4) X10*3/uL Baso # (Auto) 0.1 (0.0-0.2) X10*3/uL Abs Immat Gran (auto) 0.05 H (0.00-0.03) X10*3/uL Absolute Neuts (auto) 11.0 H (2.0-8.3) x10*3/uL Absolute Nucleated RBC 0.020 H (0.0-0.012) X10*3/uL Nucleated RBC % (auto) 0.2 (0.0-0.2) /100WBC PT 49.3 H 53.0 H (10.9-12.4) SEC INR 4.3 H 4.6 H (0.9-1.1) Sodium 139 (135-145) mmol/L Potassium 3.4 (3.3-5.1) mmol/L Chloride 106 (96-108) mmol/L Carbon Dioxide 24 (22-29) mmol/L Anion Gap 12 (12-20) BUN 19 H (9-16) mg/dL Creatinine 0.50 (0.5-1.4) mg/dL Estim Creat Clear Calc 95.8 Estimated GFR > 60 Random Glucose 188 H (60-115) mg/dL Calcium 9.4 (8.4-10.2) mg/dL Total Bilirubin 0.8 (0.0-1.0) mg/dL AST 41 H (5-31) U/L ALT 20 (0-31) U/L Alkaline Phosphatase 43 (39-117) U/L Total Protein 7.1 (6.5-8.0) g/dL Albumin 3.9 (3.5-5.0) g/dL Influenza Type A (PCR) NEGATIVE (Negative) Influenza Type B (PCR) NEGATIVE (Negative) RSV RNA Qual (PCR) NEGATIVE (Negative) SARS-CoV-2 RNA (RT-PCR) NEGATIVE (Negative) Radiology Impression Discussion of test interpretation with radiology: I have reviewed the radiologist's reading. (RDER #: [id number] CT/CT lumbar spine wo IV con IMPRESSION: 1. Mild to moderate multilevel lumbar spondylosis. No acute bony abnormalities are present. No high-grade central canal stenosis or high-grade neural foraminal stenosis is evident. No definite nerve root impingement allowing for modality) Prescription Management I considered prescription management with: Pain Medication Critical Care Time Critical Care Time Critical Care Time: Yes Total Critical Care Time: 35 Attestation: Time is exclusive of separately billable procedures. Time includes: direct patient care, patient reassessment, coordination of patient care, interpretation of data (laboratory data, pulse oximetry, arterial blood gases and chest xrays), review of patient's medical records, medical consultation and documentation of patient care. Procedures excluded from critical care time: central intravenous line placement and electrocardiography. Discharge Plan Discharge Clinical Impression: Sciatica, Lumbar radiculopathy Prescriptions: No Action glucosamine sulfate [Glucosamine] 500 mg Tablet 1,500 mg PO NEEDED PRN (Reason: arthritis pain) Rx Instructions: administer with meals albuterol sulfate 90 mcg/actuation HFA aerosol inhaler 2 inh INHALATION Q4H PRN (Reason: Wheezing) loratadine 10 mg Tablet 10 mg PO NEEDED PRN (Reason: allergies ) omega 1-phl-mtk-fish oil [Fish Oil] 1,000 mg (120 mg-180 mg) Capsule 1 cap PO DAILY warfarin [Jantoven] 2.5 mg tablet 1.25 mg PO DAILY@1800 acetaminophen 650 mg Tablet Extended Release 650 mg PO Q8H PRN (Reason: arthritis) Vitamin B-12 50 mcg Tablet 50 mcg PO DAILY Centrum Silver 0.4 mg-300 mcg- 250 mcg Tablet 1 tab PO DAILY (DME) FreeStyle Lite Strips Strip Qty: 100 0RF Rx Instructions: Test four times a day or as directed. (DME) pen needle, diabetic 32 gauge x 1/4 needle Qty: 100 0RF Rx Instructions: Use four times a day or as directed. (DME) lancets [FreeStyle Lancets] 28 gauge misc Qty: 100 0RF Rx Instructions: Test four times a day or as directed. (DME) blood-glucose meter [FreeStyle Lite Meter] Kit Qty: 1 0RF Rx Instructions: As Directed, 4 times a day (DME) lancets [FreeStyle Lancets] 28 gauge misc Qty: 100 0RF Rx Instructions: Test four times a day or as directed. insulin glargine [Basaglar KwikPen U-100 Insulin] 100 unit/mL (3 mL) insulin pen 18 unit subcut DAILY simvastatin 20 mg tablet 20 mg PO BEDTIME fenofibrate nanocrystallized 145 mg tablet 145 mg PO BEDTIME irbesartan 300 mg tablet 300 mg PO BEDTIME furosemide 20 mg tablet 20 mg PO BID PRN (Reason: swelling) Referrals: [facility] [address] [Outside] Print Language: Lao
[2024-12-19] MEDS: oxyCODONE HCl Immed Release 5 MG TABLET PO ×3 (09:03→21:32)
[2024-12-19 09:25] LABS: MANUAL DIFF FLAG NO
[2024-12-19 09:26] LABS: Hematocrit 36.7 % (37.0-47.0); Hemoglobin 11.3 g/dl (12.0-16.0); Imm Gran Abs Auto 0.05 X10*3/uL (0.00-0.03); Imm Gran Pct Auto 0.4 % (0.0-0.4); Lymphocytes Absolute Auto 0.6 X10*3/uL (1.2-4.9); Mean Corpuscular HGB Conc 30.8 g/dl (31.0-35.0); Mean Corpuscular Hemoglobin 24.4 pg (27.0-33.0); Mean Corpuscular Volume 79.1 fL (80.0-98.0); NRBC Abs Auto 0.020 X10*3/uL (0.0-0.012); NRBC Pct Auto 0.2 /100WBC (0.0-0.2); Platelet Count 233 X10*3/uL (160-400); Red Blood Count 4.64 X10*6/uL (4.20-5.50); White Blood Count 12.5 X10*3/uL (4.8-10.8)
[2024-12-19 09:41] LABS: Alanine Aminotransferase 20 U/L (0-31); Albumin Level 3.9 g/dL (3.5-5.0); Alkaline Phosphatase 43 U/L (39-117); Anion Gap 12 (12-20); Aspartate Amino Transferase 41 U/L (5-31); Blood Urea Nitrogen 19 mg/dL (9-16); Calcium 9.4 mg/dL (8.4-10.2); Carbon Dioxide 24 mmol/L (22-29); Chloride 106 mmol/L (96-108); Creatinine Clr Calc Pharmacy 95.8; Estimated Glomerular Filt Rate > 60; Potassium 3.4 mmol/L (3.3-5.1); Sodium 139 mmol/L (135-145); Total Protein 7.1 g/dL (6.5-8.0)
[2024-12-19 09:58] LABS: INTERNATIONAL NORM RATIO 4.3 (0.9-1.1); Prothrombin Time 49.3 SEC (10.9-12.4)
[2024-12-19 12:48] VITALS: BP 137/69; PULSE 69; RESP 14; TEMP 36.3; O2SAT 94
[2024-12-19 14:06] LABS: Resp Syncy Virus RNA Qual PCR NEGATIVE (Negative); SARS COV2 PCR INHOUSE NEGATIVE (Negative)
--- NOTE | 2024-12-19 14:08 | MHC.CM.ED ---
Received case management consult from Dr Alvarez. Patient came to the ER due to back pain. Found to have lumbar radiculopathy. Physical therapy eval completed. Rehab is recommended. Does not appear patient has been inpatient in any facility in the past 30 days. Referral will be sent to all 3 acute rehab facilities. Continue to monitor for d/c needs.
[2024-12-19 14:49] VITALS: BP 168/77; PULSE 70; RESP 14; TEMP 36.6; O2SAT 95
--- NOTE | 2024-12-19 15:40 | MHC.CM.ED ---
Met with patient and , Nate, in regards to discharge planning. Patient lives with Nate, ambulates independently at baseline and had no services prior to coming to the ER. PCP verified. Copy of HCP verified to be on file. Patient confirms she has not been inpatient in any facility in the past 30 days. [facility] able to offer a bed. [facility] is still reviewing. Patient aware she will be in the ER overnight. Continue to monitor for d/c needs.
--- NOTE | 2024-12-19 16:26 | MHC.EDTECH ---
pt ambulated to and from bathroom with a two assist and limp however steady on feet
[2024-12-19 16:44] VITALS: BP 145/68; PULSE 68; RESP 14; TEMP 36.2; O2SAT 94
[2024-12-19 21:08] VITALS: BP 141/67; PULSE 69; RESP 20; TEMP 37.1; O2SAT 93
[2024-12-20 06:00] VITALS: BP 133/76; PULSE 69; RESP 20; TEMP 36.7; O2SAT 94
[2024-12-20] MEDS: oxyCODONE HCl Immed Release 5 MG TABLET PO ×2 (06:01→12:32)
--- NOTE | 2024-12-20 09:41 | PHA.MEDREC ---
Addendum entered by Shorty Colon, PharmD 12/20/24 11:08: [facility] REC CHECKED BY [facility] Original Note: Pharmacy Consult ? Medication Reconciliation Pharmacy has completed the medication reconciliation. Spoke with pt and she confirmed her medications. Pt states she takes 18 units of Basaglar daily, she is taking Warfarin 2.5mg 1/2 tab (1.25mg) once a day, she is not taking Humalog anymore and stopped that back in September and she has not taken any of her medications in 2 days.
--- NOTE | 2024-12-20 11:18 | PC.NURSE ---
Pt has been resting quietly. States her sciatic pain was better after meds this am and doesn't need any at this time. Await full med rec which pharmacy is working on. Pt is Axox3. skin pwd. Able to state her needs. Ate well at breakfast. No distress.
[2024-12-20 11:58] LABS: INTERNATIONAL NORM RATIO 4.6 (0.9-1.1); Prothrombin Time 53.0 SEC (10.9-12.4)
--- NOTE | 2024-12-20 12:38 | MHC.CM.ED ---
Patient remains in ER overflow. No acute rehab bed offers available. Patient has [employer] as secondary insurance. Referral broadcasted for bed availability. [employer] will pay 80%. Patient will be billed 20%. [facility], [facility] and [facility] are able to offer a bed. Patient accepts bed at [facility]. Jeniffer FRAGA booked for 1pm. Med [facility] with chart. Patient, Samra Sullivan RN and Ann BASHIR aware. Continue to monitor for d/c needs.
[2024-12-20 13:37] VITALS: BP 133/76; PULSE 69; RESP 20; TEMP 36.7; O2SAT 94
== END 2024-12-20 13:39 | disposition skilled nursing facility (03) ==
PROVIDERS: Physician Assistant; Emergency Provider Emergency Medicine; PCP Physician Assistant Medical
DX: M54.16 Radiculopathy, lumbar region (principal); M54.40 Lumbago with sciatica, unspecified side; E11.9 Type 2 diabetes mellitus without complications; I50.9 Heart failure, unspecified; Z95.0 Presence of cardiac pacemaker; Z03.818 Encounter for observation for suspected exposure to other biological agents ruled out; Z79.01 Long term (current) use of anticoagulants; Z79.899 Other long term (current) drug therapy
CPT/HCPCS: 36415; 72131; 80053; 85025; 85610; 87637; 97162; 99284

== ENCOUNTER → 2024-12-19 08:02 | Outpatient (BNV) | payer MEDICARE, OTHER, SELFPAY | PROVIDERS: Emergency Provider Emergency Medicine; PCP Physician Assistant Medical; Visit Provider Radiology Diagnostic Radiology | DX: M47.816 Spondylosis without myelopathy or radiculopathy, lumbar region (principal); K57.30 Diverticulosis of large intestine without perforation or abscess without bleeding | CPT/HCPCS: 72131 ==

== ENCOUNTER 2025-02-03 13:23 | Inpatient (IN) | payer MEDICARE, OTHER, SELFPAY ==
--- NOTE | ~2025-02-03 | CT_ITS ---
EXAMINATION: CT LUMBAR SPINE with IV contrast. Contrast: 85 mL Omnipaque 350 CLINICAL INFORMATION: severe right LBP, INR 8.9, r/o hematoma COMPARISON: 12/19/2024 TECHNIQUE: Axial CT was performed from mid T11 through the lower sacrum without IV contrast. Coronal and sagittal reformatted images were generated from the original axial data set. ALARA: The examination used one or more of the following radiation dose reduction techniques: Automated exposure control, iterative reconstruction, and/or adjustment of mA and/or KV. FINDINGS: There is a 12 mm lesion in the lower pole of the right kidney posteriorly that measures 32 Hounsfield units. It was not clearly visible on the prior unenhanced CT. A few pseudodiverticula are visualized in the sigmoid colon. Mild atherosclerotic calcifications are present in the aorta. There are 5 non-rib bearing lumbar segments. There is fat stranding between the aorta and the lumbar spine between mid-L2 and inferior endplate of L3. Psoas muscles are symmetrical and not enlarged. Evaluation of disc spaces and spinal canal is limited on CT compared to MRI. T12-L1: There is moderate loss of disc height without spinal stenosis or foraminal narrowing. L1-L2: There is subtle retrolisthesis. There is mild loss of disc height. Mild foraminal narrowing is again noted. L2-L3: There is subtle retrolisthesis with mild loss of disc height and vacuum phenomena. There is circumferential broad-based disc bulge and mild facet arthropathy. There is likely mild spinal stenosis and mild foraminal narrowing, greater on the left, similar to the prior. L3-L4: There is mild loss of disc height with circumferential disc bulge and endplate osteophytes. There is moderate facet arthropathy and ligament flavum thickening resulting in [id number] spinal stenosis and subarticular zone narrowing. Mild foraminal narrowing is bilateral. L4-L5: There is circumferential broad-based disc bulge and moderate to severe facet arthropathy with hypertrophic changes resulting in mild spinal stenosis and mild right and [id number] left foraminal narrowing, unchanged. L5-S1: There is minimal broad-based disc bulge with endplate osteophytes and severe facet arthropathy. There is no spinal stenosis. Osteophytes minimally contacts S1 nerve root, right greater than left, in the subarticular zones. Again seen is moderate right and mild left foraminal narrowing. CT/CT lumbar spine w IV con IMPRESSION: There is fat stranding between the aorta and the lumbar spine between mid-L2 and inferior endplate of L3. Differential considerations include blood products and infection. Indeterminate lower pole right renal lesion measuring 12 mm diameter and 33 Hounsfield units. The small size limits definitive characterization. Follow-up nonemergent MRI abdomen/renal without and with IV contrast to better characterize this lesion. Stable multilevel degenerative changes. Electronically signed by: Sacha Uriostegui MD 02/03/2025 05:22 PM LEON RP
--- NOTE | ~2025-02-03 | CT_ITS ---
EXAMINATION: CT HIP WITH CONTRAST, RIGHT CLINICAL INFORMATION: Severe right hip pain, rule out hematoma. COMPARISON: None available. TECHNIQUE: Spiral CT imaging of the right hip performed in axial plane after the administration of 85 mL Omnipaque 350. Multiplanar reformatted images were constructed from the axial data set. This CT examination was performed using dose optimization techniques as appropriate, variously including the following: *Automated exposure control *Adjustment of mA and/or kV according to patient size (this includes techniques or standardized protocols for targeted exams where dose is matched to indication/reason for exam; i.e. extremities or head) *Use of iterative reconstruction technique FINDINGS: There is normal alignment of the right hip joint. There is no fracture, dislocation, subluxation, or suspicious bone lesion. There are enthesopathic changes of the greater trochanter, and calcific enthesopathy of the right hamstrings insertion. There are mild degenerative changes in the right SI joint, and mild to moderate degenerative changes in the right hip joint. There is no definite right hip joint effusion. No significant iliopsoas bursitis. There is no hematoma or abnormal fluid collection in the soft tissues of the right hip. There is moderate sigmoid colonic diverticulosis. There is no evidence of acute diverticulitis. There appears to have been a hysterectomy. There are no right adnexal masses. The imaged urinary bladder is normal. Imaged bowel structures are otherwise normal. CT/CT hip RT w IV con IMPRESSION: 1. There is no hematoma in the soft tissues of the right hip. 2. There is no acute fracture or dislocation. 3. There are mild to moderate changes of osteoarthrosis of the right hip joint. There is no joint effusion. 4. Enthesopathic changes of the hamstrings insertion and greater trochanter. Electronically signed by: Sabino Pacheco MD 02/03/2025 05:01 PM LEON
--- NOTE | ~2025-02-03 | XR_ITS ---
EXAMINATION: XR CHEST CLINICAL INFORMATION: cough COMPARISON: 11/15/2024. TECHNIQUE: Frontal view of the chest was obtained. FINDINGS: Left-sided dual-lead pacer device in place with leads in the right atrium and right ventricle. There is cardiac enlargement. There is been a previous median sternotomy. Aortic mural calcifications. The lungs demonstrate hazy interstitial markings bilaterally with Royer B lines in both lung bases suggesting changes of interstitial edema. Grossly no effusions. No discrete consolidations. No pneumothorax. No focal osseous or soft tissue abnormality. XR/XR chest 1V IMPRESSION: 1. Cardiomegaly with mild to moderate changes of interstitial pulmonary edema. No definite effusions. 2. Dual-lead pacer device in place. 3. Prior median sternotomy. Electronically signed by: Sabino Pacheco MD 02/03/2025 04:29 PM LEON
[2025-02-03 13:40] VITALS: BP 145/66; PULSE 72; RESP 18; TEMP 37.3; O2SAT 94; BMI 27.9
--- NOTE | 2025-02-03 13:41 | ED.LOWEXIN ---
HPI - Extremity Injury (Lower) General Chief Complaint: Back Pain/Injury Stated Complaint: r sided hip pain Time Seen by Provider: 02/03/25 14:50 Source: patient Mode of arrival: ambulatory Limitations: no limitations History of Present Illness ED Provider: Viktor Echavarria PA-C HPI Narrative: 74 yo female with history of DM, mechanical aortic valve replacement on Coumadin, s/p PPM, asthma, hx dental work related endocarditis, HTN, hx DVT, Enterococcus bacteremia s/p 6 weeks Daptomycin treatment August-October who was seen here for sciatica in December and discharged to acute rehab for 1 month who presents to the ER from home c/o worsening right lower back pain radiating to her right hip and upper leg for the last 3 weeks. She states the pain started 01/12 when she was at rehab, went to use the bedrail to get up when it collapsed and she twisted her back. She did not fall. She reports since then the pain in her back has been getting worse. It is worse with any movement and coughing. It starts in her right lower back and radiates to her right buttock and hip. No recent falls. She has been taking tylenol with minimal relief. She denies numbness or tingling in the leg, no bowel or bladder incontinence. She reports a chronic asthmatic cough for which she was just started on a steroid inhaler. She reports it is dry cough, no fevers or chills. No chest pain. She was found to have an INR of 7.9 today, her Coumadin had been held for several days for supratherapeutic levels. No recent antibiotic use. She has been home from rehab since 01/14. She has PT come to the house twice per week. The pain in her back and hip have worsened and she is no longer able to work with them. complaint: other (back pain) Onset (ago): week(s) Injury: Right: hip Place: [facility] Severity: severe Severity scale (1-10): 9 Relieving factors: immobilization and rest Exacerbating factors: movement and other (coughing) Context: other (twisting movement ) Associated symptoms: able to partially bear weight Other symptoms: none Related Data Home Medications ?Medication ?Instructions ?Recorded ?Confirmed fenofibrate nanocrystallized 145 145 mg PO BEDTIME 10/30/2002/04/ mg tablet furosemide 20 mg tablet 20 mg PO BID PRN swelling 10/30/20 02/04/25 simvastatin 20 mg tablet 20 mg PO BEDTIME 10/30/20 02/04/25 albuterol sulfate 90 mcg/actuation 2 inh inhalation Q4H PRN Wheezing 04/28/22 02/04/25 aerosol inhaler loratadine 10 mg tablet 10 mg PO DAILY PRN allergies 04/28/22 02/04/25 omega 5-joe-zdh-fish oil 1,000 mg 1 cap PO DAILY 04/28/22 02/04/25 (120 mg-180 mg) capsule (Fish Oil) cyanocobalamin (vitamin B-12) 50 50 mcg PO DAILY 09/09/24 02/04/25 mcg tablet (Vitamin B-12) warfarin 2.5 mg tablet (Jantoven) 1.25 mg PO DAILY@1800 09/09/24 02/04/25 insulin glargine 100 unit/mL (3 14 - 16 unit subcut DAILY 12/20/24 02/04/25 mL) subcutaneous pen (Artsyaglar KwikPen U-100 Insulin) fluticasone furoate 100 1 inh inhalation DAILY PRN 02/04/25 02/04/25 mcg-vilanterol 25 mcg/dose Shortness Of Breath Or Wheezing inhalation powder (Breo Ellipta) sacubitril 24 mg-valsartan 26 mg 1 tab PO BID 02/04/25 02/04/25 tablet Previous Rx's ?Medication ?Instructions ?Recorded blood sugar diagnostic (FreeStyle #100 ea 09/18/24 Lite Strips) blood-glucose meter (FreeStyle #1 ea 09/18/24 Lite Meter kit) lancets 28 gauge (FreeStyle #100 ea 09/18/24 Lancets) lancets 28 gauge (FreeStyle #100 ea 09/18/24 Lancets) pen needle, diabetic 32 gauge x #100 ea 09/18/24 1/ Allergies Allergy/AdvReac Type Severity Reaction Status Date / Time adhesive tape Allergy Rash Verified 02/03/25 13:50 Review of Systems Review of Systems: Yes all other systems are reviewed and are negative [facility] Past Medical History Medical History (Updated 02/06/25 @ 11:22 by Ar Greenwood MD) Endocarditis Sick sinus syndrome Midline sternotomy scar Breast cancer, left Uterine cancer DVT (deep venous thrombosis) CHF (congestive heart failure) DM (diabetes mellitus) Kidney stones Asthma Pacemaker Surgical History History of lumpectomy of left breast History of total abdominal hysterectomy Aortic valve prosthesis present Social History Social History Household Members: Spouse Housing: House Do you presently have visiting nurse or other home services: Yes Alcohol intake: never Patient Tobacco Use Status: Never used Tobacco Smoked in Last 30 Days: No Use of substances other than those prescribed or required for medical reasons: No Currently Displaying Signs/Symptoms of Drug Intoxication Withdrawal: No Advance Directives: Yes Advance Directives on File: Yes Advance Directives Date on File: 12/19/24 Do you have a plan to hurt others: No Plan Patient : No : No Poor oral hygiene: No service: No Physical Exam Exam: Exam: Appearance: Alert, elderly female laying in bed. Oriented X3. appears uncomfortbale Head: normocephalic, atraumatic. Eyes: Pupils equal, round and reactive to light. ENT: Pharynx normal. No tonsillar swelling or exudate. Neck: Normal inspection. Neck supple. CVS: Normal heart rate and rhythm. Pulses normal. paced Respiratory: No respiratory distress. Breath sounds normal. Abdomen: Softly disteneded and nontender. +BS x4 Back: normal inspection, no ecchymosis, soft tissue tenderness of the middle and lower lumbar areas, right gluteus and right lateral hip. limited ROM of the back and hip due to pain. Skin: Skin warm and dry. Normal skin color. Normal skin turgor. No rashes. Extremities: No lower extremity edema. No joint swelling. Neuro/psych: Oriented X 3. No motor deficit. No sensory deficit. CN II-XII intact. Normal speech and cognition. Vital Signs: Vital Signs: Last Vital Signs Temp 97.4 F 02/06/25 07:30 Pulse 72 02/06/25 11:11 Resp 18 02/06/25 07:30 BP 168/77 H 02/06/25 11:11 Pulse Ox 94 02/06/25 11:11 O2 Del Method Room Air 02/06/25 11:11 BMI result Body Mass Index 27.9 Course Course Course Narrative: This is an RME: Additional HPI, ROS, PE not included below will be deferred to primary provider. RME assessment and note performed by: Lisha Piedra PA-C This is a 89-wvoy-dak-female, with a hx of CHF, DM, asthma, aortic valve prosthesis, who presents to the ER with complaints of acute on chronic back pain. Reports that she was d/c from [facility] after severe sciatica, discharged on 01/14. Before her discharge, she leaned onto her bed railing and it collapsed, which caused her body to twist. She states that upon discharge she asked to see the incident report - was told it was just noted in her file. She never had imaging of her back which she would like to have done today. pt also with dry cough during assessment. No urinary or bowel retention or incontinence. Reports that she has not been eating much. Reports difficulties with INR. INR was 7.5 today. Has been taking coumadin 3 2.5mg, and 4 1.5mgs. She has been holding her coumadin for 6 days, reports that they are going to check her liver due to abnormal coumadin levels. Plan: xrays, labs, further Er eval needed. 02/03/255 -- Wendy Manrique NP patient signed out to me from previous provider, pending imaging. patient to be held in ED overnight for CM in morning with plan to downtrend INR, if imaging is negative for any active bleeding. pt with stable h/h. pending imaging. 7-- CT/CT lumbar spine w IV con IMPRESSION: There is fat stranding between the aorta and the lumbar spine between mid-L2 and inferior endplate of L3. Differential considerations include blood products and infection. Indeterminate lower pole right renal lesion measuring 12 mm diameter and 33 Hounsfield units. The small size limits definitive characterization. Follow-up nonemergent MRI abdomen/renal without and with IV contrast to better characterize this lesion. Imaging reviewed with the attending, concerning for possible blood products within the L2-L3. The patient is complaining of pain to the right hip and outer thigh, correlating with dermatomes along this region. Plan for [facility] neurosurgery consultation. 1754-- I spoke with [facility] neurosurgery KRYSTEN Camacho, who reports that after review of the imaging she believes this is just air, which is a chronic finding. Patient does not require any acute interventions and therefore is medically cleared for case management evaluation and continued POC. 0057-- I've ordered Q8H PRN severe pain oxycodone for the patient. Patient to be seen by CM in morning pending repeat labs. Reevaluation(s) Reevaluation #1: physician observation continued. patient continues to c/o severe low back and right hip pain. now ordered for PRN oxycodone. will add scheduled tylenol and muscle relaxer PRN. H/H overall stable with hemoglobin 10.5 from 11. hemodynamically stable. INR slowly coming down. will continue to monitor. Time: 07:46 Reevaluation #2: Time: 09:33 Date: 02/05/25 Provider: KRYSTEN Suarez Patient in physician observation for case management needs. No acute events reported overnight.? No current issues or complaints. Given INR continues to be elevated, physical therapy can not evaluate patient until it is below 5. It is unclear her how long this will take therefore patient was admitted to the medical service for management. Transfer of care initiated. Medications Administered Generic Name Dose Route Start Last Admin Trade Name Freq PRN Reason Stop Dose Admin Acetaminophen 650 mg 02/06/25 11:00 02/06/25 11:13 Acetaminophen 325 Mg Tablet PO 650 mg Q8H DONAVAN Administration Atorvastatin Calcium 10 mg 02/04/25 21:00 02/05/25 20:27 Atorvastatin Calcium 10 Mg Tablet PO 10 mg BEDTIME DONAVAN Administration Cyanocobalamin 50 mcg 02/04/25 13:45 02/06/25 08:40 Cyanocobalamin (Vitamin B-12) 100 Mcg Tablet PO 50 mcg DAILY DONAVAN Administration Cyclobenzaprine HCl 5 mg 02/06/25 10:45 02/06/25 11:20 Cyclobenzaprine Hcl 5 Mg Tablet PO 5 mg TID DONAVAN Administration Docusate Sodium 100 mg 02/04/25 13:35 02/06/25 08:39 Docusate Sodium 100 Mg Capsule PO 100 mg BID DONAVAN Administration Fenofibrate 134 mg 02/04/25 21:00 02/05/25 20:26 Fenofibrate,Micronized 134 Mg Capsule PO 134 mg BEDTIME DONAVAN Administration Ibuprofen 400 mg 02/06/25 10:45 02/06/25 11:13 Ibuprofen 400 Mg Tablet PO 400 mg Q8H DONAVAN Administration Insulin Glargine 14 unit 02/04/25 13:45 02/06/25 08:39 Insulin Glargine,Hum.Rec.Anlog 100 Unit/Ml 10 Ml Vial SUBCUT 14 unit DAILY DONAVAN Administration Insulin Human Lispro 0 unit 02/04/25 16:30 02/06/25 12:51 Insulin Lispro 100 Unit/Ml 3 Ml Vial SUBCUT 2 unit QIDACHS [facility] Administration Protocol Pantoprazole Sodium 40 mg 02/06/25 10:45 02/06/25 11:15 Pantoprazole Sodium 40 Mg/10 Ml Vial IVPUSH 40 mg DAILY DONAVAN Administration Polyethylene Glycol 17 gm 02/04/25 13:35 02/06/25 08:40 Polyethylene Glycol 3350 17 Gm Powd.Pack PO 17 gm DAILY DONAVAN Administration Sacubitril/Valsartan 1 tab 02/04/25 21:00 02/06/25 08:39 Sacubitril/Valsartan 1 Tab Tablet PO 1 tab BID DONAVAN Administration Protocol Discontinued Medications Generic Name Dose Route Start Last Admin Trade Name Freq PRN Reason Stop Dose Admin Acetaminophen 650 mg 02/03/25 16:53 02/03/25 17:06 Acetaminophen 325 Mg Tablet PO 02/03/25 16:54 650 mg ONCE ONE Administration Iohexol 100 ml 02/03/25 15:59 02/03/25 15:59 Iohexol 350 Mg/Ml 100 Ml Infus..Btl IV 02/03/25 16:00 85 ml ONCE ONE Administration Ketorolac Tromethamine 30 mg 02/05/25 11:06 02/05/25 12:40 Ketorolac Tromethamine 30 Mg/Ml Vial IVPUSH 02/05/25 11:07 30 mg ONCE ONE Administration Lidocaine 1 patch 02/03/25 16:53 02/03/25 17:04 Lidocaine 4 % Patch Adh..Patch TRANSDERMA 02/03/25 16:54 1 patch ONCE ONE Administration Protocol Methocarbamol 750 mg 02/05/25 15:00 02/06/25 08:39 Methocarbamol 750 Mg Tablet PO 750 mg TID DONAVAN Administration Oxycodone HCl 5 mg 02/03/25 16:53 02/03/25 17:07 Oxycodone Hcl Immed Release 5 Mg Tablet PO 02/03/25 16:54 5 mg ONCE ONE Administration Oxycodone HCl 5 mg 02/04/25 00:54 02/04/25 06:09 Oxycodone Hcl Immed Release 5 Mg Tablet PO 5 mg Q8H PRN Administration Pain, Severe (Pain Scale 7-10) Oxycodone HCl 5 mg 02/04/25 06:05 02/06/25 08:39 Oxycodone Hcl Immed Release 5 Mg Tablet PO 5 mg Q4H PRN Administration Pain, Severe (Pain Scale 7-10) Polyethylene Glycol 17 gm 02/03/25 16:53 02/03/25 17:04 Polyethylene Glycol 3350 17 Gm Powd.Pack PO 02/03/25 16:54 17 gm ONCE ONE Administration Senna/Docusate Sodium 2 tab 02/03/25 16:53 02/03/25 17:09 Sennosides/Docusate Sodium Tablet PO 02/03/25 16:54 2 tab ONCE ONE Administration Medical Decision Making Medical Decision Making MDM Narrative: 74 yo female with history of DM, mechanical aortic valve replacement on Coumadin, s/p PPM, asthma, hx dental work related endocarditis, HTN, hx DVT, Enterococcus bacteremia s/p 6 weeks Daptomycin treatment August-October who was seen here for sciatica in December and discharged to acute rehab for 1 month who presents to the ER from home c/o worsening right lower back pain radiating to her right hip and upper leg for the last 3 weeks. Found to have INR 8.9. Hemodynamically stable with stable H/H which is reassuring. Her pain is quite severe and she has diffuse tenderness of her lower back, buttocks and hip with no obvious hematoma. Given her INR, CT scans were done to assess for hematomas that could be causing her pain. No role for INR reversal at this time with stable vitals and H/H. she has had a chronic cough for months. last CXR in rehab was clear. coughing is increasing her back pain. no fevers, SOB or difficultly breathing. CXR here showing some interstitial edema. 16:56 - with supratherapteutic INR and severe back pain she is not able to be safely discharged. will place in physician observation, treat pain, repeat H/H and INR in the morning. PT usually does not evaluate until INR not as high. Will plan to f/u with them tomorrow. patient placed in physician observation pending CT scan reads, repeat labs and reassessment after pain treatment. Differential Diagnosis Differential Diagnoses: The differential diagnosis associated with the presentation includes spontaneous hematoma of the back or hip, sciatica, lumbar radiculopathy, psoas hematoma, perineprhric hematoma Admission/Observation Consideration of admission/observation: Escalation of care including admission/observation considered Lab Data MDM Lab Attestation statement: I reviewed the patient's lab results. stable anemia, supratherapeutic INR 02/06/25 09:05 02/06/25 09:05 Labs: Lab Results 02/03/25 02/03/25 02/04/25 Range/Units 14:04 16:26 00:10 WBC 17.1 H (4.8-10.8) X10*3/uL RBC 5.00 (4.20-5.50) X10*6/uL Hgb 11.5 L (12.0-16.0) g/dl Hct 36.5 L (37.0-47.0) % MCV 73.0 L (80.0-98.0) fL MCH 23.0 L (27.0-33.0) pg MCHC 31.5 (31.0-35.0) g/dl RDW 20.3 H (11.0-16.0) % Plt Count 360 D (160-400) X10*3/uL MPV 9.4 (9.4-12.3) fL Immature Gran % (Auto) 0.5 H (0.0-0.4) % Neut % (Auto) 90.3 H (45-73) % Lymph % (Auto) 4.0 L (20-40) % [place] % (Auto) 4.6 (2-11) % Eos % (Auto) 0.1 (0-4) % Baso % (Auto) 0.5 (0-2) % Lymph # (Auto) 0.7 L (1.2-4.9) X10*3/uL [place] # (Auto) 0.8 (0.1-1.2) X10*3/uL Eos # (Auto) 0.0 (0.0-0.4) X10*3/uL Baso # (Auto) 0.1 (0.0-0.2) X10*3/uL Abs Immat Gran (auto) 0.08 H (0.00-0.03) X10*3/uL Absolute Neuts (auto) 15.4 H (2.0-8.3) x10*3/uL Absolute Nucleated RBC 0.000 (0.0-0.012) X10*3/uL Nucleated RBC % (auto) 0.0 (0.0-0.2) /100WBC Smear Tech's Comments VERIFIED PT 99.6 H (11.2-13.5) SEC INR 8.6 H* D (0.9-1.1) Sodium 135 (135-145) mmol/L Potassium 3.6 (3.3-5.1) mmol/L Chloride 99 (96-108) mmol/L Carbon Dioxide 26 (22-29) mmol/L Anion Gap 14 (12-20) BUN 16 (9-16) mg/dL Creatinine 0.50 (0.5-1.4) mg/dL Estim Creat Clear Calc 99.2 Estimated GFR > 60 POC Glucose (60-115) mg/dL Random Glucose 238 H (60-115) mg/dL Calcium 9.9 (8.4-10.2) mg/dL Magnesium 1.6 (1.6-2.6) mg/dL Total Bilirubin 0.8 (0.0-1.0) mg/dL Direct Bilirubin 0.5 (0.0-0.5) mg/dL AST 36 H (5-31) U/L ALT 9 (0-31) U/L Alkaline Phosphatase 69 (39-117) U/L Total Protein 7.6 (6.5-8.0) g/dL Albumin 3.2 L (3.5-5.0) g/dL Urine Color Dark Yellow Urine Appearance Clear Urine pH 5.0 (5.0-9.0) Ur Specific [place] >= 1.030 H (1.005-1.025) Urine Protein 30 (1+) H (Neg-Trace) mg/dL Urine Glucose (UA) Negative (Negative) mg/dL Urine Ketones Negative (Negative) mg/dL Urine Blood Trace H (Negative) Urine Nitrite Negative (Negative) Ur Leukocyte Esterase Negative (Negative) Urine RBC 11-20 H (0-2) /HPF Urine WBC 0-5 (0-5) /HPF Ur Squamous Epith Cells 3-5 (0-2) /HPF Urine Bacteria None Seen (None Seen) Hyaline Casts 0-2 (0-2) /LPF Influenza Type A (PCR) NEGATIVE (Negative) Influenza Type B (PCR) NEGATIVE (Negative) RSV RNA Qual (PCR) NEGATIVE (Negative) SARS-CoV-2 RNA (RT-PCR) NEGATIVE (Negative) 02/04/25 02/04/25 02/04/25 Range/Units 05:44 07:01 16:23 WBC 13.3 H (4.8-10.8) X10*3/uL RBC 4.57 (4.20-5.50) X10*6/uL Hgb 10.5 L (12.0-16.0) g/dl Hct 33.2 L (37.0-47.0) % MCV 72.6 L (80.0-98.0) fL MCH 23.0 L (27.0-33.0) pg MCHC 31.6 (31.0-35.0) g/dl RDW 19.9 H (11.0-16.0) % Plt Count 338 (160-400) X10*3/uL MPV 9.8 (9.4-12.3) fL Immature Gran % (Auto) (0.0-0.4) % Neut % (Auto) (45-73) % Lymph % (Auto) (20-40) % [place] % (Auto) (2-11) % Eos % (Auto) (0-4) % Baso % (Auto) (0-2) % Lymph # (Auto) (1.2-4.9) X10*3/uL [place] # (Auto) (0.1-1.2) X10*3/uL Eos # (Auto) (0.0-0.4) X10*3/uL Baso # (Auto) (0.0-0.2) X10*3/uL Abs Immat Gran (auto) (0.00-0.03) X10*3/uL Absolute Neuts (auto) (2.0-8.3) x10*3/uL Absolute Nucleated RBC 0.000 (0.0-0.012) X10*3/uL Nucleated RBC % (auto) 0.0 (0.0-0.2) /100WBC Smear Tech's Comments PT 83.5 H (11.2-13.5) SEC INR 7.2 H* (0.9-1.1) Sodium (135-145) mmol/L Potassium (3.3-5.1) mmol/L Chloride (96-108) mmol/L Carbon Dioxide (22-29) mmol/L Anion Gap (12-20) BUN (9-16) mg/dL Creatinine (0.5-1.4) mg/dL Estim Creat Clear Calc Estimated GFR POC Glucose 200 H (60-115) mg/dL Random Glucose (60-115) mg/dL Calcium (8.4-10.2) mg/dL Magnesium (1.6-2.6) mg/dL Total Bilirubin (0.0-1.0) mg/dL Direct Bilirubin (0.0-0.5) mg/dL AST (5-31) U/L ALT (0-31) U/L Alkaline Phosphatase (39-117) U/L Total Protein (6.5-8.0) g/dL Albumin (3.5-5.0) g/dL Urine Color Urine Appearance Urine pH (5.0-9.0) Ur Specific [place] (1.005-1.025) Urine Protein (Neg-Trace) mg/dL Urine Glucose (UA) (Negative) mg/dL Urine Ketones (Negative) mg/dL Urine Blood (Negative) Urine Nitrite (Negative) Ur Leukocyte Esterase (Negative) Urine RBC (0-2) /HPF Urine WBC (0-5) /HPF Ur Squamous Epith Cells (0-2) /HPF Urine Bacteria (None Seen) Hyaline Casts (0-2) /LPF Influenza Type A (PCR) (Negative) Influenza Type B (PCR) (Negative) RSV RNA Qual (PCR) (Negative) SARS-CoV-2 RNA (RT-PCR) (Negative) 02/04/25 02/05/25 02/05/25 Range/Units 20:33 06:31 07:17 WBC (4.8-10.8) X10*3/uL RBC (4.20-5.50) X10*6/uL Hgb (12.0-16.0) g/dl Hct (37.0-47.0) % MCV (80.0-98.0) fL MCH (27.0-33.0) pg MCHC (31.0-35.0) g/dl RDW (11.0-16.0) % Plt Count (160-400) X10*3/uL MPV (9.4-12.3) fL Immature Gran % (Auto) (0.0-0.4) % Neut % (Auto) (45-73) % Lymph % (Auto) (20-40) % [place] % (Auto) (2-11) % Eos % (Auto) (0-4) % Baso % (Auto) (0-2) % Lymph # (Auto) (1.2-4.9) X10*3/uL [place] # (Auto) (0.1-1.2) X10*3/uL Eos # (Auto) (0.0-0.4) X10*3/uL Baso # (Auto) (0.0-0.2) X10*3/uL Abs Immat Gran (auto) (0.00-0.03) X10*3/uL Absolute Neuts (auto) (2.0-8.3) x10*3/uL Absolute Nucleated RBC (0.0-0.012) X10*3/uL Nucleated RBC % (auto) (0.0-0.2) /100WBC Smear Tech's Comments PT 81.2 H (11.2-13.5) SEC INR 7.0 H* (0.9-1.1) Sodium (135-145) mmol/L Potassium (3.3-5.1) mmol/L Chloride (96-108) mmol/L Carbon Dioxide (22-29) mmol/L Anion Gap (12-20) BUN (9-16) mg/dL Creatinine (0.5-1.4) mg/dL Estim Creat Clear Calc Estimated GFR POC Glucose 114 93 (60-115) mg/dL Random Glucose (60-115) mg/dL Calcium (8.4-10.2) mg/dL Magnesium (1.6-2.6) mg/dL Total Bilirubin (0.0-1.0) mg/dL Direct Bilirubin (0.0-0.5) mg/dL AST (5-31) U/L ALT (0-31) U/L Alkaline Phosphatase (39-117) U/L Total Protein (6.5-8.0) g/dL Albumin (3.5-5.0) g/dL Urine Color Urine Appearance Urine pH (5.0-9.0) Ur Specific [place] (1.005-1.025) Urine Protein (Neg-Trace) mg/dL Urine Glucose (UA) (Negative) mg/dL Urine Ketones (Negative) mg/dL Urine Blood (Negative) Urine Nitrite (Negative) Ur Leukocyte Esterase (Negative) Urine RBC (0-2) /HPF Urine WBC (0-5) /HPF Ur Squamous Epith Cells (0-2) /HPF Urine Bacteria (None Seen) Hyaline Casts (0-2) /LPF Influenza Type A (PCR) (Negative) Influenza Type B (PCR) (Negative) RSV RNA Qual (PCR) (Negative) SARS-CoV-2 RNA (RT-PCR) (Negative) 02/05/25 Range/Units 11:08 WBC (4.8-10.8) X10*3/uL RBC (4.20-5.50) X10*6/uL Hgb (12.0-16.0) g/dl Hct (37.0-47.0) % MCV (80.0-98.0) fL MCH (27.0-33.0) pg MCHC (31.0-35.0) g/dl RDW (11.0-16.0) % Plt Count (160-400) X10*3/uL MPV (9.4-12.3) fL Immature Gran % (Auto) (0.0-0.4) % Neut % (Auto) (45-73) % Lymph % (Auto) (20-40) % [place] % (Auto) (2-11) % Eos % (Auto) (0-4) % Baso % (Auto) (0-2) % Lymph # (Auto) (1.2-4.9) X10*3/uL [place] # (Auto) (0.1-1.2) X10*3/uL Eos # (Auto) (0.0-0.4) X10*3/uL Baso # (Auto) (0.0-0.2) X10*3/uL Abs Immat Gran (auto) (0.00-0.03) X10*3/uL Absolute Neuts (auto) (2.0-8.3) x10*3/uL Absolute Nucleated RBC (0.0-0.012) X10*3/uL Nucleated RBC % (auto) (0.0-0.2) /100WBC Smear Tech's Comments PT (11.2-13.5) SEC INR (0.9-1.1) Sodium (135-145) mmol/L Potassium (3.3-5.1) mmol/L Chloride (96-108) mmol/L Carbon Dioxide (22-29) mmol/L Anion Gap (12-20) BUN (9-16) mg/dL Creatinine (0.5-1.4) mg/dL Estim Creat Clear Calc Estimated GFR POC Glucose 161 H (60-115) mg/dL Random Glucose (60-115) mg/dL Calcium (8.4-10.2) mg/dL Magnesium (1.6-2.6) mg/dL Total Bilirubin (0.0-1.0) mg/dL Direct Bilirubin (0.0-0.5) mg/dL AST (5-31) U/L ALT (0-31) U/L Alkaline Phosphatase (39-117) U/L Total Protein (6.5-8.0) g/dL Albumin (3.5-5.0) g/dL Urine Color Urine Appearance Urine pH (5.0-9.0) Ur Specific [place] (1.005-1.025) Urine Protein (Neg-Trace) mg/dL Urine Glucose (UA) (Negative) mg/dL Urine Ketones (Negative) mg/dL Urine Blood (Negative) Urine Nitrite (Negative) Ur Leukocyte Esterase (Negative) Urine RBC (0-2) /HPF Urine WBC (0-5) /HPF Ur Squamous Epith Cells (0-2) /HPF Urine Bacteria (None Seen) Hyaline Casts (0-2) /LPF Influenza Type A (PCR) (Negative) Influenza Type B (PCR) (Negative) RSV RNA Qual (PCR) (Negative) SARS-CoV-2 RNA (RT-PCR) (Negative) Independent Interpretation I performed an independent interpretation of an: CT Scan Interpretation: no visible hematoma Radiology Impression Discussion of test interpretation with radiology: I have reviewed the radiologist's reading. Independent Historian Clinical information obtained from an independent historian. History obtained from or confirmed by: Spouse External Record Review External record reviewed: Inpatient record, Outpatient record, Prior outpatient labs and Prior outpatient radiology Prescription Management I considered prescription management with: Pain Medication and Other (vitamin K) Chronic Conditions Patient?s care impacted by: Diabetes and Other (aortic valve replacement) Discharge Plan Discharge Clinical Impression: Lumbar radiculopathy, Supratherapeutic INR Patient Disposition: Admitted As Inpatient Interventions: Admission Worksheet (ED) Last Done: 02/05/25 14:25 Discharge Date/Time: 02/05/25 15:14
[2025-02-03 14:14] LABS: Hematocrit 36.5 % (37.0-47.0); Hemoglobin 11.5 g/dl (12.0-16.0); Imm Gran Abs Auto 0.08 X10*3/uL (0.00-0.03); Imm Gran Pct Auto 0.5 % (0.0-0.4); Lymphocytes Absolute Auto 0.7 X10*3/uL (1.2-4.9); MANUAL DIFF FLAG SCAN; Mean Corpuscular HGB Conc 31.5 g/dl (31.0-35.0); Mean Corpuscular Hemoglobin 23.0 pg (27.0-33.0); Mean Corpuscular Volume 73.0 fL (80.0-98.0); NRBC Abs Auto 0.000 X10*3/uL (0.0-0.012); NRBC Pct Auto 0.0 /100WBC (0.0-0.2); Platelet Count 360 X10*3/uL (160-400); Red Blood Count 5.00 X10*6/uL (4.20-5.50); SCAN SMEAR FLAG 1; White Blood Count 17.1 X10*3/uL (4.8-10.8)
[2025-02-03 14:19] LABS: Prothrombin Time 99.6 SEC (11.2-13.5)
[2025-02-03 14:25] LABS: INTERNATIONAL NORM RATIO 8.6 (0.9-1.1)
[2025-02-03 14:32] LABS: Alanine Aminotransferase 9 U/L (0-31); Albumin Level 3.2 g/dL (3.5-5.0); Alkaline Phosphatase 69 U/L (39-117); Anion Gap 14 (12-20); Aspartate Amino Transferase 36 U/L (5-31); Blood Urea Nitrogen 16 mg/dL (9-16); Calcium 9.9 mg/dL (8.4-10.2); Carbon Dioxide 26 mmol/L (22-29); Chloride 99 mmol/L (96-108); Creatinine Clr Calc Pharmacy 99.2; Estimated Glomerular Filt Rate > 60; Magnesium 1.6 mg/dL (1.6-2.6); Potassium 3.6 mmol/L (3.3-5.1); Sodium 135 mmol/L (135-145); Total Protein 7.6 g/dL (6.5-8.0)
--- NOTE | 2025-02-03 14:50 | MHC.CM.ED ---
Patient is currently in ER. Received notification from [facility] that patient is active with their agency. Return referral made in [facility] so [facility] can follow for d/c needs.
[2025-02-03] MEDS: iohexoL 350 MG/ML 100 ML INFUS..BTL IV (15:59)
[2025-02-03] MEDS: Lidocaine 4 % Patch ADH..PATCH 1 PATCH TRANSDERMA (17:04)
[2025-02-03] MEDS: oxyCODONE HCl Immed Release 5 MG TABLET PO (17:07)
[2025-02-03 17:08] LABS: Resp Syncy Virus RNA Qual PCR NEGATIVE (Negative); SARS COV2 PCR INHOUSE NEGATIVE (Negative)
--- NOTE | 2025-02-03 18:43 | MHC.CM.ED ---
CM met with patient and her to discuss discharge planning. She is not yet medically cleared, as she has repeat labs in the morning. Her INR is supratherapeutic at 8.9. PT is pending. Pt was at [facility] from 12/20-01/14. She was discharge to home with [facility] and home PT. She did not have a qualifying stay. She has GI insurance. Pt feels her back pain is worse since she had an incident with a loose bedrail at [facility]. Pt has had home PT and is due for therapy tomorrow. CM will alert [facility] that patient is in the ED. Pt would like STR. Referrals will be placed with SNF's that accept [facility]. Pt is willing to return to [facility] if offered a bed. Pt is aware that she will have labs in the morning HCP is on file. PCP and insurance has been verified.
--- OUTSIDE RECORDS SUMMARY | 2025-02-03 19:33 | XMS_ITS | Encounter Summary ---
Author Organization [facility] Address [address] [place] [address] Care Team Providers Care Oil Well Fishing Tool Operator Name Role Phone Josue Crain Primary Care Provider +1 [phone] Encounter Details Date Type Department Care Team (Latest Contact Info) Description 12/21/2024 Lab Requisition [facility] - Main Lab [address] [place] [phone] Mariely Angulo MD [address] [place] [address] Heart failure, unspecified (CMS/HCC V24, CMS/HCC V28); Type 2 diabetes mellitus without complications (CMS/HCC V24, CMS/HCC V28); Unspecified asthma, uncomplicated; Presence of cardiac pacemaker; Presence of other heart-valve replacement Social History Tobacco Use Types Packs/Day [...] for your loved ones. For example, child psychologist or elderly care for an older adult? [...] Date Recorded What is your living situation? Unrecognized valu e 10/08/2024 Comments No Sex and Gender Information Value Date Recorded Sex Assigned at Female 10/19/2024 11:27 AM EDT Legal Sex Female 2:23 AM EST Gender Identity Female 10/19/2024 11:27 AM EDT Sexual Orientation Not on file documented as of this encounter Plan of Treatment Upcoming Encounters Date Type Department Care Team ([facility] st Contact Info) Description 02/17/2025 9:10 AM EST Office Visit [facility] - [facility] [address] [facility] [address] [place] [address] Lei Patel, HARVEY [address] [place] [address] Dr [address] [place] [phone] 03/03/2025 1:30 PM EST Ancillary Procedure [facility] Cardiology [facility] [address] [place] [address] 05/05/2025 12:30 PM EST Office Visit Adult [address] [address] Josue Crain PA [address] [place] [phone] 10/20/2025 9:30 AM EDT Ancillary Procedure [facility] - [address] [place] [address] documented as of this encounter Goals Goal Patient Goal Type Associated Problems Recent Progress Patient-Stated? Author <enter goal here> General On track(01/31/20 1:26 PM EST) Yes Kimberley Olsen, SERENA Note: I will start using my weights again. documented as of this encounter Procedures Procedure Name Priority Date/Time Associated Diagnosis Comments PROTHROMBIN TIME WITH INR Routine 12/21/2024 5:41 AM EDT Heart failure, unspecified (CMS/HCC V24, CMS/HCC V28) Type 2 diabetes mellitus without complications (CMS/HCC V24, CMS/HCC V28) Unspecified asthma, uncomplicated Presence of cardiac pacemaker Presence of other heart-valve replacement COMPLETE BLOOD COUNT Routine 12/21/2024 5:41 AM EDT Heart failure, unspecified (CMS/HCC V24, CMS/HCC V28) Type 2 diabetes mellitus without complications (CMS/HCC V24, CMS/HCC V28) Unspecified asthma, uncomplicated Presence of cardiac pacemaker Presence of other heart-valve replacement COMPREHENSIVE METABOLIC PANEL Routine 12/21/2024 5:41 AM EDT Heart failure, unspecified (CMS/HCC V24, CMS/HCC V28) Type 2 diabetes mellitus without complications ([facility] V24, [facility] V28) Unspecified asthma, uncomplicated Presence of cardiac pacemaker Presence of other heart-valve replacement documented in this encounter Results * (ABNORMAL) Comprehensive metabolic panel (12/21/2024 5:41 AM EDT) Sodium 135 133 - 145 mmol/L LAB CHEMISTRY METHOD 12/21/2024 12:12 PM [facility] Potassium 3.9 3.5 - 5.5 mmol/L LAB CHEMISTRY METHOD 12/21/2024 12:12 PM [facility] Chloride 101 96 - 110 mmol/L LAB CHEMISTRY METHOD 12/21/2024 12:12 PM [facility] CO2 26 21 - 32 mmol/L LAB CHEMISTRY METHOD 12/21/2024 12:12 PM [facility] Anion Gap 8 3 - 11 LAB CHEMISTRY METHOD 12/21/2024 12:12 PM [facility] Glucose 99 70 - 100 mg/dL LAB CHEMISTRY METHOD 12/21/2024 12:12 PM [facility] BUN 14 5 - 25 mg/dL LAB CHEMISTRY METHOD 12/21/2024 12:12 PM [facility] Creatinine 0.54 0.50 - 1.10 mg/dL LAB CHEMISTRY METHOD 12/21/2024 12:12 PM [facility] eGFR 96 >=60 mL/min/1. 73m2 LAB CHEMISTRY METHOD 12/21/2024 12:12 PM [facility] Comment:Calculation based on the Chronic Kidney Disease Epidemiology Collaboration (CKD-EPI) equation refit without adjustment for race. BUN/Creatinine Ratio 25.9 LAB CHEMISTRY METHOD 12/21/2024 12:12 PM [facility] Calcium 9.0 8.5 - 10.5 mg/dL LAB CHEMISTRY METHOD 12/21/2024 12:12 PM EDT [facility] AST (SGOT) 26 10 - 42 unit/L LAB CHEMISTRY METHOD 12/21/2024 12:12 PM [facility] ALT (SGPT) 23 10 - 60 unit/L LAB CHEMISTRY METHOD 12/21/2024 12:12 PM [facility] Alkaline Phosphatase 46 42 - 121 unit/L LAB CHEMISTRY METHOD 12/21/2024 12:12 PM [facility] Total Protein 6.8 6.0 - 8.0 g/dL LAB CHEMISTRY METHOD 12/21/2024 12:12 PM [facility] Albumin 3.1(L) 3.2 - 5.0 g/dL LAB CHEMISTRY METHOD 12/21/2024 12:12 PM [facility] Total Bilirubin 0.7 0.0 - 1.4 mg/dL LAB CHEMISTRY METHOD 12/21/2024 12:12 PM [facility] Blood Venous blood specimen / Unknown Venipuncture / Unknown 12/21/2024 5:41 AM EDT 12/21/2024 10:43 AM EDT Mariely Angulo MD LAB BLOOD ORDERABLES Final Resul t [facility] [address] [place] [address], * (ABNORMAL) Prothrombin time with INR (12/21/2024 5:41 AM EDT) Protime 34.4(H) 10.6 - 13.9 sec LAB COAGULATION METHOD 12/21/2024 11:54 AM EDT [facility] INR 2.8 LAB COAGULATION METHOD [facility]24 [facility] Blood Venous blood specimen / Unknown Venipuncture / Unknown 12/21/2024 5:41 AM EDT 12/21/2024 10:43 AM EDT us Mariely Angulo MD LAB BLOOD ORDERABLES Final Resul t [facility] [address] [place] [address], * (ABNORMAL) Complete blood count (12/21/2024 5:41 AM EDT) WBC 12.9(H) 4.8 - 10.8 K/mcL LAB HEMETOLOGY METHOD 12/21/2024 11:48 AM EDT [facility] RBC 4.60 3.80 - 4.80 M/mcL LAB HEMETOLOGY METHOD 12/21/2024 11:48 AM EDT [facility] Hemoglobin 11.4(L) 11.5 - 16.0 g/dL LAB HEMETOLOGY METHOD 12/21/2024 11:48 AM EDT [facility] Hematocrit 37.5 35.0 - 47.0 % LAB HEMETOLOGY METHOD 12/21/2024 11:48 AM EDT [facility] MCV 81.0 79.0 - 98.0 FL LAB HEMETOLOGY METHOD 12/21/2024 11:48 AM EDT [facility] MCH 24.6(L) 27.0 - 32.0 pcg LAB HEMETOLOGY METHOD 12/21/2024 11:48 AM EDT [facility] MCHC 30.4(L) 32.0 - 37.0 g/dL LAB HEMETOLOGY METHOD 12/21/2024 11:48 AM EDT [facility] RDW 17.8(H) 11.0 - 15.0 % LAB HEMETOLOGY METHOD 12/21/2024 11:48 AM EDT [facility] Platelets 268 130 - 400 K/mcL LAB HEMETOLOGY METHOD 12/21/2024 11:48 AM EDT [facility] MPV 10.8 7.0 - 11.0 FL LAB HEMETOLOGY METHOD 12/21/2024 11:48 AM EDT [facility] NRBC 0.0 <1.0 % LAB HEMETOLOGY METHOD 12/21/2024 11:48 AM EDT [facility] NRBC Absolute 0.00 <0.10 K/mcL LAB HEMETOLOGY METHOD 12/21/2024 11:48 AM EDT [facility] Blood Venous blood specimen / Unknown Venipuncture / Unknown 12/21/2024 5:41 AM EDT 12/21/2024 10:43 AM EDT us Mariely Angulo MD LAB BLOOD ORDERABLES Final Resul t [facility] [address] [place] [address], documented in this encounter Visit Diagnoses Diagnosis Heart failure, unspecified (CMS/HCC V24, CMS/HCC V28) Heart failure, unspecified Type 2 diabetes mellitus without complications (CMS/HCC V24, CMS/HCC V28) Unspecified asthma, uncomplicated Presence of cardiac pacemaker Cardiac pacemaker in situ Presence of other heart-valve replacement Encounter for adjustment or management of cardiac device documented in this encounter Additional Health Concerns Assessment Noted Time PHQ-9 Depression Total Score: 0 04/16/19 25 11:13 PM EST A fall risk assessment has been complete d for the patient 10/08/2024 1:20 PM EDT documented as of this encounter Care Teams Oil Well Fishing Tool Operator Relationship Specialty Start Date End Date Josue Crain PA [address] [place] [phone] PCP - General Internal Medicine 01/29/24 documented as of this encounter
--- OUTSIDE RECORDS SUMMARY | 2025-02-03 19:33 | XMS_ITS | Encounter Summary ---
Author Organization [facility] [place] [address] Care Team Providers Care Reporter Name Role Phone Josue Crain Primary Care Provider [phone] [phone] Encounter Details Date Type Department Care Team ([facility] Contact Info) Description 01/30/2025 Telephone [address] [phone] Brittaney Cantor LPN Social History Tobacco Use Types Packs/Day Years Used Date Smoking Tobacco: Never Smokeless Tobacco: Never Alcohol Use Standard Drinks/Week Comments No 0 (1 standard drink = 0.6 oz pur e alcohol) Housing Instability Answer Date Recorde d Are you worried that in the next 2 months you may not have stable housing? No 01/30/2025 Food Access & Nutrition Answer Date Rec orded Do you have access to a vari ety of food including fruits and vegetables? Yes 01/30/2025 Access to Healthcare Answer Date Record ed Within the last 3 months, ho w many times did you visit the emergency department for your medical care? 1 01/30/2025 Health Literacy Answer Date Recorded How often do you need to hav e someone help you when you read instructions, pamphlets, or other written material from your doctor or pharmacy? Never 01/30/2025 Caregiver: How often do you need to have someone help you when you read instructions, pamphlets, or other written material from your doctor or pharmacy? Not on file 01/30/2025 Financial Risk Answer Date Recorded How hard is it for you to pa y for the very basics like food, housing, medical care, and air conditioning / heating? Not very hard 01/30/2025 Transportation Answer Date Recorded Has the lack of transportati on kept you from meetings, work, or from getting things needed for daily living? Patient declined 01/30/2025 Has the lack of transportati on kept you from medical appointments or from getting medications? No 01/30/2025 Social Isolation Answer Date Recorded How often do you feel lonely or isolated from th ose around you? Never 01/30/2025 Food Risk Answer Date Recorded Within the past 12 months we worried whether our food would run out before we got money to buy more. Never true 01/30/2025 Within the past 12 months th e food we bought just didn't last and we didn't have money to get more. Never true 01/30/2025 Dependent Care Answer Date Recorded Do you need help finding or paying for care for your loved ones. For example, child custody evaluator or elderly care for an older adult? No 01/30/2025 Education Answer Date Recorded Do you think completing more education or training, like finishing a GED, going to college, or learning a trade, would be helpful for you? N/A 01/30/2025 Employment and Income Answer Date Recor ded During the last four weeks, have you been actively looking for work? No 01/30/2025 Living Situation Answer Date Recorded What is your living situation? Unrecognized valu e 01/30/2025 Comments No Sex and Gender Information Value Date Recorded Sex Assigned at Female 10/19/2024 11:27 AM EDT Legal Sex Female 2:23 AM EST Gender Identity Female 10/19/2024 11:27 AM EDT Sexual Orientation Not on file documented as of this encounter Progress Notes * Brittaney Cantor LPN - 01/30/2025 9:19 AM EST . documented in this encounter Plan of Treatment Upcoming Encounters Date Type Department Care Team (Late st Contact Info) Description 02/17/2025 9:10 AM EST Office Visit [facility] - [address] [facility] [address] [place] [address] Lei Patel NP [address] [place] [address] [place] [address] 03/03/2025 1:30 PM EST Ancillary Procedure [facility] Cardiology [facility] - [facility] [address] [facility] [address] [place] [address] 05/05/2025 12:30 PM EST Office Visit [facility] [place] [facility] [place] [address] [place] [address] Josue Crain PA [address] [place] [phone] 10/20/2025 9:30 AM EDT Ancillary Procedure [facility] - [facility] [address] [facility] [address] [place] [address] documented as of this encounter Goals Goal Patient Goal Type Associated Problems Recent Progress Patient-Stated? Author <enter goal here> General On track(01/31/20 1:26 PM EST) Yes Kimberley Olsen, RN Note: I will start using my weights again. documented as of this encounter Visit Diagnoses Not on filedocumented in this encounter Additional Health Concerns Assessment Noted Time PHQ-9 Depression Total Score: 0 01/25/20 1:32 PM EST A fall risk assessment has been complete d for the patient 10/08/2024 1:20 PM EDT documented as of this encounter Care Teams Reporter Relationship Specialty Start Date End Date Josue Crain PA [address] [place] [phone] PCP - General Internal Medicine 01/29/24 documented as of this encounter
--- OUTSIDE RECORDS SUMMARY | 2025-02-03 19:33 | XMS_ITS | Encounter Summary ---
Author Organization [facility] [place] [address] Care Team Providers Care Dinker Name Role Phone Josue Crain Primary Care Provider [phone] [phone] Encounter Details Date Type Department Care Team (Latest Contact Info) Description 12/26/2024 Lab Requisition [facility] - Main Lab [address] [place] [address] Mariely Angulo MD [address] [place] [address] longterm (current) use of anticoagulants Social History Tobacco Use Types Packs/Day Years [...] for your loved ones. For example, child daycare worker or elderly care for an older adult? [...] Description 02/17/2025 9:10 AM EST Office Visit [facility] - [address] [facility] [address] [place] [phone] Lei Patel NP [address] [place] [address] [place] [phone] 03/03/2025 1:30 PM EST Ancillary Procedure [facility] - [address] [place] [address] 05/05/2025 12:30 PM EST Office Visit [address] [address] Josue Crain PA [address] [place] [phone] 10/20/2025 9:30 AM EDT Ancillary Procedure [facility] - [facility] [address] [facility] [address] [place] [phone] documented as of this encounter Goals Goal Patient Goal Type Associated Problems Recent Progress Patient-Stated? Author <enter goal here> General On track(01/31/20 1:26 PM EST) Yes Kimberley Olsen RN Note: I will start using my weights again. documented as of this encounter Procedures Procedure Name Priority Date/Time Associated Diagnosis Comments PROTHROMBIN TIME WITH INR Routine 12/26/2024 5:41 AM EDT longterm (current) use of anticoagulants documented in this encounter Results * (ABNORMAL) Prothrombin time with INR (12/26/2024 5:41 AM EDT) Protime 47.7(H) 10.6 - 13.9 sec LAB COAGULATION METHOD 12/26/2024 9:03 AM EDT [facility] INR 3.9 LAB COAGULATION METHOD 12/26/2024 9:03 AM EDT [facility] Blood Venous blood specimen / Unknown Venipuncture / Unknown 12/26/2024 5:41 AM EDT 12/26/2024 8:26 AM EDT us Mariely Angulo MD LAB BLOOD ORDERABLES Final Resul t [facility] [address] [place] [address], documented in this encounter Visit Diagnoses Diagnosis 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
--- OUTSIDE RECORDS SUMMARY | 2025-02-03 19:33 | XMS_ITS | Encounter Summary ---
Author Organization [facility] Address [address] [place] [address] Care Team Providers Care Clothing Supervisor Name Role Phone Josue Crain Primary Care Provider [phone] [phone] Encounter Details Date Type Department Care Team ([facility] st Contact Info) Description 12/28/2024 Lab Requisition [facility] - Main Lab [address] [place] [address] Mariely Angulo MD [address] [place] [address] Unspecified atrial fibrillation (CMS/HCC V24, CMS/HCC V28) Social History Tobacco Use Types Packs/Day Years [...] for your loved ones. For example, child specialist or elderly care for an older [...] Description 02/17/2025 9:10 AM EST Office Visit [facility] - [facility] [address] [facility] [address] [place] [address] Lei Patel NP [address] [place] [address] [place] [address] 03/03/2025 1:30 PM EST Ancillary Procedure [facility] - [address] [place] [address] 05/05/2025 12:30 PM EST Office Visit [address] [phone] Josue Crain PA [address] [place] [phone] 10/20/2025 9:30 AM EDT Ancillary Procedure [facility] Cardiology [facility] - [facility] [address] [facility] [address] [place] [phone] documented as of this encounter Goals Goal Patient Goal Type Associated Problems Recent Progress Patient-Stated? Author <enter goal here> General On track(01/31/20 1:26 PM EST) Yes Kimberley Olsen RN Note: I will start using my weights again. documented as of this encounter Procedures Procedure Name Priority Date/Time Associated Diagnosis Comments PROTHROMBIN TIME WITH INR Routine 12/30/2024 8:18 AM EDT Unspecified atrial fibrillation (CMS/HCC V24, CMS/HCC V28) documented in this encounter Results * (ABNORMAL) Prothrombin time with INR (12/30/2024 8:18 AM EDT) Protime 65.3(H) 10.6 - 13.9 sec LAB COAGULATION METHOD 12/30/2024 11:22 AM EDT [facility] INR 5.4(HH) LAB COAGULATION METHOD 12/30/2024 11:22 AM EDT [facility] Blood Venous blood specimen / Unknown Venipuncture / Unknown 12/30/2024 8:18 AM EDT 12/30/2024 9:56 AM EDT Mariely Angulo MD LAB BLOOD ORDERABLES Final Resul t [facility] LAB [address] [place] [address], documented in this encounter Visit Diagnoses Diagnosis Unspecified atrial fibrillation (CMS/HCC V24, CMS/HCC V28) Encounter for adjustment or management of cardiac device documented in this encounter Additional Health Concerns Assessment Noted Time PHQ-9 Depression Total Score: 0 04/16/19 11:13 PM EST A fall risk assessment has been complete d for the patient 10/08/2024 1:20 PM EDT documented as of this encounter Care Teams Clothing Supervisor Relationship Specialty Start Date End Date Josue Crain PA [address] [place] [address] PCP - General Internal Medicine 01/29/24 documented as of this encounter
--- OUTSIDE RECORDS SUMMARY | 2025-02-03 19:33 | XMS_ITS | Encounter Summary ---
Author Organization [facility] [place] [address] Care Team Providers Care Air Sealing Technician Name Role Phone Josue Crain Primary Care Provider [phone] [phone] Reason for Visit * Reason Onset Date Comments Anticoagulation 01/29/2025 Encounter Details Date Type Department Care Team ([facility] Contact Info) Description 01/29/2025 Telephone [facility] [address] [address] [place] [phone] Micaela Fried LPN Social History Tobacco Use Types Packs/Day [...] ed Within the last 3 months, ho montez many times did you visit the emergency [...] your loved ones. For example, child care specialist or elderly care for an older [...] as of this encounter Progress Notes * Miacela Fried LPN - 01/29/2025 8:28 AM EST @ANTICOAGTODAY@ Patient presents for follow-up of ongoing Warfarin therapy. Patient had her INR drawn via Lab Draw.Patient denies any significant issues with adherence to the medication regimen. Patient denies experiencing any symptoms of bleeding, such as unusual bruising, nosebleeds, hematuria, or melena. Patient reports feeling generally well and denies any new complaints. Plan of care: New warfarin dose: Hold x 2 days doses Warfarin education of dietary considerations, medication/supplement interactions, and the need to continue avoiding activities that increase the risk of injury or bleeding reinforced. Patient verbalized understanding of ongoing INR monitoring and dosage change. Patient is aware of the signs of potential complications and knows to contact the clinic if they occur. Anticoagulation Flowsheet updated with new plan of care. Plan discussed with provider, no additional changes at this time. Anticoagulation Clinic Protocol Dose Type Dose Range INR Dose Adjustment # Doses Omitted Recheck Date Mini Dose 1.4-2.0 Very Low <1.2 Consult Provider 0 1 week Low 1.2-1.4 If singular event - no change If 2 in a row or 2 of the last 3 - Increase weekly dose by 10% 0 1 week In Range 1.4-2.0 No adjustment 0 1-4 weeks* High 2.0-3.0 If singular event - no change If 2 in a row or 2 of the last 3 - Decrease weekly dose by 10% 0 1 week Very High >3.0 Consult Provider 2 2 days If OK after 2 days - Decrease weekly dose by 10% 0 1 week Usual Dose 2.0-3.0 Very Low <1.5 Consult Provider 0 1 week Low 1.5-2.0 If singular event - No change If 2 in a row or 2 of the last 3 - Increase weekly dose by 10% 0 1 week In Range 2.0-3.0 No Adjustment 0 1-4 weeks* High >3.0-3.5 If singular event - No change If 2 in a row or 2 of the last 3 - Decrease weekly dose by 10% 0 1 week Very High >3.5-4.0 Consult Provider 1 2 days >4.0 Consult Provider 2 2 days If OK after 2 days - Decrease weekly dose by 10% 0 1 week Mechanical Valve 2.5-3.5 Very Low <1.5 Consult Provider 0 1 week Low 1.5-2.5 If singular event - No change If 2 in a row or 2 of the last 3 - Increase weekly dose by 10% 0 1 week In Range 2.5-3.5 No Adjustment 0 1-4 weeks* High >3.5-4.0 If singular event - No change If 2 in a row or 2 of the last 3 - Decrease weekly dose by 10% 0 1 week Very High >4.0-4.9 Consult Provider 1 2 days >5.0 Consult Provider 2 2 days If OK after 2 days - Decrease weekly dose by 10% 0 1 week * In range 1 week = recheck in 1 week In range 2 weeks = recheck in 2 weeks In range 3 weeks = recheck in 3 weeks In range 4 weeks = recheck in 4 weeks Cosigned by KRYSTEN Dai at 01/29/2025 9:59 AM EST documented in this encounter Plan of Treatment Upcoming Encounters Date Type Department Care Team (Late st Contact Info) Description 02/17/2025 9:10 AM EST Office Visit [facility] Cardiology [facility] [address] [place] [phone] Lei Patel NP [address] [place] [address] Dr Khan [address] [place] [address] 03/03/2025 1:30 PM EST Ancillary Procedure [facility] [address] [place] [address] 05/05/2025 12:30 PM EST Office Visit [address] [phone] Josue Crain PA [address] [place] [phone] 10/20/2025 9:30 AM EDT Ancillary Procedure [facility] [address] [place] [phone] documented as of this encounter Goals Goal Patient Goal Type Associated Problems Recent Progress Patient-Stated? Author <enter goal here> General On track(01/31/20 1:26 PM EST) Yes Kimberley Olsen, RN Note: I will start using my weights again. documented as of this encounter Visit Diagnoses Diagnosis Atrial fibrillation, unspecified type (CMS/HCC V24, CMS/[facility] V28)- Primary longterm (current) use of anticoagulants Long-term (current) use of anticoagulants Personal history of DVT (deep vein thrombosis) Personal history of venous thrombosis and embolism H/O mechanical aortic valve replacement Encounter for adjustment or management of cardiac device documented in this encounter Additional Health Concerns Assessment Noted Time PHQ-9 Depression Total Score: 0 01/25/20 25 1:32 PM EST A fall risk assessment has been complete d for the patient 10/08/2024 1:20 PM EDT documented as of this encounter Care Teams Air Sealing Technician Relationship Specialty Start Date End Date Josue Crain PA [address] [place] [address] PCP - General Internal Medicine 01/29/24 documented as of this encounter
--- OUTSIDE RECORDS SUMMARY | 2025-02-03 19:33 | XMS_ITS | Encounter Summary ---
Author Organization [facility] [address] Care Team Providers Care Gun Fitter Name Role Phone Josue Dow Primary Care Provider [phone] [phone] Reason for Visit * Reason Onset Date Comments Anticoagulation 01/29/2025 Encounter Details Date Type Department Care Team ([facility] Contact Info) Description 01/29/2025 Telephone Adult Medicine [address] [phone] Josue Dow PA [address] [place] [phone] Social History Tobacco Use Types Packs/Day Years [...] loved ones. For example, early childhood education worker or elderly care for an older [...] as of this encounter Progress Notes * Micaela Fried LPN - 01/29/2025 12:53 PM EST Spoke with Vna/ verified recheck Inr tomorrow Micaela Fried LPN * Wilder Clark - 01/29/2025 10:26 AM EST Anticoagulation Patient Call Primary Care Provider: JOSUE DOW Is the PCP in the office toady?: yes Who is calling? A nurse. If not the patient or parent/guardian please check for authorization to share/verbal release. Why is the person calling? Any other question or concern - Route to COUMADIN CLINIC CLINICAL POOL per Jerri Tran from [facility] states that she received the message from Abi but she is requesting a callback to [phone]. Also she would like it noted that she does not appreciate the new system of communication. documented in this encounter Plan of Treatment Upcoming Encounters Date Type Department Care Team (Late st Contact Info) Description 02/17/2025 9:10 AM EST Office Visit [facility] [address] [facility] 154 [place] [phone] Lei Patel NP [address] [place] [address] Dr [address] [place] [phone] 03/03/2025 1:30 PM EST Ancillary Procedure [facility] [address] 300 [facility] 101 [place] [address] 05/05/2025 12:30 PM EST Office Visit [address] [address] Josue Dow, KRYSTEN [address] [place] [phone] 10/20/2025 9:30 AM EDT Ancillary Procedure [facility] [address] [facility] 154 [place] [phone] documented as of this encounter Goals Goal [...] documented as of this encounter Care Teams Gun Fitter Relationship Specialty Start Date End Date Josue Dow PA [address] [place] [address] PCP - General Internal Medicine 01/29/24 documented as of this encounter
--- OUTSIDE RECORDS SUMMARY | 2025-02-03 19:33 | XMS_ITS | Encounter Summary ---
Author Organization [facility] [place] [address] Care Team Providers Care Tank Filler Name Role Phone Josue Crain Primary Care Provider [phone] [phone] Encounter Details Date Type Department Care Team (Latest Contact Info) Description 01/02/2025 Lab Requisition [facility] - Main Lab [address] [place] [address] Mariely Angulo MD [address] [place] [address] skilled nursing (current) use of anticoagulants Social History Tobacco [...] for your loved ones. For example, child and family services worker or elderly care for an older [...] Description 02/17/2025 9:10 AM EST Office Visit [facility] - [address] [facility] [address] [place] [phone] Lei Patel NP [address] [place] [address] [place] [phone] 03/03/2025 1:30 PM EST Ancillary Procedure [facility] - [address] [place] [address] 05/05/2025 12:30 PM EST Office Visit [address] [address] Josue Crain PA [address] [place] [phone] 10/20/2025 9:30 AM EDT Ancillary Procedure [facility] [address] [facility] [address] [place] [address] documented as of this encounter Goals Goal Patient Goal Type Associated Problems Recent Progress Patient-Stated? Author <enter goal here> General On track(01/31/20 1:26 PM EST) Yes Kimberley Olsen RN Note: I will start using my weights again. documented as of this encounter Procedures Procedure Name Priority Date/Time Associated Diagnosis Comments PROTHROMBIN TIME WITH INR Routine 01/02/2025 7:05 AM EDT skilled nursing (current) use of anticoagulants documented in this encounter Results * (ABNORMAL) Prothrombin time with INR (01/02/2025 7:05 AM EDT) Protime 30.4(H) 10.6 - 13.9 sec LAB COAGULATION METHOD 01/02/2025 9:18 AM EDT [facility] INR 2.5 LAB COAGULATION METHOD 01/02/2025 9:18 AM EDT [facility] Blood Venous blood specimen / Unknown Venipuncture / Unknown 01/02/2025 7:05 AM EDT 01/02/2025 8:49 AM EDT us Mariely Angulo MD LAB BLOOD ORDERABLES Final Resul t [facility] [address] [place] [address], documented in this encounter Visit Diagnoses Diagnosis 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
--- OUTSIDE RECORDS SUMMARY | 2025-02-03 19:33 | XMS_ITS ---
Author Organization [address] Address [address] [place] [address] Phone Care Team Providers Care Middle School Tutor Name Role Phone Josue Crain Primary Care Provider [phone] [phone] Chronic Care Management Status:Ongoing (Active) Start date:01/15/2025 Enrollment date:01/30/2025 Enrollment reason:Referred by Care Team Case Team Name Relationship Phone Kimberley Olsen RN(Responsible Staff) Graphics Edit Technician Continued Care and Services Coordination
--- OUTSIDE RECORDS SUMMARY | 2025-02-03 19:33 | XMS_ITS | Encounter Summary ---
Author Organization [facility] [place] [address] Care Team Providers Care Special Agent Name Role Phone Josue Crain Primary Care Provider [phone] [phone] Encounter Details Date Type Department Care Team ([facility] st Contact Info) Description 01/28/2025 Telephone Adult Medicine [address] [phone] Josue Crain PA [address] [place] [phone] Social History Tobacco Use Types Packs/Day [...] care for your loved ones. For example, children teacher or elderly care for an older adult? [...] as of this encounter Progress Notes * Claudette Riddle - 01/28/2025 4:53 PM EST error documented in this encounter Plan of Treatment Upcoming Encounters Date Type Department Care Team (Late st Contact Info) Description 02/17/2025 9:10 AM EST Office Visit [facility] - [address] [facility] [address] [place] [address] Lei Patel NP [address] [place] [address] Dr Khan [address] [place] [address] 03/03/2025 1:30 PM EST Ancillary Procedure [facility] Cardiology [facility] - [address] [place] [address] 05/05/2025 12:30 PM EST Office Visit Adult Medicine [facility] [address] [place] [address] Josue Crain PA [address] [place] [phone] 10/20/2025 9:30 AM EDT Ancillary Procedure [facility] [address] [facility] [address] [place] [phone] documented as of this encounter Goals Goal [...] documented as of this encounter Care Teams Special Agent Relationship Specialty Start Date End Date Josue Crain PA [address] [place] [address] PCP - General Internal Medicine 01/29/24 documented as of this encounter
--- OUTSIDE RECORDS SUMMARY | 2025-02-03 19:33 | XMS_ITS | Encounter Summary ---
Author Organization [facility] Address [address] [place] [address] Care Team Providers Care Printing Technician Name Role Phone Josue Crain Primary Care Provider +1 [phone] Encounter Details Date Type Department Care Team (Late st Contact Info) Description 12/23/2024 Lab Requisition [facility] - Main Lab [address] [place] [address] Mariely Angulo MD [address] [place] [address] Malignant neoplasm of unspecified site of unspecified female breast (CMS/HCC V24, CMS/HCC V28); Heart failure, unspecified (CMS/HCC V24, CMS/HCC V28) Social History Tobacco [...] your loved ones. For example, early childhood specialist or elderly care for an older [...] Description 02/17/2025 9:10 AM EST Office Visit [facility] - [address] [facility] [address] [place] [address] Lei Patel NP [address] [place] [address] [place] [address] 03/03/2025 1:30 PM EST Ancillary Procedure [facility] Cardiology [facility] [address] [place] [address] 05/05/2025 12:30 PM EST Office Visit [address] [address] Josue Crain PA [address] [place] [phone] 10/20/2025 9:30 AM EDT Ancillary Procedure [facility] [address] [facility] [address] [place] [address] documented as of this encounter Goals Goal Patient Goal Type Associated Problems Recent Progress Patient-Stated? Author <enter goal here> General On track(01/31/20 1:26 PM EST) Yes Kimberley Olsen, RN Note: I will start using my weights again. documented as of this encounter Procedures Procedure Name Priority Date/Time Associated Diagnosis Comments PROTHROMBIN TIME WITH INR Routine 12/23/2024 9:30 AM EDT Malignant neoplasm of unspecified site of unspecified female breast (CMS/HCC V24, CMS/HCC V28) Heart failure, unspecified (CMS/HCC V24, CMS/HCC V28) COMPLETE BLOOD COUNT Routine 12/23/2024 9:30 AM EDT Malignant neoplasm of unspecified site of unspecified female breast (CMS/HCC V24, CMS/HCC V28) Heart failure, unspecified (CMS/HCC V24, CMS/HCC V28) COMPREHENSIVE METABOLIC PANEL Routine 12/23/2024 9:30 AM EDT Malignant neoplasm of unspecified site of unspecified female breast (CMS/HCC V24, CMS/HCC V28) Heart failure, unspecified (CMS/HCC V24, CMS/HCC V28) documented in this encounter Results * (ABNORMAL) Comprehensive metabolic panel (12/23/2024 9:30 AM EDT) Sodium 133 133 - 145 mmol/L LAB CHEMISTRY METHOD 12/23/2024 1:11 PM [facility] Potassium 4.6 3.5 - 5.5 mmol/L LAB CHEMISTRY METHOD 12/23/2024 1:11 PM [facility] Chloride 102 96 - 110 mmol/L LAB CHEMISTRY METHOD 12/23/2024 1:11 PM [facility] CO2 21 21 - 32 mmol/L LAB CHEMISTRY METHOD 12/23/2024 1:11 PM [facility] Anion Gap 10 3 - 11 LAB CHEMISTRY METHOD 12/23/2024 1:11 PM [facility] Glucose 182(H) 70 - 100 mg/dL LAB CHEMISTRY METHOD 12/23/2024 1:11 PM [facility] BUN 22 5 - 25 mg/dL LAB CHEMISTRY METHOD 12/23/2024 1:11 PM [facility] Creatinine 0.62 0.50 - 1.10 mg/dL LAB CHEMISTRY METHOD 12/23/2024 1:11 PM [facility] eGFR 93 >=60 mL/min/1. 73m2 LAB CHEMISTRY METHOD 12/23/2024 1:11 PM [facility] Comment:Calculation based on the Chronic Kidney Disease Epidemiology Collaboration (CKD-EPI) equation refit without adjustment for race. BUN/Creatinine Ratio 35.5 LAB CHEMISTRY METHOD 12/23/2024 1:11 PM [facility] Calcium 9.2 8.5 - 10.5 mg/dL LAB CHEMISTRY METHOD 12/23/2024 1:11 PM [facility] AST (SGOT) 32 10 - 42 unit/L LAB CHEMISTRY METHOD 12/23/2024 1:11 PM [facility] ALT (SGPT) 23 10 - 60 unit/L LAB CHEMISTRY METHOD 12/23/2024 1:11 PM EDT [facility] Alkaline Phosphatase 54 42 - 121 unit/L LAB CHEMISTRY METHOD 12/23/2024 1:11 PM EDT [facility] Total Protein 6.9 6.0 - 8.0 g/dL LAB CHEMISTRY METHOD 12/23/2024 1:11 PM EDT [facility] Albumin 2.9(L) 3.2 - 5.0 g/dL LAB CHEMISTRY METHOD 12/23/2024 1:11 PM EDT [facility] Total Bilirubin 0.8 0.0 - 1.4 mg/dL LAB CHEMISTRY METHOD 12/23/2024 1:11 PM EDT [facility] Blood Venous blood specimen / Unknown Venipuncture / Unknown 12/23/2024 9:30 AM EDT 12/23/2024 11:08 AM EDT us Mariely Angulo MD LAB BLOOD ORDERABLES Final Resul t [facility] [address] [place] [address], * (ABNORMAL) Prothrombin time with INR (12/23/2024 9:30 AM EDT) Protime 29.0(H) 10.6 - 13.9 sec LAB COAGULATION METHOD 12/23/2024 12:03 PM EDT [facility] INR 2.3 LAB COAGULATION METHOD 12/23/2024 12:03 PM EDT [facility] Blood Venous blood specimen / Unknown Venipuncture / Unknown 12/23/2024 9:30 AM EDT 12/23/2024 11:08 AM EDT us Mariely Angulo MD LAB BLOOD ORDERABLES Final Resul t [facility] [address] [place] [address], * (ABNORMAL) Complete blood count (12/23/2024 9:30 AM EDT) WBC 11.7(H) 4.8 - 10.8 K/mcL LAB HEMETOLOGY METHOD 12/23/2024 12:46 PM EDT [facility] RBC 4.60 3.80 - 4.80 M/mcL LAB HEMETOLOGY METHOD 12/23/2024 12:46 PM EDT [facility] Hemoglobin 11.1(L) 11.5 - 16.0 g/dL LAB HEMETOLOGY METHOD 12/23/2024 12:46 PM EDT [facility] Hematocrit 36.5 35.0 - 47.0 % LAB HEMETOLOGY METHOD 12/23/2024 12:46 PM EDT [facility] MCV 79.9 79.0 - 98.0 FL LAB HEMETOLOGY METHOD 12/23/2024 12:46 PM EDT [facility] MCH 24.3(L) 27.0 - 32.0 pcg LAB [facility]OLOG[facility] MCHC 30.4(L) 32.0 - 37.0 g/dL LAB HEMETOLOGY METHOD 12/23/2024 12:46 PM EDT [facility] RDW 17.7(H) 11.0 - 15.0 % LAB HEMETOLOGY METHOD 12/23/2024 12:46 PM EDT [facility] Platelets 305 130 - 400 K/mcL LAB HEMETOLOGY METHOD 12/23/2024 12:46 PM EDT [facility] MPV 10.6 7.0 - 11.0 FL LAB HEMETOLOGY METHOD 12/23/2024 12:46 PM EDT [facility] NRBC 0.0 <1.0 % LAB HEMETOLOGY METHOD 12/23/2024 12:46 PM EDT [facility] NRBC Absolute 0.00 <0.10 K/mcL LAB HEMETOLOGY METHOD 12/23/2024 12:46 PM EDT [facility] Blood Venous blood specimen / Unknown Venipuncture / Unknown 12/23/2024 9:30 AM EDT 12/23/2024 11:08 AM EDT us Mariely Angulo MD LAB BLOOD ORDERABLES Final Resul t [facility] [address] [place] [address], documented in this encounter Visit Diagnoses Diagnosis Malignant neoplasm of unspecified site of unspecified female breast (CMS/HCC V24, CMS/HCC V28) Heart failure, unspecified (CMS/HCC V24, CMS/HCC V28) Heart failure, unspecified Encounter for adjustment or management of cardiac device documented in this encounter Additional Health Concerns Assessment Noted Time PHQ-9 Depression Total Score: 0 04/16/19 25 11:13 PM EST A fall risk assessment has been complete d for the patient 10/08/2024 1:20 PM EDT documented as of this encounter Care Teams Printing Technician Relationship Specialty Start Date End Date Josue Crain PA [address] [place] [address] PCP - General Internal Medicine 01/29/24 documented as of this encounter
--- OUTSIDE RECORDS SUMMARY | 2025-02-03 19:33 | XMS_ITS | Encounter Summary ---
Author Organization [facility] Address [address] [place] [address] Care Team Providers Care Qa Intern Name Role Phone Josue Crain Primary Care Provider [phone] [phone] Encounter Details Date Type Department Care Team ([facility] st Contact Info) Description 12/31/2024 Lab Requisition [facility] - Main Lab [address] [place] [address] Mariely Angulo MD [address] [place] [address] Unspecified atrial fibrillation (CMS/HCC V24, [...] care for your loved ones. For example, director maternal child or elderly care for an older adult? [...] Description 02/17/2025 9:10 AM EST Office Visit [facility] [address] [facility] [address] [place] [address] Lei Patel NP [address] [place] [address] [place] [address] 03/03/2025 1:30 PM EST Ancillary Procedure [facility] - [address] [place] [address] 05/05/2025 12:30 PM EST Office Visit [address] [address] Josue Crain PA [address] [place] [phone] 10/20/2025 9:30 AM EDT Ancillary Procedure [facility] [address] [facility] [address] [place] [phone] documented as of this encounter Goals Goal Patient Goal Type Associated Problems Recent Progress Patient-Stated? Author <enter goal here> General On track(01/31/20 1:26 PM EST) Yes Kimberley Olsen RN Note: I will start using my weights again. documented as of this encounter Procedures Procedure Name Priority Date/Time Associated Diagnosis Comments PROTHROMBIN TIME WITH INR Routine 12/31/2024 6:08 AM EDT Unspecified atrial fibrillation (CMS/HCC V24, CMS/HCC V28) documented in this encounter Results * (ABNORMAL) Prothrombin time with INR (12/31/2024 6:08 AM EDT) Protime 52.8(H) 10.6 - 13.9 sec LAB COAGULATION METHOD 12/31/2024 7:43 AM EDT [facility] INR 4.4 LAB COAGULATION METHOD 12/31/2024 7:43 AM EDT [facility] Blood Venous blood specimen / Unknown Venipuncture / Unknown 12/31/2024 6:08 AM EDT 12/31/2024 7:26 AM EDT Mariely Angulo MD LAB BLOOD ORDERABLES Final Resul t Performing Organization Address City/State/[facility] Co de Phone Number [facility] [address] [place] [address], documented in this encounter Visit Diagnoses Diagnosis [...] documented as of this encounter Care Teams Qa Intern Relationship Specialty Start Date End Date Josue Crain PA [address] [place] [id number] PCP - General Internal Medicine 01/29/24 documented as of this encounter
--- OUTSIDE RECORDS SUMMARY | 2025-02-03 19:33 | XMS_ITS | Encounter Summary ---
Author Organization [facility] [place] [address] Care Team Providers Care Irrigation Manager Name Role Phone Josue Crain Primary Care Provider +1 [phone] Encounter Details Date Type Department Care Team (Latest Contact Info) Description 01/01/2025 Lab Requisition [facility] - Main Lab [address] [place] [address] Mariely Angulo MD [address] [place] [address] assisted (current) use of anticoagulants Social History Tobacco [...] your loved ones. For example, child care supervisor or elderly care for an older adult? [...] Description 02/17/2025 9:10 AM EST Office Visit [facility] - [address] [facility] [address] [place] [phone] Lei Patel NP [address] [place] [address] [place] [phone] 03/03/2025 1:30 PM EST Ancillary Procedure [facility] - [address] [place] [address] 05/05/2025 12:30 PM EST Office Visit [address] [phone] Josue Crain PA [address] [place] [phone] 10/20/2025 9:30 AM EDT Ancillary Procedure [facility] - [facility] [address] [facility] [address] [place] [phone] documented as of this encounter Goals Goal Patient Goal Type Associated Problems Recent Progress Patient-Stated? Author <enter goal here> General On track(01/31/20 1:26 PM EST) Yes Kimberley Olsen RN Note: I will start using my weights again. documented as of this encounter Procedures Procedure Name Priority Date/Time Associated Diagnosis Comments PROTHROMBIN TIME WITH INR Routine 01/01/2025 5:31 AM EDT assisted (current) use of anticoagulants documented in this encounter Results * (ABNORMAL) Prothrombin time with INR (01/01/2025 5:31 AM EDT) Protime 33.7(H) 10.6 - 13.9 sec LAB COAGULATION METHOD 01/01/2025 10:48 AM EDT [facility] INR 2.8 LAB COAGULATION METHOD 01/01/2025 10:48 AM EDT [facility] Blood Venous blood specimen / Unknown Venipuncture / Unknown 01/01/2025 5:31 AM EDT 01/01/2025 8:58 AM EDT us Mariely Angulo MD LAB BLOOD ORDERABLES Final Resul t [facility] [address] [place] [address], documented in this encounter Visit Diagnoses Diagnosis 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
--- OUTSIDE RECORDS SUMMARY | 2025-02-03 19:33 | XMS_ITS | Clinical Summary ---
Author Organization [facility] Address [address] [place] [address] Care Team Providers Care Steel Die Press Set Up Operator Name Role Phone Josue Crain PA-C Primary [...] Evaluation 11/23/1967 Colon Cancer Screening (Colonoscopy) 1994 Fall Risk Assessment 2014 Osteoporosis Screening (DEXA Scan) 2014 Pneumococcal Vaccine (3 of 3 - PPSV23 or PCV20) 02/12/2020 02/11/2015, 05/03/2013 DTap / Tdap / Td (2 - Td or Tdap) 04/18/2022 04/18/2012, 03/26/2007 COVID-19 Vaccine (2 - season) 2024 11/24/2021 Influenza Vaccine (#1) 2024 3, 12/29/2021, [...] age to complete this topic Care Teams Steel Die Press Set Up Operator Relationship Specialty Start Date End Date Josue Crain, PA-C PCP - General Medical Services 02/18/22
--- OUTSIDE RECORDS SUMMARY | 2025-02-03 19:33 | XMS_ITS | Encounter Summary ---
Author Organization [facility] [place] [address] Care Team Providers Care Pediatric Pathologist Name Role Phone Josue Crain Primary Care Provider +1 [phone] Reason for Visit * Reason Onset Date Comments Anticoagulation 02/03/2025 Encounter Details Date Type Department Care Team ([facility] Contact Info) Description 02/03/[address] [phone] Josue Crain PA [address] [place] [phone] Social History Tobacco Use Types Packs/Day Years [...] care for your loved ones. For example, manager child or elderly care for an older [...] Progress Notes * Brittaney Cantor LPN - 02/03/2025 12:44 PM EST @ANTICOAGTODAY@ Patient presents for follow-up of ongoing Warfarin therapy. Patient had her INR drawn via [facility] Draw.Patient denies any significant issues with adherence to the medication regimen. Patient denies experiencing any symptoms of bleeding, such as unusual bruising, nosebleeds, hematuria, or melena. Patient reports feeling generally well and denies any new complaints. Plan of care: New warfarin dose: Hold 2 doses pt had had very high INR's in the past two weeks, she has only taken 3.75 mg of warfarin in 7 days. She continues to c/o back pain. She is going to [place] for evaluation and a venous blood draw. Warfarin education of dietary considerations, medication/supplement interactions, [...] 4 weeks Cosigned by KRYSTEN Dai at 02/03/2025 2:17 PM EST documented in this encounter Plan of Treatment Upcoming Encounters Date Type Department Care Team (Late st Contact Info) Description 02/17/2025 9:10 AM EST Office Visit [facility] Cardiology [facility] - [address] [facility] [address] [place] [address] Lei Patel NP [address] [place] [address] Dr Khan [address] [place] [phone] 03/03/2025 1:30 PM EST Ancillary Procedure [facility] - [address] [facility] [address] [place] [address] 05/05/2025 12:30 PM EST Office Visit Adult [address] [phone] Josue Crain PA [address] [place] [phone] 10/20/2025 9:30 AM EDT Ancillary Procedure [facility] - [address] [facility] [address] [place] [phone] documented as of this encounter Goals Goal Patient Goal Type Associated Problems Recent Progress Patient-Stated? Author <enter goal here> General On track(01/31/20 1:26 PM EST) Yes Kimberley Olsen, RN Note: I will start using my weights again. documented as of this encounter Procedures Procedure Name Priority Date/Time Associated Diagnosis Comments PROTHROMBIN TIME WITH INR Routine 02/03/2025 documented in this encounter Results * Prothrombin time with INR (02/03/2025) INR 7.9 Comment:hebert meltona Bhumika Prothrombin Time POC Blood Venous blood specimen / Unknown 02/03/2025 Josue BASHIR LAB BLOOD ORDERABLES Quiana l Result documented in this encounter Visit Diagnoses Diagnosis Atrial fibrillation, unspecified type ([facility] V24, [facility] V28)- Primary termite control servicer (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
--- OUTSIDE RECORDS SUMMARY | 2025-02-03 19:33 | XMS_ITS | Encounter Summary ---
Author Organization [facility] [place] [address] Care Team Providers Care City Bus Driver Name Role Phone Josue Crain Primary Care Provider [phone] [phone] Reason for Visit * Reason Onset Date Comments Anticoagulation 01/30/2025 Encounter Details Date Type Department Care Team ([facility] Contact Info) Description 01/30/2025 Telephone Coumadin [address] [phone] Josue Crain PA [address] [place] [phone] Social History Tobacco Use Types Packs/Day Years [...] care for your loved ones. For example, children's entertainer or elderly care for an older adult? [...] as of this encounter Progress Notes * Brittanye Cantor LPN - 01/30/2025 1:35 PM EST @ANTICOAGTODAY@ Patient presents for follow-up of ongoing Warfarin therapy. Patient had her INR drawn via [facility] Draw.Patient denies any significant issues with adherence to the medication regimen. Patient denies experiencing any symptoms of bleeding, such as unusual bruising, nosebleeds, hematuria, or melena. Patient reports feeling generally well and denies any new complaints. Plan of care: New warfarin dose: Hold 2 doses Warfarin education of dietary considerations, medication/supplement [...] 4 weeks Cosigned by KRYSTEN Dai at 01/30/2025 4:16 PM EST documented in this encounter Plan of Treatment Upcoming Encounters Date Type Department Care Team (Late st Contact Info) Description 02/17/2025 9:10 AM EST Office Visit [facility] [address] 300 [facility] 154 [place] [address] Lei Patel NP [address] [place] [address] Dr Khan [address] [place] [phone] 03/03/2025 1:30 PM EST Ancillary Procedure [facility] 101 300 [facility] 101 [place] [address] 05/05/2025 12:30 PM EST Office Visit [address] [phone] Josue Crain PA [address] [place] [phone] 10/20/2025 9:30 AM EDT Ancillary Procedure [facility] 154 300 [facility] 154 [place] [address] documented as of this encounter Goals Goal Patient Goal Type Associated Problems Recent Progress Patient-Stated? Author <enter goal here> General On track(01/31/20 1:26 PM EST) Yes Kimberley Olsen, RN Note: I will start using my weights again. documented as of this encounter Procedures Procedure Name Priority Date/Time Associated Diagnosis Comments PROTHROMBIN TIME WITH INR Routine 01/30/2025 documented in this encounter Results * Prothrombin time with INR (01/30/2025) INR 5.5 Comment:ezra marmolejo Prothrombin Time POC Blood Venous blood specimen / Unknown 01/30/2025 Josue BASHIR LAB BLOOD ORDERABLES Quiana l Result documented in this encounter Visit Diagnoses Diagnosis Atrial fibrillation, unspecified type ([facility] V24, [facility] V28)- Primary longterm (current) use of anticoagulants [...] documented as of this encounter Care Teams City Bus Driver Relationship Specialty Start Date End Date Josue Crain, KRYSTEN [address] [place] [address] PCP - General Internal Medicine 01/29/24 documented as of this encounter
--- OUTSIDE RECORDS SUMMARY | 2025-02-03 19:33 | XMS_ITS | Encounter Summary ---
Author Organization [facility] [place] [address] Care Team Providers Care Hyperion Developer Name Role Phone Josue Crain Primary Care Provider +1 -[phone] Encounter Details Date Type Department Care Team ([facility] st Contact Info) Description 01/27/2025 Results Follow-Up [facility] - [facility] [address] [facility] 154 [place] [address] Lei Patel NP [address] [place] [address] [place] [phone] Social History Tobacco Use Types Packs/Day Years [...] for your loved ones. For example, child psychiatrist or elderly care for an older adult? [...] as of this encounter Progress Notes * Lei Patel, HARVEY - 01/27/2025 8:24 AM EST Can we call the patient with her lab results. Does appear that she is holding onto some extra fluid. How she feeling, has she been checking her weights at home? I would like to start her on something called spironolactone 25 mg p.o. daily. I also think she should take an extra furosemide in the morning for the next 3 days. This would be a total of 40 mg of furosemide in the morning and 20 in the evening. If she agreeable to this? documented in this encounter Plan of Treatment Upcoming Encounters Date Type Department Care Team (Late st Contact Info) Description 02/17/2025 9:10 AM EST Office Visit [facility] [address] [facility] [address] [place] [address] Lei Patel NP [address] [place] [address] Dr Khan [address] [place] [address] 03/03/2025 1:30 PM EST Ancillary Procedure [facility] - [facility] [address] [facility] 101 [place] [address] 05/05/2025 12:30 PM EST Office Visit [facility] [address] [place] [phone] Josue Crain PA [address] [place] [phone] 10/20/2025 9:30 AM EDT Ancillary Procedure [facility] [address] [facility] [address] [place] [address] documented as of this encounter Goals Goal [...] documented as of this encounter Care Teams Hyperion Developer Relationship Specialty Start Date End Date Josue Crain, PA [address] [place] [address] PCP - General Internal Medicine 01/29/24 documented as of this encounter
--- OUTSIDE RECORDS SUMMARY | 2025-02-03 19:33 | XMS_ITS | Clinical Summary ---
Author Organization [employer] Address [address] [facility] 7 [place] [address] Care Team Providers Care Product Safety Specialist Name Role Phone Unavailable Primary Care Provider Unavailabl e Immunizations Immunization Administration Dates Next Due Influenza High-dose Quadriva lent Preservative Free 01/03/2023,12/10/2020 Influenza Quadrivalent Adjuvanted 12/13/2019 Influenza, High Dose Seasona l, Preservative Free 11/20/2023,01/03/2023,12/29/2021,12/10,12/13/2018,11/28/2017,11/24/2016 ,12/27/2015,11/27/2014 Influenza, IIV3, injectable 12/18/2012,1 03/13/2011,12/27/2010,12/27,02/15/2009,12/21/2007,12/22/2006 ,01/17/2005 Influenza, Unspecified 12/19/2019,12/21/2018, Influenza, seasonal, injecta ble, preservative free 12/18/2012,01/12/2012,12/27/2010,12/27,02/15/2009,12/21/2007,12/22/2006 ,01/17/2005 Influenza, trivalent, adjuvanted 024,12/29/2021,12/13/2018,11/28,11/24/2016,12/27/2015,11/27/2014 Novel [id number], preservative-free 02/15/2009 Pfizer Covid-19 Vaccine 12+ 06/04/2024,,11/24/2021 [...] - PCV20 or PCV21) 02/12/2020 02/11/2015, 05/03/2013 COVID-19 Vaccine ( season) 2024 06/04/2024, 11/29/2023, 07/24/2023, Additional history exists Influenza Vaccine (#1) 2024 , 11/20/2023, 01/03/2023, Additional history exists DTaP/Tdap/Td Vaccines (5 - Td or Tdap) 06/28/2032 06/28/2022, 06/28/2022, 06/28/2022, Additional history exists Zoster Vaccines Completed 03/12/2020, 0 06/2019, 06/27/2011 RSV Patients and Patients Aged 60 years or older Completed 02/07/2023, 02/07/2023 HIB Vaccines Aged Out No longer eligi [...]
--- OUTSIDE RECORDS SUMMARY | 2025-02-03 19:33 | XMS_ITS | Encounter Summary ---
Author Organization [facility] [place] [address] Care Team Providers Care Sales Activity Manager Name Role Phone Josue Crain Primary Care Provider +1 [phone] Encounter Details Date Type Department Care Team (Latest Contact Info) Description 01/04/[address] [facility] - Main Lab [address] [place] [address] Mariely Angulo MD [address] [place] [address] MCFP (current) use of anticoagulants Social History Tobacco [...] for your loved ones. For example, child attendant or elderly care for an older [...] Description 02/17/2025 9:10 AM EST Office Visit [facility] - [address] [facility] [address] [place] [phone] Lei Patel NP [address] [place] [address] [place] [phone] 03/03/2025 1:30 PM EST Ancillary Procedure [facility] - [address] [place] [address] 05/05/2025 12:30 PM EST Office Visit [address] [address] Josue Crain PA [address] [place] [phone] 10/20/2025 9:30 AM EDT Ancillary Procedure [facility] - [facility] [address] [facility] [address] [place] [phone] documented as of this encounter Goals Goal Patient Goal Type Associated Problems Recent Progress Patient-Stated? Author <enter goal here> General On track(01/31/20 1:26 PM EST) Yes Kimberley Olsen RN Note: I will start using my weights again. documented as of this encounter Procedures Procedure Name Priority Date/Time Associated Diagnosis Comments PROTHROMBIN TIME WITH INR Routine 01/04/2025 6:39 AM EDT MCFP (current) use of anticoagulants documented in this encounter Results * (ABNORMAL) Prothrombin time with INR (01/04/2025 6:39 AM EDT) Protime 63.0(H) 10.6 - 13.9 sec LAB COAGULATION METHOD 01/04/2025 12:38 PM EDT [facility] INR 5.2(HH) LAB COAGULATION METHOD 01/04/2025 12:38 PM EDT [facility] Blood Venous blood specimen / Unknown Venipuncture / Unknown 01/04/2025 6:39 AM EDT 01/04/2025 11:18 AM EDT us Mariely Angulo MD LAB BLOOD ORDERABLES Final Resul t [facility] [address] [place] [address], documented in this encounter Visit Diagnoses Diagnosis MCFP (current) use of anticoagulants Long-term (current) use of anticoagulants Encounter for adjustment or management of cardiac device documented in this encounter Additional Health Concerns Assessment Noted Time PHQ-9 Depression Total Score: 0 04/16/19 25 11:13 PM EST A fall risk assessment has been complete d for the patient 10/08/2024 1:20 PM EDT documented as of this encounter Care Teams Sales Activity Manager Relationship Specialty Start Date End Date Josue Crain PA [address] [place] [address] PCP - General Internal Medicine 01/29/24 documented as of this encounter
--- OUTSIDE RECORDS SUMMARY | 2025-02-03 19:33 | XMS_ITS | Encounter Summary ---
Author Organization [place] [address] Care Team Providers Care Supervisor Livestock Yard Name Role Phone Josue Crain Primary Care Provider [phone] -[phone] Encounter Details Date Type Department Care Team ([facility] st Contact Info) Description 01/28/2025 Telephone Adult Medicine [address] [phone] Bhumika Middleton, RN Social History Tobacco Use Types Packs/Day Years [...] your loved ones. For example, early childhood educator aide or elderly care for an older adult? [...] Notes * Micaela Fried LPN - 01/29/2025 9:36 AM EST Spoke with patient this am Reviewed again the s/s bleed or any falls to the ER Will hold again tonight repeat tomorrow Call placed to [facility] TO GIVE ORDERS * Bhumika Middleton RN - 01/28/2025 5:07 PM EST Reviewed pt's INR result with Dr. Ksenia Torres. She was instructed to hold her Coumadin for 2 days and to call Micaela at [facility] tomorrow at . She states her INR is high as she is in considerable pain and taking Tylenol. She was advised to abstain form any OTC pain medications at this time and to alternate ice/heat instead. She denies s/s of bleeding at this time and was advised to go to the ER if she experiences any bleeding from her gums, rectal bleeding, black or tarry stool, hematuria, epistaxis or vomiting blood orcoffee grounds like emesis. She is in agreement with this plan. * Bhumika Middleton RN - 01/28/2025 4:58 PM EST Received a call from Marilin Romano from [employer]. Her INR is 10.5. documented in this encounter Plan of Treatment Upcoming Encounters Date Type Department Care Team (Late st Contact Info) Description 02/17/2025 9:10 AM EST Office Visit [facility] 154 300 [facility] 154 [place] [address] Lei Patel, HARVEY [address] [place] [address] Dr Khan [address] [place] [address] 03/03/2025 1:30 PM EST Ancillary Procedure [facility] [address] [facility] 101 [place] [address] 05/05/2025 12:30 PM EST Office Visit Adult Medicine [address] [address] Josue Crain PA [address] [place] [phone] 10/20/2025 9:30 AM EDT Ancillary Procedure [facility] [address] [facility] [address] [place] [address] documented as of this encounter Goals Goal [...] documented as of this encounter Care Teams Supervisor Livestock Yard Relationship Specialty Start Date End Date Josue Crain PA [address] [place] [address] PCP - General Internal Medicine 01/29/24 documented as of this encounter
--- OUTSIDE RECORDS SUMMARY | 2025-02-03 19:34 | XMS_ITS | Clinical Summary ---
Author Organization [facility] [address] [place] [address] [place] [phone] Phone Care Team Providers Care Step Finisher Name Role Phone Josue Crain Primary Care Provider [phone] Allergies Active Allergy Reactions Criticality Noted Date Comments Perfume 05/06/2024 Medications acetaminophen (TYLENOL 8 HOUR) 650 mg 8 hr tablet Take 650 mg by mouth every 8 hours as needed. Active cholecalciferol (VITAMIN D-3) 50 mcg (2,000 unit) tablet Take by mouth. Active fluticasone propionate (FLONASE) 50 mcg/actuation nasal spray as needed. 02/22/20 19 Active nystatin, bulk, 10 billion unit powder Apply to affected area 2 times daily as needed 12/08/19 17 Active tavaborole 5 % solution with applicator Apply 1 Drop topically daily. APPLY ONE DROP TOPICALLY DAILY TO THE THICK TOENAILS (90 DAY SUPPLY) 09/15/19 22 Active glucos sul 2KCl/msm/chond/ C/Mn (GLUCOSAMINE CHONDROITIN ORAL) 1 po qd Active loratadine (CLARITIN) 10 mg tablet 1 TABLET DAILY Active MULTIVITAMIN ORAL 1 qd Active urea 40 % lotion Apply to thick toenails daily 06/28/19 17 Active docosahexaenoic acid/epa (FISH OIL ORAL) Take by mouth 1 (one) time each day. Active albuterol HFA (PROAIR HFA ; PROVENTIL HFA ; VENTOLIN HFA) 90 mcg/actuation inhaler Inhale 2 puffs by mouth every 4 (four) hours if needed for wheezing. 6.7 g 11 10/02/19 25 Active insulin glargine,hum.re c.anlog (Basaglar KwikPen U-100 Insulin) 100 unit/mL (3 mL) injection pen Inject 18 Units under the skin 1 (one) time each day in the morning. 15 mL 5 10/09/19 25 Active warfarin (COUMADIN) 2.5 mg tablet Take 1-2 tabs daily as directed by the Coumadin clinic May cause heavy bleeding. Take at same time every day. Do not change dietary habits. 180 tablet 1 10/31/19 25 Active Ultra-Fine Pen Needle 32 gauge x 1/4 needle Inject 1 each under the skin 1 (one) time each day. 100 each 11 11/06/19 25 Active FreeStyle Test test strip Use to check fasting blood sugar once daily 100 each 1 11/15/19 25 026 Active FreeStyle Lancets 28 gauge lancets Use to check blood sugar once daily 100 each 1 11/15/19 25 026 Active simvastatin (ZOCOR) 20 mg tablet at bedtime. 90 tablet 1 11/15/19 25 Active furosemide (LASIX) 20 mg tablet Take 1 tablet (20 mg total) by mouth 2 (two) times a day. 180 each 1 12/11/19 25 Active fenofibrate (TRICOR) 145 mg tablet Take 1 tablet (145 mg total) by mouth 1 (one) time each day. 90 tablet 1 01/02/20 25 Active sacubitriL-vals tuan (ENTRESTO) 24-26 mg per tablet Take 1 tablet by mouth 2 (two) times a day. 180 each 1 01/18/20 25 026 Active fluticasone furoate-vilante roL (Breo Ellipta) 100-25 mcg/dose inhaler Inhale 1 puff by mouth 1 (one) time each day. 1 each 01/25/20 25 Active irbesartan (AVAPRO) 300 mg tablet Take 1 tablet (300 mg total) by mouth 1 (one) time each day. 90 tablet 11/29/19 25 025 Discontinued furosemide (LASIX) 20 mg tablet Take 1 tablet (20 mg total) by mouth 2 (two) times a day for 7 days. 14 tablet 12/11/19 25 025 Discontinued Active Problems Problem Noted Date Diagnosed Date HFrEF (heart failure with re duced ejection fraction) ([facility] V24, [facility] V28) 01/17/2025 Overview (01/17/2025): Patient had an echocardiogram while hospitalized on 08/2024 that revealed a mildly reduced ejection fraction at 45-50% with an impaired relaxation filling pattern. Moderately dilated right ventricle. Severe biatrial enlargement. Mechanical aortic valve in place with increased gradients suggestive of stenosis, cannot rule out patient prosthesis mismatch. Mild to moderate elevation of right ventricular systolic pressure. Cannot rule out endocarditis on the study. Assessment & Plan (01/17/2025 12:39 PM EST): Does appear to have slight fluid overload in lower extremities at the appointment today. I am going to be switching her to Entresto from irbesartan. Going to start in the beginning dose 24/26 mg p.o. twice daily. Would like to initiate SGLT2 inhibitor or spironolactone in the future. Patient is going to be updating a BNP or BMP in 1 week. Would like her to continue to check weights daily reach out if she gains 1 or 2 pounds in a day or 4 pounds in a week. Should limit sodium consumption to under 2000 mg/day. Endocarditis 10/21/2024 Assessment & Plan (01/17/2025 12:37 PM EST): Status post, was treated 09/10/2024 through [facility]. Patient had PICC line removed. Was given vancomycin. Assessment & Plan (10/21/2024 8:57 AM EDT): Please see details of most recent hospital stay above. Patient still has PICC line in for the endocarditis. I am going to repeat an echocardiogram in 2 months. Patient should continue through with the last doses of her antibiotics. Hx of bacterial endocarditis 10/01/2024 Atrial fibrillation ([facility] V24, [facility] V28) 1 Assessment & Plan (01/17/2025 12:36 PM EST): Patient already utilizing Coumadin for mechanical aortic valve, this does give CVA prophylaxis as well. Had 1 episode of A-fib noted on 09/2024. Patient is auto rate controlled. Does also have device in that can monitor. Assessment & Plan (10/08/2024 8:55 PM EDT): [facility] (current) use of anticoagulants 2023 Personal history [...] that scheduled, she ended up presenting to [facility] where she was ultimately found to have symptomatic sinus bradycardia and second-degree AV block -Status post placement of a Biotronik dual-chamber permanent pacemaker on 07/16/2016 at [facility] -Has had issues with diaphragmatic stimulation [...] in the past year Assessment & Plan (01/17/2025 12:38 PM EST): Continue with device checks. Assessment & Plan (10/21/2024 8:56 AM EDT): Device functioning appropriately, continue to follow in device clinic Assessment & Plan (05/06/2024 8:58 AM EST): Device is functioning properly. Continue follow-up in our device clinic. Pacemaker 08/28/2016 Overview (12/12/2023): 2017 Assessment & Plan (01/17/2025 12:38 PM EST): Continue with device checks. Assessment & Plan (10/21/2024 8:54 AM EDT): [...] 20 mg at bedtime Assessment & Plan (01/17/2025 12:41 PM EST): Utilizing simvastatin 20 mg p.o. daily and fenofibrate 140 mg p.o. daily. Lipid panel from 3 months prior reveals an LDL that is in control. Triglycerides are improving. Patient follows with PCP. Assessment & Plan (10/21/2024 8:58 AM EDT): [...] to a healthy cardiac diet. Breast cancer ([facility] V24, [facility] V28) 011 Overview (12/12/2023): DCIS left breast [...] significant AI-unchanged from 2018 Assessment & Plan (01/17/2025 12:35 PM EST): Status post replacement with mechanical valve. On Coumadin. Denies any abnormal bleeding. Will need to be bridged with Lovenox for any procedures. Please see most recent echocardiogram in HPI. I will be updating echocardiogram within the next month. Valve sounds good on exam. Assessment & Plan (10/21/2024 8:53 AM EDT): [...] daily, furosemide as needed Assessment & Plan (01/17/2025 12:38 PM EST): Well-controlled the appointment today. Patient reports that blood pressures have been good since she has been home, they were slightly elevated at the rehab facility. Will be switching irbesartan for Entresto, please see under HFrEF section. Assessment & Plan (10/21/2024 8:55 AM EDT): [...] Encounters Date Type Department Care Team Description 02/03/2025 Telephone [facility] [address] [phone] Josue Crain PA 01/30/2025 Telephone [facility] [address] [phone] Josue Crain PA 01/30/2025 Telephone [facility] [address] [phone] Brittaney Cantor LPN 01/29/2025 Telephone Adult [address] [phone] Josue Crain PA 01/29/2025 Telephone [facility] [address] [phone] Micaela Fried LPN 01/28/2025 1:30 PM EST Lab Draw [address] Paroxysmal atrial fibrillation (CMS/HCC V24, CMS/HCC V28); [facility]iary (current) use of anticoagulants; Personal history of DVT (deep vein thrombosis); H/O mechanical aortic valve replacement 01/28/2025 Telephone [facility] - [address] [phone] Francie Middleton RN 01/28/2025 Telephone Adult [address] [phone] Josue Crain PA 01/28/[address] [phone] Brittaney Cantor LPN 01/27/[address] [facility] [address] [facility] [address] [place] [phone] Savannah Jefferson MA 01/27/2025 Results Follow-Up [facility] Cardiology [facility] [address] [facility] [address] [place] [phone] Lei Patel NP 01/24/2025 2:50 PM EST Lab Draw [address] HFrEF (heart failure with reduced ejection fraction) (CMS/HCC V24, CMS/HCC V28); Hospital discharge follow-up; Diabetes type 2, controlled (CMS/HCC V24, CMS/HCC V28); Paroxysmal atrial fibrillation (CMS/HCC V24, CMS/HCC V28) 01/24/2025 2:00 PM EST Office Visit Adult [address] [phone] Josue Crain, PA Hospital discharge follow-up (Primary Dx); Diabetes type 2, controlled (CMS/HCC V24, CMS/HCC V28); Paroxysmal atrial fibrillation (CMS/HCC V24, CMS/HCC V28); HFrEF (heart failure with reduced ejection fraction) (CMS/HCC V24, CMS/HCC V28); Heart block AV second degree; Secondary hypertension; Aortic valve disorder; Cold-induced asthma, unspecified asthma severity, unspecified whether complicated, unspecified whether persistent; Atrial fibrillation, unspecified type (CMS/HCC V24, CMS/HCC V28); Hx of bacterial endocarditis 01/23/2025 Telephone [address] [phone] Brittaney Cantor LPN 01/23/2025 Anticoagulation - Warfarin Visit Coumadin [address] [phone] Josue Crain PA Atrial fibrillation, unspecified type (CMS/HCC V24, CMS/HCC V28) (Primary Dx); [facility] (current) use of anticoagulants; Personal history of DVT (deep vein thrombosis); H/O mechanical aortic valve replacement 01/20/2025 Anticoagulation - Warfarin Visit [address] [phone] Josue Crain PA Atrial fibrillation, unspecified type (CMS/HCC V24, CMS/HCC V28) (Primary Dx); 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; Personal history of DVT (deep vein thrombosis); H/O mechanical aortic valve replacement 01/18/2025 4:10 AM EST Ancillary Procedure [facility] Cardiology [facility] [address] [facility] [address] [place] [address] 01/18/2025 Telephone [facility] [address] [facility] [address] [place] [address] Lina Gillette NP 01/17/2025 7:40 AM EST Office Visit [facility] [address] [facility] [address] [place] [address] Lei Patel NP Aortic valve disorder (Primary Dx); Atrial fibrillation, unspecified type (CMS/HCC V24, CMS/HCC V28); Infective endocarditis, due to unspecified organism, unspecified chronicity; Heart block AV second degree; Other hyperlipidemia; Secondary hypertension; HFrEF (heart failure with reduced ejection fraction) (CMS/HCC V24, CMS/HCC V28); Pacemaker 01/17/[address] [phone] Josue Crain PA 01/17/[address] 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; Personal history of DVT (deep vein thrombosis); H/O mechanical aortic valve replacement 01/16/2025 Telephone Adult Medicine [facility] - [address] [phone] Josue Crain PA 01/15/2025 Telephone Adult Medicine [address] [phone] KiraJosué correia LPN 01/13/2025 Lab Requisition [facility] [address] [place] [phone] Mariely Angulo MD 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 01/11/2025 Lab Requisition [facility] [address] [place] [phone] Mariely Angulo MD 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 01/09/2025 Lab Requisition [facility] [address] [place] [phone] Mariely Angulo MD Heart failure, unspecified (CMS/HCC V24, CMS/HCC V28); Type 2 diabetes mellitus without complications (CMS/HCC V24, CMS/HCC V28) 01/07/2025 Lab Requisition [facility] [address] [place] [phone] Mariely Angulo MD penitentiary (current) use of anticoagulants 01/06/2025 Lab Requisition [facility] [address] [place] [phone] Mariely Angulo MD penitentiary (current) use of anticoagulants 01/04/2025 Lab Requisition [facility] [address] [place] [phone] Mariely Angulo MD penitentiary (current) use of anticoagulants 01/02/2025 Lab Requisition [facility] [address] [place] [phone] Mariely Angulo MD 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 01/01/2025 Lab Requisition [facility] [address] [place] [phone] Mariely Angulo MD penitentiary (current) use of anticoagulants 12/31/2024 Lab Requisition [facility] [address] [place] [phone] Mariely Angulo MD Unspecified atrial fibrillation (CMS/HCC V24, CMS/HCC V28) 12/28/2024 Lab Requisition [facility] [address] [place] [phone] Mariely Angulo MD Unspecified atrial fibrillation (CMS/HCC V24, CMS/HCC V28) 12/26/2024 Lab Requisition [facility] [address] [place] [phone] Mariely Angulo MD penitentiary (current) use of anticoagulants 12/25/[address] [phone] Rea Ritchie PA 12/23/2024 Lab Requisition [facility] [address] [place] [phone] Mariely Angulo MD Malignant neoplasm of unspecified site of unspecified female breast (CMS/HCC V24, CMS/HCC V28); Heart failure, unspecified (CMS/HCC V24, CMS/HCC V28) 12/21/2024 Lab Requisition [facility] [address] [place] [address] Mariely Angulo MD Heart failure, unspecified (CMS/HCC V24, CMS/HCC V28); Type 2 diabetes mellitus without complications (CMS/HCC V24, CMS/HCC V28); Unspecified asthma, uncomplicated; Presence of cardiac pacemaker; Presence of other heart-valve replacement 12/13/2024 8:00 AM EDT Anticoagulation - Warfarin Visit Coumadin [address] [phone] Atrial fibrillation, unspecified type (CMS/HCC V24, CMS/HCC V28) (Primary Dx); penitentiary (current) use of anticoagulants; Personal history of DVT (deep vein thrombosis); H/O mechanical aortic valve replacement 12/05/2024 Anticoagulation - Warfarin Visit Coumadin [address] [phone] Ksenia Aguilar MD Atrial fibrillation, unspecified type (CMS/HCC V24, CMS/HCC V28) (Primary Dx); 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; Personal history of DVT (deep vein thrombosis); H/O mechanical aortic valve replacement 11/28/2024 8:50 AM EDT [facility] [address] [phone] Atrial fibrillation, unspecified type ([facility]/HCC V24, CMS/HCC V28) (Primary Dx); 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; Personal history of DVT (deep vein thrombosis); H/O mechanical aortic valve replacement 2024 8:40 AM EDT Anticoagulation - Warfarin Visit [address] [phone] Atrial fibrillation, unspecified type (CMS/HCC V24, CMS/HCC V28) (Primary Dx); penitentiary (current) use of anticoagulants; Personal history of DVT (deep vein thrombosis); H/O mechanical aortic valve replacement 2024 [facility] [address] [phone] Josue Crain PA 11/18/2024 3:30 PM EDT Office Visit Adult [address] [phone] Rea Ritchie PA Mild congestive heart failure (CMS/HCC V24, CMS/HCC V28) (Primary Dx); Swelling of right hand; Leukocytosis, unspecified type 11/18/2024 3:10 PM EDT Anticoagulation - Warfarin Visit [facility]in Clinic [address] [phone] Atrial fibrillation, unspecified type (CMS/HCC V24, CMS/HCC V28) (Primary Dx); 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; Personal history of DVT (deep vein thrombosis); H/O mechanical aortic valve replacement 11/14/[address] [phone] Josue Crain PA 11/12/2024 9:30 AM EDT Anticoagulation - Warfarin Visit [address] [phone] Atrial fibrillation, unspecified type (CMS/HCC V24, CMS/HCC V28) (Primary Dx); penitentiary (current) use of anticoagulants; Personal history of DVT (deep vein thrombosis); H/O mechanical aortic valve replacement 11/05/2024 8:40 AM EDT Anticoagulation - Warfarin Visit Coumadin [address] [phone] Atrial fibrillation, unspecified type (CMS/HCC V24, CMS/HCC V28) (Primary Dx); penitentiary (current) use of anticoagulants; Personal history of DVT (deep vein thrombosis); H/O mechanical aortic valve replacement from Last 3 Months Immunizations Immunization Administration Dates Next Due H1N1 Inj Preservative Free 02/15/2009 Influenza Quadravalent, MDCK , 0.5ml, with preservative (Flucelvax) 6mo and older 12/13/2019 Influenza trivalent, 0.5mL ( Fluad) 65yo and older 01/24/2025 Influenza trivalent, 0.5mL ( Fluzone High-dose) 65yo [...] subun it RSVpreF, 0.5mL, Preservative Free (Arexvy) 50yo and older 02/07/2023 Td Tetanus diptheria (Tdvax) 7yo and older 06/28/2022,03/26/2007 Tdap Tetanus diptheria acell ular pertussis (Boostrix; Adacel) 7yo and older 04/18/2012 Zoster Live 06/27/2011 Zoster recombinant (Shingrix ) 19yo and older 03/12/2020,11/15/2019 Surgical History Surgery Date Site/Laterality Comments HYSTERECTOMY 2003 PROCEDURE: HISTORICAL TOTAL HYSTERECTOMY WITH BSO; COMMENT: endometrial CA, [place] AORTIC VALVE REPLACEMENT 1979 PROCEDURE: HISTORICAL AORTIC VALVE REPL; COMMENT: for SBE COLONOSCOPY PROCEDURE: HISTORICAL COLONOSCOPY; COMMENT: dr salmeron 2005 OTHER SURGICAL HISTORY 02/2011 PROCEDURE: MAMMOGRAM COLONOSCOPY PROCEDURE: HISTORICAL COLONOSCOPY; COMMENT: 2005 dr salmeron COLONOSCOPY W/ BIOPSIES 02/22/2016 PROCEDURE: [place] COLONOSCOPY W/BIOPSY SINGLE/MULTIPLE; COMMENT: small asc polyp [...] Malignant neoplasm of corpus uteri, except isthmus ([facility] V24, [facility] V28) 11/14 DX:Malignant neoplasm of cor pus uteri, except isthmus ([facility]); COMMENT: endometrial adenocarcinoma, grade !, stage 1A [...] of Anticoagulated 03/27/2020 DX:Anticoagulate d Breast cancer ([facility] V24, [facility] V28) 03/24/2010 DX:Breast cancer ([facility]); COMM ENT: lt Hypertension SOB (shortness of breath) Family History Medical History Relation Name Comments Other: heart disease Father chronic leukemia at 69 of pneumonia Other: Other Maternal Grandfather ? cause of Arthritis Maternal Grandmother at 87; ? ca mesentary or peritoneum Arthritis Mother emphysema- at 61 Emphysema Mother's side mom's sibs-kain ed near in [place], [place] Lung cancer Other 1 mat 1st cousin once removed-rare ca type Other: lumpectomy-breast Other 2 mat 1st cousin-darryl hua of #10 Breast cancer Other 3 2 [...] for your loved ones. For example, child therapist or elderly care for an older adult? [...] Sign Reading Time Taken Comments Blood Pressure 120/70 01/24/2025 2:10 PM EST Pulse 72 01/24/2025 1:32 PM EST Temperature 36.4 C (97.5 F) 01/24/2025 1:32 PM EST Respiratory Rate 14 01/24/2025 1:32 PM EST Oxygen Saturation 97% 01/24/2025 1:32 PM EST Inhaled Oxygen Concentration - - Weight 73.8 kg (162 lb 12.8 oz) 01/24/2025 1:32 PM EST Height 160 cm (5' 3 ) 01/24/2025 1:32 PM EST Body Mass Index 28.84 01/24/2025 1:32 PM EST Plan of Treatment Upcoming Encounters Date Type Department Care Team (Late st Contact Info) Description 02/17/2025 9:10 AM EST Office Visit [facility] [address] [place] [phone] Lei Patel NP [address] [place] [address] [address] [place] [address] 03/03/2025 1:30 PM EST Ancillary Procedure [facility] Cardiology [facility] [address] [facility] [address] [place] [address] 05/05/2025 12:30 PM EST Office Visit [address] [phone] Josue Crain PA [address] [place] [phone] 10/20/2025 9:30 AM EDT Ancillary Procedure [facility] [address] [facility] [address] [place] [address] Health Maintenance Due Date Last Done Comments COVID-19 Vaccine (10 - Moderna risk 2024- season) 2025 12/02/2024, 06/04/2024, 11/29/2023, Additional history exists Diabetes: Blood Sugar Control Test (HGBA1C) 06/04/2025 12/05/2024, 08/16/2024, 04/17/2024, Additional history exists Diabetes: Annual Retina Eye Exam 08/13/2025 08/13/2024, 05/30/2023 Diabetes: Annual Foot Exam 08/14/2025 08/14/2024 Falls Risk Assessment 10/08/2025 10/08/2024, 024 Medicare Annual Wellness Visit 10/08/2025 10/08/2024 Diabetes: Annual Urine Albumin-Creatinine Ratio (uACR) 10/18/2025 10/18/2024, 08/16/2024, 04/17/2024, Additional history exists Diabetes: Annual GFR (Glomerular Filtration Rate) 01/24/2026 01/24/2025, 01/07/2025, 12/23/2024, Additional history exists Hypertension/CHF/CAD Annual BMP Blood Test 01/24/2026 01/24/2025, 01/07/2025, 12/23/2024, Additional history exists Social Influencers of Health Screening 01/30/2026 01/30/2025 Colorectal Cancer Screening: Colonoscopy 04/29/2027 04/29/2022 Cholesterol Screening (Lipid Panel) 10/18/2029 10/18/2024, 08/16/2024, 04/17/2024, Additional history exists Osteoporosis Screening (Bone Density Screening) 12/24/2031 12/23/2021, 02/08/2017 DTaP,Tdap,and Td Vaccines (4 - Td or Tdap) 06/28/2032 06/28/2022, 04/18/2012, 03/26/2007 Hepatitis C Screening Completed 08/22/2012 Zoster Vaccines Completed 03/12/2020, 06/2019, 06/27/2011 RSV Immunization Adult Patients Completed 02/07/2023 Breast Cancer Screening Discontinued 01/05/20, 01/05/2024, 01/02/2023, Additional history exists Pneumococcal Vaccine: 50+ Years Completed 08/21/2024, 02/11/2015, 05/03/2013 Depression Screening Completed 01/24/2025, 05/01/19 Influenza Vaccine Completed 01/24/2025, , 01/03/2023, Additional history exists HIB Vaccines Aged Out [...] weights again. Medical Devices Implanted Type Area Respiratory Technician Device Identifier Shelf Expiration Date Model / Serial / Lot Leanne Flores 8 -T [id number] Implanted:08/2016 (Quantity not on file) Cardiac Pacemaker [employer] 8 -T / [id number] / Procedures Procedure Name Priority Date/Time Associated Diagnosis Comments PROTHROMBIN TIME WITH INR Routine 02/03/2025 PROTHROMBIN TIME WITH INR Routine 01/30/2025 PROTHROMBIN TIME WITH INR STAT 01/28/2025 1:28 PM EST Paroxysmal atrial fibrillation (CMS/HCC V24, CMS/HCC V28) penitentiary (current) use of anticoagulants Personal history of DVT (deep vein thrombosis) H/O mechanical aortic valve replacement CBC WITH AUTO DIFFERENTIAL Routine 01/24/2025 2:58 PM EST Hospital discharge follow-up Diabetes type 2, controlled (CMS/HCC V24, CMS/HCC V28) Paroxysmal atrial fibrillation (CMS/HCC V24, CMS/HCC V28) HFrEF (heart failure with reduced ejection fraction) (CMS/HCC V24, CMS/HCC V28) BASIC METABOLIC PANEL Routine 01/24/2025 2:58 PM EST HFrEF (heart failure with reduced ejection fraction) (CMS/HCC V24, CMS/HCC V28) CBC AND DIFFERENTIAL Routine 01/24/2025 2:58 PM EST Hospital discharge follow-up Diabetes type 2, controlled (CMS/HCC V24, CMS/HCC V28) Paroxysmal atrial fibrillation (CMS/HCC V24, CMS/HCC V28) HFrEF (heart failure with reduced ejection fraction) (CMS/HCC V24, CMS/HCC V28) B-TYPE NATRIURETIC PEPTIDE Routine 01/24/2025 2:58 PM EST HFrEF (heart failure with reduced ejection fraction) (CMS/HCC V24, CMS/HCC V28) PROTHROMBIN TIME WITH INR Routine 01/23/2025 PROTHROMBIN TIME WITH INR Routine 01/20/2025 CARDIAC DEVICE CHECK- REMOTE- MURJ Routine 01/18/2025 4:09 AM EST POC PROTIME INR BLOOD Routine 01/16/2025 1:07 PM EST Atrial fibrillation, unspecified type (CMS/HCC V24, CMS/HCC V28) [facility] (current) use of anticoagulants Personal history of DVT (deep vein thrombosis) H/O mechanical aortic valve replacement PROTHROMBIN TIME WITH INR Routine 01/13/2025 7:36 AM EST 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 PROTHROMBIN TIME WITH INR Routine 01/11/2025 9:16 AM EDT penitentiary (current) use of anticoagulants PROTHROMBIN TIME WITH INR Routine 01/09/2025 6:27 AM EDT Heart failure, unspecified (CMS/HCC V24, CMS/HCC V28) Type 2 diabetes mellitus without complications (CMS/HCC V24, CMS/HCC V28) COMPREHENSIVE METABOLIC PANEL Routine 01/07/2025 6:21 AM EDT 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 PROTHROMBIN TIME WITH INR Routine 01/07/2025 6:21 AM EDT pen[facility]iary (current) use of anticoagulants COMPLETE BLOOD COUNT Routine 01/07/2025 6:21 AM EDT 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 PROTHROMBIN TIME WITH INR Routine 01/06/2025 7:17 AM EDT 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 PROTHROMBIN TIME WITH INR Routine 01/04/2025 6:39 AM EDT penitentiary (current) use of anticoagulants PROTHROMBIN TIME WITH INR Routine 01/02/2025 7:05 AM EDT penitentiary (current) use of anticoagulants PROTHROMBIN TIME WITH INR Routine 01/01/2025 5:31 AM EDT 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 PROTHROMBIN TIME WITH INR Routine 12/31/2024 6:08 AM EDT Unspecified atrial fibrillation (CMS/HCC V24, CMS/HCC V28) PROTHROMBIN TIME WITH INR Routine 12/30/2024 8:18 AM EDT Unspecified atrial fibrillation (CMS/HCC V24, CMS/HCC V28) PROTHROMBIN TIME WITH INR Routine 12/26/2024 5:41 AM EDT 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 COMPREHENSIVE METABOLIC PANEL Routine 12/23/2024 9:30 AM EDT Malignant neoplasm of unspecified site of unspecified female breast (CMS/HCC V24, CMS/HCC V28) Heart failure, unspecified (CMS/HCC V24, CMS/HCC V28) PROTHROMBIN TIME WITH INR Routine 12/23/2024 9:30 AM EDT Malignant neoplasm of unspecified site of unspecified female breast (CMS/HCC V24, CMS/HCC V28) Heart failure, unspecified (CMS/HCC V24, CMS/HCC V28) COMPLETE BLOOD COUNT Routine 12/23/2024 9:30 AM EDT Malignant neoplasm of unspecified site of unspecified female breast (CMS/HCC V24, CMS/HCC V28) Heart failure, unspecified (CMS/HCC V24, CMS/HCC V28) COMPREHENSIVE METABOLIC PANEL Routine 12/21/2024 5:41 AM EDT Heart failure, unspecified (CMS/HCC V24, CMS/HCC V28) Type 2 diabetes mellitus without complications (CMS/HCC V24, CMS/HCC V28) Unspecified asthma, uncomplicated Presence of cardiac pacemaker Presence of other heart-valve replacement PROTHROMBIN TIME WITH INR Routine 12/21/2024 5:41 [...] cardiac pacemaker Presence of other heart-valve replacement EXTERNAL CT REPORT 12/19/[address] REPORT 12/19/2024 POC PROTIME INR BLOOD Routine 12/13/2024 8:06 AM EDT Atrial fibrillation, unspecified type (CMS/HCC V24, CMS/HCC V28) [facility]iary (current) use of anticoagulants Personal history of DVT (deep vein thrombosis) H/O mechanical aortic valve replacement CBC WITH AUTO DIFFERENTIAL Routine 12/05/2024 8:56 AM EDT Leukocytosis, unspecified type PROTHROMBIN TIME WITH INR Routine 12/05/2024 8:56 AM EDT Atrial fibrillation, unspecified type (CMS/HCC V24, CMS/HCC V28) H/O mechanical aortic valve replacement HEMOGLOBIN A1C Routine 12/05/2024 8:56 AM EDT Controlled type 2 diabetes mellitus [...] Paroxysmal atrial fibrillation (CMS/HCC V24, CMS/HCC V28) BASIC METABOLIC PANEL Routine 12/05/2024 8:56 AM EDT Mild congestive heart failure (CMS/HCC V24, CMS/HCC V28) CBC AND DIFFERENTIAL Routine 12/05/2024 8:56 AM EDT Leukocytosis, unspecified type POC PROTIME INR BLOOD Routine 11/28/2024 Atrial fibrillation, unspecified type (CMS/HCC V24, CMS/HCC V28) penitentiary (current) 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 of anticoagulants Personal history of DVT (deep vein thrombosis) H/O mechanical aortic valve replacement POC PROTIME INR BLOOD Routine 2024 Atrial fibrillation, unspecified type (CMS/HCC V24, CMS/HCC V28) penitentiary (current) use of anticoagulants Personal history of DVT (deep vein thrombosis) H/O mechanical aortic valve replacement POC PROTIME INR BLOOD Routine 11/18/2024 Atrial fibrillation, unspecified type (CMS/HCC V24, CMS/HCC V28) 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 Personal history of DVT (deep vein thrombosis) H/O mechanical aortic valve replacement EXTERNAL VASCULAR ULTRASOUND 11/15/2024 EXTERNAL VASCULAR ULTRASOUND 11/15/[address] REPORT 11/15/[address] REPORT 11/15/2024 EXTERNAL XRAY REPORT 11/15/2024 EXTERNAL XRAY REPORT 11/15/2024 POC PROTIME INR BLOOD Routine 11/12/2024 Atrial fibrillation, unspecified type (CMS/HCC V24, CMS/HCC V28) 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 Personal history of DVT (deep vein thrombosis) H/O mechanical aortic valve replacement POC PROTIME INR BLOOD Routine 11/05/2024 Atrial fibrillation, unspecified type (CMS/HCC V24, CMS/HCC V28) 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 Personal history of DVT (deep vein thrombosis) H/O mechanical aortic valve replacement MICROALBUMIN CREATININE URINE RATIO Routine 10/18/2024 8:35 AM EDT Controlled type 2 diabetes mellitus without complication, without long-term current use of insulin ([facility] V24, CMS/[facility] V28) Aortic valve disorder Cold-induced asthma, unspecified asthma severity, unspecified whether complicated, unspecified whether persistent Gout, unspecified cause, unspecified chronicity, unspecified site Other hyperlipidemia Iron deficiency anemia, unspecified iron deficiency anemia type Secondary hypertension Atrial fibrillation, unspecified type (CMS/HCC V24, CMS/[facility] V28) Vitamin D deficiency Paroxysmal atrial fibrillation (CMS/[facility] V24, CMS/[facility] V28) LIPID PANEL WITH REFLEX TO DIRECT LDL Routine 10/18/2024 8:35 AM EDT Controlled type 2 diabetes mellitus without complication, without long-term current use of insulin ([facility] V24, CMS/[facility] V28) Aortic valve disorder Cold-induced asthma, unspecified asthma severity, unspecified whether complicated, unspecified whether persistent Gout, unspecified cause, unspecified chronicity, unspecified site Other hyperlipidemia Iron deficiency anemia, unspecified iron deficiency anemia type Secondary hypertension Atrial fibrillation, unspecified type (CMS/[facility] V24, CMS/[facility] V28) Vitamin D deficiency Paroxysmal atrial fibrillation (CMS/[facility] V24, CMS/[facility] V28) SCREENING MAMMOGRAPHY BI 2-VIEW BREAST INC CAD Routine 01/05/2024 8:16 AM EDT Personal history of malignant neoplasm of breast Encounter for screening mammogram for malignant neoplasm of breast FALLS RISK ASSESSMENT Routine 06/22/2023 DIABETES EYE EXAM Routine 05/30/2023 DEPRESSION SCREENING Routine 05/01/2023 COLONOSCOPY Routine 04/29/2022 DXA BONE DENSITY STUDY 1+ SITS AXIAL SKEL Routine 12/23/2021 1:16 PM EDT penitentiary (current) use of anticoagulants Vitamin D deficiency, unspecified Type 2 diabetes mellitus without complications (CMS/HCC V24, CMS/[facility] V28) Mixed hyperlipidemia Personal history of other venous thrombosis and embolism Gout, unspecified Essential (primary) hypertension Other iron deficiency anemias Mild intermittent asthma, uncomplicated Other obesity due to excess calories Personal history of malignant neoplasm of breast Nonrheumatic aortic valve disorder, unspecified HEPATITIS C SCREENING Routine 08/22/2012 from Last 3 Months or Most Recently Relevant to Health Maintenance Results * Prothrombin time with INR (02/03/2025) Only the most recent of19 resultswithin the time period is included. Pathologist [facility] INR 7.9 Comment:hebert Bai Prothrombin Time POC Blood Venous blood specimen / Unknown 02/03/2025 Josue BASHIR LAB BLOOD ORDERABLES Quiana lainez Result * (ABNORMAL) CBC auto differential (01/24/2025 2:58 PM EST) Only the most recent of2 resultswithin the time period is included. Pathologist [facility] WBC 11.6(H) 4.8 - 10.8 K/mcL LAB HEMETOLOGY METHOD 01/24/2025 5:43 PM [facility] RBC 5.20(H) 3.80 - 4.80 M/mcL LAB HEMETOLOGY METHOD 01/24/2025 5:43 PM [facility] Hemoglobin 12.0 11.5 - 16.0 g/dL LAB HEMETOLOGY METHOD 01/24/2025 5:43 PM [facility] Hematocrit 38.9 35.0 - 47.0 % LAB HEMETOLOGY METHOD 01/24/2025 5:43 PM [facility] MCV 75.1(L) 79.0 - 98.0 FL LAB HEMETOLOGY METHOD 01/24/2025 5:43 PM [facility] MCH 23.2(L) 27.0 - 32.0 pcg LAB HEMETOLOGY METHOD 01/24/2025 5:43 PM [facility] MCHC 30.8(L) 32.0 - 37.0 g/dL LAB HEMETOLOGY METHOD 01/24/2025 5:43 PM [facility] RDW 19.9(H) 11.0 - 15.0 % LAB HEMETOLOGY METHOD 01/24/2025 5:43 PM [facility] Platelets 347 130 - 400 K/mcL LAB HEMETOLOGY METHOD 01/24/2025 5:43 PM [facility] MPV 10.7 7.0 - 11.0 FL LAB HEMETOLOGY METHOD 01/24/2025 5:43 PM [facility] NRBC 0.0 <1.0 % LAB HEMETOLOGY METHOD 01/24/2025 5:43 PM [facility] NRBC Absolute 0.00 <0.10 K/mcL LAB HEMETOLOGY METHOD 01/24/2025 5:43 PM [facility] Neutrophils Relative 78.8 % LAB HEMETOLOGY METHOD 01/24/2025 5:43 PM [facility] Lymphocytes Relative 11.4 % LAB HEMETOLOGY METHOD 01/24/2025 5:43 PM [facility] Monocytes Relative 7.3 % LAB HEMETOLOGY METHOD 01/24/2025 5:43 PM [facility] Eosinophils Relative 1.3 % LAB HEMETOLOGY METHOD 01/24/2025 5:43 PM [facility] Basophils Relative 0.5 % LAB HEMETOLOGY METHOD 01/24/2025 5:43 PM [facility] Immature Granulocytes Relative 0.7 % LAB HEMETOLOGY METHOD 01/24/2025 5:43 PM [facility] Neutrophils Absolute 9.16(H) 1.50 - 7.00 K/mcL LAB HEMETOLOGY METHOD 01/24/2025 5:43 PM [facility] Lymphocytes Absolute 1.32 1.00 - 5.00 K/mcL LAB HEMETOLOGY METHOD 01/24/2025 5:43 PM EST [facility] Monocytes Absolute 0.85 0.20 - 1.00 K/mcL LAB HEMETOLOGY METHOD 01/24/2025 5:43 PM EST [facility] Eosinophils Absolute 0.15 0.00 - 0.50 K/[facility] LAB HEMETOLOGY METHOD 01/24/2025 5:43 PM EST [facility] Basophils Absolute 0.06 0.00 - 0.20 K/[facility] LAB HEMETOLOGY METHOD 01/24/2025 5:43 PM EST [facility] Immature Granulocytes Absolute 0.08(H) 0.00 - 0.03 K/[facility] LAB HEMETOLOGY METHOD 01/24/2025 5:43 PM EST [facility] Blood Venous blood specimen / Unknown Venipuncture / Unknown 01/24/2025 2:58 PM EST 01/24/2025 2:58 PM EST Josue BASHIR LAB BLOOD ORDERABLES Quiana l Result [facility] [address] [place] [address], [place] [phone] * (ABNORMAL) B-type natriuretic peptide (01/24/2025 2:58 PM EST) BNP 721(H) <=100 pcg/mL LAB CHEMISTRY METHOD 01/24/2025 7:07 PM EST [facility] Blood Venous blood specimen / Unknown Venipuncture / Unknown 01/24/2025 2:58 PM EST 01/24/2025 2:58 PM EST Lei Patel PERFORMANCE MANAGER LAB BLOOD ORDERABLES Final Resul t [facility] [address] [place] [address], [place] [phone] * (ABNORMAL) Basic metabolic panel (01/24/2025 2:58 PM EST) Only the most recent of2 resultswithin the time period is included. Sodium 136 133 - 145 mmol/L LAB CHEMISTRY METHOD 01/24/2025 7:18 PM [facility] Potassium 4.0 3.5 - 5.5 mmol/L LAB CHEMISTRY METHOD 01/24/2025 7:18 PM [facility] Chloride 102 96 - 110 mmol/L LAB CHEMISTRY METHOD 01/24/2025 7:18 PM [facility] CO2 29 21 - 32 mmol/L LAB CHEMISTRY METHOD 01/24/2025 7:18 PM [facility] Anion Gap 5 3 - 11 LAB CHEMISTRY METHOD 01/24/2025 7:18 PM [facility] Glucose 100 70 - 100 mg/dL LAB CHEMISTRY METHOD 01/24/2025 7:18 PM [facility] BUN 12 5 - 25 mg/dL LAB CHEMISTRY METHOD 01/24/2025 7:18 PM [facility] Creatinine 0.44(L) 0.50 - 1.10 mg/dL LAB CHEMISTRY METHOD 01/24/2025 7:18 PM [facility] eGFR 101 >=60 mL/min/1. 73m2 LAB CHEMISTRY METHOD 01/24/2025 7:18 PM [facility] Comment:Calculation based on the Chronic Kidney Disease Epidemiology Collaboration (CKD-EPI) equation refit without adjustment for race. BUN/Creatinine Ratio 27.3 LAB CHEMISTRY METHOD 01/24/2025 7:18 PM [facility] Calcium 9.8 8.5 - 10.5 mg/dL LAB CHEMISTRY METHOD 01/24/2025 7:18 PM [facility] Blood Venous blood specimen / Unknown Venipuncture / Unknown 01/24/2025 2:58 PM EST 01/24/2025 2:58 PM EST us Lei Patel PERFORMANCE MANAGER LAB BLOOD ORDERABLES Final Resul t [facility] [address] [place] [address], * Cardiac device check - Remote- MURJ (01/18/2025 4:09 AM EST) Date Time Interrogation Session [id number] CV DEVICE CHECK Type Interrogation Session Remote CV DEVICE CHECK Implantable Pulse Generator Respiratory Technician BIO CV DEVICE CHECK Implantable Pulse Generator Type IPG CV DEVICE CHECK Implantable Pulse Generator Model Eluna 8 DR-T CV DEVICE CHECK Implantable Pulse Generator Serial Number [id number] CV DEVICE CHECK Implantable Pulse Generator Implant Date [id number] CV DEVICE CHECK Battery Remaining Percentage 40.00 CV DEVICE CHECK Battery Status Middle of Service CV DEVICE CHECK Deangelo Statistic RA Percent Paced 1.00 CV DEVICE CHECK Deangelo Statistic RV Percent Paced 96.00 CV DEVICE CHECK Atrial Tachy Statistic AT/AF [place] Percent 100.00 CV DEVICE CHECK Lead Channel Sensing Intrinsic Amplitude 0.600 CV DEVICE CHECK Lead Channel Setting Sensing Sensitivity 0.40 CV DEVICE CHECK Lead Channel Impedance Value 449 CV DEVICE CHECK Lead Channel RA Pacing Threshold Date 2025-01-15 CV DEVICE CHECK Lead Channel Setting Pacing Amplitude 1.800 CV DEVICE CHECK Lead Channel Setting Pacing Pulse Width 0.4 CV DEVICE CHECK Lead Channel Sensing Intrinsic Amplitude 8.200 CV DEVICE CHECK Lead Channel Impedance Value 761 CV DEVICE CHECK Lead Channel RV Pacing Threshold Date 2025-01-15 CV DEVICE CHECK Lead Channel Setting Pacing [...] 130 CV DEVICE CHECK Date of Service 2025-02-28 CV DEVICE CHECK Anatomical Region Laterality Modality Device Interroga tion 01/15/2025 12:2 9 AM EST Impressions 01/17/2025 11:33 AM EST Normal Remote: No Events * Normal Device Function * Alerts or events: None * Battery: Battery is at 40%, * Sensing, impedance and thresholds reviewed * Programmed parameters reviewed * Presenting rhythm reviewed * Heart Rate Histograms reviewed * No significant changes noted Normal Remote: No Events * Normal Device Function * Alerts or events: None * Battery: Battery is at 40%, * Sensing, impedance and thresholds reviewed * Programmed parameters reviewed * Presenting rhythm reviewed * Heart Rate Histograms reviewed * No significant changes noted Narrative Procedure Note Ender Vargas MD - 01/18/2025 IMPRESSION: Normal Remote: No Events * Normal Device Function * Alerts or events: None * Battery: Battery is at 40%, * Sensing, impedance and thresholds reviewed * Programmed parameters reviewed * Presenting rhythm reviewed * Heart Rate Histograms reviewed * No significant changes noted Normal Remote: No Events * Normal Device Function * Alerts or events: None * Battery: Battery is at 40%, * Sensing, impedance and thresholds reviewed * Programmed parameters reviewed * Presenting rhythm reviewed * Heart Rate Histograms reviewed * No significant changes noted Ender Vargas MD CV IMPLANTABLE CARDIAC DEVICE PROCEDURES Final Result * POC Protime INR Blood (01/16/2025 1:07 PM EST) Only the most recent of7 resultswithin the time period is included. Lot Number INR POC 4.5 Comment:hvna francie Prothrombin Time POC Exp Date Blood 01/16/2025 1:07 PM EST Josue BASHIR POINT OF CARE TEST ENTER/ EDIT ORDERABLES Final Result * (ABNORMAL) Complete blood count (01/07/2025 6:21 AM EDT) Only the most recent of3 resultswithin the time period is included. WBC 9.9 4.8 - 10.8 K/[facility] LAB HEMETOLOGY METHOD 01/07/2025 10:03 AM EDT [facility] RBC 4.80 3.80 - 4.80 M/[facility] LAB HEMETOLOGY METHOD 01/07/2025 10:03 AM EDT [facility] Hemoglobin 11.5 11.5 - 16.0 g/dL LAB HEMETOLOGY METHOD 01/07/2025 10:03 AM [facility] Hematocrit 37.8 35.0 - 47.0 % LAB HEMETOLOGY METHOD 01/07/2025 10:03 AM [facility] MCV 78.1(L) 79.0 - 98.0 FL LAB HEMETOLOGY METHOD 01/07/2025 10:03 AM [facility] MCH 23.8(L) 27.0 - 32.0 pcg LAB HEMETOLOGY METHOD 01/07/2025 10:03 AM [facility] MCHC 30.4(L) 32.0 - 37.0 g/dL LAB HEMETOLOGY METHOD 01/07/2025 10:03 AM [facility] RDW 18.1(H) 11.0 - 15.0 % LAB HEMETOLOGY METHOD 01/07/2025 10:03 AM [facility] Platelets 264 130 - 400 K/mcL LAB HEMETOLOGY METHOD 01/07/2025 10:03 AM [facility] MPV 10.7 7.0 - 11.0 FL LAB HEMETOLOGY METHOD 01/07/2025 10:03 AM [facility] NRBC 0.0 <1.0 % LAB HEMETOLOGY METHOD 01/07/2025 10:03 AM [facility] NRBC Absolute 0.00 <0.10 K/mcL LAB HEMETOLOGY METHOD 01/07/2025 10:03 AM [facility] Blood Venous blood specimen / Unknown Venipuncture / Unknown 01/07/2025 6:21 AM EDT 01/07/2025 9:34 AM EDT Mariely Angulo MD LAB BLOOD ORDERABLES Final Resul t [facility] [address] [place] [address], [place] [phone] * (ABNORMAL) Comprehensive metabolic panel (01/07/2025 6:21 AM EDT) Only the most recent of3 resultswithin the time period is included. Sodium 138 133 - 145 mmol/L LAB CHEMISTRY METHOD 01/07/2025 10:57 AM T [facility] Potassium 3.8 3.5 - 5.5 mmol/L LAB CHEMISTRY METHOD 01/07/2025 10:57 AM [facility] Chloride 102 96 - 110 mmol/L LAB CHEMISTRY METHOD 01/07/2025 10:57 AM [facility] CO2 28 21 - 32 mmol/L LAB CHEMISTRY METHOD 01/07/2025 10:57 AM [facility] Anion Gap 8 3 - 11 LAB CHEMISTRY METHOD 01/07/2025 10:57 AM [facility] Glucose 79 70 - 100 mg/dL LAB CHEMISTRY METHOD 01/07/2025 10:57 AM [facility] BUN 13 5 - 25 mg/dL LAB CHEMISTRY METHOD 01/07/2025 10:57 AM [facility] Creatinine 0.48(L) 0.50 - 1.10 mg/dL LAB CHEMISTRY METHOD 01/07/2025 10:57 AM [facility] eGFR 99 >=60 mL/min/1. 73m2 LAB CHEMISTRY METHOD 01/07/2025 10:57 AM [facility] Comment:Calculation based on the Chronic Kidney Disease Epidemiology Collaboration (CKD-EPI) equation refit without adjustment for race. BUN/Creatinine Ratio 27.1 LAB CHEMISTRY METHOD 01/07/2025 10:57 AM [facility] Calcium 9.4 8.5 - 10.5 mg/dL LAB CHEMISTRY METHOD 01/07/2025 10:[facility] AST (SGOT) 32 10 - 42 unit/L LAB CHEMISTRY METHOD 01/07/2025 10:57 AM [facility] ALT (SGPT) 18 10 - 60 unit/L LAB CHEMISTRY METHOD 01/07/2025 10:57 AM [facility] Alkaline Phosphatase 50 42 - 121 unit/L LAB CHEMISTRY METHOD 01/07/2025 10:57 AM T [facility] Total Protein 6.8 6.0 - 8.0 g/dL LAB CHEMISTRY METHOD 01/07/2025 10:57 AM [facility] Albumin 3.1(L) 3.2 - 5.0 g/dL LAB CHEMISTRY METHOD 01/07/2025 10:57 AM [facility] Total Bilirubin 0.6 0.0 - 1.4 mg/dL LAB CHEMISTRY METHOD 01/07/2025 10:57 AM [facility] Blood Venous blood specimen / Unknown Venipuncture / Unknown 01/07/2025 6:21 AM EDT 01/07/2025 9:34 AM EDT Mariely Angulo MD LAB BLOOD ORDERABLES Final Resul t [facility] [address] [place] [address], * External CT Report (12/19/2024) Only the most recent of4 resultswithin the time period is included. Anatomical Region Laterality Modality Computed Tomogra phy Provider [employer] IMG CT PROCEDURES Final Result * (ABNORMAL) Hemoglobin A1c (12/05/2024 8:56 AM EDT) Hemoglobin A1C 6.9(H) <6.5 % LAB CHEMISTRY METHOD 12/05/2024 12:42 PM EDT [facility] Mean Bld Glu Estim. 151 mg/dL LAB CHEMISTRY METHOD 12/05/2024 12:42 PM EDT [facility] Blood Venous blood specimen / Unknown Venipuncture / Unknown 12/05/2024 8:56 AM EDT 12/05/2024 8:56 AM EDT Josue BASHIR LAB BLOOD ORDERABLES Quiana l Result [facility] [address] [place] [address], [place] [phone] * External Vascular Ultrasound (11/15/2024) Only the most recent of2 resultswithin the time period is included. Anatomical Region Laterality Modality Ultrasound us Provider [employer] CV VASCULAR PROCEDURES F inal Result * External Xray Report (11/15/2024) Only the most recent of2 resultswithin the time period is included. Anatomical Region Laterality Modality Radiographic Myriam ging us Provider [employer] IMG XR PROCEDURES Final Result * (ABNORMAL) Lipid panel with reflex to direct LDL (10/18/2024 8:35 AM EDT) Cholesterol 104 0 - 200 mg/dL LAB CHEMISTRY METHOD 10/18/2024 11:46 AM EDT [facility] Triglycerides 173(H) 0 - 150 mg/dL LAB CHEMISTRY METHOD 10/18/2024 11:46 AM EDT [facility] HDL 35(L) >=40 mg/dL LAB CHEMISTRY METHOD 10/18/2024 11:46 AM EDT [facility] LDL Calculated 34 0 - 100 mg/dL LAB CHEMISTRY METHOD 10/18/2024 11:46 AM EDT [facility] Comment:Estimated LDL Calcul ated using equation: Total cholesterol - HDL cholesterol - (Triglycerides/5) VLDL Cholesterol Philippe 34.6 mg/dL LAB CHEMISTRY METHOD 10/18/2024 11:46 AM EDT [facility] Non HDL Chol. (LDL+VLDL) 69 <145 mg/dL LAB CHEMISTRY METHOD 10/18/2024 11:46 AM EDT [facility] Chol/HDL Ratio 3.0 0.0 - 4.4 LAB CHEMISTRY METHOD 10/18/2024 11:46 AM EDT [facility] Blood Venous blood specimen / Unknown Venipuncture / Unknown 10/18/2024 8:35 AM EDT 10/18/2024 8:35 AM EDT Josue BASHIR LAB BLOOD ORDERABLES Quiana l Result Performing Organization Address City/[facility]/ZIP Co de Phone Number [facility] [address] [place] [address], [place] [phone] * (ABNORMAL) Microalbumin creatinine urine ratio (10/18/2024 8:35 AM EDT) Creatinine, Urine 94.0 mg/dL LAB CHEMISTRY METHOD 10/18/2024 1:35 PM EDT [facility] Microalb, Ur 106.0(H) 0.0 - 29.0 mg/L LAB CHEMISTRY METHOD 10/18/2024 1:35 PM EDT [facility] Microalb/Crea t Ratio 113(H) <30 mg/g creat LAB CHEMISTRY METHOD 10/18/2024 1:35 PM EDT [facility] Urine Urine specimen obtained by clean catch procedure / Unknown Non-blood Collection / Unknown 10/18/2024 8:35 AM EDT 10/18/2024 8:35 AM EDT Josue BASHIR LAB URINE ORDERABLES Quiana l Result [facility] [address] [place] [address], [place] [phone] * SCREENING MAMMOGRAPHY BI 2-VIEW BREAST INC [...] No mammographic evidence of malignancy. BI-RADS 2-benign [address] [address] Procedure Note Steffany Bingham MD - 01/13/2024 [...] No mammographic evidence of malignancy. BI-RADS 2-benign [address] [address] Josue BASHIR IMG XR PROCEDURES Final R esult * Falls Risk Assessment (06/22/2023) [facility] Falls Risk Assessment Abstracted Result [facility] Provider [place] HEALTH MAINTENANCE Final Result * Diabetes Eye Exam (05/30/2023) [facility] Diabetes: Annual Retina Eye Exam Abstracted [facility] HEALTH MAINTENANCE Final Result * Depression Screening (05/01/2023) [facility] Depression Screening Abstracted [facility] HEALTH MAINTENANCE Final Result * Colonoscopy (04/29/2022) [facility] Colonoscopy No interpreta tion,abstr acted Anatomical Region Laterality Modality Other Result [facility] Final Result * DXA BONE DENSITY STUDY [...] normal bone density by WHO criteria. The [facility] Department of Internal Medicine recommends using National [...] alternative screening schedule based on inder Gama., [facility] March 31, 2011 for patients with osteopenia [...] normal bone density by WHO criteria. The [facility] Department of Internal Medicine recommendsusing National Osteoporosis [...] alternative screening schedule based on inder Gama., NEJMJanuary 2011 for patients with osteopenia (based on hip BMD T-score) is as follows: * advanced osteopenia (T scores -2.00 to -2.49), BMD testing every year * moderate osteopenia (T scores -1.50 to -1.99), BMD testing every 5years mild osteopenia or normal BMD (T scores -1.50 and higher), BMD testingevery 15 years Josue BASHIR IMG DXA PROCEDURES Final Result * Hepatitis C Screening (08/22/2012) [facility] Hepatitis C Screening Abstracted Historical Provider HEALTH MAINTENANCE Final Result from Last 3 Months or Most Recently Relevant to Health Maintenance Insurance MEDICARE [facility] Advance Directives Documents on File Type Date Recorded Patient Sole Conditioner Expl anation Advance Directives and Living Will 10/01/2024 2:51 PM HEALTH CARE PROXY Care Teams Step Finisher Relationship Specialty Start Date End Date Josue Crain PA [address] [place] [address] PCP - General Internal Medicine 01/29/24
--- OUTSIDE RECORDS SUMMARY | 2025-02-03 19:34 | XMS_ITS ---
Author Organization [address] Address [address] [place] [address] Phone Care Team Providers Care Tank Car Cleaner Name Role Phone Josue Crain Primary Care Provider +1 -[phone] Transitional Care Management Status:Ongoing (Active) Start date:01/14/2025 Enrollment date:01/14/2025 Enrollment reason:Identified using hospital discharge data Case Team Name Relationship Phone Macie Soni LPN(Responsible Staff) Septic Technician Continued Care and Services Coordination
--- OUTSIDE RECORDS SUMMARY | 2025-02-03 19:34 | XMS_ITS | Encounter Summary ---
Author Organization [facility] [place] [address] Care Team Providers Care Finishing Machine Operator Name Role Phone Josue Crain Primary Care Provider +1 -[phone] Encounter Details Date Type Department Care Team ([facility] st Contact Info) Description 01/18/2025 Telephone [facility] - [facility] [address] [facility] [address] [place] [address] Lina Gillette, HARVEY [address] [place] [address] [place] [address] Social History Tobacco Use Types Packs/Day Years [...] loved ones. For example, child and family counselor or elderly care for an older adult? [...] as of this encounter Progress Notes * Sohail Fields RN - 01/20/2025 1:21 PM EST Called pt this PM. States slight improvement in s/s. Cough is better when she also takes her inhaler - asthma. Lungs clear. CHICHO improved right ankle is better and left ankle still has some swelling. No abd distention - waist on pants are looser. Weight 01/17 164, 01/18 163.5, 01/19 163, 01/20 162.5. No urinary issues. Uses [facility] for INR and currently managed by PCP and has [facility] drawing her - doesnot need any follow up on this. Is mainly asking about the ABX prior to dental visits. Her dentist Dr. Bass at [facility] is asking for a letter to explain what type of ABX prior to dental procedures she is supposed to have? Is mentioning that she has a hx of endocarditis and had IV ABX through a PICC line she also has a valve. She did not know if she needed something stronger than Amoxicillin - mentioned something about amoxicillin clavulanate? * Lei Patel NP - 01/20/2025 11:16 AM EST Can we reach out to the patient and see how she is doing? Any improvement in her symptoms. As she continue to check her weights daily. As far as antibiotic prophylaxis, I did not note any change, she will need antibiotics typically amoxicillin prior to dental work * Lina Gillette NP - 01/18/2025 11:00 AM EST Pt called the service to clarify dosing of her entresto. Instructions provided. While on the phone, she states that she was told she needed a different abx for her SBE prophylaxisand a note for her dentist detailing her SBE plan. Lei, can you pls let her know what her abx treatment strategy will be? Lastly, AC team, Beth is wondering if there is a direct line to contact you for INR follow up. Shetold me today that she had to go through the general internal medicine call center. Thank you all for your help documented in this encounter Plan of Treatment Upcoming Encounters Date Type Department Care Team (Late st Contact Info) Description 02/17/2025 9:10 AM EST Office Visit [facility] [address] [place] [phone] Lei Patel NP [address] [place] [address] [place] [address] 03/03/2025 1:30 PM EST Ancillary Procedure [facility] Cardiology [facility] [address] [facility] [address] [place] [address] 05/05/2025 12:30 PM EST Office Visit Adult [facility] [address] [place] [address] Josue Crain PA [address] [place] [phone] 10/20/2025 9:30 AM EDT Ancillary Procedure [facility] [address] [facility] [address] [place] [address] documented as of this encounter Goals Goal [...] documented as of this encounter Care Teams Finishing Machine Operator Relationship Specialty Start Date End Date Josue Crain PA [address] [place] [address] PCP - General Internal Medicine 01/29/24 documented as of this encounter
--- OUTSIDE RECORDS SUMMARY | 2025-02-03 19:34 | XMS_ITS | Encounter Summary ---
Author Organization [facility] [place] [address] Care Team Providers Care Public Speaking Teacher Name Role Phone Josue Crain Primary Care Provider [phone] -[phone] Encounter Details Date Type Department Care Team (Latest Contact Info) Description 01/06/[address] [facility] - Main Lab [address] [place] [address] Mariely Angulo MD [address] [place] [address] USP (current) use of anticoagulants Social History Tobacco [...] for your loved ones. For example, child support agent or elderly care for an older adult? [...] Description 02/17/2025 9:10 AM EST Office Visit [facility] - [address] [facility] [address] [place] [phone] Lei Patel NP [address] [place] [address] [place] [phone] 03/03/2025 1:30 PM EST Ancillary Procedure [facility] - [address] [place] [address] 05/05/2025 12:30 PM EST Office Visit [address] [address] Josue Crain PA [address] [place] [phone] 10/20/2025 9:30 AM EDT Ancillary Procedure [facility] - [facility] [address] [facility] [address] [place] [phone] documented as of this encounter Goals Goal Patient Goal Type Associated Problems Recent Progress Patient-Stated? Author <enter goal here> General On track(01/31/20 1:26 PM EST) Yes Kimberley Olsen RN Note: I will start using my weights again. documented as of this encounter Procedures Procedure Name Priority Date/Time Associated Diagnosis Comments PROTHROMBIN TIME WITH INR Routine 01/06/2025 7:17 AM EDT USP (current) use of anticoagulants documented in this encounter Results * (ABNORMAL) Prothrombin time with INR (01/06/2025 7:17 AM EDT) Protime 48.5(H) 10.6 - 13.9 sec LAB COAGULATION METHOD 01/06/2025 10:58 AM EDT [facility] INR 4.0 LAB COAGULATION METHOD 01/06/2025 10:58 AM EDT [facility] Blood Venous blood specimen / Unknown Venipuncture / Unknown 01/06/2025 7:17 AM EDT 01/06/2025 10:35 AM EDT us Mariely Angulo MD LAB BLOOD ORDERABLES Final Resul t [facility] [address] [place] [address], documented in this encounter Visit Diagnoses Diagnosis USP (current) use of anticoagulants Long-term (current) use of anticoagulants Encounter for adjustment or management of cardiac device documented in this encounter Additional Health Concerns Assessment Noted Time PHQ-9 Depression Total Score: 0 04/16/19 25 11:13 PM EST A fall risk assessment has been complete d for the patient 10/08/2024 1:20 PM EDT documented as of this encounter Care Teams Public Speaking Teacher Relationship Specialty Start Date End Date Josue Crain PA [address] [place] [address] PCP - General Internal Medicine 01/29/24 documented as of this encounter
--- OUTSIDE RECORDS SUMMARY | 2025-02-03 19:34 | XMS_ITS | Encounter Summary ---
Author Organization [facility] [place] [address] Care Team Providers Care Dining Manager Name Role Phone Josue Crain Primary Care Provider [phone] [phone] Encounter Details Date Type Department Care Team (Latest Contact Info) Description 01/11/2025 Lab Requisition [facility] - Main Lab [address] [place] [address] Mariely Angulo MD [address] [place] [address] senior care (current) use of anticoagulants Social History Tobacco [...] your loved ones. For example, early childhood associate or elderly care for an older adult? [...] Description 02/17/2025 9:10 AM EST Office Visit [facility] - [address] [facility] [address] [place] [phone] Lei Patel NP [address] [place] [address] [place] [phone] 03/03/2025 1:30 PM EST Ancillary Procedure [facility] - [address] [place] [address] 05/05/2025 12:30 PM EST Office Visit [address] [address] Josue Crain PA [address] [place] [phone] 10/20/2025 9:30 AM EDT Ancillary Procedure [facility] - [facility] [address] [facility] [address] [place] [phone] documented as of this encounter Goals Goal Patient Goal Type Associated Problems Recent Progress Patient-Stated? Author <enter goal here> General On track(01/31/20 1:26 PM EST) Yes Kimberley Olsen RN Note: I will start using my weights again. documented as of this encounter Procedures Procedure Name Priority Date/Time Associated Diagnosis Comments PROTHROMBIN TIME WITH INR Routine 01/11/2025 9:16 AM EDT senior care (current) use of anticoagulants documented in this encounter Results * (ABNORMAL) Prothrombin time with INR (01/11/2025 9:16 AM EDT) Protime 78.0(H) 10.6 - 13.9 sec LAB COAGULATION METHOD 01/11/2025 12:07 PM EDT [facility] INR 6.5(HH) LAB COAGULATION METHOD 01/11/2025 12:07 PM EDT [facility] Blood Venous blood specimen / Unknown Venipuncture / Unknown 01/11/2025 9:16 AM EDT 01/11/2025 10:43 AM EDT us Mariely Angulo MD LAB BLOOD ORDERABLES Final Resul t [facility] [address] [place] [address], documented in this encounter Visit Diagnoses Diagnosis senior care (current) use of anticoagulants Long-term (current) use of anticoagulants Encounter for adjustment or management of cardiac device documented in this encounter Additional Health Concerns Assessment Noted Time PHQ-9 Depression Total Score: 0 04/16/19 25 11:13 PM EST A fall risk assessment has been complete d for the patient 10/08/2024 1:20 PM EDT documented as of this encounter Care Teams Dining Manager Relationship Specialty Start Date End Date Josue Crain PA [address] [place] [address] PCP - General Internal Medicine 01/29/24 documented as of this encounter
--- OUTSIDE RECORDS SUMMARY | 2025-02-03 19:34 | XMS_ITS | Encounter Summary ---
Author Organization [facility] [place] [address] Care Team Providers Care Program Director Cable Television Name Role Phone Josue Crain Primary Care Provider +1 -[phone] Encounter Details Date Type Department Care Team (Latest Contact Info) Description 01/09/2025 Lab Requisition [facility] - Main Lab [address] [place] [address] Mariely Angulo MD [address] [place] [address] Heart failure, unspecified (CMS/HCC V24, CMS/HCC V28); Type 2 diabetes mellitus without complications (CMS/HCC V24, CMS/[facility] V28) Social History Tobacco Use Types Packs/Day [...] for your loved ones. For example, director of early childhood or elderly care for an older adult? [...] 02/17/2025 9:10 AM EST Office Visit [facility] - [address] [facility] [address] [place] [address] Lei Patel NP [address] [place] [address] [place] [address] 03/03/2025 1:30 PM EST Ancillary Procedure [facility] Cardiology [facility] - [facility] [address] [place] [address] 05/05/2025 12:30 PM EST Office Visit [address] [address] Josue Crain PA [address] [place] [phone] 10/20/2025 9:30 AM EDT Ancillary Procedure [facility] - [facility] [address] [facility] [address] [place] [address] documented as of this encounter Goals Goal Patient Goal Type Associated Problems Recent Progress Patient-Stated? Author <enter goal here> General On track(01/31/20 1:26 PM EST) Yes Kimberley Olsen, RN Note: I will start using my weights again. documented as of this encounter Procedures Procedure Name Priority Date/Time Associated Diagnosis Comments PROTHROMBIN TIME WITH INR Routine 01/09/2025 6:27 AM EDT Heart failure, unspecified (CMS/HCC V24, [facility] V28) Type 2 diabetes mellitus without complications (CMS/HCC V24, CMS/[facility] V28) documented in this encounter Results * (ABNORMAL) Prothrombin time with INR (01/09/2025 6:27 AM EDT) Protime 29.5(H) 10.6 - 13.9 sec LAB COAGULATION METHOD 01/09/2025 9:55 AM EDT [facility] INR 2.4 LAB COAGULATION METHOD 01/09/2025 9:55 AM T [facility] Blood Venous blood specimen / Unknown Venipuncture / Unknown 01/09/2025 6:27 AM EDT 01/09/2025 8:32 AM EDT us Mariely Angulo MD LAB BLOOD ORDERABLES Final Resul t [facility] [address] [place] [address], documented in this encounter Visit Diagnoses Diagnosis Heart failure, unspecified ([facility] V24, [facility] V28) Heart failure, unspecified Type 2 diabetes mellitus without complications ([facility] V24, [facility] V28) Encounter for adjustment or management of cardiac device documented in this encounter Additional Health Concerns Assessment Noted Time PHQ-9 Depression Total Score: 0 04/16/19 25 11:13 PM EST A fall risk assessment has been complete d for the patient 10/08/2024 1:20 PM EDT documented as of this encounter Care Teams Program Director Cable Television Relationship Specialty Start Date End Date Josue Crain PA [address] [place] [address] PCP - General Internal Medicine 01/29/24 documented as of this encounter
--- OUTSIDE RECORDS SUMMARY | 2025-02-03 19:34 | XMS_ITS | Encounter Summary ---
Author Organization [facility] [place] [address] Care Team Providers Care Featherer Name Role Phone Josue Crain Primary Care Provider +1 -[phone] Encounter Details Date Type Department Care Team (Latest Contact Info) Description 01/13/2025 Lab Requisition [facility] - Main Lab [address] [place] [address] Mariely Angulo MD [address] [place] [address] senior care (current) use of [...] your loved ones. For example, child care sitter or elderly care for an older adult? [...] Description 02/17/2025 9:10 AM EST Office Visit [facility] - [address] [facility] [address] [place] [phone] Lei Patel NP [address] [place] [address] [place] [phone] 03/03/2025 1:30 PM EST Ancillary Procedure [facility] - [address] [place] [address] 05/05/2025 12:30 PM EST Office Visit [address] [address] Josue Crain PA [address] [place] [phone] 10/20/2025 9:30 AM EDT Ancillary Procedure [facility] - [facility] [address] [facility] [address] [place] [phone] documented as of this encounter Goals Goal Patient Goal Type Associated Problems Recent Progress Patient-Stated? Author <enter goal here> General On track(01/31/20 1:26 PM EST) Yes Kimberley Olsen RN Note: I will start using my weights again. documented as of this encounter Procedures Procedure Name Priority Date/Time Associated Diagnosis Comments PROTHROMBIN TIME WITH INR Routine 01/13/2025 7:36 AM EST senior care (current) use of anticoagulants documented in this encounter Results * (ABNORMAL) Prothrombin time with INR (01/13/2025 7:36 AM EST) Protime 69.2(H) 10.6 - 13.9 sec LAB COAGULATION METHOD 01/13/2025 10:31 AM EST [facility] INR 5.7(HH) LAB COAGULATION METHOD 01/13/2025 10:31 AM EST [facility] Blood Venous blood specimen / Unknown Venipuncture / Unknown 01/13/2025 7:36 AM EST 01/13/2025 9:57 AM EST us Mariely Angulo MD LAB BLOOD ORDERABLES Final Resul t [facility] [address] [place] [address], documented in this encounter Visit Diagnoses Diagnosis terminal block assembler (current) use of anticoagulants Long-term (current) use of anticoagulants Encounter for adjustment or management of cardiac device documented in this encounter Additional Health Concerns Assessment Noted Time PHQ-9 Depression Total Score: 0 04/16/19 25 11:13 PM EST A fall risk assessment has been complete d for the patient 10/08/2024 1:20 PM EDT documented as of this encounter Care Teams Featherer Relationship Specialty Start Date End Date Josue Crain PA [address] [place] [address] PCP - General Internal Medicine 01/29/24 documented as of this encounter
--- OUTSIDE RECORDS SUMMARY | 2025-02-03 19:34 | XMS_ITS | Encounter Summary ---
Author Organization [facility] [place] [address] Care Team Providers Care Insulation And Flooring Assembler Name Role Phone Josue Crain Primary Care Provider [phone] Encounter Details Date Type Department Care Team (Latest Contact Info) Description 01/07/2025 Lab Requisition [facility] - Main Lab [address] [place] [address] Mariely Angulo MD [address] [place] [address] shelter (current) use of anticoagulants Social History Tobacco [...] care for your loved ones. For example, summer child caregiver or elderly care for an older adult? [...] 02/17/2025 9:10 AM EST Office Visit [facility] - [address] [facility] [address] [place] [phone] Lei Patel NP [address] [place] [address] [place] [phone] 03/03/2025 1:30 PM EST Ancillary Procedure [facility] - [address] [place] [address] 05/05/2025 12:30 PM EST Office Visit [address] [address] Josue Crain PA [address] [place] [phone] 10/20/2025 9:30 AM EDT Ancillary Procedure [facility] - [address] [facility] [address] [place] [address] documented as of this encounter Goals Goal Patient Goal Type Associated Problems Recent Progress Patient-Stated? Author <enter goal here> General On track(01/31/20 1:26 PM EST) Yes Kimberley Olsen RN Note: I will start using my weights again. documented as of this encounter Procedures Procedure Name Priority Date/Time Associated Diagnosis Comments PROTHROMBIN TIME WITH INR Routine 01/07/2025 6:21 AM EDT shelter (current) use of anticoagulants COMPLETE BLOOD COUNT Routine 01/07/2025 6:21 AM EDT joint terminal attack controller (current) use of anticoagulants COMPREHENSIVE METABOLIC PANEL Routine 01/07/2025 6:21 AM EDT joint terminal attack controller (current) use of anticoagulants documented in this encounter Results * (ABNORMAL) Comprehensive metabolic panel (01/07/2025 6:21 AM EDT) Sodium 138 133 - 145 mmol/L LAB CHEMISTRY METHOD 01/07/2025 10:57 AM EDT [facility] Potassium 3.8 3.5 - 5.5 mmol/L LAB CHEMISTRY METHOD 01/07/2025 10:57 AM EDT [facility] Chloride 102 96 - 110 mmol/L LAB CHEMISTRY METHOD 01/07/2025 10:57 AM [facility] CO2 28 21 - 32 mmol/L LAB CHEMISTRY METHOD 01/07/2025 10:57 AM [facility] Anion Gap 8 3 - 11 LAB CHEMISTRY METHOD 01/07/2025 10:57 AM [facility] Glucose 79 70 - 100 mg/dL LAB CHEMISTRY METHOD 01/07/2025 10:57 AM [facility] BUN 13 5 - 25 mg/dL LAB CHEMISTRY METHOD 01/07/2025 10:57 AM [facility] Creatinine 0.48(L) 0.50 - 1.10 mg/dL LAB CHEMISTRY METHOD 01/07/2025 10:57 AM [facility] eGFR 99 >=60 mL/min/1. 73m2 LAB CHEMISTRY METHOD 01/07/2025 10:57 AM [facility] Comment:Calculation based on the Chronic Kidney Disease Epidemiology Collaboration (CKD-EPI) equation refit without adjustment for race. BUN/Creatinine Ratio 27.1 LAB CHEMISTRY METHOD 01/07/2025 10:57 AM [facility] Calcium 9.4 8.5 - 10.5 mg/dL LAB CHEMISTRY METHOD 01/07/2025 10:57 AM [facility] AST (SGOT) 32 10 - 42 unit/L LAB CHEMISTRY METHOD 01/07/2025 10:57 AM [facility] ALT (SGPT) 18 10 - 60 unit/L LAB CHEMISTRY METHOD 01/07/2025 10:57 AM [facility] Alkaline Phosphatase 50 42 - 121 unit/L LAB CHEMISTRY METHOD 01/07/2025 10:57 AM [facility] Total Protein 6.8 6.0 - 8.0 g/dL LAB CHEMISTRY METHOD 01/07/2025 10:57 AM [facility] Albumin 3.1(L) 3.2 - 5.0 g/dL LAB CHEMISTRY METHOD 01/07/2025 10:57 AM EDT [facility] Total Bilirubin 0.6 0.0 - 1.4 mg/dL LAB CHEMISTRY METHOD 01/07/2025 10:57 AM EDT [facility] Blood Venous blood specimen / Unknown Venipuncture / Unknown 01/07/2025 6:21 AM EDT 01/07/2025 9:34 AM EDT us Mariely Angulo MD LAB BLOOD ORDERABLES Final Resul t Performing Organization Address [facility] Co de Phone Number [facility] [address] [place] [address], [place] [phone] * (ABNORMAL) Prothrombin time with INR (01/07/2025 6:21 AM EDT) Protime 39.5(H) 10.6 - 13.9 sec LAB COAGULATION METHOD 01/07/2025 10:08 AM EDT [facility] INR 3.2 LAB COAGULATION METHOD 01/07/2025 10:08 AM EDT [facility] Blood Venous blood specimen / Unknown Venipuncture / Unknown 01/07/2025 6:21 AM EDT 01/07/2025 9:34 AM EDT us Mariely Angulo MD LAB BLOOD ORDERABLES Final Resul t Performing Organization Address City/[facility]/ZIP Co de Phone Number [facility] [address] [place] [address], [place] [phone] * (ABNORMAL) Complete blood count (01/07/2025 6:21 AM EDT) WBC 9.9 4.8 - 10.8 K/[facility] LAB HEMETOLOGY METHOD 01/07/2025 10:03 AM EDT [facility] RBC 4.80 3.80 - 4.80 M/[facility] LAB HEMETOLOGY METHOD 01/07/2025 10:03 AM [facility] Hemoglobin 11.5 11.5 - 16.0 g/dL LAB HEMETOLOGY METHOD 01/07/2025 10:03 AM [facility] Hematocrit 37.8 35.0 - 47.0 % LAB HEMETOLOGY METHOD 01/07/2025 10:03 AM [facility] MCV 78.1(L) 79.0 - 98.0 FL LAB HEMETOLOGY METHOD 01/07/2025 10:03 AM [facility] MCH 23.8(L) 27.0 - 32.0 pcg LAB HEMETOLOGY METHOD 01/07/2025 10:03 AM [facility] MCHC 30.4(L) 32.0 - 37.0 g/dL LAB HEMETOLOGY METHOD 01/07/2025 10:03 AM [facility] RDW 18.1(H) 11.0 - 15.0 % LAB HEMETOLOGY METHOD 01/07/2025 10:03 AM [facility] Platelets 264 130 - 400 K/mcL LAB HEMETOLOGY METHOD 01/07/2025 10:03 AM [facility] MPV 10.7 7.0 - 11.0 FL LAB HEMETOLOGY METHOD 01/07/2025 10:03 AM [facility] NRBC 0.0 <1.0 % LAB HEMETOLOGY METHOD 01/07/2025 10:03 AM [facility] NRBC Absolute 0.00 <0.10 K/mcL LAB HEMETOLOGY METHOD 01/07/2025 10:03 AM [facility] Blood Venous blood specimen / Unknown Venipuncture / Unknown 01/07/2025 6:21 AM EDT 01/07/2025 9:34 AM EDT Mariely Angulo MD LAB BLOOD ORDERABLES Final Resul t [facility] [address] [place] [address], documented in this encounter Visit Diagnoses Diagnosis joint terminal attack controller (current) use of anticoagulants Long-term (current) use of anticoagulants Encounter for adjustment or management of cardiac device documented in this encounter Additional Health Concerns Assessment Noted Time PHQ-9 Depression Total Score: 0 04/16/19 25 11:13 PM EST A fall risk assessment has been complete d for the patient 10/08/2024 1:20 PM EDT documented as of this encounter Care Teams Insulation And Flooring Assembler Relationship Specialty Start Date End Date Josue Crain PA [address] [place] [phone] PCP - General Internal Medicine 01/29/24 documented as of this encounter
--- OUTSIDE RECORDS SUMMARY | 2025-02-03 19:34 | XMS_ITS | Encounter Summary ---
Author Organization [facility] [place] [address] Care Team Providers Care Tongue Carrier Name Role Phone Josue Crain Primary Care Provider [phone] Encounter Details Date Type Department Care Team ([facility] st Contact Info) Description 01/17/2025 Telephone [facility] - [facility] [address] [facility] [address] [place] [address] Jorge Alejandro MA Social History Tobacco Use Types Packs/Day Years [...] for your loved ones. For example, children's aide or elderly care for an older [...] as of this encounter Progress Notes * Jorge Alejandro MA - 01/17/2025 7:56 AM EST Patient presented to that office for follow up today with Lei Patel NP. Beth reports she has been in [facility] ER numerous times since her last visit with Lei. I sent a request to [facility] Medical Records Dept asking for records. Provider aware. documented in this encounter Plan of Treatment Upcoming Encounters Date Type Department Care Team (Late st Contact Info) Description 02/17/2025 9:10 AM EST Office Visit [facility] - [facility] [address] [facility] [address] [place] [phone] Lei Patel NP [address] [place] [address] [place] [address] 03/03/2025 1:30 PM EST Ancillary Procedure [facility] - [facility] [address] [place] [address] 05/05/2025 12:30 PM EST Office Visit Adult Medicine [address] [address] Josue Crain PA [address] [place] [phone] 10/20/2025 9:30 AM EDT Ancillary Procedure [facility] - [facility] [address] [facility] [address] [place] [address] documented as of this encounter Goals Goal [...] documented as of this encounter Care Teams Tongue Carrier Relationship Specialty Start Date End Date Josue Crain PA [address] [place] [address] PCP - General Internal Medicine 01/29/24 documented as of this encounter
--- NOTE | 2025-02-03 19:47 | PC.NURSE ---
Assumed care of pt, presents ti the ED for with worsening right lower back pain that radiated to the right hip, apparently the pain started in rehab when she tried to grab the bedrail to get up and the rail collapsed causing her to twist her back, but she did not fall, Pt is pending PT/CM, is at bedside, aaox4, nad, pain only on movement
[2025-02-03 20:16] VITALS: BP 116/50; PULSE 69; RESP 12; TEMP 36.9; O2SAT 95
[2025-02-04 00:23] LABS: Appearance Urine Clear; Glucose Urine UA Negative (Negative); PH 5.0 (5.0-9.0); Specific Gravity - Urine >= 1.030 (1.005-1.025); UMIC TRIGGER UACC YES
[2025-02-04 00:24] VITALS: BP 148/66; PULSE 69; RESP 24; TEMP 37.1; O2SAT 94
[2025-02-04] MEDS: oxyCODONE HCl Immed Release 5 MG TABLET PO ×4 (01:13→19:50)
[2025-02-04 05:33] VITALS: BP 129/69; PULSE 69; RESP 20; TEMP 36.9; O2SAT 93
[2025-02-04 05:54] LABS: Hematocrit 33.2 % (37.0-47.0); Hemoglobin 10.5 g/dl (12.0-16.0); Mean Corpuscular HGB Conc 31.6 g/dl (31.0-35.0); Mean Corpuscular Hemoglobin 23.0 pg (27.0-33.0); Mean Corpuscular Volume 72.6 fL (80.0-98.0); NRBC Abs Auto 0.000 X10*3/uL (0.0-0.012); NRBC Pct Auto 0.0 /100WBC (0.0-0.2); Platelet Count 338 X10*3/uL (160-400); Red Blood Count 4.57 X10*6/uL (4.20-5.50); White Blood Count 13.3 X10*3/uL (4.8-10.8)
[2025-02-04 07:15] LABS: Prothrombin Time 83.5 SEC (11.2-13.5)
[2025-02-04 07:18] LABS: INTERNATIONAL NORM RATIO 7.2 (0.9-1.1)
--- NOTE | 2025-02-04 08:40 | MHC.CM.ED ---
Patient remains in ER. INR=7.2. Physical therapy eval will be deferred until INR is lower. Pippa BASHIR aware. Continue to monitor for d/c needs.
[2025-02-04 09:25] VITALS: BP 126/69; PULSE 70; RESP 20; O2SAT 97
--- NOTE | 2025-02-04 12:51 | PHA.MEDREC ---
Addendum entered by Damian Stewart RPh 02/04/25 15:05: MED REC REVIEWED BY [facility] Chase Bosch, the coumadin clinic told her that the patient's usual dose of warfarin is 1.25 mg daily. Original Note: Pharmacy Consult ? Medication Reconciliation Pharmacy has completed the medication reconciliation. Spoke with pt and she confirmed her medications. Pt confirmed she stopped taking Acetaminophen due to pt INR being high, she is not taking Irbesartan and is now taking Entresto 1 BID, she takes Basaglar KwikPen 14-16 units daily; pt last took 16 units yesterday (02/03), She takes her Breo Ellipta inhaler 2 puffs daily as needed when she feels she has shortness of breath, she has been on off taking her Warfarin 2.5mg tab; pt not sure how she was taking it in the beginning of last week, but from Mon-Mon (01/29-01/31) pt did not take it at all but Monday (02/01) pt took 2.5mg and Monday (02/02) pt took 1.25mg; pt has not taken any warfarin since Mon (02/02); I spoke with pt Coumadin clinic and they confirmed they have not given the pt directions on how she should be taking the Warfarin in over a week; pt INR levels have been really high and so clinic told pt to hold until INR goes down, confirmed pt last took 1.25mg on Friday 02/02.
[2025-02-04 14:36] VITALS: BP 138/72; PULSE 80; RESP 14; TEMP 36.7; O2SAT 94
[2025-02-04] MEDS: Insulin Glargine,Hum.rec.anlog 100 UNIT/ML 10 ML VIAL 14 UNIT SUBCUT (14:40)
--- NOTE | 2025-02-04 15:53 | PC.NURSE ---
Pt will be proceeding to ED Overflow unit. RN to RN report completed with SERENA Bhardwaj.
[2025-02-04 16:26] LABS: Glucose, Whole Blood 200 mg/dL (60-115)
--- NOTE | 2025-02-04 18:37 | MHC.CM.ED ---
CM spoke with patient's daughter, Lisa ([phone]) regarding plan of care. Explained that her mother is not yet medically cleared, as her INR is still too high. Explained that the providers want her INR levels to slowly decrease by withholding her coumadin, as this is safest for her. Explained that PT will not evaluated her mom until her coumadin level is 5. Local referrals have been made. CM will alert facilities offering beds that she is not yet medically cleared and ask them to follow for discharge. Lisa stated that [facility] had contacted her. Repeat labs are ordered for morning. Lisa was asking about CT results. Lisa is also asking about terminologist plans for treating her mother's back pain. CM reviewed rehab process, STR and home PT. Explained that if pain remains, they need to follow up with her mother's primary care for possible referrals to minimally invasive spine surgery and/or pain management. Explained that her mothers PCP would be able to help them. Lisa given CM contact information.
--- NOTE | 2025-02-04 18:38 | PC.NURSE ---
Pt requesting pain medicaiton. does not want PRN oxycodone, states it makes her go to sleep but doesn't take the pain away. HARVEY steel notified via [employer]
[2025-02-04 19:38] VITALS: BP 157/74; PULSE 69; RESP 20; TEMP 36.8; O2SAT 95
[2025-02-04 20:25] VITALS: BP 157/74
[2025-02-04] MEDS: Sacubitril/Valsartan 24/26 1 TAB TABLET PO (20:25)
[2025-02-04 20:37] LABS: Glucose, Whole Blood 114 mg/dL (60-115)
[2025-02-05] VITALS (7 sets, daily range): BP systolic 128–153; BP diastolic 61–73; PULSE 68–70; RESP 16–18; TEMP 36.2–36.9; O2SAT 92–96; BMI 28.7
[2025-02-05] MEDS: oxyCODONE HCl Immed Release 5 MG TABLET PO ×4 (04:35→21:42)
[2025-02-05 06:45] LABS: Prothrombin Time 81.2 SEC (11.2-13.5)
[2025-02-05 06:49] LABS: INTERNATIONAL NORM RATIO 7.0 (0.9-1.1)
[2025-02-05 07:26] LABS: Glucose, Whole Blood 93 mg/dL (60-115)
[2025-02-05] MEDS: Sacubitril/Valsartan 24/26 1 TAB TABLET PO ×2 (08:59→20:27)
[2025-02-05] MEDS: Insulin Glargine,Hum.rec.anlog 100 UNIT/ML 10 ML VIAL 14 UNIT SUBCUT (09:03)
--- NOTE | 2025-02-05 10:43 | PM.IMHP ---
History of Present Illness Date of Service: 02/05/25 Chief Complaint: Back pain 74-year-old woman presenting to the ER with worsening right lower back pain radiating to the right hip and abdomen. Patient states that she has difficulty even ambulating at this point. Patient has been in short-term rehab for almost a month. While she was at rehab she was leaning on a bed rail that collapsed and she twisted her back. She reports since then this pain has just gotten worse. She was hospitalized in September of this year and treated for Enterococcus faecalis bacteremia and treated with IV daptomycin for 6 weeks. She denies any chest pain, shortness breath, nausea, vomiting, diarrhea. Initially she was a case management and observation for placement to short-term rehab however her INR has continued to be supratherapeutic therefore patient will be admitted for further management of this and intractable pain. Review of Systems Review of Systems: Denies any recent fever chills or decrease in appetite respiratory no shortness breath or cough cardiovascular denied chest pain gastrointestinal denies any dysphagia abdominal pain nausea vomiting or diarrhea genitourinary denies any dysuria frequency or hematuria musculoskeletal back pain neuropsych denies any weakness or seizures all other systems reviewed are negative [facility] Medical History (Updated 02/05/25 @ 11:08 by Brenda Jade NP) Endocarditis Sick sinus syndrome Midline sternotomy scar Breast cancer, left Uterine cancer DVT (deep venous thrombosis) CHF (congestive heart failure) DM (diabetes mellitus) Kidney stones Asthma Pacemaker Surgical History History of lumpectomy of left breast History of total abdominal hysterectomy Aortic valve prosthesis present Social History Alcohol intake: never Patient Tobacco Use Status: Never used Tobacco Smoked in Last 30 Days: No Use of substances other than those prescribed or required for medical reasons: No Advance Directives: Yes Advance Directives on File: Yes Advance Directives Date on File: 12/19/24 service: No Meds Allergies Allergy/AdvReac Type Severity Reaction Status Date / Time adhesive tape Allergy Rash Verified 02/03/25 13:50 Active Medications: Current Medications Albuterol Sulfate (Albuterol Sulfate 90 Mcg 8 Gm Inhaler) 2 puff INHALE Q4H PRN PRN Reason: Wheezing Atorvastatin Calcium (Atorvastatin Calcium 10 Mg Tablet) 10 mg PO BEDTIME [facility] Last Admin: 02/04/25 20:26 Dose: 10 mg Cyanocobalamin (Cyanocobalamin (Vitamin B-12) 100 Mcg Tablet) 50 mcg PO DAILY [facility] Last Admin: 02/05/25 09:02 Dose: 50 mcg Dextrose (Dextrose 50 % 25 Gm/50 Ml Syringe) 25 gm IVPUSH Q15M PRN; Protocol PRN Reason: per Hypoglycemia Standing Ord. Docusate Sodium (Docusate Sodium 100 Mg Capsule) 100 mg PO BID [facility] Last Admin: 02/05/25 09:01 Dose: 100 mg Fenofibrate (Fenofibrate,Micronized 134 Mg Capsule) 134 mg PO BEDTIME [facility] Last Admin: 02/04/25 20:26 Dose: 134 mg Fluticasone/Vilanterol (Fluticasone/Vilanterol 100/25 Blst.W.Dev) 1 puff INHALE RDAILY PRN PRN Reason: Shortness Of Breath Or Wheezing Furosemide (Furosemide 20 Mg Tablet) 20 mg PO BID PRN; Protocol PRN Reason: swelling Glucose (Glucose Gel 15 Gm Gel..Gram.) 15 gm PO Q15M PRN; Protocol PRN Reason: per Hypoglycemia Standing Ord. Insulin Glargine (Insulin Glargine,Hum.Rec.Anlog 100 Unit/Ml 10 Ml Vial) 14 unit SUBCUT DAILY [facility] Last Admin: 02/05/25 09:03 Dose: 14 unit Insulin Human Lispro (Insulin Lispro 100 Unit/Ml 3 Ml Vial) 0 unit SUBCUT QIDACHS [facility]; Protocol Last Admin: 02/05/25 07:23 Dose: Not Given Loratadine (Loratadine 10 Mg Tablet) 10 mg PO DAILY PRN PRN Reason: allergies Oxycodone HCl (Oxycodone Hcl Immed Release 5 Mg Tablet) 5 mg PO Q4H PRN PRN Reason: Pain, Severe (Pain Scale 7-10) Last Admin: 02/05/25 04:35 Dose: 5 mg Polyethylene Glycol (Polyethylene Glycol 3350 17 Gm Powd.Pack) 17 gm PO DAILY [facility] Last Admin: 02/05/25 09:02 Dose: 17 gm Sacubitril/Valsartan (Sacubitril/Valsartan 1 Tab Tablet) 1 tab PO BID [facility]; Protocol Last Admin: 02/05/25 08:59 Dose: 1 tab Home Medications ?Medication ?Instructions ?Recorded ?Confirmed ?Last Taken ?Type fenofibrate nanocrystallized 145 145 mg PO BEDTIME 10/30/20 02/04/25 02/03/25 History mg tablet furosemide 20 mg tablet 20 mg PO BID PRN swelling 10/30/20 02/04/25 02/03/25 History simvastatin 20 mg tablet 20 mg PO BEDTIME 10/30/20 02/04/25 02/03/25 History albuterol sulfate 90 mcg/actuation 2 inh inhalation Q4H PRN Wheezing 04/28/22 02/04/25 02/03/25 History aerosol inhaler loratadine 10 mg tablet 10 mg PO DAILY PRN allergies 04/28/22 02/04/25 02/03/25 History omega 3-avz-ldv-fish oil 1,000 mg 1 cap PO DAILY 04/28/22 02/04/25 02/03/25 History (120 mg-180 mg) capsule (Fish Oil) cyanocobalamin (vitamin B-12) 50 50 mcg PO DAILY 09/09/24 02/04/25 02/03/25 History mcg tablet (Vitamin B-12) warfarin 2.5 mg tablet (Jantoven) 1.25 mg PO DAILY@1800 09/09/24 02/04/25 02/02/25 History 1.25mg insulin glargine 100 unit/mL (3 14 - 16 unit subcut DAILY 12/20/24 02/04/25 02/03/25 History mL) subcutaneous pen (Dulceaglmagda Tovar U-100 Insulin) fluticasone furoate 100 1 inh inhalation DAILY PRN 02/04/25 02/04/25 02/03/25 History mcg-vilanterol 25 mcg/dose Shortness Of Breath Or Wheezing inhalation powder (Breo Ellipta) sacubitril 24 mg-valsartan 26 mg 1 tab PO BID 02/04/25 02/04/25 02/03/25 History tablet Physical Exam Vital Signs and Narrative: Vital Signs: Last Vital Signs Temp 98.5 F 02/05/25 07:25 Pulse 70 02/05/25 07:25 Resp 16 02/05/25 07:25 BP 128/64 02/05/25 08:59 Pulse Ox 96 02/05/25 07:25 O2 Del Method Room Air 02/05/25 07:25 BMI result Body Mass Index 27.9 Appearing in no acute distress head is normocephalic atraumatic eyes pupils are PERRLA sclera is anicteric mouth throat mucous membranes are intact and moist neck is supple no lymphadenopathy, no JVD noted lung sounds are clear to auscultation heart regular rate rhythm, clear S1, S2 positive bowel sounds, abdomen is soft, nontender neuro patient is alert x3, no focal deficits Results Labs 02/04/25 05:44 02/03/25 14:04 Labs: Laboratory Results - last 24 hr 02/04/25 02/04/25 02/05/25 16:23 20:33 06:31 PT 81.2 H INR 7.0 H* POC Glucose 200 H 114 02/05/25 07:17 PT INR POC Glucose 93 Assessment and Plan (1) Supratherapeutic INR: Status: Acute Plan 74-year-old woman admitted from observation unit for supratherapeutic INR unknown origin Supratherapeutic INR History of aortic valve Unknown etiology at this time INR peaked at 8.6, 7.0 today Continue to hold warfarin Check PT INR daily Acute on chronic sciatica exacerbation Patient will likely need short-term rehab Apply heat as needed Try muscle relaxer for spasms Pain medication Diabetes mellitus type 2 Sliding scale, Lantus, ADA diet Hyperlipidemia Continue statin Heart failure with reduced ejection fraction No exacerbation Echocardiogram in September of 2024 showing EF of 45-50% with severe biatrial enlargement Continue Entresto DVT prophylaxis with pneumatic compression boots in light of supratherapeutic INR Full code Quality Stroke Does the patient have a stroke diagnosis?: No VTE Prior VTE?: No VTE Risk Level:: Medical - moderate - high VTE Device Contraindication: N/A - Device Ordered VTE Drug Contraindication: Treatment Not Indicated
[2025-02-05 11:13] LABS: Glucose, Whole Blood 161 mg/dL (60-115)
--- NOTE | 2025-02-05 11:16 | MHC.CM.ED ---
Patient remains in ER overflow. Repeat INR=7. Lisha BASHIR aware. Continue to monitor for d/c needs.
--- NOTE | 2025-02-05 12:31 | HO.NURTONUR ---
Pt has extensive cardiac hx, recent tx for dental work related endocarditis. Was at STR s/p ABT and d/c'd to home 01/14. Pt states while she was in rehab, she started w/ sciatica flare up on 01/12 which was worsened when she attempted to use bedrail, it collapsed and she twisted her back worsening her pain. Was working w/ PT @ home but back pain was worsening and she is unable to walk. Pt on coumadin for pmhx of DVT and INR 7.9. Pt needs PT eval but will not be evaluated until INR<5. Naturally allowing for INR to come down. Pt is NWB at this time.
--- NOTE | 2025-02-05 13:53 | HO.WOUND ---
Over Flow Rounding completed 74yr old female present in [facility] ED / OverFlow area - See ED notes for detailed history.? Inpatient Skin Integrity Maintenance Rounding. Patient agreeable to assessment and skin assessment. Brief chart review completed. Of note while at bedside patient continued to c/o pain to her hip area she reports she has chronic sciatic pain but this is an active flare, providers are aware. given pain she is noted to be limited in independent movement in the bed. Recommend Q 2 hr turns while in bed and waffle cushion is able to get up to recliner chair. Bilateral Heels assessed for blanchable redness, remain intact and floated off of bed surface with pillows. Buttock, Sacrum and Coccyx assessed - noted to be intact, reddened however remains blanchable. May use preventative foam dressing application to protect from friction and injury development.? Recommend barrier cream twice daily and PRN after episodes of incontinence.? Patient on Hospital bed at this time recommend applying low air loss pump to mattress if available.? Recommend SIPP Activation.
[2025-02-05 16:09] LABS: Glucose, Whole Blood 97 mg/dL (60-115)
[2025-02-05 20:11] LABS: Glucose, Whole Blood 147 mg/dL (60-115)
[2025-02-06 03:05] VITALS: BP 177/77; PULSE 69; RESP 18; TEMP 36.4; O2SAT 95
[2025-02-06] MEDS: oxyCODONE HCl Immed Release 5 MG TABLET PO ×2 (03:12→08:39)
[2025-02-06 04:39] VITALS: BP 142/62
[2025-02-06 07:08] LABS: INTERNATIONAL NORM RATIO 3.8 (0.9-1.1); Prothrombin Time 44.4 SEC (11.2-13.5)
[2025-02-06 07:26] LABS: Glucose, Whole Blood 112 mg/dL (60-115)
[2025-02-06 07:30] VITALS: BP 162/75; PULSE 72; RESP 18; TEMP 36.3; O2SAT 93
[2025-02-06] MEDS: Sacubitril/Valsartan 24/26 1 TAB TABLET PO ×2 (08:39→20:13)
[2025-02-06] MEDS: Insulin Glargine,Hum.rec.anlog 100 UNIT/ML 10 ML VIAL 14 UNIT SUBCUT (08:39)
[2025-02-06 09:18] LABS: MANUAL DIFF FLAG NO
[2025-02-06 09:19] LABS: Hematocrit 37.5 % (37.0-47.0); Hemoglobin 11.9 g/dl (12.0-16.0); Imm Gran Abs Auto 0.13 X10*3/uL (0.00-0.03); Imm Gran Pct Auto 0.6 % (0.0-0.4); Lymphocytes Absolute Auto 0.8 X10*3/uL (1.2-4.9); Mean Corpuscular HGB Conc 31.7 g/dl (31.0-35.0); Mean Corpuscular Hemoglobin 22.8 pg (27.0-33.0); Mean Corpuscular Volume 71.8 fL (80.0-98.0); NRBC Abs Auto 0.000 X10*3/uL (0.0-0.012); NRBC Pct Auto 0.0 /100WBC (0.0-0.2); Platelet Count 424 X10*3/uL (160-400); Red Blood Count 5.22 X10*6/uL (4.20-5.50); White Blood Count 20.3 X10*3/uL (4.8-10.8)
[2025-02-06 09:36] LABS: Alanine Aminotransferase 8 U/L (0-31); Albumin Level 3.1 g/dL (3.5-5.0); Alkaline Phosphatase 58 U/L (39-117); Anion Gap 12 (12-20); Aspartate Amino Transferase 41 U/L (5-31); Blood Urea Nitrogen 13 mg/dL (9-16); Calcium 9.9 mg/dL (8.4-10.2); Carbon Dioxide 22 mmol/L (22-29); Chloride 102 mmol/L (96-108); Creatinine Clr Calc Pharmacy 97.3; Estimated Glomerular Filt Rate > 60; Potassium 4.3 mmol/L (3.3-5.1); Sodium 132 mmol/L (135-145); Total Protein 7.7 g/dL (6.5-8.0)
--- NOTE | 2025-02-06 10:42 | PC.NURSE ---
Patient up to chair with 2A and walker. Patient complain of pain asking for pain medication, patient educated on current pain medications ordered and scheduled. Warm compress applied to back with some relief, reached out to provider Timo via [employer] to see if additional medications could be ordered for pain management.
[2025-02-06 11:11] VITALS: BP 168/77; PULSE 72; O2SAT 94
--- NOTE | 2025-02-06 11:19 | P.PNIM_ITS ---
Subjective Subjective Date of Service: 02/06/25 Interval History: Patient is in pain around the right spine and hip. Reports significant discomfort overall. Reports significant abdominal swelling, with constipation-passing gas Endorses poor appetite as a result of pain and discomfort Review of Systems Review of Systems: Yes all other systems are reviewed and are negative Physical Exam 2 Exam: Exam: General: A&O x3, oriented to time place person and situation. Uncomfortable. In pain Cardiac: S1, S2 auscultated with no S3/4, no MRG. Well perfused. Respiratory: Normal breath sounds auscultated throughout all lung zones, without wheezing, rales. Normal rate. GI/ : Abdominal distention generalized, with discomfort to palpation of the left upper and lower quadrant MSK: Patient in pain and uncomfortable with leaning forwards and backwards a rolling onto her sides full, tenderness on palpation of the right paralumbar spinal musculature, +ve straight leg raise test. Neurological: Normal neurological examination on overview, without obvious CN II-XII abnormalities. Vital Signs: Vital Signs: Last Vital Signs Temp 97.4 F 02/06/25 07:30 Pulse 72 02/06/25 11:11 Resp 18 02/06/25 07:30 BP 168/77 H 02/06/25 11:11 Pulse Ox 94 02/06/25 11:11 O2 Del Method Room Air 02/06/25 11:11 BMI result Body Mass Index 28.7 Objective Data Active Medications Acetaminophen (Acetaminophen 325 Mg Tablet) 650 mg PO Q8H DONAVAN Albuterol Sulfate (Albuterol Sulfate 90 Mcg 8 Gm Inhaler) 2 puff INHALE Q4H PRN PRN Reason: Wheezing Atorvastatin Calcium (Atorvastatin Calcium 10 Mg Tablet) 10 mg PO BEDTIME [facility] Last Admin: 02/05/25 20:27 Dose: 10 mg Documented By: LEFEBSAMY Capsaicin (Capsaicin 0.025% Cream 60 Gm Tube) 1 appl TOPICAL TID PRN; Protocol PRN Reason: Pain, Moderate(Pain Scale 4-6) Cyanocobalamin (Cyanocobalamin (Vitamin B-12) 100 Mcg Tablet) 50 mcg PO DAILY [facility] Last Admin: 02/06/25 08:40 Dose: 50 mcg Documented By: RUBÉN Cyclobenzaprine HCl (Cyclobenzaprine Hcl 5 Mg Tablet) 5 mg PO TID [facility] Dextrose (Dextrose 50 % 25 Gm/50 Ml Syringe) 25 gm IVPUSH Q15M PRN; Protocol PRN Reason: per Hypoglycemia Standing Ord. Docusate Sodium (Docusate Sodium 100 Mg Capsule) 100 mg PO BID [facility] Last Admin: 02/06/25 08:39 Dose: 100 mg Documented By: RUBÉN Fenofibrate (Fenofibrate,Micronized 134 Mg Capsule) 134 mg PO BEDTIME [facility] Last Admin: 02/05/25 20:26 Dose: 134 mg Documented By: LEFEBVA Fluticasone/Vilanterol (Fluticasone/Vilanterol 100/25 Blst.W.Dev) 1 puff INHALE RDAILY PRN PRN Reason: Shortness Of Breath Or Wheezing Furosemide (Furosemide 20 Mg Tablet) 20 mg PO BID PRN; Protocol PRN Reason: swelling Glucose (Glucose Gel 15 Gm Gel..Gram.) 15 gm PO Q15M PRN; Protocol PRN Reason: per Hypoglycemia Standing Ord. Ibuprofen (Ibuprofen 400 Mg Tablet) 400 mg PO Q8H [facility] Insulin Glargine (Insulin Glargine,Hum.Rec.Anlog 100 Unit/Ml 10 Ml Vial) 14 unit SUBCUT DAILY [facility] Last Admin: 02/06/25 08:39 Dose: 14 unit Documented By: RUBÉN Insulin Human Lispro (Insulin Lispro 100 Unit/Ml 3 Ml Vial) 0 unit SUBCUT QIDACHS [facility]; Protocol Last Admin: 02/06/25 07:29 Dose: Not Given Documented By: RUBÉN Non-Admin Reason: No Insulin Coverage Lidocaine (Lidocaine 4 % Patch Adh..Patch) 2 patch TRANSDERMA DAILY [facility]; Protocol Loratadine (Loratadine 10 Mg Tablet) 10 mg PO DAILY PRN PRN Reason: allergies Magnesium Hydroxide (Milk Of Magnesia 30 Ml Oral.Susp) 15 ml PO BID PRN PRN Reason: Constipation Oxycodone HCl (Oxycodone Hcl Immed Release 5 Mg Tablet) 5 mg PO Q4H PRN PRN Reason: Pain, Severe (Pain Scale 7-10) Pantoprazole Sodium (Pantoprazole Sodium 40 Mg/10 Ml Vial) 40 mg IVPUSH DAILY [facility] Polyethylene Glycol (Polyethylene Glycol 3350 17 Gm Powd.Pack) 17 gm PO DAILY [facility] Last Admin: 02/06/25 08:40 Dose: 17 gm Documented By: RUBÉN Sacubitril/Valsartan (Sacubitril/Valsartan 1 Tab Tablet) 1 tab PO BID [facility]; Protocol Last Admin: 02/06/25 08:39 Dose: 1 tab Documented By: RUBÉN Senna (Sennosides 8.6 Mg Tablet) 17.2 mg PO DAILY PRN PRN Reason: Constipation Labs 02/06/25 09:05 02/06/25 09:05 Labs: Laboratory Results - last 24 hr 02/05/25 02/05/25 02/06/25 16:03 20:03 05:59 MCV MCH MCHC RDW Plt Count MPV Immature Gran % (Auto) Neut % (Auto) Lymph % (Auto) [place] % (Auto) Eos % (Auto) Baso % (Auto) Lymph # (Auto) [place] # (Auto) Eos # (Auto) Baso # (Auto) Abs Immat Gran (auto) Absolute Neuts (auto) Absolute Nucleated RBC Nucleated RBC % (auto) PT 44.4 H D INR 3.8 H D Anion Gap Estim Creat Clear Calc Estimated GFR POC Glucose 97 147 H Random Glucose Calcium Total Bilirubin AST ALT Alkaline Phosphatase Total Protein Albumin 02/06/25 02/06/25 07:21 09:05 MCV 71.8 L MCH 22.8 L MCHC 31.7 RDW 20.3 H Plt Count 424 H D MPV 9.4 Immature Gran % (Auto) 0.6 H Neut % (Auto) 88.6 H Lymph % (Auto) 4.0 L [place] % (Auto) 5.7 Eos % (Auto) 0.6 Baso % (Auto) 0.5 Lymph # (Auto) 0.8 L [place] # (Auto) 1.2 Eos # (Auto) 0.1 Baso # (Auto) 0.1 Abs Immat Gran (auto) 0.13 H Absolute Neuts (auto) 18.0 H Absolute Nucleated RBC 0.000 Nucleated RBC % (auto) 0.0 PT INR Anion Gap 12 Estim Creat Clear Calc 97.3 Estimated GFR > 60 POC Glucose 112 Random Glucose 144 H Calcium 9.9 Total Bilirubin 0.8 AST 41 H ALT 8 Alkaline Phosphatase 58 Total Protein 7.7 Albumin 3.1 L Assessment and Plan (1) Supratherapeutic INR: Status: Acute (2) DM (diabetes mellitus): Status: Acute (3) Uncontrolled type 2 diabetes mellitus with hyperglycemia: Status: Acute (4) Bacteremia: Status: Acute (5) Somatic dysfunction of left sacroiliac joint: Status: Acute (6) Lumbar radiculopathy: Status: Acute (7) Muscle spasm: Status: Acute Plan 74-year-old female, with a background history of aortic valve replacement on warfarin, chronic lower back pain with recent left-sided lumbar radiculopathy, T2 DM, HLD, HFrEF 45-50%, presents from [facility] with a supratherapeutic INR and new right-sided lumbar back pain with radiculopathy. Acute on chronic back pain Acute right-sided lumbar back pain with radiculopathy Will likely need further short-term rehabilitation Recently suffered with left-sided lumbago, requiring STR. PLAN - acetaminophen 650 t.i.d. scheduled - ibuprofen 400 mg t.i.d. scheduled - cyclobenzaprine 5 mg t.i.d. scheduled - p.r.n. oxycodone 5 mg t.i.d. - lidocaine patch - capsaicin cream - conservative measures with ice and heat - early physical therapy - will likely require short-term rehabilitation Supratherapeutic INR Aortic valve on warfarin Patient reports that she has a mechanical AVR and needs to be on warfarin. INR already improving to 3.7. No evidence of hepatic injury. No history of bleeding or clotting. PLAN - PT/INR daily - resume warfarin T2 DM Sliding scale Lantus ADA diet Hyperlipidemia Continue statin Heart failure with reduced ejection fraction No exacerbation Echocardiogram in September of 2024 showing EF of 45-50% with severe biatrial enlargement Continue Entresto QUALITY METRICS - VTE: Supratherapeutic INR, SCDs - CODE STATUS: Full code - DIET: Diabetic Total time managing care of this patient today: 45 minutes. Quality Stroke Does the patient have a stroke diagnosis?: No VTE Prior VTE?: No VTE Risk Level:: Medical - moderate - high VTE Device Contraindication: N/A - Device Ordered VTE Drug Contraindication: Treatment Not Indicated
--- NOTE | 2025-02-06 11:35 | MHC.CM.PN ---
PT REPORTS SHE LIVES WITH HER AND WAS INDEPENDENT WITH CARE PRIOR TO BACK PAIN SHE NOW HAS A CANE, WALKER, SHOWER CHAIR AND GRAB BARS FOR DME HCP ON FILE PCP: JOHNNY DOW IMM DELIVERED PT HOPES TO GO TO [facility] SHE WOULD PREFER NOT TO RETURN TO [facility], BUT WANTS TO MAKE SURE IT IS COVERED BLS TRANSPORT WILL BE NEEDED
[2025-02-06 11:52] LABS: Glucose, Whole Blood 170 mg/dL (60-115)
[2025-02-06 15:43] VITALS: BP 104/51; PULSE 70; RESP 16; TEMP 36.1; O2SAT 94
[2025-02-06 15:50] LABS: Glucose, Whole Blood 220 mg/dL (60-115)
[2025-02-06] MEDS: Lidocaine 4 % Patch ADH..PATCH 2 PATCH TRANSDERMA (16:51)
[2025-02-06 20:00] VITALS: BP 115/59; PULSE 70; RESP 16; TEMP 36.3; O2SAT 93
[2025-02-06 20:56] LABS: Glucose, Whole Blood 117 mg/dL (60-115)
[2025-02-07 03:22] VITALS: BP 136/65; PULSE 72; RESP 18; TEMP 36.3; O2SAT 94
[2025-02-07 07:13] VITALS: BP 138/65; PULSE 76; RESP 16; TEMP 36.2; O2SAT 96
[2025-02-07 07:22] LABS: Glucose, Whole Blood 65 mg/dL (60-115)
[2025-02-07 08:39] VITALS: BP 136/61
[2025-02-07] MEDS: Sacubitril/Valsartan 24/26 1 TAB TABLET PO ×2 (08:39→19:47)
[2025-02-07] MEDS: Lidocaine 4 % Patch ADH..PATCH 2 PATCH TRANSDERMA (08:51)
[2025-02-07] MEDS: Insulin Glargine,Hum.rec.anlog 100 UNIT/ML 10 ML VIAL 14 UNIT SUBCUT (08:51)
[2025-02-07 09:46] LABS: MANUAL DIFF FLAG NO
[2025-02-07 09:52] LABS: Hematocrit 42.7 % (37.0-47.0); Hemoglobin 13.0 g/dl (12.0-16.0); Imm Gran Abs Auto 0.10 X10*3/uL (0.00-0.03); Imm Gran Pct Auto 0.8 % (0.0-0.4); Lymphocytes Absolute Auto 0.8 X10*3/uL (1.2-4.9); Mean Corpuscular HGB Conc 30.4 g/dl (31.0-35.0); Mean Corpuscular Hemoglobin 22.5 pg (27.0-33.0); Mean Corpuscular Volume 74.0 fL (80.0-98.0); NRBC Abs Auto 0.000 X10*3/uL (0.0-0.012); NRBC Pct Auto 0.0 /100WBC (0.0-0.2); Platelet Count 401 X10*3/uL (160-400); Red Blood Count 5.77 X10*6/uL (4.20-5.50); White Blood Count 13.1 X10*3/uL (4.8-10.8)
[2025-02-07 09:59] LABS: INTERNATIONAL NORM RATIO 2.4 (0.9-1.1); Prothrombin Time 28.6 SEC (11.2-13.5)
[2025-02-07 10:06] LABS: Anion Gap 14 (12-20); Blood Urea Nitrogen 17 mg/dL (9-16); Calcium 10.4 mg/dL (8.4-10.2); Carbon Dioxide 22 mmol/L (22-29); Chloride 105 mmol/L (96-108); Creatinine Clr Calc Pharmacy 106.2; Estimated Glomerular Filt Rate > 60; Potassium 4.1 mmol/L (3.3-5.1); Sodium 137 mmol/L (135-145)
--- NOTE | 2025-02-07 11:20 | P.PNIM_ITS ---
Subjective Subjective Date of Service: 02/07/25 Interval History: Back pain resolving Patient has no evidence of infective sequelae or symptoms (wcc elevated to 20, currently down to 13 without medications) Patient has had severe constipation in the setting of analgesia and opioids. Finally had a large bowel motion yesterday. ? element of stercoral colitis. Review of Systems Review of Systems: Yes all other systems are reviewed and are negative Physical Exam 2 Exam: Exam: General: A&O x3, oriented to time place person and situation. Comfortable, not in pain currently. Cardiac: S1, S2 auscultated with no S3/4, no MRG. Well perfused. Respiratory: Normal breath sounds auscultated throughout all lung zones, without wheezing, rales. Normal rate. GI/ : Abdominal distention generalized, with discomfort to palpation of the left upper and lower quadrant MSK: reduced pain around the right and left back. No reports of sciatica currently. Up and mobilizing in the room. Neurological: Normal neurological examination on overview, without obvious CN II-XII abnormalities. Vital Signs: Vital Signs: Last Vital Signs Temp 97.2 F 02/07/25 07:13 Pulse 76 02/07/25 07:13 Resp 16 02/07/25 07:13 BP 136/61 02/07/25 08:39 Pulse Ox 96 02/07/25 07:13 O2 Del Method Room Air 02/07/25 07:13 BMI result Body Mass Index 28.7 Objective Data Active Medications Acetaminophen (Acetaminophen 325 Mg Tablet) 650 mg PO Q8H [facility] Last Admin: 02/07/25 03:21 Dose: 650 mg Documented By: PERLITA Albuterol Sulfate (Albuterol Sulfate 90 Mcg 8 Gm Inhaler) 2 puff INHALE Q4H PRN PRN Reason: Wheezing Atorvastatin Calcium (Atorvastatin Calcium 10 Mg Tablet) 10 mg PO BEDTIME [facility] Last Admin: 02/06/25 20:12 Dose: 10 mg Documented By: BRO Capsaicin (Capsaicin 0.025% Cream 60 Gm Tube) 1 appl TOPICAL TID PRN; Protocol PRN Reason: Pain, Moderate(Pain Scale 4-6) Cyanocobalamin (Cyanocobalamin (Vitamin B-12) 100 Mcg Tablet) 50 mcg PO DAILY [facility] Last Admin: 02/07/25 08:38 Dose: 50 mcg Documented By: MARCOS Cyclobenzaprine HCl (Cyclobenzaprine Hcl 5 Mg Tablet) 5 mg PO TID [facility] Last Admin: 02/07/25 08:38 Dose: 5 mg Documented By: MARCOS Dextrose (Dextrose 50 % 25 Gm/50 Ml Syringe) 25 gm IVPUSH Q15M PRN; Protocol PRN Reason: per Hypoglycemia Standing Ord. Docusate Sodium (Docusate Sodium 100 Mg Capsule) 100 mg PO BID [facility] Last Admin: 02/07/25 08:39 Dose: 100 mg Documented By: MARCOS Fenofibrate (Fenofibrate,Micronized 134 Mg Capsule) 134 mg PO BEDTIME [facility] Last Admin: 02/06/25 20:12 Dose: 134 mg Documented By: BRO Fluticasone/Vilanterol (Fluticasone/Vilanterol 100/ Blst.W.Dev) 1 puff INHALE RDAILY PRN PRN Reason: Shortness Of Breath Or Wheezing Furosemide (Furosemide 20 Mg Tablet) 20 mg PO BID PRN; Protocol PRN Reason: swelling Glucose (Glucose Gel 15 Gm Gel..Gram.) 15 gm PO Q15M PRN; Protocol PRN Reason: per Hypoglycemia Standing Ord. Ibuprofen (Ibuprofen 400 Mg Tablet) 400 mg PO Q8H [facility] Last Admin: 02/07/25 03:21 Dose: 400 mg Documented By: PERLITA Insulin Glargine (Insulin Glargine,Hum.Rec.Anlog 100 Unit/Ml 10 Ml Vial) 14 unit SUBCUT DAILY [facility] Last Admin: 02/07/25 08:51 Dose: 14 unit Documented By: MARCOS Insulin Human Lispro (Insulin Lispro 100 Unit/Ml 3 Ml Vial) 0 unit SUBCUT QIDACHS [facility]; Protocol Last Admin: 02/07/25 07:41 Dose: Not Given Documented By: MARCOS Non-Admin Reason: No Insulin Coverage Lidocaine (Lidocaine 4 % Patch Adh..Patch) 2 patch TRANSDERMA DAILY [facility]; Protocol Last Admin: 02/07/25 08:51 Dose: 2 patch Documented By: MARCOS Loratadine (Loratadine 10 Mg Tablet) 10 mg PO DAILY PRN PRN Reason: allergies Magnesium Hydroxide (Milk Of Magnesia 30 Ml Oral.Susp) 15 ml PO BID PRN PRN Reason: Constipation Oxycodone HCl (Oxycodone Hcl Immed Release 5 Mg Tablet) 5 mg PO Q4H PRN PRN Reason: Pain, Severe (Pain Scale 7-10) Pantoprazole Sodium (Pantoprazole Sodium 40 Mg/10 Ml Vial) 40 mg IVPUSH DAILY [facility] Last Admin: 02/07/25 08:43 Dose: 40 mg Documented By: MARCOS Polyethylene Glycol (Polyethylene Glycol 3350 17 Gm Powd.Pack) 17 gm PO DAILY [facility] Last Admin: 02/07/25 08:43 Dose: 17 gm Documented By: MARCOS Sacubitril/Valsartan (Sacubitril/Valsartan 1 Tab Tablet) 1 tab PO BID [facility]; Protocol Last Admin: 02/07/25 08:39 Dose: 1 tab Documented By: MARCOS Senna (Sennosides 8.6 Mg Tablet) 17.2 mg PO DAILY PRN PRN Reason: Constipation Labs 02/07/25 08:57 02/07/25 08:57 Labs: Laboratory Results - last 24 hr 02/06/25 02/06/25 02/06/25 11:48 15:45 20:31 MCV MCH MCHC RDW Plt Count MPV Immature Gran % (Auto) Neut % (Auto) Lymph % (Auto) [place] % (Auto) Eos % (Auto) Baso % (Auto) Lymph # (Auto) [place] # (Auto) Eos # (Auto) Baso # (Auto) Abs Immat Gran (auto) Absolute Neuts (auto) Absolute Nucleated RBC Nucleated RBC % (auto) PT INR Anion Gap Estim Creat Clear Calc Estimated GFR POC Glucose 170 H 220 H 117 H Random Glucose Calcium 02/07/25 02/07/25 07:11 08:57 MCV 74.0 L MCH 22.5 L MCHC 30.4 L RDW 21.7 H Plt Count 401 H MPV 10.1 Immature Gran % (Auto) 0.8 H Neut % (Auto) 84.2 H Lymph % (Auto) 5.9 L [place] % (Auto) 6.5 Eos % (Auto) 1.9 Baso % (Auto) 0.7 Lymph # (Auto) 0.8 L [place] # (Auto) 0.9 Eos # (Auto) 0.3 Baso # (Auto) 0.1 Abs Immat Gran (auto) 0.10 H Absolute Neuts (auto) 11.1 H Absolute Nucleated RBC 0.000 Nucleated RBC % (auto) 0.0 PT 28.6 H D INR 2.4 H Anion Gap 14 Estim Creat Clear Calc 106.2 Estimated GFR > 60 POC Glucose 65 Random Glucose 85 Calcium 10.4 H Assessment and Plan (1) Supratherapeutic INR: Status: Acute (2) DM (diabetes mellitus): Status: Acute (3) Uncontrolled type 2 diabetes mellitus with hyperglycemia: Status: Acute (4) Bacteremia: Status: Acute (5) Somatic dysfunction of left sacroiliac joint: Status: Acute (6) Muscle spasm: Status: Acute (7) Lumbar radiculopathy: Status: Acute (8) Stercoral colitis: Status: Acute Plan 74-year-old female, with a background history of aortic valve replacement on warfarin, chronic lower back pain with recent left-sided lumbar radiculopathy, T2 DM, HLD, HFrEF 45-50%, presents from [facility] observation with a supratherapeutic INR and new right-sided lumbar back pain with radiculopathy. Acute on chronic back pain Acute right-sided lumbar back pain with radiculopathy Will likely need further short-term rehabilitation Recently suffered with left-sided lumbago, requiring STR. PLAN - acetaminophen 650 t.i.d. scheduled - ibuprofen 400 mg t.i.d. scheduled - cyclobenzaprine 5 mg t.i.d. scheduled - p.r.n. oxycodone 5 mg t.i.d. - lidocaine patch - capsaicin cream - conservative measures with ice and heat - early physical therapy - will likely require short-term rehabilitation Supratherapeutic INR Aortic valve on warfarin Patient reports that she has a mechanical AVR and needs to be on warfarin. INR already improving to 3.7. No evidence of hepatic injury. No history of bleeding or clotting. PLAN - PT/INR daily - resume warfarin Constipation ? Mild Stercoral colitis Patient significantly cosntipated. Had large BM 02/06 The patient on medications for relief of constipation. PLAN - Add metronidazole 500mg BID PO - Add cephalexin 500mg BID PO - Continue antibiotics for 5 days total T2 DM Sliding scale Lantus ADA diet Hyperlipidemia Continue statin Heart failure with reduced ejection fraction No exacerbation Echocardiogram in September of 2024 showing EF of 45-50% with severe biatrial enlargement Continue Entresto QUALITY METRICS - VTE: Supratherapeutic INR, SCDs - CODE STATUS: Full code - DIET: Diabetic - DISPOSITION: STR tomorrow (as per insurance) Total time managing care of this patient today: 45 minutes. Quality Stroke Does the patient have a stroke diagnosis?: No VTE Prior VTE?: No VTE Risk Level:: Medical - moderate - high VTE Device Contraindication: N/A - Device Ordered VTE Drug Contraindication: Treatment Not Indicated
[2025-02-07 11:44] LABS: Glucose, Whole Blood 151 mg/dL (60-115)
--- NOTE | 2025-02-07 15:15 | MHC.CM.PN ---
CM RECEIVED A CALL FROM PTS DAUGHTER, TERE, WHO REQUESTED AN UPDATE REGARDING DCP AND TREATMENT CM INFORMED HER PT WOULD LIKELY DC TOMORROW PER ROUNDS TODAY AND THERE WERE A FEW SNFS OFFERING SHE REPORTS SHE WOULD HOPE PT CAN STAY IN [place] SO HER CAN VISIT SHE IS AWARE THERE ARE ONLY TWO BED OFFERS IN [place] AT THIS TIME AND STATES SHE DOES NOT WANT HER TO RETURN TO [facility] UPDATES SENT TO [facility] SHE ALSO ASKS TO SPEAK WITH MD ABOUT RECENT MED CHANGES MESSAGE RELAYED
[2025-02-07 15:50] VITALS: BP 132/63; PULSE 68; RESP 18; TEMP 36.1; O2SAT 95
[2025-02-07 16:18] LABS: Glucose, Whole Blood 132 mg/dL (60-115)
[2025-02-07 19:47] VITALS: BP 133/61
[2025-02-07 19:57] VITALS: BP 133/61; PULSE 70; RESP 15; TEMP 36.1; O2SAT 92
[2025-02-07 20:42] LABS: Glucose, Whole Blood 188 mg/dL (60-115)
[2025-02-07] MEDS: oxyCODONE HCl Immed Release 5 MG TABLET PO (23:36)
[2025-02-08 03:19] VITALS: BP 132/63; PULSE 69; RESP 16; TEMP 36.4; O2SAT 96
[2025-02-08 06:21] LABS: MANUAL DIFF FLAG NO
[2025-02-08 06:24] LABS: Hematocrit 34.5 % (37.0-47.0); Hemoglobin 10.6 g/dl (12.0-16.0); Imm Gran Abs Auto 0.08 X10*3/uL (0.00-0.03); Imm Gran Pct Auto 0.6 % (0.0-0.4); Lymphocytes Absolute Auto 0.9 X10*3/uL (1.2-4.9); Mean Corpuscular HGB Conc 30.7 g/dl (31.0-35.0); Mean Corpuscular Hemoglobin 22.5 pg (27.0-33.0); Mean Corpuscular Volume 73.2 fL (80.0-98.0); NRBC Abs Auto 0.000 X10*3/uL (0.0-0.012); NRBC Pct Auto 0.0 /100WBC (0.0-0.2); Platelet Count 419 X10*3/uL (160-400); Red Blood Count 4.71 X10*6/uL (4.20-5.50); White Blood Count 13.8 X10*3/uL (4.8-10.8)
[2025-02-08 06:30] LABS: INTERNATIONAL NORM RATIO 2.3 (0.9-1.1); Prothrombin Time 27.4 SEC (11.2-13.5)
[2025-02-08 06:41] LABS: Anion Gap 10 (12-20); Blood Urea Nitrogen 14 mg/dL (9-16); Carbon Dioxide 25 mmol/L (22-29); Chloride 107 mmol/L (96-108); Creatinine Clr Calc Pharmacy 119.8; Estimated Glomerular Filt Rate > 60; Potassium 4.2 mmol/L (3.3-5.1); Sodium 138 mmol/L (135-145)
[2025-02-08 06:53] LABS: Calcium 9.4 mg/dL (8.4-10.2)
[2025-02-08 07:33] VITALS: BP 130/62; PULSE 70; RESP 16; TEMP 36.5; O2SAT 95
[2025-02-08 07:51] LABS: Glucose, Whole Blood 83 mg/dL (60-115)
[2025-02-08] MEDS: Sacubitril/Valsartan 24/26 1 TAB TABLET PO ×2 (08:31→20:25)
[2025-02-08] MEDS: Lidocaine 4 % Patch ADH..PATCH 2 PATCH TRANSDERMA (08:35)
[2025-02-08] MEDS: oxyCODONE HCl Immed Release 5 MG TABLET PO ×2 (08:41→13:35)
[2025-02-08] MEDS: Insulin Glargine,Hum.rec.anlog 100 UNIT/ML 10 ML VIAL 14 UNIT SUBCUT (08:44)
[2025-02-08 11:36] LABS: Glucose, Whole Blood 198 mg/dL (60-115)
--- NOTE | 2025-02-08 13:38 | MHC.CM.PN ---
PER MD, PT COULD DC TODAY TO STR REFERRAL UPDATED AND RESENT YESTERDAY AND TODAY. MULTIPLE MESSAGES SENT TO ALL LOCAL SNFS THERE HAVE BEEN NO RESPONSES OR BED OFFERS CM EMAILED PTS DAUGHTER A LIST OF STR FACILITIES (TER[facility].) SHE IS AWARE THERE ARE NO BED OFFERS AT THIS TIME AND REFERRAL MAY HAVE TO BE EXPANDED SHE WAS HOPING TO KEEP PT IN [place] HER FATHER, PTS , WILL NOT BE ABLE TO SEE PT IF SHE IS FURTHER AWAY
--- NOTE | 2025-02-08 14:34 | HO.PM.IMPN ---
Subjective Subjective Date of Service: 02/08/25 Interval History: Endorsing some persistent pain around the back pre medications. The patient otherwise feels well. Eating and drinking Had another bowel motion Review of Systems Review of Systems: Yes all other systems are reviewed and are negative Physical Exam Exam: Exam: General: A&O x3, oriented to time place person and situation. Comfortable, not in pain currently. Cardiac: S1, S2 auscultated with no S3/4, no MRG. Well perfused. Respiratory: Normal breath sounds auscultated throughout all lung zones, without wheezing, rales. Normal rate. GI/ : Abdominal distention generalized, with discomfort to palpation of the left upper and lower quadrant MSK: reduced pain around the right and left back. No reports of sciatica currently. Up and mobilizing in the room. Neurological: Normal neurological examination on overview, without obvious CN II-XII abnormalities. Vital Signs: Vital Signs: Last Vital Signs Temp 97.7 F 02/08/25 07:33 Pulse 70 02/08/25 07:33 Resp 16 02/08/25 07:33 BP 130/62 02/08/25 07:33 Pulse Ox 95 02/08/25 07:33 O2 Del Method Room Air 02/08/25 07:33 BMI result Body Mass Index 28.7 Objective Data Active Medications Acetaminophen (Acetaminophen 325 Mg Tablet) 650 mg PO Q8H [facility] Last Admin: 02/08/25 10:45 Dose: 650 mg Documented By: MARCOS Albuterol Sulfate (Albuterol Sulfate 90 Mcg 8 Gm Inhaler) 2 puff INHALE Q4H PRN PRN Reason: Wheezing Atorvastatin Calcium (Atorvastatin Calcium 10 Mg Tablet) 10 mg PO BEDTIME [facility] Last Admin: 02/07/25 19:48 Dose: 10 mg Documented By: CASTILKaran Capsaicin (Capsaicin 0.025% Cream 60 Gm Tube) 1 appl TOPICAL TID PRN; Protocol PRN Reason: Pain, Moderate(Pain Scale 4-6) Cephalexin HCl (Cephalexin 500 Mg Capsule) 500 mg PO BID [facility] Last Admin: 02/08/25 08:32 Dose: 500 mg Documented By: MARCOS Cyanocobalamin (Cyanocobalamin (Vitamin B-12) 100 Mcg Tablet) 50 mcg PO DAILY [facility] Last Admin: 02/08/25 08:33 Dose: 50 mcg Documented By: MARCOS Cyclobenzaprine HCl (Cyclobenzaprine Hcl 5 Mg Tablet) 5 mg PO TID [facility] Last Admin: 02/08/25 08:32 Dose: 5 mg Documented By: MARCOS Dextrose (Dextrose 50 % 25 Gm/50 Ml Syringe) 25 gm IVPUSH Q15M PRN; Protocol PRN Reason: per Hypoglycemia Standing Ord. Docusate Sodium (Docusate Sodium 100 Mg Capsule) 100 mg PO BID [facility] Last Admin: 02/08/25 08:32 Dose: 100 mg Documented By: MARCOS Fenofibrate (Fenofibrate,Micronized 134 Mg Capsule) 134 mg PO BEDTIME [facility] Last Admin: 02/07/25 19:47 Dose: 134 mg Documented By: CASTILKaran Fluticasone/Vilanterol (Fluticasone/Vilanterol 100/25 Blst.W.Dev) 1 puff INHALE RDAILY PRN PRN Reason: Shortness Of Breath Or Wheezing Furosemide (Furosemide 20 Mg Tablet) 20 mg PO BID PRN; Protocol PRN Reason: swelling Glucose (Glucose Gel 15 Gm Gel..Gram.) 15 gm PO Q15M PRN; Protocol PRN Reason: per Hypoglycemia Standing Ord. Ibuprofen (Ibuprofen 400 Mg Tablet) 400 mg PO Q8H [facility] Last Admin: 02/08/25 11:03 Dose: Not Given Documented By: MARCOS Non-Admin Reason: Patient Refused Insulin Glargine (Insulin Glargine,Hum.Rec.Anlog 100 Unit/Ml 10 Ml Vial) 14 unit SUBCUT DAILY [facility] Last Admin: 02/08/25 08:44 Dose: 14 unit Documented By: MARCOS Insulin Human Lispro (Insulin Lispro 100 Unit/Ml 3 Ml Vial) 0 unit SUBCUT QIDACHS [facility]; Protocol Last Admin: 02/08/25 11:45 Dose: 2 unit Documented By: MARCOS Lidocaine (Lidocaine 4 % Patch Adh..Patch) 2 patch TRANSDERMA DAILY [facility]; Protocol Last Admin: 02/08/25 08:35 Dose: 2 patch Documented By: MARCOS Loratadine (Loratadine 10 Mg Tablet) 10 mg PO DAILY PRN PRN Reason: allergies Magnesium Hydroxide (Milk Of Magnesia 30 Ml Oral.Susp) 15 ml PO BID PRN PRN Reason: Constipation Metronidazole (Metronidazole 500 Mg Tablet) 500 mg PO Q12H [facility] Last Admin: 02/08/25 10:47 Dose: 500 mg Documented By: MARCOS Oxycodone HCl (Oxycodone Hcl Immed Release 5 Mg Tablet) 5 mg PO Q4H PRN PRN Reason: Pain, Severe (Pain Scale 7-10) Last Admin: 02/08/25 13:35 Dose: 5 mg Documented By: MARCOS Pantoprazole Sodium (Pantoprazole Sodium 40 Mg/10 Ml Vial) 40 mg IVPUSH DAILY [facility] Last Admin: 02/08/25 09:04 Dose: 40 mg Documented By: MARCOS Polyethylene Glycol (Polyethylene Glycol 3350 17 Gm Powd.Pack) 17 gm PO DAILY [facility] Last Admin: 02/08/25 08:35 Dose: 17 gm Documented By: MARCOS Sacubitril/Valsartan (Sacubitril/Valsartan 1 Tab Tablet) 1 tab PO BID [facility]; Protocol Last Admin: 02/08/25 08:31 Dose: 1 tab Documented By: MARCOS Senna (Sennosides 8.6 Mg Tablet) 17.2 mg PO DAILY PRN PRN Reason: Constipation Last Admin: 02/08/25 08:32 Dose: 17.2 mg Documented By: MARCOS Labs 02/08/25 05:46 02/08/25 05:46 Labs: Laboratory Results - last 24 hr 02/07/25 02/07/25 02/08/25 16:00 20:22 05:46 MCV 73.2 L MCH 22.5 L MCHC 30.7 L RDW 20.2 H Plt Count 419 H MPV 9.5 Immature Gran % (Auto) 0.6 H Neut % (Auto) 83.1 H Lymph % (Auto) 6.4 L [place] % (Auto) 7.2 Eos % (Auto) 2.3 Baso % (Auto) 0.4 Lymph # (Auto) 0.9 L [place] # (Auto) 1.0 Eos # (Auto) 0.3 Baso # (Auto) 0.1 Abs Immat Gran (auto) 0.08 H Absolute Neuts (auto) 11.5 H Absolute Nucleated RBC 0.000 Nucleated RBC % (auto) 0.0 PT 27.4 H INR 2.3 H Anion Gap 10 L Estim Creat Clear Calc 119.8 Estimated GFR > 60 POC Glucose 132 H 188 H Random Glucose 86 Calcium 9.4 D 02/08/25 02/08/25 07:41 11:31 MCV MCH MCHC RDW Plt Count MPV Immature Gran % (Auto) Neut % (Auto) Lymph % (Auto) [place] % (Auto) Eos % (Auto) Baso % (Auto) Lymph # (Auto) [place] # (Auto) Eos # (Auto) Baso # (Auto) Abs Immat Gran (auto) Absolute Neuts (auto) Absolute Nucleated RBC Nucleated RBC % (auto) PT INR Anion Gap Estim Creat Clear Calc Estimated GFR POC Glucose 83 198 H Random Glucose Calcium Assessment and Plan (1) Supratherapeutic INR: Status: Acute (2) DM (diabetes mellitus): Status: Acute (3) Uncontrolled type 2 diabetes mellitus with hyperglycemia: Status: Acute (4) Stercoral colitis: Status: Acute (5) Bacteremia: Status: Acute (6) Somatic dysfunction of left sacroiliac joint: Status: Acute (7) Muscle spasm: Status: Acute (8) Lumbar radiculopathy: Status: Acute Plan 74-year-old female, with a background history of aortic valve replacement on warfarin, chronic lower back pain with recent left-sided lumbar radiculopathy, T2 DM, HLD, HFrEF 45-50%, presents from [facility] observation with a supratherapeutic INR and new right-sided lumbar back pain with radiculopathy. Acute on chronic back pain Acute right-sided lumbar back pain with radiculopathy Will likely need further short-term rehabilitation Recently suffered with left-sided lumbago, requiring STR. PLAN - acetaminophen 650 t.i.d. scheduled - ibuprofen 400 mg t.i.d. scheduled - cyclobenzaprine 5 mg t.i.d. scheduled - p.r.n. oxycodone 5 mg t.i.d. - lidocaine patch - capsaicin cream - conservative measures with ice and heat - early physical therapy - will likely require short-term rehabilitation Supratherapeutic INR Aortic valve on warfarin Patient reports that she has a mechanical AVR and needs to be on warfarin. INR already at goal No evidence of hepatic injury. No history of bleeding or clotting. PLAN - PT/INR daily - resume warfarin Constipation ? Mild Stercoral colitis Patient significantly cosntipated. Had large BM 02/06 The patient on medications for relief of constipation. PLAN - continue metronidazole 500mg BID PO - continue cephalexin 500mg BID PO - Continue antibiotics for 5 days total T2 DM Sliding scale Lantus ADA diet Hyperlipidemia Continue statin Heart failure with reduced ejection fraction No exacerbation Echocardiogram in September of 2024 showing EF of 45-50% with severe biatrial enlargement Continue Entresto QUALITY METRICS - VTE: Supratherapeutic INR, SCDs - CODE STATUS: Full code - DIET: Diabetic - DISPOSITION: STR - Insurance auth pending Total time managing care of this patient today: 35 minutes. Quality Stroke Does the patient have a stroke diagnosis?: No VTE Prior VTE?: No VTE Risk Level:: Medical - moderate - high VTE Device Contraindication: N/A - Device Ordered VTE Drug Contraindication: Treatment Not Indicated
[2025-02-08 15:49] VITALS: BP 149/65; PULSE 69; RESP 18; TEMP 36.6; O2SAT 97
[2025-02-08 15:59] LABS: Glucose, Whole Blood 138 mg/dL (60-115)
[2025-02-08 19:59] VITALS: BP 140/68; PULSE 88; RESP 15; TEMP 36.2; O2SAT 95
[2025-02-08 21:02] LABS: Glucose, Whole Blood 202 mg/dL (60-115)
[2025-02-09] MEDS: oxyCODONE HCl Immed Release 5 MG TABLET PO ×3 (01:59→14:58)
[2025-02-09 03:20] VITALS: BP 141/64; PULSE 70; RESP 17; TEMP 36.1; O2SAT 93
[2025-02-09 06:22] LABS: MANUAL DIFF FLAG NO
[2025-02-09 06:29] LABS: Hematocrit 37.0 % (37.0-47.0); Hemoglobin 11.6 g/dl (12.0-16.0); Imm Gran Abs Auto 0.12 X10*3/uL (0.00-0.03); Imm Gran Pct Auto 0.9 % (0.0-0.4); Lymphocytes Absolute Auto 1.0 X10*3/uL (1.2-4.9); Mean Corpuscular HGB Conc 31.4 g/dl (31.0-35.0); Mean Corpuscular Hemoglobin 23.0 pg (27.0-33.0); Mean Corpuscular Volume 73.3 fL (80.0-98.0); NRBC Abs Auto 0.000 X10*3/uL (0.0-0.012); NRBC Pct Auto 0.0 /100WBC (0.0-0.2); Platelet Count 468 X10*3/uL (160-400); Red Blood Count 5.05 X10*6/uL (4.20-5.50); White Blood Count 14.1 X10*3/uL (4.8-10.8)
[2025-02-09 06:46] LABS: Anion Gap 12 (12-20); Blood Urea Nitrogen 12 mg/dL (9-16); Calcium 9.6 mg/dL (8.4-10.2); Carbon Dioxide 24 mmol/L (22-29); Chloride 104 mmol/L (96-108); Creatinine Clr Calc Pharmacy 108.6; Estimated Glomerular Filt Rate > 60; Potassium 4.3 mmol/L (3.3-5.1); Sodium 136 mmol/L (135-145)
[2025-02-09 07:28] LABS: Glucose, Whole Blood 123 mg/dL (60-115)
[2025-02-09 08:00] VITALS: BP 176/77; PULSE 70; RESP 16; TEMP 36.2; O2SAT 94
[2025-02-09 08:05] VITALS: BP 160/67
[2025-02-09] MEDS: Sacubitril/Valsartan 24/26 1 TAB TABLET PO (08:05)
[2025-02-09] MEDS: Insulin Glargine,Hum.rec.anlog 100 UNIT/ML 10 ML VIAL 14 UNIT SUBCUT (08:09)
[2025-02-09] MEDS: Lidocaine 4 % Patch ADH..PATCH 2 PATCH TRANSDERMA (08:09)
[2025-02-09 11:29] LABS: Glucose, Whole Blood 167 mg/dL (60-115)
--- NOTE | 2025-02-09 12:25 | MHC.CM.PN ---
Addendum entered by Marci Stinson 02/09/25 16:25: TRANSPORT BOOKED FOR 1630 NOW CM SPOKE TO PT AND AT BEDSIDE, THEY UNDERSTAND SHE WILL GO TO [facility] STR TODAY SHE STATES SHE HAS BEEN THERE TO VISIT FRIENDS IN THE PAST SHE NOTES A FRIEND IS THERE NOW SHE DID HAVE CONCERNS ABOUT IT BEING COVERED BY INSURANCE CM EXPLAINED THE SNF RUNS THEY INSURANCE BEFORE THEY OFFER A BED TO ENSURE THEY WILL GET PAID. Original Note: CM RECEIVED A CALL FROM PTS DAUGHTER, TERE, WHO WAS INFORMED PT WOULD LIKELY DC TO STR TODAY. SHE UNDERSTANDS THERE WERE SEVERAL BED OFFERS, HOWEVER MOST WERE FROM SNFS OUT OF THE AREA AND UNDER 3 STARS. OF THE SNFS OFFERING, [facility] IS THE CLOSEST AND HIGHEST RATED. SHE EXPRESSED CONCERNS THAT ONLINE REVIEWS STATED THE PT THERE WAS SUB PAR AND NOT ONE HOUR PER DAY CM EXPLAINED ONE HOUR TYPICALLY MEANS 45-50 MINUTES IN MANY REHAB FACILITIES AND SUGGESTED SHE REACH OUT TO THE DON OR ADMINISTRATION IF IT REALLY WAS LACKING. SHE ALSO UNDERSTANDS SHE COULD REQUEST A TRANSFER TO ANOTHER SNF IF SHE DID NOT LIKE THE CARE AT [facility] PLAN IS TO DC PT TO [facility] TODAY AT 1600 [address] [facility]
--- NOTE | 2025-02-09 14:01 | PM.DS ---
DS: Providers Provider Date of Service: 02/09/25 Date of admission: 02/05/25 11:20 Date of discharge: 02/09/25 Primary care physician: KRYSTEN Dai Consults: 02/03/25 16:56 Consult to Case Management Stat Comment: 02/08/25 09:53 Consult to Wound Care Routine [place]ing [place] [facility] [facility] [place] Reason for consultation: blanchable redness to buttocks. DS: Diagnosis Discharge Diagnosis (1) Supratherapeutic INR: Status: Acute (2) DM (diabetes mellitus): Status: Acute (3) Uncontrolled type 2 diabetes mellitus with hyperglycemia: Status: Acute (4) Stercoral colitis: Status: Acute (5) Bacteremia: Status: Acute (6) Somatic dysfunction of left sacroiliac joint: Status: Acute (7) Muscle spasm: Status: Acute (8) Lumbar radiculopathy: Status: Acute DS: Summary Hospital Course Hospital Course: 74-year-old female, with a background history of aortic valve replacement on warfarin, chronic lower back pain with recent left-sided lumbar radiculopathy, T2 DM, HLD, HFrEF 45-50%, presents from [facility] with a supratherapeutic INR and new right-sided lumbar back pain with radiculopathy. PRESENTATION As per H&P: 74-year-old woman presenting to the ER with worsening right lower back pain radiating to the right hip and abdomen. Patient states that she has difficulty even ambulating at this point. Patient has been in short-term rehab for almost a month. While she was at rehab she was leaning on a bed rail that collapsed and she twisted her back. She reports since then this pain has just gotten worse. She was hospitalized in September of this year and treated for Enterococcus faecalis bacteremia and treated with IV daptomycin for 6 weeks. She denies any chest pain, shortness breath, nausea, vomiting, diarrhea. Initially she was a case management and observation for placement to short-term rehab however her INR has continued to be supratherapeutic therefore patient will be admitted for further management of this and intractable pain. PROBLEM LIST Acute on chronic back pain Acute right-sided lumbar back pain with radiculopathy Will likely need further short-term rehabilitation Recently suffered with left-sided lumbago, requiring STR. PLAN - acetaminophen 650 t.i.d. scheduled - ibuprofen 400 mg t.i.d. scheduled - cyclobenzaprine 5 mg t.i.d. scheduled - p.r.n. oxycodone 5 mg t.i.d. - lidocaine patch - capsaicin cream - conservative measures with ice and heat - early physical therapy - will likely require short-term rehabilitation Supratherapeutic INR Aortic valve on warfarin Patient reports that she has a mechanical AVR and needs to be on warfarin. INR already at goal No evidence of hepatic injury. No history of bleeding or clotting. PLAN - PT/INR recheck - resume warfarin Constipation ? Mild Stercoral colitis Patient significantly cosntipated. Had large BM 02/06 The patient on medications for relief of constipation. PLAN - continue metronidazole 500mg BID PO - continue cephalexin 500mg BID PO - Continue antibiotics for 5 days total Status at Discharge Cognitive/behavioral status at discharge: A&O to person place time and siutation Functional status at discharge: uses cane/walker Overall status at discharge: patient is progressing back to baseline Time Attestation Total time managing care of this patient today: 45 mintues. Discharge Coordination Time (in mins): 35 Quality: Safe Use of Opioids Does Pt have an Active Cancer Diagnosis on the Problem List?: No Quality: Stroke Does the patient have a stroke diagnosis?: No Physical Exam Exam: Exam: General: A&O x3, oriented to time place person and situation. Comfortable, not in pain currently. Cardiac: S1, S2 auscultated with no S3/4, no MRG. Well perfused. Respiratory: Normal breath sounds auscultated throughout all lung zones, without wheezing, rales. Normal rate. GI/ : No abdominal pain or discomfort, normal to palpation and percussion, no hepatosplenomegaly, normal BS throughout. MSK: reduced pain around the right and left back. No reports of sciatica currently. Up and mobilizing in the room. Neurological: Normal neurological examination on overview, without obvious CN II-XII abnormalities. Vital Signs: Vital Signs: Last Vital Signs Temp 97.1 F 02/09/25 08:00 Pulse 70 02/09/25 08:00 Resp 16 02/09/25 08:00 BP 160/67 H 02/09/25 08:05 Pulse Ox 94 02/09/25 08:00 O2 Del Method Room Air 02/09/25 08:00 BMI result Body Mass Index 28.7 DS: Data Data Completed and Pending Completed studies during hospitalization [Text1]: Procedures Insertion of Infusion Device into Superior Vena Cava, Percutaneous Approach (09/09/24) Ultrasonography of Superior Vena Cava, Guidance (09/09/24) Labs on day of discharge: Laboratory Results - last 24 hr 02/08/25 02/08/25 02/09/25 15:44 20:38 06:00 WBC 14.1 H RBC 5.05 Hgb 11.6 L Hct 37.0 MCV 73.3 L MCH 23.0 L MCHC 31.4 RDW 20.7 H Plt Count 468 H MPV 9.6 Immature Gran % (Auto) 0.9 H Neut % (Auto) 82.5 H Lymph % (Auto) 7.4 L Blaine % (Auto) 7.1 Eos % (Auto) 1.6 Baso % (Auto) 0.5 Lymph # (Auto) 1.0 L Blaine # (Auto) 1.0 Eos # (Auto) 0.2 Baso # (Auto) 0.1 Abs Immat Gran (auto) 0.12 H Absolute Neuts (auto) 11.6 H Absolute Nucleated RBC 0.000 Nucleated RBC % (auto) 0.0 Sodium 136 Potassium 4.3 Chloride 104 Carbon Dioxide 24 Anion Gap 12 BUN 12 Creatinine 0.43 L Estim Creat Clear Calc 108.6 Estimated GFR > 60 POC Glucose 138 H 202 H Random Glucose 118 H Calcium 9.6 02/09/25 02/09/25 07:23 11:20 WBC RBC Hgb Hct MCV MCH MCHC RDW Plt Count MPV Immature Gran % (Auto) Neut % (Auto) Lymph % (Auto) Blaine % (Auto) Eos % (Auto) Baso % (Auto) Lymph # (Auto) Blaine # (Auto) Eos # (Auto) Baso # (Auto) Abs Immat Gran (auto) Absolute Neuts (auto) Absolute Nucleated RBC Nucleated RBC % (auto) Sodium Potassium Chloride Carbon Dioxide Anion Gap BUN Creatinine Estim Creat Clear Calc Estimated GFR POC Glucose 123 H 167 H Random Glucose Calcium Discharge Plan Discharge Anticipated Discharge Date/Time: 02/09/25 14:03 Patient Disposition: Xfer Inpatient Rehab Fac Discharge Diagnosis: right sided lumbago intractible pain, with supratherapeutic INR, stercoral colitis Referrals: Josue Crain PA [Primary Care Provider, Internal Medicine] - 1 Week Discharge Medications: New sennosides [Senna Lax] 8.6 mg Tablet 17.2 mg PO DAILY 7 Days Qty: 14 0RF acetaminophen 325 mg Tablet 650 mg PO Q8H 7 Days Qty: 42 0RF polyethylene glycol 3350 17 gram Powder In Packet 17 g PO DAILY 7 Days Qty: 30 0RF metronidazole 500 mg Tablet 500 mg PO Q12H 3 Days Qty: 6 0RF cephalexin 500 mg Capsule 500 mg PO BID 3 Days Qty: 6 0RF ibuprofen 400 mg Tablet 400 mg PO Q8H 7 Days Qty: 21 0RF oxycodone 5 mg Tablet 5 mg PO Q4H PRN (Reason: Pain, Severe (Pain Scale 7-10)) 5 Days Qty: 30 0RF Rx Instructions: Partial Fill upon patient request. cyclobenzaprine 5 mg Tablet 5 mg PO TID 7 Days Qty: 21 0RF lidocaine [Lidocaine Pain Relief] 4 % Adhesive Patch,Medicated 2 patch transdermal DAILY 7 Days Qty: 14 0RF Protocol: Apply to: Apply to: back capsaicin 0.025 % Cream 1 appl topical TID PRN (Reason: Pain, Moderate(Pain Scale 4-6)) 7 Days Qty: 1 0RF Protocol: Apply to: Apply to: back omeprazole 40 mg capsule,delayed release(DR/EC) 40 mg PO DAILY Qty: 14 0RF Continued albuterol sulfate 90 mcg/actuation HFA aerosol inhaler 2 inh INHALATION Q4H PRN (Reason: Wheezing) loratadine 10 mg Tablet 10 mg PO DAILY PRN (Reason: allergies ) omega 6-cwb-dgz-fish oil [Fish Oil] 1,000 mg (120 mg-180 mg) Capsule 1 cap PO DAILY warfarin [Jantoven] 2.5 mg tablet 1.25 mg PO DAILY@1800 Vitamin B-12 50 mcg Tablet 50 mcg PO DAILY (DME) FreeStyle Lite Strips Strip Qty: 100 0RF Rx Instructions: Test four times a day or as directed. (DME) pen needle, diabetic 32 gauge x 1/4 needle Qty: 100 0RF Rx Instructions: Use four times a day or as directed. (DME) lancets [FreeStyle Lancets] 28 gauge misc Qty: 100 0RF Rx Instructions: Test four times a day or as directed. (DME) blood-glucose meter [FreeStyle Lite Meter] Kit Qty: 1 0RF Rx Instructions: As Directed, 4 times a day (DME) lancets [FreeStyle Lancets] 28 gauge misc Qty: 100 0RF Rx Instructions: Test four times a day or as directed. insulin glargine [Basaglar KwikPen U-100 Insulin] 100 unit/mL (3 mL) insulin pen 14 - 16 unit subcut DAILY fluticasone furoate-vilanterol [Breo Ellipta] 100-25 mcg/dose blister with device 1 inh INHALATION DAILY PRN (Reason: Shortness Of Breath Or Wheezing) sacubitril-valsartan 24-26 mg tablet 1 tab PO BID simvastatin 20 mg tablet 20 mg PO BEDTIME fenofibrate nanocrystallized 145 mg tablet 145 mg PO BEDTIME furosemide 20 mg tablet 20 mg PO BID PRN (Reason: swelling) Diet: Advance to usual diet Activity on Discharge: As tolerated Stand Alone Forms: Patient Portal Discharge page Print Language: Portuguese Care Plan Goals: As above Health Concerns: As above Plan of Treatment: Continue warfarin Goal INR 3.0-3.5 Physiotherapy for management of multifactorial complex pain LBP with lumbago Assessment: Haemodynamcially stable for DC
[2025-02-09 15:16] VITALS: BP 138/60; PULSE 71; RESP 18; TEMP 36.2; O2SAT 96
[2025-02-09 16:05] LABS: Glucose, Whole Blood 102 mg/dL (60-115)
== END 2025-02-09 17:17 | DRG 552 ==
LOC: HO.ED 02-04 16:12 → HO.EDOVER 02-05 11:28 → HO.S3 02-05 14:12
PROVIDERS: Physician Assistant; Physician Assistant Medical; Admitting Provider Nurse Practitioner Acute Care; Emergency Provider Emergency Medicine; PCP Physician Assistant Medical; Visit Provider Hospitalist
DX: M54.41 Lumbago with sciatica, right side (principal); I50.22 Chronic systolic (congestive) heart failure; R79.1 Abnormal coagulation profile; E11.9 Type 2 diabetes mellitus without complications; K59.00 Constipation, unspecified; K52.89 Other specified noninfective gastroenteritis and colitis; E78.5 Hyperlipidemia, unspecified; Z95.2 Presence of prosthetic heart valve; I49.5 Sick sinus syndrome; Z95.0 Presence of cardiac pacemaker; Z79.4 Long term (current) use of insulin; Z79.01 Long term (current) use of anticoagulants; Z79.899 Other long term (current) drug therapy
CPT/HCPCS: 36415; 71045; 72132; 73701; 80048; 80053; 80076; 81001; 82947; 83735; 85025; 85027; 85610; 87637; 97162; 99285; J1885; J2470; Q9967

== ENCOUNTER → 2025-02-03 16:15 | Outpatient (BNV) | payer MEDICARE, OTHER, SELFPAY | PROVIDERS: Emergency Provider Emergency Medicine; PCP Physician Assistant Medical; Visit Provider Radiology Diagnostic Radiology | DX: M16.11 Unilateral primary osteoarthritis, right hip (principal); I51.7 Cardiomegaly; J81.0 Acute pulmonary edema | CPT/HCPCS: 71045; 73701 ==

== ENCOUNTER → 2025-02-05 11:20 | Outpatient (BNV) | payer MEDICARE, OTHER, SELFPAY | PROVIDERS: Admitting Provider Nurse Practitioner Acute Care; Emergency Provider Emergency Medicine; PCP Physician Assistant Medical; Visit Provider Hospitalist | DX: M54.41 Lumbago with sciatica, right side (principal); R79.1 Abnormal coagulation profile | CPT/HCPCS: 99222 ==